=== PATIENT | female | born 1965 | race Caucasian/White ===

== ENCOUNTER 2017-08-06 15:22 | Emergency (ER) | payer MEDICARE, MEDICAID ==
[~2017-08-06] VITALS: Ht 160 cm; Wt 59.0 kg
[~2017-08-06 15:22] MED LIST: ASPI-892 PO; Aspirin PO; CLPD75T PO; CYCL5TAB PO; FEXO-14 PO; HYDR-2890 PO; HYDR-3062 PO; HYDR1TAB PO; IBP800T PO; INSASP10V SQ; INSU100I5 SQ; LEVE1U SQ; LEVO125T6 PO; LEVO88TA26 PO; LEVOTHYROXINE; Levothyroxine Sodium PO; MELO-195 PO; MELO-198 PO; METO25TA2 PO; SIMV10TA3 PO; Simvastatin PO; TRM50T PO; alavert
[2017-08-06] MEDS ORDERED: CHARCOAL/AQUEOUS 50 GM/240 ML BTL PO ONE (15:30)
--- NOTE | 2017-08-06 15:39 | ED Psychosocial ---
General Stated Complaint: SUICIDAL ACTIONS, TOOK A LOT OF TYLENOL PM Source: patient Exam Limitations: no limitations History of Present Illness Date Seen by Provider: Aug 06, 2017 Time Seen by Provider: 15:35 Initial Comments to ER with reports of being suicidal. She sent her daughter a text message at 2: 55 PM stating that she was "done" and wished her daughter goodbye. She stated that she was tired of dealing with inability to pay bills and finances and tired of "the struggle". She took one single Percocet and a handful of Tylenol p.m. Medication ingestion was withinthe past hour. She is open to receiving help. She does have a history of depression. Denies any alcohol use. She is a type I diabetic but has not been taking her insulin or checking her blood sugars. She denies taking any excessive insulin Timing/Duration: just prior to arrival Severity: moderate Allergies and Home Medications Allergies Coded Allergies: codeine (Unverified Allergy, Mild, PT TAKES TRAMADOL AT HOME, 01/18/14) sulfamethoxazole (Unverified Allergy, Unknown, 01/17/14) trimethoprim (Unverified Allergy, Unknown, 01/17/14) Home Medications Aspirin 81 Mg Tabec, 81 MG PO DAILY, (Reported) Clopidogrel Bisulfate 75 Mg Tab, 75 MG PO DAILY, (Reported) Cyclobenzaprine Hcl 5 Mg Tablet, 5 MG PO TID PRN for MUSCLE SPASMS, (Reported) Fexofenadine Hcl 60 Mg Tablet, 60 MG PO DAILY PRN for ALLERGIES, (Reported) Hydrocodone Bit/Acetaminophen 1 Each Tablet, 1 TAB PO Q8H PRN for PAIN, ( Reported) Insulin Aspart 10 Unit/0.1 Ml Vial, 5-15 UNITS SQ AC, (Reported) PATIENT ADJUSTEDS DOSAGE WITH BLOOD SUGAR AND CARB INTAKE IF BLOOD SUGAR < 150 - 5 UNITS 150-199 - 7 UNITS 200-225 - 10 UNITS 226-249 - 12 UNITS > 250 - 15 UNITS Insulin Determir 100 Unit/1 Ml Insuln.pen, 30 UNIT SQ DAILY, (Reported) Insulin Determir 100 U/Ml Insuln.pen, 15 UNITS SQ HS, (Reported) Levothyroxine Sodium 88 Mcg Tablet, 88 MCG PO DAILY, (Reported) Metoprolol Tartrate 25 Mg Tablet, 12.5 MG PO BID, (Reported) TAKES 1/2 (25MG) TABLET TWICE DAILY Simvastatin 10 Mg Tablet, 10 MG PO HS, (Reported) Patient Home Medication List Home Medication List Reviewed: Yes Constitutional: see HPI EENTM: see HPI Respiratory: no symptoms reported Cardiovascular: no symptoms reported Genitourinary: no symptoms reported Musculoskeletal: see HPI Skin: no symptoms reported Psychiatric/Neurological: No Symptoms Reported Past Bqlbnsz-Bzndjn-Umxnnd Hx Patient Social History Recent Foreign Travel: No Contact w/Someone Who Travel: No Immunizations Up To Date Tetanus Booster (TDap): Unknown PED Vaccines UTD: Yes Date of Pneumonia Vaccine: Jan 21, 2011 Date of Influenza Vaccine: Nov 18, 2012 Past Medical History Section, Lumpectomy, Tubal Ligation Reproductive Disorders: 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 Sexually Transmitted Disease: No HIV/AIDS: No Rheumatoid Arthritis Diabetes, Insulin dep Adverse Reaction/Blood Tranf: No Family Medical History Arthritis 19 FATHER G8 SISTER Cardiovascular disease 19 FATHER 19 MOTHER Deafness or hearing loss 19 FATHER Diabetes mellitus G8 BROTHER Fibrocystic disease of breast G8 SISTER Infertility G8 SISTER Kidney disease 19 FATHER Myocardial infarction 19 FATHER 19 MOTHER Thyroid disease G8 SISTER Visual disorder 19 FATHER G8 BROTHER No Family History of: AIDS Abdominal aortic aneurysm [place]'s disease Alcoholism Alzheimer's disease Aphasia Asthma Cancer of mouth Cataracts Colon cancer Completed stroke Congenital disease Congenital heart disease Coronary thrombosis Cystic fibrosis Dementia Drug abuse Dysphasia Gastroenteritis Glaucoma Headache disorder Hypercholesterolemia Hypertension Neoplasm Not obtainable due to adoption Osteoporosis Parkinson's disease Prostate cancer Psychosocial problem Respiratory disorder Seizure disorder Severe allergy Tuberculosis Physical Exam Vital Signs Vital Signs - First Documented 08/06/17 08/06/17 15:25 20:41 Temp 97.1 Pulse 79 Resp 18 B/P (MAP) 162/96 (118) Pulse Ox 98 O2 Delivery Room Air Capillary Refill : General Appearance: WD/WN, no apparent distress, other (tearful cooperative) HEENT: PERRL/EOMI, normal ENT inspection Neck: non-tender, full range of motion Respiratory: no respiratory distress, no accessory muscle use Gastrointestinal: normal bowel sounds, non tender, soft Neurologic/Psychiatric: alert, normal mood/affect, oriented x 3 Appearance/Memory: appropriate insight, disheveled Behavior/Eye Contact: cooperative, good eye contact Thoughts/Hallucinations: normal thought pattern, no apparent hallucination Skin: normal color, warm/dry Comments heart rate is 80, blood pressure 150/100. I discussed with poison control at 1533. They state that the Benadryl component of this can cause tachycardia, agitation, hypertension and possibly QRS widening. QRSduration exceeds 100 ms give 2 A of bicarbonate and repeat EKG. They would recommend EKG every 2 hours 3. IV fluids and benzodiazepines are the mainstay of treatment. Progress/Results/Core Measures Results/Orders Lab Results Laboratory Tests Test 08/06/17 15:29 08/06/17 16:42 08/06/17 17:15 08/06/17 18:00 Range/Units White Blood Count 7.8 4.3-11.0 10^3/uL Red Blood Count 4.41 4.35-5.85 10^6/uL Hemoglobin 14.0 11.5-16.0 G/DL Hematocrit 41 35-52 % Mean Corpuscular Volume 92 80-99 FL Mean Corpuscular Hemoglobin 32 25-34 PG Mean Corpuscular Hemoglobin Concent 34 32-36 G/DL Red Cell Distribution Width 13.6 10.0-14.5 % Platelet Count 294 130-400 10^3/uL Mean Platelet Volume 9.4 7.4-10.4 FL Neutrophils (%) (Auto) 61 42-75 % Lymphocytes (%) (Auto) 30 12-44 % Monocytes (%) (Auto) 5 0-12 % Eosinophils (%) (Auto) 4 0-10 % Basophils (%) (Auto) 1 0-10 % Neutrophils # (Auto) 4.8 1.8-7.8 X 10^3 Lymphocytes # (Auto) 2.3 1.0-4.0 X 10^3 Monocytes # (Auto) 0.4 0.0-1.0 X 10^3 Eosinophils # (Auto) 0.3 0.0-0.3 10^3/uL Basophils # (Auto) 0.0 0.0-0.1 10^3/uL Prothrombin Time 12.2 12.2-14.7 SEC INR Comment 0.9 0.8-1.4 Activated Partial Thromboplast Time 27 24-35 SEC Sodium Level 138 137 135-145 MMOL/L Potassium Level 4.9 4.0 3.6-5.0 MMOL/L Chloride Level 107 108 H 98-107 MMOL/L Carbon Dioxide Level 24 18 L 21-32 MMOL/L Anion Gap 7 11 5-14 MMOL/L Blood Urea Nitrogen 20 H 18 7-18 MG/DL Creatinine 0.81 0.91 0.60-1.30 MG/DL Estimat Glomerular Filtration Rate > 60 > 60 BUN/Creatinine Ratio 25 20 Glucose Level 286 H 371 H 70-105 MG/DL Calcium Level 9.5 8.2 L 8.5-10.1 MG/DL Total Bilirubin 0.4 0.2 0.1-1.0 MG/DL Aspartate Amino Transf (AST/SGOT) 66 H 50 H 5-34 U/L Alanine Aminotransferase (ALT/SGPT) 94 H 78 H 0-55 U/L Alkaline Phosphatase 89 75 40-136 U/L Total Protein 7.3 5.9 L 6.4-8.2 GM/DL Albumin 4.2 3.5 3.2-4.5 GM/DL Salicylates Level < 5.0 L 5.0-20.0 MG/DL Acetaminophen Level 96 *H 34 H 10-30 UG/ML Serum Alcohol < 10 <10 MG/DL Glucometer 341 H 70-110 MG/DL Urine Color YELLOW Urine Clarity CLEAR Urine pH 5 5-9 Urine Specific [place] 1.025 H 1.016-1.022 Urine Protein 1+ H NEGATIVE Urine Glucose (UA) 4+ H NEGATIVE Urine Ketones NEGATIVE NEGATIVE Urine Nitrite NEGATIVE NEGATIVE Urine Bilirubin NEGATIVE NEGATIVE Urine Urobilinogen NORMAL NORMAL MG/DL Urine Leukocyte Esterase NEGATIVE NEGATIVE Urine RBC (Auto) NEGATIVE NEGATIVE Urine RBC NONE /HPF Urine WBC RARE /HPF Urine Squamous Epithelial Cells 2-5 /HPF Urine Crystals NONE /LPF Urine Bacteria NEGATIVE /HPF Urine Casts NONE /LPF Urine Mucus NEGATIVE /LPF Urine Culture Indicated NO Urine Opiates Screen NEGATIVE NEGATIVE Urine Oxycodone Screen POSITIVE H NEGATIVE Urine Methadone Screen NEGATIVE NEGATIVE Urine Propoxyphene Screen NEGATIVE NEGATIVE Urine Barbiturates Screen NEGATIVE NEGATIVE Ur Tricyclic Antidepressants Screen NEGATIVE NEGATIVE Urine Phencyclidine Screen NEGATIVE NEGATIVE Urine Amphetamines Screen NEGATIVE NEGATIVE Urine Methamphetamines Screen NEGATIVE NEGATIVE Urine Benzodiazepines Screen NEGATIVE NEGATIVE Urine Cocaine Screen NEGATIVE NEGATIVE Urine Cannabinoids Screen NEGATIVE NEGATIVE Test 08/06/17 18:03 08/06/17 19:50 08/06/17 20:01 Range/Units Glucometer 365 H 111 H 90 70-110 MG/DL My Orders Orders - SAVAGE GERARDO TILE LAYER SUPERVISOR Cbc With Automated Diff (08/06/17 15:30) Comprehensive Metabolic Panel (08/06/17 15:30) Protime With Inr (08/06/17 15:30) Partial Thromboplastin Time (08/06/17 15:30) Ua Culture If Indicated (08/06/17 15:30) Drug Screen Stat (Urine) (08/06/17 15:30) Iv Heplock-Insert (Order) (08/06/17 15:30) Salicylate (08/06/17 15:30) Acetaminophen (08/06/17 15:30) Charcoal Activated Aqueous (Actidose Aqu (08/06/17 15:30) Alcohol (08/06/17 16:06) Insulin (Regular) Human (Humulin R (Per (08/06/17 16:45) Acetaminophen (08/06/17 17:54) Ekg Tracing (08/06/17 18:01) Comprehensive Metabolic Panel (08/06/17 18:01) Insulin (Regular) Human (Humulin R (Per (08/06/17 19:00) Ondansetron Injection (Zofran Injectio (08/06/17 20:00) Ns Iv 1000 Ml (Sodium Chloride 0.9%) (08/06/17 20:00) D50w (Emergency) Syringe (Dextrose 50% 5 (08/06/17 20:00) Medications Given in ED Current Medications Medications Dose Ordered Sig/Iris Route Start Time Stop Time Status Last Admin Dose Admin Charcoal 50 gm ONCE ONCE PO 08/06/17 15:30 08/06/17 15:34 DC 08/06/17 15:51 50 GM Dextrose 25 ml ONCE ONCE IV 08/06/17 20:00 08/06/17 20:01 DC 08/06/17 20:01 25 ML Insulin Human Regular 5 unit ONCE ONCE IV 08/06/17 16:45 08/06/17 16:46 DC 08/06/17 17:26 5 UNIT Insulin Human Regular 6 unit ONCE ONCE IV 08/06/17 19:00 08/06/17 19:01 DC 08/06/17 19:04 6 UNIT Ondansetron HCl 4 mg ONCE ONCE IVP 08/06/17 20:00 08/06/17 20:01 DC 08/06/17 20:01 4 MG Vital Signs/I&O 08/06/17 08/06/17 15:25 20:41 Temp 97.1 97.2 Pulse 79 66 Resp 18 14 B/P (MAP) 162/96 (118) 116/89 Pulse Ox 98 97 O2 Delivery Room Air Departure Communication (Admissions) I discussed with poison control.the QT C is 465 ms, QRS is 92 ms. She is normal sinus rhythm without ectopy. Blood pressure is 140/90, heart rate 73. On the repeat chemistry and acetaminophen level, both the AST ALT and acetaminophen level have dropped. She is cleared to be admitted to psychiatric facility by poison control center. they discussed with the mail manager who advises no additional labs are needed at this point, she can be transferred to psych facility.she has remained cooperative pleasant and agreeable to receiving help. 1908- I spoke with [facility] in [facility] who does have an inpatient female psychiatric bed. They agreed to accept the patient. I spoke with Dr. Prince who agrees. The psychiatric unit will call back with a bed number. We'll transport via EMS or secure psychiatric transport. I have written an affidavit that there is no one here to notarize this at this time of day. 2044- we have contacted Galina Abarca who does securepsych transport. 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 She briefly became lightheaded weak and nauseous about an hour ago with a blood pressure of 80 systolic. Her blood sugar was dropping rapidly down to 111. She was given fluids and Zofran and after about 10-15 minutes began feeling much better. Her blood sugar was then checked and was at 90s and she was given 25 mL of 50% dextrose. At this time, she is feeling back to normal, alert and ambulatory. Nausea is gone. No lightheadedness diaphoresis or weakness. Her blood sugar at this time is 68. However, she just finished eating a turkey and cheese sandwich, grapes peanut butter and crackers. She will be discharged with psych transport with some additional peanut butter and crackers. Impression Primary Impression: Suicide attempt Additional Impression: nontoxic acetaminophen overdose Disposition: 65 XFER TO PSYCH HOSP/UNIT Condition: Stable Departure-Patient Inst. Referrals: [facility] (PCP) Primary Care Physician RICKY MENA APRN (Family) Primary Care Physician SAVAGE GERARDO APRN Aug 06, 2017 15:39
[2017-08-06 15:42] LABS: BASOPHILS % (AUTO) 1 % (0-10); EOSINOPHILS # (AUTO) 0.3 10^3/uL (0.0-0.3); EOSINOPHILS % (AUTO) 4 % (0-10); HEMATOCRIT 41 % (35-52); LYMPHOCYTES # (AUTO) 2.3 X 10^3 (1.0-4.0); LYMPHOCYTES % (AUTO) 30 % (12-44); MEAN CORPUSCULAR HEMOGLOBIN 32 PG (25-34); MEAN CORPUSCULAR HGB CONC 34 G/DL (32-36); MEAN CORPUSCULAR VOLUME 92 FL (80-99); MEAN PLATELET VOLUME 9.4 FL (7.4-10.4); MONOCYTES # (AUTO) 0.4 X 10^3 (0.0-1.0); MONOCYTES % (AUTO) 5 % (0-12); NEUTROPHILS # (AUTO) 4.8 X 10^3 (1.8-7.8); NEUTROPHILS % (AUTO) 61 % (42-75); PLATELET COUNT 294 10^3/uL (130-400); RED BLOOD COUNT 4.41 10^6/uL (4.35-5.85); RED CELL DISTRIBUTION WIDTH 13.6 % (10.0-14.5); WHITE BLOOD COUNT 7.8 10^3/uL (4.3-11.0)
[2017-08-06 15:48] LABS: INR 0.9 (0.8-1.4); PROTHROMBIN TIME PATIENT 12.2 SEC (12.2-14.7)
[2017-08-06 15:58] LABS: ALANINE AMINOTRANSFERASE 94 U/L (0-55); ALBUMIN 4.2 GM/DL (3.2-4.5); ALKALINE PHOSPHATASE 89 U/L (40-136); BILIRUBIN,TOTAL 0.4 MG/DL (0.1-1.0); BUN/CREATININE RATIO 25; CALCIUM 9.5 MG/DL (8.5-10.1); CARBON DIOXIDE 24 MMOL/L (21-32); CHLORIDE 107 MMOL/L (98-107); CREATININE SERUM 0.81 MG/DL (0.60-1.30); GFR ESTIMATED > 60; GLUCOSE 286 MG/DL (70-105); POTASSIUM 4.9 MMOL/L (3.6-5.0); SALICYLATE < 5.0 MG/DL (5.0-20.0); SODIUM 138 MMOL/L (135-145); TOTAL PROTEIN 7.3 GM/DL (6.4-8.2)
[2017-08-06 16:01] LABS: ACETAMINOPHEN 96 UG/ML (10-30)
[2017-08-06] MEDS ORDERED: inSUlin (REGULAR) HUMAN 1 UNIT/0.01 ML (CHARGE PER UNIT) IV ONE ×2 (16:45→19:00)
[2017-08-06 17:22] LABS: BILIRUBIN,URINE NEGATIVE (NEGATIVE); CLARITY,URINE CLEAR; COLOR,URINE YELLOW; GLUCOSE, URINE (UA) 4+ (NEGATIVE); KETONES,URINE NEGATIVE (NEGATIVE); LEUKOCYTE ESTERASE ,URINE NEGATIVE (NEGATIVE); NITRITE,URINE NEGATIVE (NEGATIVE); PH,URINE 5 (5-9); PROTEIN,URINE 1+ (NEGATIVE); UROBILINOGEN,URINE NORMAL (NORMAL)
[2017-08-06 17:35] LABS: BACTERIA,URINE NEGATIVE /HPF; WBC,URINE RARE /HPF
[2017-08-06 17:41] LABS: AMPHETAMINE SCREEN, URINE NEGATIVE (NEGATIVE); BARBITURATE SCREEN URINE NEGATIVE (NEGATIVE); BENZODIAZEPINES SCREEN URINE NEGATIVE (NEGATIVE); CANNABINOID SCREEN, URINE NEGATIVE (NEGATIVE); COCAINE SCREEN URINE NEGATIVE (NEGATIVE); METHADONE STAT NEGATIVE (NEGATIVE); METHAMPHETAMINE SCREEN URINE S NEGATIVE (NEGATIVE); OPIATE SCREEN URINE NEGATIVE (NEGATIVE); OXYCODONE STAT POSITIVE (NEGATIVE); PROPOXYPHENE STAT NEGATIVE (NEGATIVE); TRICYCLIC ANTIDEPRESSANTS SCRE NEGATIVE (NEGATIVE)
[2017-08-06 18:31] LABS: ACETAMINOPHEN 34 UG/ML (10-30); ALANINE AMINOTRANSFERASE 78 U/L (0-55); ALBUMIN 3.5 GM/DL (3.2-4.5); ALKALINE PHOSPHATASE 75 U/L (40-136); BILIRUBIN,TOTAL 0.2 MG/DL (0.1-1.0); BUN/CREATININE RATIO 20; CALCIUM 8.2 MG/DL (8.5-10.1); CARBON DIOXIDE 18 MMOL/L (21-32); CHLORIDE 108 MMOL/L (98-107); CREATININE SERUM 0.91 MG/DL (0.60-1.30); GFR ESTIMATED > 60; GLUCOSE 371 MG/DL (70-105); SODIUM 137 MMOL/L (135-145); TOTAL PROTEIN 5.9 GM/DL (6.4-8.2)
[2017-08-06] MEDS ORDERED: NS IV 1000 ML 1,000 ML IV SCH (20:00)
[2017-08-06] MEDS ORDERED: DEXTROSE 50% 50 ML (IMS) SYR IV ONE (20:00)
[2017-08-06] MEDS ORDERED: ONDANSETRON 4 MG/2 ML (SDV) Z0FRAN IVP ONE (20:00)
[2017-08-06 20:41] VITALS: BP 116/89
== END 2017-08-06 20:41 ==
LOC: EDUNIT# 15:22 → ER 15:24
DX: T39.1X2A Poisoning by 4-Aminophenol derivatives, intentional self-harm, initial encounter (principal); M10.9 Gout, unspecified; E10.9 Type 1 diabetes mellitus without complications; Z98.51 Tubal ligation status; Z87.59 Personal history of other complications of pregnancy, childbirth and the puerperium; Z79.4 Long term (current) use of insulin; Z88.2 Allergy status to sulfonamides; Z88.1 Allergy status to other antibiotic agents; Z88.5 Allergy status to narcotic agent
CPT/HCPCS: 36415; 80053; 80306; 80320; 80329; 81000; 82962; 85025; 85610; 85730; 93005; 96361; 96374; 96375; 96376

== ENCOUNTER 2017-08-29 14:40 | Observation (INO) | payer MEDICARE, MEDICAID ==
[~2017-08-29] VITALS: Ht 160 cm; Wt 59.0 kg
[2017-08-29] VITALS (8 sets, daily range): BP systolic 117–152; BP diastolic 72–83
--- OUTSIDE RECORDS SUMMARY | 2017-08-29 14:45 | XMS REPORT ---
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 Active Problem Depression, prolonged F32.9 Active Problem 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 Assessment Hypothyroid E03.9 Active Assessment Hyperlipemia E78.5 Active Problem DM (diabetes mellitus) type I uncontrolled with eye manifestation E10.39 Active Problem Insomnia G47.00 Active Problem CAD (coronary artery disease) I25.10 Active Problem Hyperlipidemia, acquired E78.5 Active Problem Hypothyroidism in adult E03.9 Active Problem Insulin long-term use Z79.4 Active Problem Rheumatoid arthritis involving both feet M06.071 Active Medications Medication Code System Code Instructions Start Date End Date Status Dosage Levothyroxine Sodium [facility] [address]-01 125 MCG Orally Once a day Dec 01, 2014 1 tablet Simvastatin FOR[facility] NAMED [facility] [address]-45 20 MG Orally Once a day Dec 01, 2014 1 tablet in the evening Results No Known Results Summary Purpose eClinicalWorks Submission
--- OUTSIDE RECORDS SUMMARY | 2017-08-29 14:46 | XMS REPORT ---
Author Author CHRISTINA PENNY Organization [facility] Address [address] [place] [address] Care Team Providers Care Manager Personal Name Role Phone PENNY, CHRISTINA Unavailable PROBLEMS Type Condition ICD9-CM Code [id number] Code Onset Dates Condition Status SNOMED Code Problem CAD (coronary artery disease) I25.10 Active 43261558 Problem Hypothyroidism in adult E03.9 Active 97695403 Problem Depression, prolonged F32.9 Active 24140469 Problem Type 1 diabetes mellitus with other circulatory complication E10.59 Active 02453610 Problem Pure hypercholesterolemia E78.00 Active 504357201 Problem Insomnia G47.00 Active 162659531 Problem 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 Active 698190440 Problem Rheumatoid arthritis involving multiple sites with positive rheumatoid factor M05.79 Active 45267454 Problem 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 Z79.4 Active 036759744 Problem Rheumatoid arthritis involving both feet M06.071 Active 832539343 Problem Hyperlipidemia, acquired E78.5 Active 7192640 Problem Environmental allergies Z91.09 Active 147591333 Problem 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 197326549 ALLERGIES No Information SOCIAL HISTORY Never Assessed PLAN OF CARE VITAL SIGNS MEDICATIONS Medication Instructions Dosage Frequency Start Date End Date Duration Status Percocet 7.5-325 MG Orally every 6 hrs 1 tablet as needed 6h June, Active RESULTS No Results PROCEDURES No Known procedures IMMUNIZATIONS No Known Immunizations MEDICAL (GENERAL) HISTORY Type Description Date Medical History hyperlipidemia Medical History thyroid disorder Medical History diabetes mellitus type 1 dx 1986 Medical History rheumatologic disorder arthritis Medical History RA factor 247, CCp 85.3 Medical History arthropathy artrhitis reumatoid Medical History orthopeadic disorder carpal tunnel -left wrist Medical History neurologic disorder diabetec neuropathy Medical History myocardial infarction-- stents placed x2-- Dr Dawson (Dec 2013 ) Surgical History breast lumpectomy was performed 1999, 2006 dr. House Surgical History tubal ligation 2000 ([facility]) Surgical History section 11/08/1995 Surgical History neuroplasty with transposition of median nerve at carpal tunnel 1997 - right , 2000- left Surgical History Stents placed x2-- Dr Dawson Hospitalization History heart attack 01/17/2014 Hospitalization History hypoglycemia 02/2015 Hospitalization History dehydration 08/2016
--- OUTSIDE RECORDS SUMMARY | 2017-08-29 14:46 | XMS REPORT ---
Author Author CHRISTINA PENNY Organization [facility] Address [address] [place] [address] Care Team Providers Care Life Care Planner Name Role Phone PENNYASHOKCHRISTINA Unavailable PROBLEMS Type Condition ICD9-CM Code [id number] Code Onset Dates Condition Status SNOMED Code Problem CAD (coronary artery disease) I25.10 Active 00283251 Problem Hypothyroidism in adult E03.9 Active 87000965 Problem Depression, prolonged F32.9 Active 06173995 Problem Type 1 diabetes mellitus with other circulatory complication E10.59 Active 69103350 Problem Pure hypercholesterolemia E78.00 Active 447703643 Problem Insomnia G47.00 Active 789250436 Problem 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 Active 927552675 Problem Rheumatoid arthritis involving multiple sites with positive rheumatoid factor M05.79 Active 39413850 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
--- OUTSIDE RECORDS SUMMARY | 2017-08-29 14:46 | XMS REPORT ---
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 Active Problem Hypercholesterolemia E78.0 Active Problem Type 2 diabetes mellitus with hypoglycemia without coma E11.649 Active Problem CAD (coronary artery disease) I25.10 Active Problem DM (diabetes mellitus) type I uncontrolled with eye manifestation E10.39 Active Problem Environmental allergies Z91.09 Active Problem Rib pain R07.81 Active Problem 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 Active Problem 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 Problem Depression, prolonged F32.9 Active Problem Hypothyroidism in adult E03.9 Active Medications Medication Code System Code Instructions Start Date End Date Status Dosage Oxycodone-Acetaminophen [facility] [address]-05 7.5-325 MG Orally 3 times a day PRN Apr 14, 2015 1 tablet as needed Results No Known Results Summary Purpose eClinicalWorks Submission
--- OUTSIDE RECORDS SUMMARY | 2017-08-29 14:46 | XMS REPORT ---
Author Author CHRISTINA Mcqueen Organization [facility] Address [address] [place] [address] Care Team Providers Care Seniour Insight Manager Name Role Phone CHRISTINA Mcqueen Unavailable PROBLEMS Type Condition ICD9-CM Code KSH75-LV Code Onset Dates Condition Status SNOMED Code Problem 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 Active 213162964 Problem Hypothyroidism in adult E03.9 Active 87563276 Problem CAD (coronary artery disease) I25.10 Active 54795685 Problem Type 1 diabetes mellitus with other circulatory complication E10.59 Active 14727633 Problem Insomnia G47.00 Active 952445665 Problem Recurrent major depressive disorder, in full remission F33.42 Active 078679241 Problem Rheumatoid arthritis involving multiple sites with positive rheumatoid factor M05.79 Active 21894830 Problem 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 525899035 Problem Hyperlipidemia, acquired E78.5 Active 7590932 Problem 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 306661756 Problem Environmental allergies Z91.09 Active 578705899 ALLERGIES Substance Reaction Event Type Date Status Codeine Phosphate itching Drug Allergy Aug, Active Bactrim Unknown Drug Allergy Aug, Active ENCOUNTERS Encounter Location Date Diagnosis [facility] [id number], [place] [address] Apr, Hypothyroidism in adult E03.9 [facility] [address] [facility] [id number] [address] Apr, Type 1 diabetes mellitus with other circulatory complication E10.59 ; 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 ; Rheumatoid arthritis involving multiple sites with positive rheumatoid factor M05.79 ; Hypothyroidism in adult E03.9 ; Hyperlipidemia, acquired E78.5 ; Recurrent major depressive disorder, in full remission F33.42 ; senior care current use of insulin Z79.4 ; Environmental allergies Z91.09 and CAD (coronary artery disease ) I25.10 [facility] [address], [place] [address] Apr, Rheumatoid arthritis involving multiple sites with positive rheumatoid factor M05.79 [facility] [address], [place] [address] Mar, Rheumatoid arthritis involving multiple sites with positive rheumatoid factor M05.79 [facility] [id number] [place] [address] 41668- 6570 Feb, [facility] [id number] [place] [address] 34418- 8344 Feb, CAD (coronary artery disease) I25.10 ; 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 and Hypothyroidism in adult E03.9 [facility] [id number] [place] [address] 44382- 9596 Feb, Rheumatoid arthritis involving multiple sites with positive rheumatoid factor M05.79 [facility] [id number] [place] [address] 35267- 1178 Jan, Hypothyroidism in adult E03.9 [facility] [id number] [place] [address] 46087- 4073 Jan, Rheumatoid arthritis involving multiple sites with positive rheumatoid factor M05.79 and CAD (coronary artery disease) I25.10 [facility] [id number] [place] [address] 27913- 8169 Jan, 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 ; 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 ; Hyperlipidemia, acquired E78.5 ; Hypothyroidism in adult E03.9 and Fever blister B00.1 [facility] [id number] [place] [address] 32303- 4651 Dec, Rheumatoid arthritis involving multiple sites with positive rheumatoid factor M05.79 [facility] [address] [place] [address] 29925- 9544 Nov, Rheumatoid arthritis involving multiple sites with positive rheumatoid factor M05.79 [facility] [id number], [place] [address] 3162 14 Oct, 2016 Rheumatoid arthritis involving multiple sites with positive rheumatoid factor M05.79 [facility] [address] [address] 06 Oct, 2016 Rheumatoid arthritis involving multiple sites with positive rheumatoid factor M05.79 [facility] [address] [address] 1445 Sep, Rheumatoid arthritis involving multiple sites with positive rheumatoid factor M05.79 [facility] [address] [address] Aug, [facility] [address] [place] [address] 11133- 0756 Aug, 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 ; 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 ; CAD (coronary artery disease) I25.10 ; Rheumatoid arthritis involving both feet M06.071 ; Insomnia G47.00 ; Hypothyroidism in adult E03.9 ; Hypercholesterolemia E78.0 and Rheumatoid arthritis involving multiple sites with positive rheumatoid factor M05.79 [facility] [address], [place] [address] 1741 Jul, [facility] [address], [place] [address] 8[address] June, [facility] [address], [place] [address] 5831 June, Depression, prolonged F32.9 [facility] [id number], [place] [address] 0[address] June, [facility] [address], [place] [address] 9518 June, [facility] [address] [address] [address] June, Hypothyroidism in adult E03.9 [facility] [address] [address] June, Rheumatoid arthritis involving both feet M06.071 [facility] [id number] [place] [address] 22752- 1027 May, CAD (coronary artery disease) I25.10 ; Rheumatoid arthritis involving both feet M06.071 ; Hyperlipidemia, acquired E78.5 ; Hypothyroidism in adult E03.9 ; Depression, prolonged F32.9 ; 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 ; Type 2 diabetes mellitus with hypoglycemia without coma E11.649 ; Vision abnormalities H53.9 and Vision changes H53.9 [facility] [id number] [place] [address] 76935- 3873 Apr, [address] [address]- 7627 Apr, DM (diabetes mellitus) type I uncontrolled with eye manifestation E10.39 [id number] [place] [address] 66331- 0337 Apr, Rheumatoid arthritis involving both feet M06.071 [facility] [id number] [place] [address] 57577- 7284 Mar, Rheumatoid arthritis involving both feet M06.071 [facility] [address] 22819- 5769 Mar, [facility] [id number] [place] [address] 68998- 1858 Feb, Rheumatoid arthritis involving both feet M06.071 [facility] [id number] [place] [address] 22073- 5960 Feb, DM (diabetes mellitus) type I uncontrolled with eye manifestation E10.39 ; Rheumatoid arthritis involving both feet M06.071 ; CAD ( coronary artery disease) I25.10 ; Depression, prolonged F32.9 ; Hyperlipidemia, acquired E78.5 ; Hypothyroidism in adult E03.9 and Environmental allergies Z91.09 [facility] [id number] [place] [address] 53913- 3279 Jan, [id number] [place] [address] 25502- 1347 Jan, Hyperlipemia E78.5 ; DM (diabetes mellitus) type I uncontrolled with eye manifestation E10.39 ; CAD (coronary artery disease) I25.10 ; Hyperlipidemia, acquired E78.5 ; Depression, prolonged F32.9 ; 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 ; Hypercholesterolemia E78.0 ; RA (refractory anemia) D46.4 and Rheumatoid arthritis involving multiple sites with positive rheumatoid factor M05.79 [facility] [address] [address]- 9256 Jan, [facility] [address] 36[address]- 7475 Jan, [facility] [address] 99904- 9533 Sep, [facility] [address] 28410- 8670 Sep, [facility] [id number] [place] [address] 37315- 8267 Aug, [facility] [address] [address]- 1961 Aug, [facility] [id number] [place] [address] 41876- 5170 Jul, Type 2 diabetes mellitus with hypoglycemia without coma E11.649 and 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 [facility] [id number] [place] [address] 97497- 4955 June, CAD (coronary artery disease) I25.10 ; Insomnia G47.00 ; Rheumatoid arthritis involving both feet M06.071 ; Hypothyroidism in adult E03.9 ; 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 ; Type 2 diabetes mellitus with hypoglycemia without coma E11.649 ; senior care current use of insulin Z79.4 ; Hypercholesterolemia E78.0 ; Environmental allergies Z91.09 and Rib pain R07.81 [id number] [place] [address] 67773- 3244 June, [facility] [address], [place] [address] 9388 June, 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 [facility] [address], [place] [address]- 6778 May, Rheumatoid arthritis involving both feet M06.071 [facility] [address], [place] [address]- 3127 May, CAD (coronary artery disease) I25.10 ; DM (diabetes mellitus ) type I uncontrolled with eye manifestation E10.39 ; Insomnia G47.00 ; Rheumatoid arthritis involving both feet M06.071 ; Hyperlipidemia, acquired E78.5 ; Depression, prolonged F32.9 ; 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 and Hypothyroid E03.[address], [place] [address]- 9390 Apr, [facility] [address], [place] [address]- 3766 Mar, DM (diabetes mellitus) type I uncontrolled with eye manifestation E10.39 ; Insomnia G47.00 ; Insulin long-term use Z79.4 ; Rheumatoid arthritis involving both feet M06.071 ; Hyperlipidemia, acquired E78.5 ; Hypothyroidism in adult E03.9 ; Depression, prolonged F32.9 ; CAD ( coronary artery disease) I25.10 and 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 [facility] [address], [place] [address]- 4594 Mar, [facility] [address], [place] [address]- 2107 Feb, [facility] [address], [place] [address]- 4497 Jan, [facility] [address], [place] [address]- 4083 Dec, [facility] [id number], [place] [address]- 6703 Nov, [facility] [id number] [place] [address] 34721- 0068 14 Nov, 2014 Hyperlipemia E78.5 and Hypothyroid E03.9 [facility] [id number] [place] [address] 91332- 0381 13 Nov, 2014 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 ; DM (diabetes mellitus) type I uncontrolled with eye manifestation E10.39 ; Hypothyroidism in adult E03.9 and Hyperlipidemia, acquired E78.5 [facility] [id number] [place] [address] 09750- 9105 07 Nov, 2014 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 ; CAD (coronary artery disease) I25.10 ; DM (diabetes mellitus) type I uncontrolled with eye manifestation E10.39 ; Insomnia G47.00 ; Rheumatoid arthritis involving both feet M06.071 ; Insulin long-term use Z79.4 ; Hyperlipidemia, acquired E78.5 ; Hypothyroidism in adult E03.9 ; Depression, prolonged F32.9 and 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 [facility] [id number] [place] [address] 50719- 0752 Oct, [facility] [id number] [place] [address] 03449- 5423 Oct, [facility] [id number] [place] [address] 72205- 7353 Oct, [facility] [id number] [place] [address] 39727- 0530 Sep, [facility] [id number] [place] [address] 22817- 4230 Aug, [facility] [address] 73145059- 7978 Aug, Coronary atherosclerosis of unspecified type of vessel, mentasta or graft 414.00 ; Rheumatoid arthritis 714.0 ; Insulin dependent diabetes mellitus 250.00 ; Hyperlipidemia 272.4 ; Hypothyroidism 244.9 ; Depression 311 and Insomnia 780.52 [facility] [address], [place] [address]- 3601 Aug, [facility] [id number] [place] [address] 36222- 4119 Jul, [facility] [address], [place] [address]- 4383 Jul, [facility] [id number] [place] [address] 75022- 4199 Jul, Breast cancer screening V76.10 [facility] [id number] [place] [address] 824524- 1931 Jul, ASCUS with positive high risk HPV 796.9 [facility] [id number] [place] [address] 72036- 9686 June, [facility] [id number] [place] [address] 64925- 0287 June, Routine gynecological examination V72.31 ; Pap test, as part of routine gynecological examination V76.2 ; Breast cancer screening V76.10 ; Perimenopausal 627.2 and Tobacco abuse 305.1 [facility] [address] [place] [address] 68830- 6250 June, Rheumatoid arthritis 714.0 ; Insulin dependent diabetes mellitus 250.00 and Depression 311 [facility] [address], [place] [address]- 0217 June, [facility] [address], [place] [address]- 9208 June, [facility] [address], [place] [address]- 2861 May, [facility] [id number], [place] [address]- 0490 May, [facility] [address], [place] [address]- 9684 Apr, [facility] [place] [facility] [address] [id number] [place] [address]- 1895 Apr, [facility] [place] [facility] [address] [id number] [place] [address]- 6480 Apr, [facility] [place] [facility] [address] [id number] [place] [address]- 0046 Apr, [facility] [place] [facility] [address] [id number] [place] [address]- 2236 Apr, [facility] [place] [facility] [address] [id number] [place] [address]- 0187 Apr, [facility] [place] [facility] [address] [id number] [place] [address]- 2562 Apr, [facility] [place] [facility] [address] [id number] [place] [address]- 1925 Apr, [facility] [place] [facility] [address] [id number] [place] [address]- 5777 Apr, [facility] [place] [facility] [address] [id number] [place] [address]- 5012 Apr, [facility] [place] [facility] [address] [id number] [place] [address]- 7346 Apr, [facility] [place] [facility] [address] [id number] [place] [address]- 0178 Apr, [facility] [place] [facility] [address] [id number] [place] [address]- 9995 Feb, [facility] [place] [facility] [address] [id number] [place] [address]- 2139 Feb, [facility] [place] [facility] [address] [id number] [place] [address]- 4325 Feb, [facility] [place] [facility] [address] [id number] [place] [address]- 6295 Feb, [facility] [place] [facility] [address] [id number] [place] [address]- 3034 Feb, [facility] [place] [facility] [address] [id number] [place] [address]- 2369 Feb, [facility] [place] [facility] [address] [id number] [place] [address]- 7318 Jan, [facility] [place] [facility] [address] [id number] [place] [address]- 7003 Jan, [facility] [place] [facility] [address] [id number] [place] [address]- 8531 Jan, [facility] [place] [facility] [address] [id number] [place] [address]- 5983 Jan, [facility] [place] [facility] [address] [id number] [place] [address]- 9509 Jan, [facility] [place] [facility] [address] [id number] [place] [address]- 2023 Jan, [facility] [place] [facility] [address] [id number] [place] [address]- 1337 Jan, [facility] [place] [facility] [address] [id number] [place] [address]- 7752 Jan, [facility] [place] [facility] [address] [id number] [place] [address]- 5368 Jan, [facility] [place] [facility] [address] [id number], [place] [address]- 0806 Jan, [facility] [place] [facility] [address] [id number], [place] [address]- 3344 Dec, [facility] [place] [facility] [address] [id number] [place] [address]- 2314 Dec, [facility] [place] [facility] [address] [id number], [place] [address]- 3556 Nov, [facility] [place] [facility] [address] [id number] [place] [address]- 2294 Nov, [facility] [place] [facility] [address] [id number] [place] [address]- 7843 28 Nov, 2013 [facility] [place] [facility] [address] [id number] [place] [address]- 4836 Nov, [facility] [place] [facility] [address] [id number] [place] [address]- 2776 Nov, [facility] [place] [facility] [address] [id number] [place] [address]- 6737 27 Oct, 2013 [facility] [place] [facility] [address] [id number] [place] [address] 2547 27 Oct, 2013 [facility] [place] [facility] [address] [id number] [place] [address]- 0824 23 Oct, 2013 [facility] [place] [facility] [address] [id number] [place] [address]- 6571 23 Oct, 2013 [facility] [place] [facility] [address] [id number] [place] [address]- 0699 22 Oct, 2013 [facility] [place] [facility] [address] [id number] [place] [address]- 2542 22 Oct, 2013 [facility] [place] [facility] [address] [id number] [place] [address] 2544 18 Oct, 2013 [facility] [place] [facility] [address] [id number] [place] [address]- 2544 18 Oct, 2013 [facility] [place] [facility] [address] [id number] [place] [address] 2546 12 Oct, 2013 [facility] [place] [facility] [address] [id number] [place] [address]- 2549 12 Oct, 2013 [facility] [place] [facility] [address] [id number] [place] [address] 2542 11 Oct, 2013 [facility] [place] [facility] [address] [id number] [place] [address]- 2541 11 Oct, 2013 [facility] [place] [facility] [address] [id number] [place] [address] 2549 Oct, [facility] [place] [facility] [address] [id number] [place] [address]- 8493 Oct, [facility] [place] [facility] [address] [id number] [place] [address]- 4740 Oct, [facility] [place] [facility] [address] [id number] [place] [address]- 8194 Oct, [facility] [place] [facility] [address] [id number] [place] [address]- 7645 June, [facility] [place] [facility] [address] [id number] [place] [address]- 6215 June, [facility] [place] [facility] [address] [id number] [place] [address]- 1889 June, [facility] [place] [facility] [address] [id number] [place] [address]- 7548 June, [facility] [place] [facility] [address] [id number] [place] [address]- 8113 May, [facility] [place] [facility] [address] [id number] [place] [address]- 5824 May, [facility] [place] [facility] [address] [id number] [place] [address]- 9836 Apr, [facility] [place] [facility] [address] [id number] [place] [address]- 7264 Apr, [facility] [place] [facility] [address] [id number] [place] [address]- 8266 Mar, [facility] [place] [facility] [address] [id number] [place] [address]- 9841 Mar, [facility] [place] [facility] [address] [id number] [place] [address]- 0755 Mar, [facility] [place] [facility] [address] [id number] [place] [address]- 8425 Mar, [facility] [place] [facility] [address] [id number] [place] [address]- 0400 Mar, [facility] [address] [id number] [place] [address]- 0255 Mar, [facility] [place] [facility] [address] [id number] [place] [address]- 4524 Jan, [facility] [place] [facility] [address] [id number] [place] [address]- 8743 Jan, [facility] [place] [facility] [address] [id number] [place] [address]- 0419 Dec, [facility] [place] [facility] [address] [id number] [place] [address]- 6045 Dec, [facility] [place] [facility] [address] [id number] [place] [address]- 2897 Dec, [facility] [place] [facility] [address] [id number] [place] [address]- 7772 Dec, [facility] [place] [facility] [address] [id number] [place] [address]- 4013 Dec, [facility] [place] [facility] [address] [id number] [place] [address]- 4800 Dec, [facility] [place] [facility] [address] [id number] [place] [address]- 9624 Nov, [facility] [place] [facility] [address] [id number] [place] [address]- 3000 30 Nov, 2012 [facility] [place] [facility] [address] [id number], [place] [address]- 1821 Nov, [facility] [place] [facility] [address] [id number] [place] [address]- 9917 17 Nov, 2012 [facility] [place] [facility] [address] [id number], [place] [address]- 2723 15 Nov, 2012 [facility] [place] [facility] [address] [id number], [place] [address]- 6139 15 Nov, 2012 [facility] [place] [facility] [address] [id number] [place] [address]- 8560 10 Nov, 2012 [facility] [place] [facility] [address] [id number] [place] [address]- 6089 10 Nov, 2012 [facility] [place] [facility] [address] [id number] [place] [address]- 5109 26 Oct, 2012 [facility] [place] [facility] [address] [id number] [place] [address]- 9254 18 Oct, 2012 [facility] [place] [facility] [address] [id number] [place] [address]- 5041 17 Oct, 2012 [facility] [place] [facility] [address] [id number] [place] [address]- 4578 12 Oct, 2012 [facility] [place] [facility] [address] [id number] [place] [address]- 4311 11 Oct, 2012 [facility] [place] [facility] [address] [id number] [place] [address]- 1278 07 Oct, 2012 [facility] [place] [facility] [address] [id number] [place] [address]- 9536 06 Oct, 2012 [facility] [place] [facility] [address] [id number] [place] [address]- 6186 Sep, [facility] [place] [facility] [address] [id number] [place] [address]- 8533 Sep, [facility] [place] [facility] [address] [id number] [place] [address]- 6278 Sep, [facility] [place] [facility] [address] [id number] [place] [address]- 5667 Sep, [facility] [place] [facility] [address] [id number] [place] [address]- 0228 Sep, [facility] [place] [facility] [address] [id number] [place] [address] 16 Sep, 2012 [facility] [place] [facility] [address] [id number] [place] [address] Sep, [facility] [address] [id number] [place] [address] Sep, [facility] [place] [facility] [address] [id number] [place] [address] Aug, [facility] [place] [facility] [address] [id number] [place] [address] Aug, [facility] [place] [facility] [address] [id number] [place] [address] Jul, [facility] [place] [facility] [address] [id number] [place] [address] Jul, [facility] [place] [facility] [address] [id number] [place] [address] Jul, [facility] [place] [facility] [address] [id number] [place] [address] Jul, [facility] [place] [facility] [address] [id number] [place] [address] June, [facility] [place] [facility] [address] [id number] [place] [address] June, [facility] [place] [facility] [address] [id number] [place] [address] May, [facility] [place] [facility] [address] [id number] [place] [address] Apr, [facility] [place] [facility] [address] [id number] [place] [address] Mar, [facility] [place] [facility] [address] [id number] [place] [address] Mar, [facility] [place] [facility] [address] [id number] [place] [address] Feb, [facility] [place] [facility] [address] [id number] [place] [address] Oct, [facility] [place] [facility] [address] [id number] [place] [address] 16 Sep, 2011 [facility] [address] [id number] [place] [address] Jul, [facility] [place] [facility] [address] [id number] [place] [address] 24 May, 2011 [facility] [address] [id number] [place] [address] May, [facility] [place] [facility] [address] [id number] [place] [address] 16 Mar, 2011 [facility] [address] [id number] [place] [address] 15 Mar, 2011 [facility] [address] [id number] [place] [address] 14 Mar, 2011 [facility] [address] [id number] [place] [address] Feb, [facility] [address] [id number] [place] [address] Feb, [facility] [address] [id number] [place] [address] Feb, [facility] [address] [id number] [place] [address] Feb, [facility] [place] [place] [facility] [address] [id number] [place] [address] Feb, [facility] [place] [facility] [address] [id number] [place] [address] Feb, [facility] [place] [facility] [address] [id number] [place] [address] Feb, [facility] [place] [facility] [address] [id number] [place] [address] Feb, [facility] [place] [facility] [address] [id number] [place] [address] Jan, [facility] [place] [facility] [address] [id number] [place] [address] Jan, [facility] [place] [facility] [address] [id number] [place] [address] Dec, [facility] [place] [facility] [address] [id number] [place] [address] Dec, [facility] [place] [facility] [address] [id number] [place] [address] Dec, [facility] [place] [facility] [address] [id number] [place] [address] Dec, [facility] [place] [facility] [address] [id number] [place] [address] Nov, [facility] [place] [facility] [address] [id number] [place] [address] Jan, [facility] [place] [facility] [address] [id number] [place] [address] Jan, [facility] [place] [facility] [address] [id number] [place] [address] Jan, [facility] [place] [facility] [address] [id number] [place] [address] Jan, [facility] [place] [facility] [address] [id number] [place] [address] Jan, [facility] [place] [facility] [address] [id number], [place] [address] Jan, [facility] [place] [facility] [address] [id number] [place] [address] Jan, [facility] [place] [facility] [address] [id number] [place] [address] Jan, [facility] [place] [facility] [address] [id number] [place] [address] Dec, [facility] [place] [facility] [address] [place] [address] Nov, [facility] [address] [place] [address] Jul, [facility] [address], [place] [address] June, [facility] [address] [place] [address] June, [facility] [address] [place] [address] May, [facility] [id number] [place] [address] Jan, [facility] [address], [place] [address] Dec, [facility] [address], [place] [address] Dec, [facility] [address], [place] [address] Dec, [facility] [address], [place] [address] Nov, [facility] [address], [place] [address] Nov, [facility] [address], [place] [address] Oct, IMMUNIZATIONS No Known Immunizations SOCIAL HISTORY Never Assessed REASON FOR VISIT 3 month Follow up. Pt was in the ER in [place] last week for borderline ketoacidosis and dehydration. ER doctor switched her insulin to sliding scale. (August 24). Pt states that because of her recent stay for observation in hospital that her blood sugars went high. MARIJA You PLAN OF CARE Activity Details Follow Up 3 Months Reason:dm VITAL SIGNS Height 64 in 2016-09-04 Weight 116.5 lbs 2016-09-04 Temperature 98.6 degrees Fahrenheit 2016-09-04 Heart Rate 80 bpm 2016-09-04 Respiratory Rate 16 2016-09-04 BMI 19.99 kg/m2 2016-09-04 Blood pressure systolic 120 mmHg 2016-09-04 Blood pressure diastolic 70 mmHg 2016-09-04 MEDICATIONS Medication Instructions Dosage Frequency Start Date End Date Duration Status Celebrex 200 mg Orally Once a day PLEASE VOUCHER 1 capsule Active Percocet 7.5-325 MG Orally every 6 hrs 1 tablet as needed 6h Aug, 28 days Active NovoLog 100 UNIT/ML ICD10 E10.39 3 times a day INJECT 15 UNITS SUBCUTANEOUSLY IN THE MORNING, 10 UNITS AT LUNCH, AND 10 UNITS IN THE EVENING 8h Active Glucocard Expression Test - subcutaneously 2 times a day as directed 12h 19 Jan, 2016 Active Aspirin 81 MG Orally Once a day 1 tablet 24h Active Xeljanz XR 11 MG Orally Once a day 1 tablet 24h Active Plavix 75 MG Orally Once a day Please Voucher 1 tablet by Oral route 1 time per day 30 Active Melatonin 5 MG Orally Once a day 1 tablet at bedtime as needed with food 24h Active Simvastatin 40 MG Orally Once a day 1 tablet in the evening 24h 30 Active Levothyroxine Sodium 200 MCG Orally Once a day 1 tablet 24h 30 days Active Fluoxetine HCl 40 mg Orally Once a day 1 capsule 24h June, 30 day(s) Active Levemir 100 UNIT/ML Subcutaneous- ICD10 E10.39 in am 35 units Apr, Active Folic Acid 1 MG take 1 tablet by Oral route 1 time per day do not take on days you take methotrexate Feb, Nov, 30 days Active Methotrexate 2.5 MG Orally once per week 4 tablets Active Metoprolol Tartrate 25 MG Orally 2 times a day 0.5 Tablet by Oral route 2 daily 12h 30 Active PredniSONE 10 mg Orally Once a day 1 tablet 24h Active RESULTS Name Result Date Reference Range C-PEPTIDE, SERUM 2016-09-04 C-Peptide, Serum <0.1 1.1-4.4 TSH W/ FREE T4 2016-09-04 TSH 0.013 0.450-4.500 T4,Free(Direct) 2.67 0.82-1.77 CBC 2016-09-04 WBC 12.2 3.4-10.8 RBC 4.68 3.77-5.28 Hemoglobin 14.5 11.1-15.9 Hematocrit 44.7 34.0-46.6 MCV 96 79-97 MCH 31.0 26.6-33.0 MCHC 32.4 31.5-35.7 RDW 14.0 12.3-15.4 Platelets 294 150-379 Neutrophils 74 Lymphs 19 Monocytes 5 Eos 2 Basos 0 Neutrophils (Absolute) 8.9 1.4-7.0 Lymphs (Absolute) 2.3 0.7-3.1 Monocytes(Absolute) 0.6 0.1-0.9 Eos (Absolute) 0.2 0.0-0.4 Baso (Absolute) 0.0 0.0-0.2 Immature Granulocytes 0 Immature Grans (Abs) 0.0 0.0-0.1 LIPID PANEL 2016-09-04 Cholesterol, Total 179 100-199 Triglycerides 160 0-149 HDL Cholesterol 65 >39 VLDL Cholesterol Keegan 32 5-40 LDL Cholesterol Calc 82 0-99 CMP 2016-09-04 Glucose, Serum 247 65-99 BUN 17 6-24 Creatinine, Serum 0.71 0.57-1.00 eGFR If NonAfricn Am 99 >59 eGFR If Africn Am 114 >59 BUN/Creatinine Ratio 24 9-23 Sodium, Serum 139 134-144 Potassium, Serum 4.1 3.5-5.2 Chloride, Serum 97 96-106 Carbon Dioxide, Total 20 18-29 Calcium, Serum 9.8 8.7-10.2 Protein, Total, Serum 7.1 6.0-8.5 Albumin, Serum 4.6 3.5-5.5 Globulin, Total 2.5 1.5-4.5 A/G Ratio 1.8 1.2-2.2 Bilirubin, Total 0.3 0.0-1.2 Alkaline Phosphatase, S 77 39-117 AST (SGOT) 14 0-40 ALT (SGPT) 17 0-32 PROCEDURES Procedure Date Ordered Result Body Site [facility] VISIT ESTABLISHED PATIENT September 04, 2016 VENIPUNCT, ROUTINE* September 04, 2016 [facility] September 04, 2016 INSTRUCTIONS MEDICATIONS ADMINISTERED No Known Medications MEDICAL (GENERAL) HISTORY Type Description Date Medical History hyperlipidemia Medical History thyroid disorder Medical History diabetes mellitus type 1 dx 1986 Medical History rheumatologic disorder arthritis Medical History RA factor 247, CCp 85.3 Medical History arthropathy artrhitis reumatoid Medical History orthopeadic disorder carpal tunnel -left wrist Medical History neurologic disorder diabetec neuropathy Medical History myocardial infarction-- stents placed x2--(mid and prox RCA) promus premier 3.0 x 32 [address] 3[address] Dawson (Dec 2013) Surgical History breast lumpectomy was performed 1999, [...]
--- OUTSIDE RECORDS SUMMARY | 2017-08-29 14:47 | XMS REPORT ---
Author Author CHRISTINA PENNY Organization [facility] Address [address] [place] [address] Care Team Providers Care Associate Merchandiser Name Role Phone PENNY CHRISTINA Unavailable PROBLEMS Type Condition ICD9-CM Code [id number] Code Onset Dates Condition Status SNOMED Code Problem CAD (coronary artery disease) I25.10 Active 85964475 Problem Hypothyroidism in adult E03.9 Active 40097585 Problem Depression, prolonged F32.9 Active 99254182 Problem Type 1 diabetes mellitus with other circulatory complication E10.59 Active 33211414 Problem Pure hypercholesterolemia E78.00 Active 152361680 Problem Insomnia G47.00 Active 306850966 Problem 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 Active 204814191 Problem Rheumatoid arthritis involving multiple sites with positive rheumatoid factor M05.79 Active 51078514 Problem 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
--- OUTSIDE RECORDS SUMMARY | 2017-08-29 14:47 | XMS REPORT ---
Author Author CHRISTINA PENNY Organization [facility] Address [address] [place] [address] Care Team Providers Care Liquid Chlorine Operator Name Role Phone ASHOK PENNYNETTE Unavailable PROBLEMS Type Condition ICD9-CM Code COR71-PQ Code Onset Dates Condition Status SNOMED Code Problem CAD (coronary artery disease) I25.10 Active 64952704 Problem Hypothyroidism in adult E03.9 Active 75475896 Problem Depression, prolonged F32.9 Active 61389771 Problem Type 1 diabetes mellitus with other circulatory complication E10.59 Active 68999635 Problem Pure hypercholesterolemia E78.00 Active 283223604 Problem Insomnia G47.00 Active 966450600 Problem 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 Active 158245499 Problem Rheumatoid arthritis involving multiple sites with positive rheumatoid factor M05.79 Active 29874385 Problem emt intermediate current use of insulin Z79.4 Active 112942092 Problem Rheumatoid arthritis involving both feet M06.071 Active 821136374 Problem Hyperlipidemia, acquired E78.5 Active 7508187 Problem Environmental allergies Z91.09 Active 783712510 Problem 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 427943425 ALLERGIES No Information SOCIAL HISTORY Never Assessed PLAN OF CARE VITAL SIGNS MEDICATIONS Medication Instructions Dosage Frequency Start Date End Date Duration Status Percocet 7.5-325 MG Orally every 6 hrs 1 tablet as needed 6h Mar, 28 days Active RESULTS No Results PROCEDURES [...]
--- OUTSIDE RECORDS SUMMARY | 2017-08-29 14:47 | XMS REPORT ---
Author Author MENA RICKY [facility] Address [address] [place] [address] Care Team Providers Care Practice Performance Manager Name Role Phone RICKY MENA Unavailable PROBLEMS Type Condition ICD9-CM Code HDO19-GV Code Onset Dates Condition Status SNOMED Code Problem 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 Active 551668762 Problem Hypothyroidism in adult E03.9 Active 13564240 Problem CAD (coronary artery disease) I25.10 Active 96439474 Problem Type 1 diabetes mellitus with other circulatory complication E10.59 Active 84083111 Problem Insomnia G47.00 Active 404715834 Problem Recurrent major depressive disorder, in full remission F33.42 Active 742304987 Problem Rheumatoid arthritis involving multiple sites with positive rheumatoid factor M05.79 Active 41137532 Problem 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 746432702 Problem Hyperlipidemia, acquired E78.5 Active 6238632 Problem 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 Active 429622162 Problem Environmental allergies Z91.09 Active 921702285 ALLERGIES No Information ENCOUNTERS Encounter Location Date Diagnosis [place] [id number] [place] [address] 08625- 9526 Aug, [facility] [address], [place] [address] 7[address] June, Rheumatoid arthritis involving multiple sites with positive rheumatoid factor M05.79 [facility] [address], [place] [address] 10[address] June, [facility] [id number] [place] [address] 85800- 9406 May, Type 1 diabetes mellitus with other circulatory complication E10.59 ; Recurrent major depressive disorder, in full remission F33.42 and Hyperlipidemia, acquired E78.5 [facility] [id number] [place] [address] 79096- 6860 May, Hypothyroidism, unspecified E03.9 and Hypothyroidism in adult E03.9 [facility] [id number] [place] [address] 55684- 3678 Apr, Hypothyroidism in adult E03.9 [facility] [id number] [place] [address] 36758- 5673 Apr, Type 1 diabetes mellitus with other circulatory complication E10.59 ; 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 ; Rheumatoid arthritis involving multiple sites with positive rheumatoid factor M05.79 ; Hypothyroidism in adult E03.9 ; Hyperlipidemia, acquired E78.5 ; Recurrent major depressive disorder, in full remission F33.42 ; correction current use of insulin Z79.4 ; Environmental allergies Z91.09 and CAD (coronary artery disease ) I25.10 [place] [address] [address] [id number] [place] [address] 85001- 6343 Apr, Rheumatoid arthritis involving multiple sites with positive rheumatoid factor M05.79 [place] [address] [place] [id number] [place] [address] 12153- 5840 Mar, Rheumatoid arthritis involving multiple sites with positive rheumatoid factor M05.79 [place] [address] [place] [id number] [place] [address] 49729- 3871 Feb, [place] [address] [place] [id number] [place] [address] 66644- 5633 Feb, CAD (coronary artery disease) I25.10 ; 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 and Hypothyroidism in adult E03.9 [place] [id number] [place] [address] 91031- 5821 Feb, Rheumatoid arthritis involving multiple sites with positive rheumatoid factor M05.79 [place] [address] [place] [id number] [place] [address] 93137- 0289 Jan, Hypothyroidism in adult E03.9 [place] [address] [place] [id number] [place] [address] 85357- 9209 Jan, Rheumatoid arthritis involving multiple sites with positive rheumatoid factor M05.79 and CAD (coronary artery disease) I25.10 [place] [address] [place] [id number] [place] [address] 27963- 3886 Jan, 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 ; 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 ; Hyperlipidemia, acquired E78.5 ; Hypothyroidism in adult E03.9 and Fever blister B00.1 [place] [address] [place] [id number] [place] [address] 74534- 9227 Dec, Rheumatoid arthritis involving multiple sites with positive rheumatoid factor M05.79 [place] [address] [place] [id number] [place] [address] 84580- 8024 Nov, Rheumatoid arthritis involving multiple sites with positive rheumatoid factor M05.79 [place] [address] [id number] [place] [address] 82118- 7179 Oct, Rheumatoid arthritis involving multiple sites with positive rheumatoid factor M05.79 [place] [address] 75536- 1730 Oct, Rheumatoid arthritis involving multiple sites with positive rheumatoid factor M05.79 [place] [address] [place] [id number] [place] [address] 84693- 0570 Sep, Rheumatoid arthritis involving multiple sites with positive rheumatoid factor M05.79 [place] [address] [place] [id number] [place] [address] 08047- 3340 Aug, [place] [address] [place] [id number] [place] [address] 00075- 1007 Aug, 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 ; 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 ; CAD (coronary artery disease) I25.10 ; Rheumatoid arthritis involving both feet M06.071 ; Insomnia G47.00 ; Hypothyroidism in adult E03.9 ; Hypercholesterolemia E78.0 and Rheumatoid arthritis involving multiple sites with positive rheumatoid factor M05.79 [place] [address] [place] [id number] [place] [address] 72732- 3203 Jul, [place] [address] [place] [id number] [place] [address] 25201- 5376 June, [facility] [address], [place] [address]- 5255 June, Depression, prolonged F32.9 [facility] [id number] [place] [address] 19162- 9498 June, [place] [id number] [place] [address] 04264- 1704 June, [place] [address] [place] [id number] [place] [address] 57065- 6624 June, Hypothyroidism in adult E03.9 [place] [id number] [place] [address] 26786- 7760 June, Rheumatoid arthritis involving both feet M06.071 [place] [address] [place] [address] 82671- 9476 May, CAD (coronary artery disease) I25.10 ; Rheumatoid arthritis involving both feet M06.071 ; Hyperlipidemia, acquired E78.5 ; Hypothyroidism in adult E03.9 ; Depression, prolonged F32.9 ; 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 ; Type 2 diabetes mellitus with hypoglycemia without coma E11.649 ; Vision abnormalities H53.9 and Vision changes H53.9 [place] [address] [place] [address] 09754- 0623 Apr, [place] [address] [place] [address] 75795- 3622 Apr, DM (diabetes mellitus) type I uncontrolled with eye manifestation E10.39 [place] [address] [place] [address] 49714- 2359 Apr, Rheumatoid arthritis involving both feet M06.071 [place] [address] [place] [address] 25228- 5138 Mar, Rheumatoid arthritis involving both feet M06.071 [place] [address] [place] [id number] [place] [address] 99767- 6710 Mar, [facility] [address], [place] [address]- 2868 Feb, Rheumatoid arthritis involving both feet M06.071 [facility] [address] [place] [address] 53824- 4829 Feb, DM (diabetes mellitus) type I uncontrolled with eye manifestation E10.39 ; Rheumatoid arthritis involving both feet M06.071 ; CAD ( coronary artery disease) I25.10 ; Depression, prolonged F32.9 ; Hyperlipidemia, acquired E78.5 ; Hypothyroidism in adult E03.9 and Environmental allergies Z91.09 [place] [address] [place] [id number] [place] [address] 65315- 1000 Jan, [place] [address] [place] [id number] [place] [address] 67221- 1193 Jan, Hyperlipemia E78.5 ; DM (diabetes mellitus) type I uncontrolled with eye manifestation E10.39 ; CAD (coronary artery disease) I25.10 ; Hyperlipidemia, acquired E78.5 ; Depression, prolonged F32.9 ; 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 ; Hypercholesterolemia E78.0 ; RA (refractory anemia) D46.4 and Rheumatoid arthritis involving multiple sites with positive rheumatoid factor M05.79 [place] [address], [place] [address]- 4249 Jan, [place] [address], [place] [address]- 8759 Jan, [facility] [address] [place] [address] 92475- 6458 Sep, [facility] [address], [place] [address]- 0132 Sep, [facility] [address] [place] [id number] [place] [address] 76809- 7847 Aug, [facility] [address], [place] [address]- 8788 Aug, 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 ; Hypercholesterolemia E78.0 ; Environmental allergies Z91.09 and Rib pain R07.81 [place] [id number] [place] [address] 53320- 5921 June, [address] 33638- 3756 June, 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 [place] [address] [place] [id number] [place] [address] 64233- 8051 May, Rheumatoid arthritis involving both feet M06.071 [place] [id number] [place] [address] 52727- 4228 May, CAD (coronary artery disease) I25.10 ; DM (diabetes mellitus ) type I uncontrolled with eye manifestation E10.39 ; Insomnia G47.00 ; Rheumatoid arthritis involving both feet M06.071 ; Hyperlipidemia, acquired E78.5 ; Depression, prolonged F32.9 ; 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 and Hypothyroid E03.[address] [place] [address] 20558- 5569 Apr, [place] [id number] [place] [address] 32486- 0349 Mar, DM (diabetes mellitus) type I uncontrolled with eye manifestation E10.39 ; Insomnia G47.00 ; Insulin long-term use Z79.4 ; Rheumatoid arthritis involving both feet M06.071 ; Hyperlipidemia, acquired E78.5 ; Hypothyroidism in adult E03.9 ; Depression, prolonged F32.9 ; CAD ( coronary artery disease) I25.10 and 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 [facility] [address], [place] [address]- 3578 10 Mar, 2015 [facility] [address] [address] [address]- 0896 14 Feb, 2015 [facility] [address] [place] [id number] [place] [address] 45761- 2958 Jan, [place] [address] [place] [id number] [place] [address] 86618- 1859 Dec, [place] [address] [place] [id number] [place] [address] 55987- 0619 19 Nov, 2014 [place] [address] [place] [id number] [place] [address] 48722- 0059 14 Nov, 2014 Hyperlipemia E78.5 and Hypothyroid E03.9 [place] [address] [place] [id number] [place] [address] 95769- 4440 13 Nov, 2014 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 ; DM (diabetes mellitus) type I uncontrolled with eye manifestation E10.39 ; Hypothyroidism in adult E03.9 and Hyperlipidemia, acquired E78.5 [place] [address], [place] [address]- 5583 07 Nov, 2014 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 ; CAD (coronary artery disease) I25.10 ; DM (diabetes mellitus) type I uncontrolled with eye manifestation E10.39 ; Insomnia G47.00 ; Rheumatoid arthritis involving both feet M06.071 ; Insulin long-term use Z79.4 ; Hyperlipidemia, acquired E78.5 ; Hypothyroidism in adult E03.9 ; Depression, prolonged F32.9 and 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 [facility] [address], [place] [address]- 7590 17 Oct, 2014 [facility] [address] [place] [id number] [place] [address] 22401- 2546 Oct, [facility] [address], [place] [address]- 5687 Oct, [facility] [address] [place] [address] 60846- 5696 Sep, [facility] [address] [place] [address] 10763- 3297 Aug, [facility] [address] [place] [id number] [place] [address] 89338- 3411 Aug, Coronary atherosclerosis of unspecified type of vessel, [place] or graft 414.00 ; Rheumatoid arthritis 714.0 ; Insulin dependent diabetes mellitus 250.00 ; Hyperlipidemia 272.4 ; Hypothyroidism 244.9 ; Depression 311 and Insomnia 780.52 [place] [address] [place] [id number] [place] [address] 83654- 5352 Aug, [facility] [address] [place] [id number] [place] [address] 63180- 9209 Jul, [facility] [address] [place] [address] 23076- 6146 Jul, [facility] [address] [place] [id number] [place] [address] 80362- 6494 Jul, Breast cancer screening V76.10 [place] [address] [place] [address] 591759- 8715 Jul, ASCUS with positive high risk HPV 796.9 [facility] [address] [place] [id number] [place] [address] 01713640- 9319 June, [facility] [address] [place] [id number] [place] [address] 511051- 2892 June, Routine gynecological examination V72.31 ; Pap test, as part of routine gynecological examination V76.2 ; Breast cancer screening V76.10 ; Perimenopausal 627.2 and Tobacco abuse 305.1 [facility] [address] [place] [id number] [place] [address] 291034- 5579 June, Rheumatoid arthritis 714.0 ; Insulin dependent diabetes mellitus 250.00 and Depression 311 [facility] [address] [id number] [place] [address]- 4306 June, [facility] [address] [facility] [id number] [place] [address]- 2806 June, [facility] [address] [facility] [id number] [place] [address]- 7126 May, [facility] [address] [facility] [id number] [place] [address]- 3636 May, [facility] [address] [facility] [id number] [place] [address]- 0896 Apr, [facility] [address] [facility] [id number] [place] [address]- 2486 Apr, [facility] [address] [place] [address]- 0111 Apr, [facility] [address] [facility] [id number] [place] [address]- 0788 Apr, [facility] [address] [place] [id number] [place] [address]- 7977 Apr, [facility] [address] [facility] [id number], [place] [address]- 2439 Apr, [facility] [address] [facility] [id number] [place] [address]- 6516 Apr, [facility] [address] [facility] [id number], [place] [address]- 1326 Apr, [facility] [address] [facility] [id number] [place] [address]- 4366 Apr, [facility] [address] [facility] [id number] [place] [address]- 2546 Apr, [facility] [address] [facility] [id number], [place] [address]- 9036 Apr, [facility] [address] [id number] [place] [address]- 8130 Apr, [facility] [place] [facility] [address] [id number] [place] [address]- 9820 Feb, [facility] [place] [facility] [address] [id number] [place] [address]- 4847 Feb, [facility] [place] [facility] [address] [id number] [place] [address]- 8221 Feb, [facility] [place] [facility] [address] [id number] [place] [address]- 0226 Feb, [facility] [place] [facility] [address] [id number] [place] [address]- 6019 Feb, [facility] [place] [facility] [address] [id number] [place] [address]- 9373 Feb, [facility] [place] [facility] [address] [id number] [place] [address]- 3215 Jan, [facility] [place] [facility] [address] [id number] [place] [address]- 6679 Jan, [facility] [place] [facility] [address] [id number] [place] [address]- 2748 Jan, [facility] [place] [facility] [address] [id number] [place] [address]- 0874 Jan, [facility] [place] [facility] [address] [id number] [place] [address]- 0250 Jan, [facility] [place] [facility] [address] [id number] [place] [address]- 7730 Jan, [facility] [place] [facility] [address] [id number] [place] [address]- 0993 Jan, [facility] [place] [facility] [address] [id number] [place] [address]- 0685 Jan, [facility] [place] [facility] [address] [id number], [place] [address]- 8337 Jan, [facility] [place] [facility] [address] [id number] [place] [address]- 0413 Jan, [facility] [place] [facility] [address] [id number] [place] 5009 Dec, [facility] [place] [facility] [address] [id number] [place] [address]- 3671 Dec, [facility] [place] [facility] [address] [id number] [place] [address]- 4330 Nov, [facility] [place] [facility] [address] [id number] [place] [address]- 4042 Nov, [facility] [place] [facility] [address] [id number] [place] [address]- 1196 Nov, [facility] [place] [facility] [address] [id number] [place] [address]- 6044 Nov, [facility] [place] [facility] [address] [id number] [place] [address]- 6523 Nov, [facility] [place] [facility] [address] [id number] [place] [address]- 3589 27 Oct, 2013 [facility] [place] [facility] [address] [id number] [place] [address]- 0723 27 Oct, 2013 [facility] [place] [facility] [address] [id number] [place] [address]- 1870 23 Oct, 2013 [facility] [place] [facility] [address] [id number] [place] [address]- 3531 23 Oct, 2013 [facility] [place] [facility] [address] [id number] [place] [address]- 9034 22 Oct, 2013 [facility] [place] [facility] [address] [id number] [place] [address]- 3128 22 Oct, 2013 [facility] [place] [facility] [address] [id number] [place] [address]- 5963 18 Oct, 2013 [facility] [place] [facility] [address] [id number] [place] [address]- 2129 18 Oct, 2013 [facility] [place] [facility] [address] [id number] [place] [address]- 5213 12 Oct, 2013 [facility] [place] [facility] [address] [id number] [place] [address]- 9886 Oct, [facility] [place] [facility] [address] [id number] [place] [address]- 4224 Oct, [facility] [place] [facility] [address] [id number] [place] [address]- 6287 Oct, [facility] [place] [facility] [address] [id number] [place] [address]- 9235 Oct, [facility] [place] [facility] [address] [id number] [place] [address]- 1924 Oct, [facility] [place] [facility] [address] [id number] [place] [address]- 4505 Oct, [facility] [place] [facility] [address] [id number] [place] [address]- 4923 Oct, [facility] [place] [facility] [address] [id number] [place] [address]- 3813 June, [facility] [place] [facility] [address] [id number] [place] [address]- 3210 June, [facility] [place] [facility] [address] [id number] [place] [address]- 7468 June, [facility] [place] [facility] [address] [id number] [place] [address]- 3260 June, [facility] [place] [facility] [address] [id number] [place] [address]- 8375 May, [facility] [place] [facility] [address] [id number] [place] [address]- 2825 May, [facility] [place] [facility] [address] [id number] [place] [address]- 7057 Apr, [facility] [place] [facility] [address] [id number] [place] [address]- 2255 Apr, [facility] [place] [facility] [address] [id number] [place] [address]- 4030 Mar, [facility] [place] [facility] [address] [id number] [place] [address]- 0496 Mar, [facility] [place] [facility] [address] [id number] [place] [address]- 1606 Mar, [facility] [place] [facility] [address] [id number] [place] [address]- 3507 Mar, [facility] [place] [facility] [address] [id number] [place] [address]- 2590 Mar, [facility] [place] [facility] [address] [id number] [place] [address]- 7275 Mar, [facility] [place] [facility] [address] [id number] [place] [address]- 5317 Jan, [facility] [place] [facility] [address] [id number] [place] [address]- 2492 Jan, [facility] [place] [facility] [address] [id number] [place] [address]- 5191 Dec, [facility] [place] [facility] [address] [id number] [place] [address]- 3477 15 Dec, 2012 [facility] [place] [facility] [address] [id number] [place] [address]- 8084 Dec, [facility] [place] [facility] [address] [id number] [place] [address]- 1825 Dec, [facility] [place] [facility] [address] [id number] [place] [address] Dec, [facility] [place] [facility] [address] [id number] [place] [address] Dec, [facility] [place] [facility] [address] [id number] [place] [address] 30 Nov, 2012 [facility] [address] [id number] [place] [address] 30 Nov, 2012 [facility] [place] [facility] [address] [id number] [place] [address] 17 Nov, 2012 [facility] [address] [id number] [place] [address] 17 Nov, 2012 [facility] [place] [facility] [address] [id number] [place] [address] 15 Nov, 2012 [facility] [address] [id number] [place] [address] 15 Nov, 2012 [facility] [place] [facility] [address] [id number] [place] [address] 10 Nov, 2012 [facility] [place] [facility] [address] [id number] [place] [address] 10 Nov, 2012 [facility] [address] [id number] [place] [address] 26 Oct, 2012 [facility] [place] [facility] [address] [id number] [place] [address] 18 Sep, 2012 [facility] [address] [id number] [place] [address] 17 Sep, 2012 [facility] [place] [facility] [address] [id number] [place] [address] 12 Sep, 2012 [facility] [place] [facility] [address] [id number] [place] [address] 11 Oct, 2012 [facility] [place] [facility] [address] [id number] [place] [address] 07 Sep, 2012 [facility] [place] [facility] [address] [id number] [place] [address] 06 Oct, 2012 [facility] [place] [facility] [address] [id number] [place] [address] Sep, [facility] [place] [facility] [address] [id number] [place] [address] Sep, [facility] [place] [facility] [address] [id number] [place] [address] Sep, [facility] [place] [facility] [address] [id number] [place] [address] Sep, [facility] [place] [facility] [address] [id number] [place] [address] Sep, [facility] [place] [facility] [address] [address] [id number] [place] [address] Sep, [facility] [place] [facility] [address] [id number] [place] [address] Sep, [facility] [place] [facility] [address] [id number] [place] [address] Sep, [facility] [place] [facility] [address] [id number] [place] [address] Aug, [facility] [place] [facility] [address] [id number] [place] [address] Aug, [facility] [place] [facility] [address] [id number] [place] [address] Jul, [facility] [place] [facility] [address] [id number] [place] [address] Jul, [facility] [place] [facility] [address] [id number] [place] [address] Jul, [facility] [place] [facility] [address] [id number] [place] [address] Jul, [facility] [place] [facility] [address] [id number] [place] [address] June, [facility] [place] [facility] [address] [id number] [place] [address] June, [facility] [place] [facility] [address] [id number], [place] [address] 05 May, 2012 [facility] [address] [id number] [place] [address] 04 Apr, 2012 [facility] [address] [id number] [place] [address] 11 Mar, 2012 [facility] [address] [id number] [place] [address] 04 Mar, 2012 [facility] [address] [id number] [place] [address] 14 Feb, 2012 [facility] [address] [id number] [place] [address] 27 Oct, 2011 [facility] [address] [id number] [place] [address] 16 Sep, 2011 [facility] [address] [id number] [place] [address] 05 Jul, 2011 [facility] [address] [id number] [place] [address] 24 May, 2011 [facility] [address] [id number] [place] [address] 23 May, 2011 [facility] [address] [id number] [place] [address] 16 Mar, 2011 [facility] [address] [id number] [place] [address] 15 Mar, 2011 [facility] [address] [id number] [place] [address] 3667 14 Mar, 2011 [facility] [place] [facility] [address] [id number] [place] [address] 18 Feb, 2011 [facility] [place] [facility] [address] [id number] [place] [address] 13 Feb, 2011 [facility] [address] [id number], [place] [address] Feb, [facility] [place] [facility] [address] [id number] [place] [address]365 Feb, [facility] [address] [id number] [place] [address] Feb, [facility] [address] [id number] [place] [address] Feb, [facility] [address] [id number] [place] [address] Feb, [facility] [address] [id number] [place] [address] Feb, [facility] [address] [id number] [place] [address] Jan, [facility] [address] [id number] [place] [address] Jan, [facility] [address] [id number] [place] [address] Dec, [facility] [address] [id number] [place] [address] Dec, [facility] [address] [id number] [place] [address] Dec, [facility] [address] [id number] [place] [address] Dec, [facility] [address] [id number] [place] [address] Nov, [facility] [address] [id number] [place] [address] Jan, [facility] [place] [facility] [address] [id number] [place] [address] Jan, [facility] [place] [facility] [address] [id number] [place] [address] Jan, [facility] [address] [id number], [place] [address] Jan, [facility] [address] [id number] [place] [address] Jan, [facility] [place] [facility] [address] [id number] [place] [address] Jan, [facility] [place] [facility] [address] [id number] [place] [address]- [address] Jan, [facility] [place] [facility] [address] [id number] [place] [address]- 4293 Jan, [facility] [place] [facility] [address] [id number] [place] [address] Dec, [facility] [place] [facility] [address] [id number] [place] [address] 8490 Nov, [facility] [address] [id number], [place] [address] Jul, [facility] [place] [facility] [address] [id number] [place] [address] 89[address] June, [facility] [address] [id number], [place] [address] June, [facility] [place] [facility] [address] [id number] [place] [address]120 May, [facility] [place] [facility] [address] [id number], [place] [address] Jan, [facility] [place] [facility] [address] [id number], [place] [address] Dec, [facility] [place] [facility] [address] [id number], [place] [address] Dec, [facility] [place] [facility] [address] [id number], [place] [address] Dec, [facility] [place] [facility] [address] [id number], [place] [address] Nov, [facility] [place] [facility] [address] [facility] [id number] [place] [address] 12 Nov, 2008 [facility] [address] [facility] [id number] [place] [address] 14 Oct, 2008 IMMUNIZATIONS No Known Immunizations SOCIAL HISTORY Never Assessed REASON FOR VISIT Controlled Med Refill PLAN OF CARE VITAL SIGNS MEDICATIONS Medication Instructions Dosage Frequency Start Date End Date Duration Status Percocet 7.5-325 MG Orally every 6 hrs 1 tablet as needed 6h Feb, 28 days Active RESULTS No Results PROCEDURES No Known procedures INSTRUCTIONS MEDICATIONS ADMINISTERED No Known Medications MEDICAL [...]
--- OUTSIDE RECORDS SUMMARY | 2017-08-29 14:48 | XMS REPORT ---
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.59 Active 66925807 Problem Pure hypercholesterolemia E78.00 Active 223098015 Problem Insomnia G47.00 Active 802530139 Problem 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 Active 296431423 Problem Rheumatoid arthritis involving multiple sites with positive rheumatoid factor M05.79 Active 62837699 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 940281143 Problem Rheumatoid arthritis involving both feet M06.071 Active 436322774 Problem Hyperlipidemia, acquired E78.5 Active 0750492 Problem Environmental allergies Z91.09 Active 359879630 Problem 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
--- OUTSIDE RECORDS SUMMARY | 2017-08-29 14:48 | XMS REPORT ---
Author Author CHRISTINA PENNY Organization [facility] Address [address] [place] [address] Care Team Providers Care Specialty Department Supervisor Name Role Phone ASHOK PENNYNETTE Unavailable PROBLEMS Type Condition ICD9-CM Code ZUL81-LJ Code Onset Dates Condition Status SNOMED Code Problem CAD (coronary artery disease) I25.10 Active 05938321 Problem Hypothyroidism in adult E03.9 Active 45453498 Problem Depression, prolonged F32.9 Active 75484777 Problem Type 1 diabetes mellitus with other circulatory complication E10.59 Active 95178706 Problem Pure hypercholesterolemia E78.00 Active 083505667 Problem Insomnia G47.00 Active 413897945 Problem 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 Active 429350177 Problem Rheumatoid arthritis involving multiple sites with positive rheumatoid factor M05.79 Active 67726204 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 609651182 Problem Rheumatoid arthritis involving both feet M06.071 Active 078345948 Problem Hyperlipidemia, acquired E78.5 Active 4741095 Problem Environmental allergies Z91.09 Active 040570488 Problem 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
--- OUTSIDE RECORDS SUMMARY | 2017-08-29 14:48 | XMS REPORT ---
Author Author CHRISTINA Mcqueen [facility] Address [address] [place] [address] Care Team Providers Care Sustainable Agriculture Specialist Name Role Phone CHRISTINA Mcqueen Unavailable PROBLEMS Type Condition ICD9-CM Code BNI72-VX Code Onset Dates Condition Status SNOMED Code Problem CAD (coronary artery disease) I25.10 Active 13765061 Problem Hypothyroidism in adult E03.9 Active 17595902 Problem Depression, prolonged F32.9 Active 84898101 Problem Type 1 diabetes mellitus with other circulatory complication E10.59 Active 25705333 Problem Pure hypercholesterolemia E78.00 Active 078720649 Problem Insomnia G47.00 Active 417202514 Problem 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 Active 697938589 Problem Rheumatoid arthritis involving multiple sites with positive rheumatoid factor M05.79 Active 84769431 Problem jail current use of insulin Z79.4 Active 938478148 Problem Rheumatoid arthritis involving both feet M06.071 Active 553006224 Problem Hyperlipidemia, acquired E78.5 Active 6509253 Problem Environmental allergies Z91.09 Active 365696770 Problem 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 [id number] ALLERGIES No Information ENCOUNTERS Encounter Location Date Diagnosis [place] [id number] [place] [address] 34583- 9944 Apr, [facility] [id number] [place] [address] 39900- 0447 Apr, Rheumatoid arthritis involving multiple sites with positive rheumatoid factor M05.79 [facility] [id number] [place] [address] 42489- 8291 Mar, Rheumatoid arthritis involving multiple sites with positive rheumatoid factor M05.79 [facility] [id number] [place] [address] 04001- 4962 Feb, [facility] [address] [address] 9908 Feb, CAD (coronary artery disease) I25.10 ; 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 and Hypothyroidism in adult E03.9 [facility] [address] [address] 9338 Feb, Rheumatoid arthritis involving multiple sites with positive rheumatoid factor M05.79 [facility] [id number] [place] [address] 59789- 7640 Jan, Hypothyroidism in adult E03.9 [place] [id number] [place] [address] 66996- 9033 Jan, Rheumatoid arthritis involving multiple sites with positive rheumatoid factor M05.79 and CAD (coronary artery disease) I25.10 [place] [address] [id number] [place] [address] 58953- 4952 Jan, 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 ; 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 ; Hyperlipidemia, acquired E78.5 ; Hypothyroidism in adult E03.9 and Fever blister B00.1 [place] [id number] [place] [address] 02413- 8690 Dec, Rheumatoid arthritis involving multiple sites with positive rheumatoid factor M05.79 [place] [id number] [place] [address] 35952- 4222 Nov, Rheumatoid arthritis involving multiple sites with positive rheumatoid factor M05.79 [place] [address] [id number] [place] [address] 30521- 0989 Oct, Rheumatoid arthritis involving multiple sites with positive rheumatoid factor M05.79 [place] [id number] [place] [address] 65761- 0374 Oct, Rheumatoid arthritis involving multiple sites with positive rheumatoid factor M05.79 [place] [id number] [place] [address] 36677- 3154 Sep, Rheumatoid arthritis involving multiple sites with positive rheumatoid factor M05.79 [place] [address] [place] [id number] [address] 3645 Aug, [facility] [id number] [place] [address] 45274- 9539 Aug, 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 ; 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 ; CAD (coronary artery disease) I25.10 ; Rheumatoid arthritis involving both feet M06.071 ; Insomnia G47.00 ; Hypothyroidism in adult E03.9 ; Hypercholesterolemia E78.0 and Rheumatoid arthritis involving multiple sites with positive rheumatoid factor M05.79 [facility] [address] [address]- 0146 Jul, [place] [address] [id number] [place] [address] 10175- 7034 June, [place] [address] [address] [id number] [place] [address] 19882- 7582 June, Depression, prolonged F32.9 [facility] [id number] [place] [address] 33801- 4194 June, [facility] [id number] [place] [address] 51112- 3979 June, [place] [address] [id number] [place] [address] 00995- 0780 June, Hypothyroidism in adult E03.9 [facility] [address] [address]- 1550 June, Rheumatoid arthritis involving both feet M06.071 [facility] [address] [address]- 0472 May, CAD (coronary artery disease) I25.10 ; Rheumatoid arthritis involving both feet M06.071 ; Hyperlipidemia, acquired E78.5 ; Hypothyroidism in adult E03.9 ; Depression, prolonged F32.9 ; 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 ; Type 2 diabetes mellitus with hypoglycemia without coma E11.649 ; Vision abnormalities H53.9 and Vision changes H53.9 [facility] [id number] [address]- 9121 Apr, [place] [id number] [place] [address] 50254- 5202 Apr, DM (diabetes mellitus) type I uncontrolled with eye manifestation E10.39 [place] [address] [place] [address] 24923- 0691 Apr, Rheumatoid arthritis involving both feet M06.071 [place] [address] [address] [id number] [place] [address] 21351- 9302 Mar, Rheumatoid arthritis involving both feet M06.071 [place] [address] [address] [id number] [place] [address] 90915- 1001 Mar, [place] [id number] [place] [address] 31311- 9834 Feb, Rheumatoid arthritis involving both feet M06.071 [place] [address] [place] [address] 71639- 5459 Feb, DM (diabetes mellitus) type I uncontrolled with eye manifestation E10.39 ; Rheumatoid arthritis involving both feet M06.071 ; CAD ( coronary artery disease) I25.10 ; Depression, prolonged F32.9 ; Hyperlipidemia, acquired E78.5 ; Hypothyroidism in adult E03.9 and Environmental allergies Z91.09 [place] [address] [address]- 5040 Jan, [place] [id number] [place] [address] 45709- 3101 Jan, Hyperlipemia E78.5 ; DM (diabetes mellitus) type I uncontrolled with eye manifestation E10.39 ; CAD (coronary artery disease) I25.10 ; Hyperlipidemia, acquired E78.5 ; Depression, prolonged F32.9 ; 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 ; Hypercholesterolemia E78.0 ; RA (refractory anemia) D46.4 and Rheumatoid arthritis involving multiple sites with positive rheumatoid factor M05.79 [place] [id number] [place] [address] 61123- 3705 Jan, [facility] [id number] [address]- 2759 Jan, [facility] [address] [address]- 7416 Sep, [facility] [id number] [address]- 7820 Sep, [facility] [address] [address]- 7988 Aug, [facility] [id number] [address]- 1387 Aug, [facility] [address] [address]- 0301 Jul, Type 2 diabetes mellitus with hypoglycemia without coma E11.649 and 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 [facility] [address] [address]- 3818 June, CAD (coronary artery disease) I25.10 ; Insomnia G47.00 ; Rheumatoid arthritis involving both feet M06.071 ; Hypothyroidism in adult E03.9 ; 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 ; Type 2 diabetes mellitus with hypoglycemia without coma E11.649 ; long term care phlebotomist current use of insulin Z79.4 ; Hypercholesterolemia E78.0 ; Environmental allergies Z91.09 and Rib pain R07.81 [facility] [address] [address]- 8996 June, [facility] [address] [id number] [address]- 7577 June, 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 [facility] [address] [id number] [address]- 5433 May, Rheumatoid arthritis involving both feet M06.071 [facility] [id number] [address]- 0964 May, CAD (coronary artery disease) I25.10 ; DM (diabetes mellitus ) type I uncontrolled with eye manifestation E10.39 ; Insomnia G47.00 ; Rheumatoid arthritis involving both feet M06.071 ; Hyperlipidemia, acquired E78.5 ; Depression, prolonged F32.9 ; 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 and Hypothyroid E03.9 [place] [address] [address]- 3650 Apr, [place] [address] [id number] [place] [address] 64154- 8121 Mar, DM (diabetes mellitus) type I uncontrolled with eye manifestation E10.39 ; Insomnia G47.00 ; Insulin long-term use Z79.4 ; Rheumatoid arthritis involving both feet M06.071 ; Hyperlipidemia, acquired E78.5 ; Hypothyroidism in adult E03.9 ; Depression, prolonged F32.9 ; CAD ( coronary artery disease) I25.10 and 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 [place] [id number] [place] [address] 04139- 4262 Mar, [place] [address] [id number] [place] [address] 77155- 6379 Feb, [place] [address] [address] [id number] [place] [address] 16157- 0516 Jan, [place] [address] [id number] [address]- 3376 Dec, [place] [address] [address] [id number] [place] [address] 01270- 8530 19 Nov, 2014 [place] [address] [address] [id number] [place] [address] 64901- 9018 14 Nov, 2014 Hyperlipemia E78.5 and Hypothyroid E03.9 [place] [address] [id number] [place] [address] 19741- 1469 13 Nov, 2014 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 ; DM (diabetes mellitus) type I uncontrolled with eye manifestation E10.39 ; Hypothyroidism in adult E03.9 and Hyperlipidemia, acquired E78.5 [place] [id number] [place] [address] 88795- 1049 Nov, 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 ; CAD (coronary artery disease) I25.10 ; DM (diabetes mellitus) type I uncontrolled with eye manifestation E10.39 ; Insomnia G47.00 ; Rheumatoid arthritis involving both feet M06.071 ; Insulin long-term use Z79.4 ; Hyperlipidemia, acquired E78.5 ; Hypothyroidism in adult E03.9 ; Depression, prolonged F32.9 and 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 [place] [id number] [place] [address] 08907- 4951 Oct, [address] 24381- 2099 Oct, [place] [id number] [place] [address] 23280- 3700 Oct, [place] [id number] [place] [address] 26873- 5609 Sep, [place] [id number] [place] [address] 45331- 1353 Aug, [place] [id number] [place] [address] 60116- 5263 Aug, Coronary atherosclerosis of unspecified type of vessel, eyak or graft 414.00 ; Rheumatoid arthritis 714.0 ; Insulin dependent diabetes mellitus 250.00 ; Hyperlipidemia 272.4 ; Hypothyroidism 244.9 ; Depression 311 and Insomnia 780.52 [place] [id number] [place] [address] 02002- 3421 Aug, [place] [id number] [place] [address] 27106- 9691 Jul, [place] [id number] [place] [address] 94469392- 8691 Jul, [place] [id number] [place] [address] 73704- 8634 Jul, Breast cancer screening V76.10 [facility] [address] [address]- 8379 Jul, ASCUS with positive high risk HPV 796.9 [facility] [address] [address]- 1127 June, [facility] [address] [address]- 8407 June, Routine gynecological examination V72.31 ; Pap test, as part of routine gynecological examination V76.2 ; Breast cancer screening V76.10 ; Perimenopausal 627.2 and Tobacco abuse 305.1 [facility] [id number] [place] [address] 445348- 9274 June, Rheumatoid arthritis 714.0 ; Insulin dependent diabetes mellitus 250.00 and Depression 311 [facility] [address] [address]- 6777 June, [facility] [address] [address]- 7339 June, [facility] [address] [address]- 0618 May, [facility] [address] [address]- 8831 May, [facility] [address] [address]- 5296 Apr, [facility] [address] [address]- 3644 Apr, [facility] [address], [place] [address]- 8032 Apr, [facility] [address] 8722 Apr, [facility] [address] 6733 Apr, [facility] [id number] [address]- 0553 Apr, [facility] [address] [id number] [place] [address]- 4389 Apr, [facility] [place] [facility] [address] [id number] [place] [address]- 8982 Apr, 2014 [facility] [place] [facility] [address] [id number] [place] [address]- 1075 Apr, [facility] [place] [facility] [address] [id number] [place] [address]- 5459 Apr, [facility] [place] [facility] [address] [id number] [place] [address]- 4461 Apr, [facility] [place] [facility] [address] [id number] [place] [address]- 2537 Apr, [facility] [address] [id number] [place] [address]- 3748 Feb, [facility] [address] [id number] [place] [address]- 6174 Feb, [facility] [place] [facility] [address] [id number] [place] [address]- 6221 Feb, [facility] [address] [id number] [place] [address]- 6735 Feb, [facility] [place] [facility] [address] [id number] [place] [address]- 9605 Feb, [facility] [place] [facility] [address] [id number] [place] [address]- 0372 Feb, [facility] [place] [facility] [address] [id number] [place] [address]- 4965 Jan, [facility] [place] [facility] [address] [id number] [place] [address]- 8151 Jan, [facility] [place] [facility] [address] [id number] [place] [address]- 6712 Jan, [facility] [place] [facility] [address] [id number] [place] [address]- 5859 Jan, [facility] [place] [facility] [address] [id number] [place] [address]- 6514 Jan, [facility] [place] [facility] [address] [id number] [place] 6067 Jan, [facility] [place] [facility] [address] [id number] [place] [address]- 4196 Jan, [facility] [place] [facility] [address] [id number] [place] 4798 Jan, [facility] [place] [facility] [address] [id number] [place] [address]- 0594 Jan, [facility] [place] [facility] [address] [id number] [place] [address]- 6868 Jan, [facility] [place] [facility] [address] [id number] [place] [address]- 7990 Dec, [facility] [place] [facility] [address] [id number] [place] [address]- 4599 Dec, [facility] [place] [facility] [address] [id number] [place] [address]- 0205 Nov, [facility] [place] [facility] [address] [id number] [place] [address]- 7164 Nov, [facility] [place] [facility] [address] [id number] [address]- 5221 Nov, [facility] [place] [facility] [address] [id number] [place] [address]- 9842 Nov, [facility] [place] [facility] [address] [id number] [place] [address]- 8581 Nov, [facility] [place] [facility] [address] [id number] 9510 Oct, [facility] [place] [facility] [address] [id number] [address]- 5791 27 Oct, 2013 [facility] [place] [facility] [address] [id number] [place] [address] 2546 23 Oct, 2013 [facility] [place] [facility] [address] [id number] [place] [address] 2546 23 Oct, 2013 [facility] [place] [facility] [address] [id number] [place] [address] 2546 22 Oct, 2013 [facility] [place] [facility] [address] [id number] [place] [address] 2543 22 Oct, 2013 [facility] [place] [facility] [address] [id number] [place] [address]- 3338 18 Oct, 2013 [facility] [place] [facility] [address] [id number] [place] [address]- 5930 18 Oct, 2013 [facility] [place] [facility] [address] [id number] [place] [address]- 5445 12 Oct, 2013 [facility] [place] [facility] [address] [id number] [place] [address]- 0949 12 Oct, 2013 [facility] [place] [facility] [address] [id number] [place] [address]- 4662 11 Oct, 2013 [facility] [place] [facility] [address] [id number] [place] [address]- 2548 11 Oct, 2013 [facility] [place] [facility] [address] [id number] [place] [address] 2547 11 Oct, 2013 [facility] [place] [facility] [address] [id number] [place] [address]- 2541 11 Oct, 2013 [facility] [place] [facility] [address] [id number] [place] [address] 2541 Oct, 2013 [facility] [place] [facility] [address] [id number] [place] [address]- 2547 Oct, 2013 [facility] [place] [facility] [address] [id number] [place] [address]- 8222 June, [facility] [place] [facility] [address] [id number] [place] [address]- 1302 June, [facility] [place] [facility] [address] [id number] [place] 4142 June, [facility] [place] [facility] [address] [id number] [place] 0800 June, [facility] [place] [facility] [address] [id number] [place] [address]- 6614 May, [facility] [place] [facility] [address] [id number] [place] [address]- 7853 May, [facility] [place] [facility] [address] [id number] [place] 3168 Apr, [facility] [place] [facility] [address] [facility] [id number] [place] [address]- 1650 Apr, [facility] [place] [facility] [address] [id number] [place] [address]- 2226 Mar, [facility] [place] [facility] [address] [id number] [place] [address]- 9825 Mar, [facility] [place] [facility] [address] [id number] [place] [address]- 6928 Mar, [facility] [place] [facility] [address] [facility] [id number] [place] [address]- 9020 Mar, [facility] [place] [facility] [address] [id number] [place] [address]- 4071 Mar, [facility] [place] [facility] [address] [id number] [place] [address]- 9479 Mar, [facility] [place] [facility] [address] [id number] [place] 3714 Jan, [facility] [place] [facility] [address] [id number] [place] 2182 Jan, [facility] [place] [facility] [address] [id number] [place] [address]- 8499 15 Dec, 2012 [facility] [place] [facility] [address] [id number] [place] [address]- 3285 15 Dec, 2012 [facility] [place] [facility] [address] [id number] [place] [address]- 0422 Dec, [facility] [place] [facility] [address] [id number] [place] [address]- 5838 Dec, [facility] [place] [facility] [address] [id number] [place] [address]- 1765 Dec, [facility] [place] [facility] [address] [id number] [place] [address] Dec, [facility] [place] [facility] [address] [id number] [place] [address] 30 Nov, 2012 [facility] [place] [facility] [address] [id number] [place] [address] 30 Nov, 2012 [facility] [place] [facility] [address] [id number] [place] [address] 17 Nov, 2012 [facility] [place] [facility] [address] [id number] [place] [address] 17 Nov, 2012 [facility] [place] [facility] [address] [id number] [place] [address] 15 Nov, 2012 [facility] [place] [facility] [address] [id number] [address] 15 Nov, 2012 [facility] [place] [facility] [address] [id number], [place] [address] 10 Nov, 2012 [facility] [place] [facility] [address] [id number] [place] [address] 10 Nov, 2012 [facility] [place] [facility] [address] [id number] [address] 26 Oct, 2012 [facility] [place] [facility] [address] [id number] [place] [address] 18 Sep2012 [facility] [place] [facility] [address] [id number] [place] [address] 17 Oct, 2012 [facility] [address] [id number] [place] [address] 12 Oct, 2012 [facility] [place] [facility] [address] [id number] [place] [address] 11 Oct, 2012 [facility] [address] [id number] [place] [address] 07 Oct, 2012 [facility] [address] [id number] [place] [address] 06 Oct, 2012 [facility] [address] [id number] [place] [address] Sep, [facility] [address] [id number] [place] [address] Sep, [facility] [address] [id number] [place] [address] Sep, [facility] [address] [id number] [place] [address] 18 Sep, 2012 [facility] [address] [id number] [place] [address] Sep, [facility] [address] [id number] [place] [address] 16 Sep, 2012 [facility] [place] [facility] [address] [id number] [place] [address] 15 Sep, 2012 [facility] [address] [id number] [place] [address] Sep, [facility] [place] [facility] [address] [id number] [place] [address] Aug, [facility] [place] [facility] [address] [id number] [place] [address] Aug, [facility] [place] [facility] [address] [id number] [place] [address] Jul, [facility] [address] [id number] [place] [address] Jul, [facility] [place] [facility] [address] [id number] [place] [address] Jul, [facility] [address] [id number] [place] [address] Jul, [facility] [place] [facility] [address] [id number] [place] [address] June, [facility] [address] [id number] [place] [address] June, [facility] [address] [id number] [place] [address] May, [facility] [address] [id number] [place] [address] Apr, [facility] [address] [id number] [place] [address] Mar, [facility] [address] [id number] [place] [address] Mar, [facility] [address] [id number] [place] [address] Feb, [facility] [address] [id number] [place] [address] Oct, [facility] [place] [facility] [address] [id number] [address] Sep, [facility] [place] [facility] [address] [id number] [place] [address] Jul, [facility] [place] [facility] [address] [id number] [place] [address] May, [facility] [place] [facility] [address] [id number] [place] [address] May, [facility] [place] [facility] [address] [id number] [place] [address] 16 Mar, 2011 [facility] [address] [id number] [place] [address] 15 Mar, 2011 [facility] [place] [facility] [address] [id number] [place] [address] 14 Mar, 2011 [facility] [place] [facility] [address] [id number] [place] [address] 18 Feb, 2011 [facility] [place] [facility] [address] [id number] [place] [address] 13 Feb, 2011 [facility] [place] [facility] [address] [id number] [place] [address] Feb, [facility] [place] [facility] [address] [id number] [place] [address] Feb, [facility] [address] [id number] [place] [address] Feb, [facility] [address] [id number] [place] [address] Feb, [facility] [place] [facility] [address] [id number] [place] [address] Feb, [facility] [place] [facility] [address] [id number] [place] [address] Feb, [facility] [address] [id number] [place] [address] Jan, [facility] [place] [facility] [address] [id number] [place] [address] Jan, [facility] [place] [facility] [address] [id number] [place] [address] Dec, [facility] [place] [facility] [address] [id number] [place] [address] Dec, [facility] [place] [facility] [address] [id number] [place] [address] 17 Dec, 2010 [facility] [place] [facility] [address] [id number] [place] [address] 17 Dec, 2010 [facility] [address] [id number] [place] [address] Nov, [facility] [address] [id number] [place] [address] Jan, [facility] [address] [id number] [place] [address] Jan, [facility] [address] [id number] [place] [address] Jan, [facility] [address] [id number] [place] [address] Jan, [facility] [address] [id number] [place] [address] Jan, [facility] [address] [id number] [place] [address] Jan, [facility] [address] [id number] [place] [address] Jan, [facility] [facility] [address] [id number] [place] [address] Jan, [facility] [address] [id number] [place] [address] Dec, [facility] [address] [id number] [place] [address] Nov, [facility] [address] [id number] [place] [address] Jul, [facility] [place] [facility] [address] [id number] [place] [address] June, [facility] [address] [id number] [place] [address] June, [facility] [address] [id number] [place] [address] May, [facility] [address] [id number] [address] [address] Jan, [facility] [address] [id number] [address] Dec, [facility] [address] [id number] [address] Dec, [facility] [address] [id number] [address] Dec, [facility] [place] [address] [id number] [address] Nov, [facility] [place] [address] [id number] [address] Nov, [facility] [place] [address] [id number] [address] [address] Oct, IMMUNIZATIONS No Known Immunizations SOCIAL HISTORY Never Assessed REASON FOR VISIT Eye Exam PLAN OF CARE VITAL SIGNS MEDICATIONS Unknown Medications RESULTS No Results PROCEDURES No Known procedures [...]
--- OUTSIDE RECORDS SUMMARY | 2017-08-29 14:48 | XMS REPORT ---
Author CHRISTINA Stokes Organization [employer] Address Unknown Phone Unavailable Care Team Providers Care Institutional Nutrition Consultant Name Role Phone CHRISTINA PENNY CP Unavailable Allergies No Known Allergies Problems Problem Type Condition Code Onset Dates Condition Status Problem Hyperlipidemia, acquired E78.5 Active Problem Insomnia G47.00 Active Problem Rheumatoid arthritis involving both feet M06.071 Active Problem [employer] current use of insulin Z79.4 Active Problem [...] Problem Hypothyroidism in adult E03.9 Active Medications No Known Medications Results No Known Results Summary Purpose [employer] Submission
--- OUTSIDE RECORDS SUMMARY | 2017-08-29 14:48 | XMS REPORT ---
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 Role Phone CHRISTINA Mcqueen Unavailable PROBLEMS Type Condition ICD9-CM Code ZYV13-GP Code Onset Dates Condition Status SNOMED Code Problem 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 Active 306331427 Problem Hypothyroidism in adult E03.9 Active 84558836 Problem CAD (coronary artery disease) I25.10 Active 50657790 Problem Type 1 diabetes mellitus with other circulatory complication E10.59 Active 93312293 Problem Insomnia G47.00 Active 814272180 Problem Recurrent major depressive disorder, in full remission F33.42 Active 339554685 Problem Rheumatoid arthritis involving multiple sites with positive rheumatoid factor M05.79 Active 59587562 Problem 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 932816738 Problem Hyperlipidemia, acquired E78.5 Active 1385956 Problem 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 Active 516867473 Problem Environmental allergies Z91.09 Active 408146184 ALLERGIES No Information ENCOUNTERS Encounter Location Date Diagnosis [facility] [id number] [place] [address] 67379- 7907 Apr, Hypothyroidism in adult E03.9 [facility] [id number] [place] [address] 51780- 8047 Apr, Type 1 diabetes mellitus with other circulatory complication E10.59 ; 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 ; Rheumatoid arthritis involving multiple sites with positive rheumatoid factor M05.79 ; Hypothyroidism in adult E03.9 ; Hyperlipidemia, acquired E78.5 ; Recurrent major depressive disorder, in full remission F33.42 ; 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 ; Environmental allergies Z91.09 and CAD (coronary artery disease ) I25.10 [facility] [id number] [place] [address] 19500- 6249 Apr, Rheumatoid arthritis involving multiple sites with positive rheumatoid factor M05.79 [facility] [id number] [place] [address] 72477- 8531 Mar, Rheumatoid arthritis involving multiple sites with positive rheumatoid factor M05.79 [facility] [id number] [place] [address] 86437- 0558 Feb, [facility] [address] 10208- 7758 Feb, CAD (coronary artery disease) I25.10 ; 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 and Hypothyroidism in adult E03.9 [facility] [id number] [place] [address] 59602- 9007 Feb, Rheumatoid arthritis involving multiple sites with positive rheumatoid factor M05.79 [facility] [id number] [place] [address] 48766- 6121 Jan, Hypothyroidism in adult E03.9 [facility] [id number] [place] [address] 74881- 2706 Jan, Rheumatoid arthritis involving multiple sites with positive rheumatoid factor M05.79 and CAD (coronary artery disease) I25.10 [facility] [id number] [place] [address] 56695- 6826 Jan, 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 ; 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 ; Hyperlipidemia, acquired E78.5 ; Hypothyroidism in adult E03.9 and Fever blister B00.1 [facility] [id number] [place] [address] 88373- 2942 Dec, Rheumatoid arthritis involving multiple sites with positive rheumatoid factor M05.79 [facility] [id number] [place] [address] 39928- 5830 Nov, Rheumatoid arthritis involving multiple sites with positive rheumatoid factor M05.79 [facility] [id number] [place] [address] 82645- 6417 Oct, Rheumatoid arthritis involving multiple sites with positive rheumatoid factor M05.79 [facility] [address] [address] 2104 Oct, Rheumatoid arthritis involving multiple sites with positive rheumatoid factor M05.79 [facility] [address] [place] [address] 2546 Sep, Rheumatoid arthritis involving multiple sites with positive rheumatoid factor M05.79 [facility] [id number] [address]- 0949 Aug, [facility] [address] [place] [address]- 5019 Aug, 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 ; 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 ; CAD (coronary artery disease) I25.10 ; Rheumatoid arthritis involving both feet M06.071 ; Insomnia G47.00 ; Hypothyroidism in adult E03.9 ; Hypercholesterolemia E78.0 and Rheumatoid arthritis involving multiple sites with positive rheumatoid factor M05.79 [facility] [address] [place] [address] 2022 Jul, [facility] [id number] [place] [address] 11868- 9738 June, [facility] [address] [place] [address]- 3445 June, Depression, prolonged F32.9 [facility] [address] [address]- 5645 June, [facility] [address] [place] [address]- 2548 June, [facility] [address] [place] [address]- 0065 June, Hypothyroidism in adult E03.9 [facility] [address], [place] [address]- 4737 June, Rheumatoid arthritis involving both feet M06.071 [facility] [id number] [place] [address] 50017- 3356 May, CAD (coronary artery disease) I25.10 ; Rheumatoid arthritis involving both feet M06.071 ; Hyperlipidemia, acquired E78.5 ; Hypothyroidism in adult E03.9 ; Depression, prolonged F32.9 ; 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 ; Type 2 diabetes mellitus with hypoglycemia without coma E11.649 ; Vision abnormalities H53.9 and Vision changes H53.[address] 29641- 0825 Apr, [address] 19693- 1580 Apr, DM (diabetes mellitus) type I uncontrolled with eye manifestation E10.39 [id number] [place] [address] 25542- 0593 Apr, Rheumatoid arthritis involving both feet M06.071 [id number] [place] [address] 27065- 9398 Mar, Rheumatoid arthritis involving both feet M06.071 [facility] [id number] [place] [address] 33124- 6321 Mar, [id number] [place] [address] 86803- 7718 Feb, Rheumatoid arthritis involving both feet M06.071 [facility] [id number] [place] [address] 14842- 2225 Feb, DM (diabetes mellitus) type I uncontrolled with eye manifestation E10.39 ; Rheumatoid arthritis involving both feet M06.071 ; CAD ( coronary artery disease) I25.10 ; Depression, prolonged F32.9 ; Hyperlipidemia, acquired E78.5 ; Hypothyroidism in adult E03.9 and Environmental allergies Z91.09 [facility] [address] [place] [address] 21684- 8429 Jan, [id number] [place] [address] 93495- 3357 19 Dec, 2016 Hyperlipemia E78.5 ; DM (diabetes mellitus) type I uncontrolled with eye manifestation E10.39 ; CAD (coronary artery disease) I25.10 ; Hyperlipidemia, acquired E78.5 ; Depression, prolonged F32.9 ; 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 ; Hypercholesterolemia E78.0 ; RA (refractory anemia) D46.4 and Rheumatoid arthritis involving multiple sites with positive rheumatoid factor M05.79 [facility] [id number] [place] [address] 60318- 0141 Jan, [facility] [id number] [place] [address] 36427- 1030 Jan, [facility] [address] 95145- 9783 Sep, [facility] [address] 04974- 1046 Sep, [facility] [id number] [place] [address] 14479- 9441 Aug, [facility] [id number] [place] [address] 76990- 9728 Aug, [facility] [id number] [place] [address] 51818- 5491 Jul, Type 2 diabetes mellitus with hypoglycemia without coma E11.649 and 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 [facility] [id number] [place] [address] 51061- 1565 June, CAD (coronary artery disease) I25.10 ; Insomnia G47.00 ; Rheumatoid arthritis involving both feet M06.071 ; Hypothyroidism in adult E03.9 ; 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 ; Type 2 diabetes mellitus with hypoglycemia without coma E11.649 ; 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 ; Hypercholesterolemia E78.0 ; Environmental allergies Z91.09 and Rib pain R07.81 [facility] [id number] [place] [address] 27268- 6870 June, [facility] [address] [place] [address]- 4025 June, 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 [facility] [id number] [place] [address] 15385- 0205 May, Rheumatoid arthritis involving both feet M06.071 [facility] [address], [place] [address]- 4972 May, CAD (coronary artery disease) I25.10 ; DM (diabetes mellitus ) type I uncontrolled with eye manifestation E10.39 ; Insomnia G47.00 ; Rheumatoid arthritis involving both feet M06.071 ; Hyperlipidemia, acquired E78.5 ; Depression, prolonged F32.9 ; 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 and Hypothyroid E03.9 [facility] [address] [place] [address] 46203- 1503 Apr, [facility] [id number] [place] [address] 13865- 1744 Mar, DM (diabetes mellitus) type I uncontrolled with eye manifestation E10.39 ; Insomnia G47.00 ; Insulin long-term use Z79.4 ; Rheumatoid arthritis involving both feet M06.071 ; Hyperlipidemia, acquired E78.5 ; Hypothyroidism in adult E03.9 ; Depression, prolonged F32.9 ; CAD ( coronary artery disease) I25.10 and 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 [facility] [address] [address]- 7343 Mar, [facility] [address], [place] [address]- 0593 Feb, [facility] [id number] [place] [address] 18983- 3500 Jan, [facility] [id number] [place] [address] 21559- 0816 Dec, [facility] [address], [place] [address]- 4559 Nov, [facility] [id number] [place] [address] 66496- 6862 14 Nov, 2014 Hyperlipemia E78.5 and Hypothyroid E03.[address] 62188- 3421 13 Nov, 2014 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 ; DM (diabetes mellitus) type I uncontrolled with eye manifestation E10.39 ; Hypothyroidism in adult E03.9 and Hyperlipidemia, acquired E78.[address] 98284- 7977 07 Nov, 2014 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 ; CAD (coronary artery disease) I25.10 ; DM (diabetes mellitus) type I uncontrolled with eye manifestation E10.39 ; Insomnia G47.00 ; Rheumatoid arthritis involving both feet M06.071 ; Insulin long-term use Z79.4 ; Hyperlipidemia, acquired E78.5 ; Hypothyroidism in adult E03.9 ; Depression, prolonged F32.9 and 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 [facility] [id number] [place] [address] 87398- 3884 17 Oct, [address] 24277- 4040 Oct, [id number] [place] [address] 70628- 1524 Oct, [id number] [place] [address] 08774- 2525 Sep, [facility] [id number] [place] [address] 64014- 5420 Aug, [id number] [place] [address] 36701- 8729 Aug, Coronary atherosclerosis of unspecified type of vessel, [place] or graft 414.00 ; Rheumatoid arthritis 714.0 ; Insulin dependent diabetes mellitus 250.00 ; Hyperlipidemia 272.4 ; Hypothyroidism 244.9 ; Depression 311 and Insomnia 780.[address] 47225- 0389 Aug, [facility] [address], [place] [address]- 3386 Jul, [facility] [address], [place] [address]- 7663 Jul, [facility] [address], [place] [address]- 5372 Jul, Breast cancer screening V76.10 [facility] [id number] [place] [address] 35139- 9378 Jul, ASCUS with positive high risk HPV 796.9 [facility] [id number] [place] [address] 120469- 0071 June, [facility] [id number] [place] [address] 10559- 5361 June, Routine gynecological examination V72.31 ; Pap test, as part of routine gynecological examination V76.2 ; Breast cancer screening V76.10 ; Perimenopausal 627.2 and Tobacco abuse 305.1 [facility] [address], [place] [address]- 4986 June, Rheumatoid arthritis 714.0 ; Insulin dependent diabetes mellitus 250.00 and Depression 311 [facility] [address], [place] [address]- 3115 June, [facility] [address], [place] [address]- 0185 June, [facility] [address], [place] [address]- 0088 May, [facility] [address], [place] [address]- 8344 May, [facility] [address] [address] 2929 Apr, [facility] [address], [place] [address]- 9907 Apr, [facility] [place] [facility] [address] [id number] [place] [address]- 3213 Apr, [facility] [place] [facility] [address] [id number] [place] [address]- 7457 Apr, [facility] [place] [facility] [address] [id number] [place] [address]- 9976 Apr, [facility] [place] [facility] [address] [id number] [place] [address]- 0237 Apr, [facility] [place] [facility] [address] [id number] [place] [address]- 8741 Apr, [facility] [place] [facility] [address] [id number] [place] [address]- 1656 Apr, [facility] [place] [facility] [address] [id number] [place] [address]- 4988 Apr, [facility] [place] [facility] [address] [id number] [place] [address]- 8765 Apr, [facility] [place] [facility] [address] [id number] [place] [address]- 9398 Apr, [facility] [place] [facility] [address] [id number] [place] [address]- 8949 Apr, [facility] [place] [facility] [address] [id number] [place] [address]- 0336 Feb, [facility] [place] [facility] [address] [id number] [place] [address]- 8238 Feb, [facility] [place] [facility] [address] [id number] [place] [address]- 1173 Feb, [facility] [place] [facility] [address] [id number] [place] [address]- 0789 Feb, [facility] [place] [facility] [address] [id number] [place] [address]- 4740 Feb, [facility] [place] [facility] [address] [id number] [address]- 5791 Feb, [facility] [place] [facility] [address] [id number] [place] [address]- 5972 Jan, [facility] [place] [facility] [address] [id number] [place] 5786 Jan, [facility] [place] [facility] [address] [id number] [place] [address]- 1337 Jan, [facility] [place] [facility] [address] [id number] [place] [address]- 5771 Jan, [facility] [place] [facility] [address] [id number] [place] [address]- 3378 Jan, [facility] [place] [facility] [address] [id number] [place] [address]- 4249 Jan, [facility] [place] [facility] [address] [id number] [place] [address]- 6495 Jan, [facility] [place] [facility] [address] [id number] [place] [address]- 3154 Jan, [facility] [place] [facility] [address] [id number] [place] [address]- 1272 Jan, [facility] [place] [facility] [address] [id number] [place] [address]- 0254 Jan, [facility] [place] [facility] [address] [id number], [place] [address]- 4366 Dec, [facility] [place] [facility] [address] [id number], [place] [address]- 6923 Dec, [facility] [place] [facility] [address] [id number] [place] [address]- 3129 Nov, [facility] [place] [facility] [address] [id number] [place] [address]- 7364 Nov, [facility] [place] [facility] [address] [id number] [place] [address]- 7438 Nov, [facility] [place] [facility] [address] [id number] [place] [address]- 4251 Nov, [facility] [place] [facility] [address] [id number] [place] [address]- 2493 Nov, [facility] [place] [facility] [address] [id number] [place] [address]- 6776 27 Oct, 2013 [facility] [place] [facility] [address] [id number] [place] [address]- 3584 27 Oct, 2013 [facility] [place] [facility] [address] [id number] [place] [address]- 6913 23 Oct, 2013 [facility] [place] [facility] [address] [id number] [place] [address]- 6159 23 Oct, 2013 [facility] [place] [facility] [address] [id number] [place] [address]- 9685 22 Oct, 2013 [facility] [place] [facility] [address] [id number] [place] [address]- 9257 22 Oct, 2013 [facility] [place] [facility] [address] [id number] [place] [address]- 3649 18 Oct, 2013 [facility] [place] [facility] [address] [id number] [place] [address]- 3495 18 Oct, 2013 [facility] [place] [facility] [address] [id number] [place] [address]- 3508 12 Oct, 2013 [facility] [place] [facility] [address] [id number] [place] [address]- 2545 12 Oct, 2013 [facility] [place] [facility] [address] [id number] [place] [address]- 2547 11 Oct, 2013 [facility] [place] [facility] [address] [id number] [place] [address] 2546 11 Oct, 2013 [facility] [place] [facility] [address] [id number] [place] [address]- 2541 11 Oct, 2013 [facility] [place] [facility] [address] [id number] [place] [address]- 7506 Oct, [facility] [place] [facility] [address] [id number] [place] [address]- 9024 Oct, [facility] [place] [facility] [address] [id number] [place] [address]- 1245 Oct, [facility] [place] [facility] [address] [id number] [place] [address]- 7259 June, [facility] [place] [facility] [address] [id number] [place] [address]- 5666 June, [facility] [place] [facility] [address] [id number] [place] [address]- 5854 June, [facility] [place] [facility] [address] [id number] [place] [address]- 5658 June, [facility] [place] [facility] [address] [id number] [place] [address]- 6505 May, [facility] [place] [facility] [address] [id number] [place] [address]- 0469 May, [facility] [place] [facility] [address] [id number] [place] [address]- 5398 Apr, [facility] [place] [facility] [address] [id number] [place] [address]- 5272 Apr, [facility] [place] [facility] [address] [id number] [place] [address]- 4463 Mar, [facility] [place] [facility] [address] [id number] [place] [address]- 2420 Mar, [facility] [place] [facility] [address] [id number] [place] [address]- 1328 Mar, [facility] [place] [facility] [address] [id number] [place] [address]- 3027 Mar, [facility] [place] [facility] [address] [id number] [place] [address]- 6087 Mar, [facility] [place] [facility] [address] [id number] [place] [address]- 0174 Mar, [facility] [address] [id number] [place] [address]- 5576 Jan, [facility] [place] [facility] [address] [id number] [place] 7446 16 Jan, 2013 [facility] [address] [id number] [place] [address]- 1942 Dec, [facility] [place] [facility] [address] [id number] [place] [address]- 3730 Dec, [facility] [address] [id number] [place] [address]- 7710 Dec, [facility] [place] [facility] [address] [id number] [place] [address]- 5852 Dec, [facility] [place] [facility] [address] [id number] [place] [address]- 3364 Dec, [facility] [address] [id number] [place] [address]- 9718 Dec, [facility] [place] [facility] [address] [facility] [id number] [place] [address]- 0264 30 Nov, 2012 [facility] [address] [id number] [place] [address]- 0444 30 Nov, 2012 [facility] [place] [facility] [address] [id number] [place] [address]- 8496 17 Nov, 2012 [facility] [place] [facility] [address] [id number], [place] [address]- 8259 17 Nov, 2012 [facility] [place] [facility] [address] [id number] [place] 3576 15 Nov, 2012 [facility] [place] [facility] [address] [id number] [place] [address]- 2713 15 Nov, 2012 [facility] [place] [facility] [address] [id number] [place] 3028 10 Nov, 2012 [facility] [place] [facility] [address] [id number] [place] [address]- 3836 10 Nov, 2012 [facility] [place] [facility] [address] [id number] [place] [address]- 6103 26 Oct, 2012 [facility] [place] [facility] [address] [id number] [place] [address]- 5133 18 Oct, 2012 [facility] [place] [facility] [address] [id number] [place] [address]- 1941 17 Oct, 2012 [facility] [place] [facility] [address] [id number] [place] [address]- 2486 12 Oct, 2012 [facility] [place] [facility] [address] [id number] [place] [address]- 7200 11 Oct, 2012 [facility] [place] [facility] [address] [id number] [place] [address]- 3803 07 Oct, 2012 [facility] [place] [facility] [address] [id number] [place] [address]- 1169 06 Oct, 2012 [facility] [place] [facility] [address] [id number] [place] [address]- 2377 Sep, [facility] [place] [facility] [address] [id number] [place] [address]- 6747 Sep, [facility] [place] [facility] [address] [id number] [place] [address]- 2117 Sep, [facility] [place] [facility] [address] [id number], [place] [address]- 4093 Sep, [facility] [place] [facility] [address] [id number] [place] [address]- 8609 Sep, [facility] [place] [facility] [address] [id number] [place] [address]- 8718 16 Sep, 2012 [facility] [place] [facility] [address] [id number] [place] [address] 15 Sep, 2012 [facility] [place] [facility] [address] [id number], [place] [address] Sep, [facility] [address] [id number] [place] [address] Aug, [facility] [place] [facility] [address] [id number] [place] [address] Aug, [facility] [address] [id number] [place] [address] Jul, [facility] [place] [facility] [address] [id number] [place] [address] Jul, [facility] [address] [id number] [place] [address] Jul, [facility] [address] [id number] [place] [address] Jul, [facility] [address] [id number] [place] [address] June, [facility] [address] [id number] [place] [address] June, [facility] [address] [id number] [place] [address] May, [facility] [address] [id number] [place] [address] Apr, [facility] [address] [id number] [place] [address] Mar, [facility] [place] [facility] [address] [id number] [place] [address] Mar, [facility] [place] [facility] [address] [id number] [place] [address] Feb, [facility] [place] [facility] [address] [id number] [place] [address]- [address] Oct, [facility] [place] [facility] [address] [id number], [place] [address] Sep, [facility] [place] [facility] [address] [id number] [place] [address]- [address] Jul, [facility] [place] [facility] [address] [id number] [place] [address]- [address] May, [facility] [place] [facility] [address] [id number] [place] [address] May, [facility] [place] [facility] [address] [id number] [place] [address] 16 Mar, 2011 [facility] [place] [facility] [address] [id number] [place] [address] 15 Mar, 2011 [facility] [place] [facility] [address] [id number] [place] [address]- [address] 14 Mar, 2011 [facility] [address] [id number] [place] [address] Feb, [facility] [address] [id number] [place] [address] Feb, [facility] [place] [facility] [address] [id number] [place] [address] Feb, [facility] [place] [facility] [address] [id number] [place] [address] Feb, [facility] [facility] [address] [id number] [place] [address] Feb, [facility] [address] [id number] [place] [address] Feb, [facility] [place] [facility] [address] [id number] [place] [address] Feb, [facility] [place] [facility] [address] [id number] [place] [address] Feb, [facility] [address] [id number] [place] [address] Jan, [facility] [place] [facility] [address] [id number] [place] [address] Jan, [facility] [place] [facility] [address] [id number] [place] [address] Dec, [facility] [place] [facility] [address] [id number] [place] [address] Dec, [facility] [address] [id number] [place] [address] Dec, [facility] [place] [facility] [address] [id number] [place] [address] Dec, [facility] [facility] [address] [id number] [place] [address] Nov, [facility] [place] [facility] [address] [id number] [place] [address] Jan, [facility] [place] [facility] [address] [id number] [place] [address] Jan, [facility] [place] [facility] [address] [id number] [place] [address] Jan, [facility] [place] [facility] [address] [id number] [place] [address] Jan, [facility] [place] [facility] [address] [id number] [place] [address] 254 Jan, [facility] [place] [facility] [address] [id number] [place] [address] Jan, [facility] [place] [facility] [address] [id number] [place] [address] Jan, [facility] [place] [facility] [address] [id number] [place] [address] Jan, [facility] [place] [facility] [address] [id number] [place] [address] Dec, [facility] [place] [facility] [address] [id number] [place] [address] Nov, [facility] [id number], [place] [address] 14 Jul, 2009 [facility] [id number] [place] [address] 17 Jun, 2009 [facility] [id number], [place] [address] 10 Jun, 2009 [facility] [id number], [place] [address] May, [facility] [id number], [place] [address] Jan, [facility] [id number] [place] [address] Dec, [facility] [id number], [place] [address] Dec, [facility] [id number] [place] [address] Dec, [facility] [id number], [place] [address] Nov, [facility] [id number] [address] Nov, [facility] [id number], [place] [address] 14 Oct, 2008 IMMUNIZATIONS No Known Immunizations SOCIAL HISTORY Never Assessed REASON FOR VISIT letter to pt PLAN OF CARE VITAL SIGNS MEDICATIONS Unknown [...]
--- OUTSIDE RECORDS SUMMARY | 2017-08-29 14:49 | XMS REPORT ---
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 Name Role Phone CATA MELENDEZ Unavailable PROBLEMS Type Condition ICD9-CM Code ZTJ93-CL Code Onset Dates Condition Status SNOMED Code Problem 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 Active 915858877 Problem Hypothyroidism in adult E03.9 Active 77239794 Problem CAD (coronary artery disease) I25.10 Active 00409884 Problem Type 1 diabetes mellitus with other circulatory complication E10.59 Active 45932491 Problem Insomnia G47.00 Active 120489795 Problem Recurrent major depressive disorder, in full remission F33.42 Active 289074992 Problem Rheumatoid arthritis involving multiple sites with positive rheumatoid factor M05.79 Active 99193508 Problem 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 431766144 Problem Hyperlipidemia, acquired E78.5 Active 0090316 Problem retirement current use of insulin Z79.4 Active 921468660 Problem Environmental allergies Z91.09 Active [id number] ALLERGIES No Information ENCOUNTERS Encounter Location Date Diagnosis [facility] [id number] [place] [address] 64484- 9781 May, Type 1 diabetes mellitus with other circulatory complication E10.59 ; Recurrent major depressive disorder, in full remission F33.42 and Hyperlipidemia, acquired E78.5 [facility] [id number] [place] [address] 89286- 8152 May, Hypothyroidism, unspecified E03.9 and Hypothyroidism in adult E03.9 [facility] [id number] [place] [address] 14790- 3194 Apr, Hypothyroidism in adult E03.9 [facility] [address] [address] 00[address] Apr, Type 1 diabetes mellitus with other circulatory complication E10.59 ; 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 ; Rheumatoid arthritis involving multiple sites with positive rheumatoid factor M05.79 ; Hypothyroidism in adult E03.9 ; Hyperlipidemia, acquired E78.5 ; Recurrent major depressive disorder, in full remission F33.42 ; 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 ; Environmental allergies Z91.09 and CAD (coronary artery disease ) I25.10 [facility] [id number] [place] [address] 42163- 9629 Apr, Rheumatoid arthritis involving multiple sites with positive rheumatoid factor M05.79 [place] [address] 66179- 6417 Mar, Rheumatoid arthritis involving multiple sites with positive rheumatoid factor M05.79 [facility] [id number] [place] [address] 18664- 1534 Feb, [place] [address] 86821- 9743 Feb, CAD (coronary artery disease) I25.10 ; 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 and Hypothyroidism in adult E03.9 [facility] [id number] [place] [address] 95912- 5343 Feb, Rheumatoid arthritis involving multiple sites with positive rheumatoid factor M05.79 [facility] [id number] [place] [address] 67101- 7389 Jan, Hypothyroidism in adult E03.9 [facility] [id number] [place] [address] 94995- 1037 Jan, Rheumatoid arthritis involving multiple sites with positive rheumatoid factor M05.79 and CAD (coronary artery disease) I25.10 [facility] [id number] [place] [address] 13544- 3906 Jan, 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 ; 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 ; Hyperlipidemia, acquired E78.5 ; Hypothyroidism in adult E03.9 and Fever blister B00.1 [facility] [id number] [place] [address] 45056- 4785 Dec, Rheumatoid arthritis involving multiple sites with positive rheumatoid factor M05.79 [facility] [address] [address] 3886 Nov, Rheumatoid arthritis involving multiple sites with positive rheumatoid factor M05.79 [place] [address] [address] 5796 Oct, Rheumatoid arthritis involving multiple sites with positive rheumatoid factor M05.79 [facility] [id number] [place] [address] 29156- 7636 Oct, Rheumatoid arthritis involving multiple sites with positive rheumatoid factor M05.79 [place] [id number] [place] [address] 10239- 9891 Sep, Rheumatoid arthritis involving multiple sites with positive rheumatoid factor M05.79 [place] [address] [address]- 0684 Aug, [place] [id number] [place] [address] 56535- 2311 Aug, 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 ; 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 ; CAD (coronary artery disease) I25.10 ; Rheumatoid arthritis involving both feet M06.071 ; Insomnia G47.00 ; Hypothyroidism in adult E03.9 ; Hypercholesterolemia E78.0 and Rheumatoid arthritis involving multiple sites with positive rheumatoid factor M05.79 [place] [address] [address] Jul, [place] [address] [address]- 8756 June, [address] [place] [address] 121600- 9598 June, Depression, prolonged F32.9 [facility] [address] [address]66 June, [place] [id number] [address] [address] June, [place] [address] [address]- 0453 June, Hypothyroidism in adult E03.9 [place] [address] [place] [address] 87021- 8158 June, Rheumatoid arthritis involving both feet M06.071 [place] [id number] [place] [address] 93272- 7471 May, CAD (coronary artery disease) I25.10 ; Rheumatoid arthritis involving both feet M06.071 ; Hyperlipidemia, acquired E78.5 ; Hypothyroidism in adult E03.9 ; Depression, prolonged F32.9 ; 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 ; Type 2 diabetes mellitus with hypoglycemia without coma E11.649 ; Vision abnormalities H53.9 and Vision changes H53.9 [place] [id number] [place] [address] 75864- 1146 Apr, [place] [id number] [place] [address] 16229- 0221 Apr, DM (diabetes mellitus) type I uncontrolled with eye manifestation E10.39 [place] [id number] [place] [address] 97849- 7147 Apr, Rheumatoid arthritis involving both feet M06.071 [place] [address] [place] [address] 48521- 9996 Mar, Rheumatoid arthritis involving both feet M06.071 [place] [address] [place] [address] 43930- 8643 Mar, [place] [id number] [place] [address] 57224- 9538 Feb, Rheumatoid arthritis involving both feet M06.071 [place] [address] [place] [address] 15534- 2095 Feb, DM (diabetes mellitus) type I uncontrolled with eye manifestation E10.39 ; Rheumatoid arthritis involving both feet M06.071 ; CAD ( coronary artery disease) I25.10 ; Depression, prolonged F32.9 ; Hyperlipidemia, acquired E78.5 ; Hypothyroidism in adult E03.9 and Environmental allergies Z91.09 [facility] [id number] [place] [address] 87559- 3170 Jan, [place] [id number] [place] [address] 12951- 2231 Jan, Hyperlipemia E78.5 ; DM (diabetes mellitus) type I uncontrolled with eye manifestation E10.39 ; CAD (coronary artery disease) I25.10 ; Hyperlipidemia, acquired E78.5 ; Depression, prolonged F32.9 ; 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 ; Hypercholesterolemia E78.0 ; RA (refractory anemia) D46.4 and Rheumatoid arthritis involving multiple sites with positive rheumatoid factor M05.79 [place] [id number] [place] [address] 72617- 9822 Jan, [place] [id number] [place] [address] 02107- 5262 Jan, [place] [id number] [place] [address] 18441- 4667 Sep, [place] [id number] [place] [address] 81759- 9473 Sep, [place] [id number] [place] [address] 75832- 7230 Aug, [place] [id number] [place] [address] 67371- 3346 Aug, [place] [id number] [place] [address] 71620- 5946 Jul, Type 2 diabetes mellitus with hypoglycemia without coma E11.649 and 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 [facility] [id number] [place] [address] 94859- 5947 June, CAD (coronary artery disease) I25.10 ; Insomnia G47.00 ; Rheumatoid arthritis involving both feet M06.071 ; Hypothyroidism in adult E03.9 ; 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 ; Type 2 diabetes mellitus with hypoglycemia without coma E11.649 ; 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 ; Hypercholesterolemia E78.0 ; Environmental allergies Z91.09 and Rib pain R07.81 [place] [address] [address]- 4209 June, [place] [id number] [place] [address] 53328- 7400 June, 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 [place] [id number] [place] [address] 67617- 7935 May, Rheumatoid arthritis involving both feet M06.071 [place] [id number] [place] [address] 94327- 0092 May, CAD (coronary artery disease) I25.10 ; DM (diabetes mellitus ) type I uncontrolled with eye manifestation E10.39 ; Insomnia G47.00 ; Rheumatoid arthritis involving both feet M06.071 ; Hyperlipidemia, acquired E78.5 ; Depression, prolonged F32.9 ; 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 and Hypothyroid E03.[address] [place] [address] 93369- 9276 Apr, [address] [place] [address] 94125- 8276 Mar, DM (diabetes mellitus) type I uncontrolled with eye manifestation E10.39 ; Insomnia G47.00 ; Insulin long-term use Z79.4 ; Rheumatoid arthritis involving both feet M06.071 ; Hyperlipidemia, acquired E78.5 ; Hypothyroidism in adult E03.9 ; Depression, prolonged F32.9 ; CAD ( coronary artery disease) I25.10 and 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 [place] [address] [address]- 1687 Mar, [place] [id number] [place] [address] 94859- 1435 Feb, [facility] [address], [place] [address]- 1822 Jan, [facility] [id number] [place] [address] 09818- 0412 Dec, [facility] [address] [address]- 1120 Nov, [facility] [id number] [place] [address] 65129- 5151 Nov, Hyperlipemia E78.5 and Hypothyroid E03.9 [facility] [id number] [place] [address] 21622- 4626 13 Nov, 2014 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 ; DM (diabetes mellitus) type I uncontrolled with eye manifestation E10.39 ; Hypothyroidism in adult E03.9 and Hyperlipidemia, acquired E78.5 [facility] [id number] [place] [address] 39180- 2125 Nov, 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 ; CAD (coronary artery disease) I25.10 ; DM (diabetes mellitus) type I uncontrolled with eye manifestation E10.39 ; Insomnia G47.00 ; Rheumatoid arthritis involving both feet M06.071 ; Insulin long-term use Z79.4 ; Hyperlipidemia, acquired E78.5 ; Hypothyroidism in adult E03.9 ; Depression, prolonged F32.9 and 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 [facility] [address] [address]- 2652 Oct, [facility] [address] [address]- 5498 Oct, [facility] [address], [place] [address]- 5149 Oct, [facility] [address] [address] 8881 Sep, [facility] [address], [place] [address]- 6497 Aug, [place] [address] [place] [address] 82704- 6871 Aug, Coronary atherosclerosis of unspecified type of vessel, [place] or graft 414.00 ; Rheumatoid arthritis 714.0 ; Insulin dependent diabetes mellitus 250.00 ; Hyperlipidemia 272.4 ; Hypothyroidism 244.9 ; Depression 311 and Insomnia 780.52 [facility] [id number] [place] [address] 58581- 8580 Aug, [place] [id number] [place] [address] 46452- 1891 Jul, [place] [id number] [place] [address] 35810- 3549 Jul, [place] [id number] [place] [address] 42919- 2550 Jul, Breast cancer screening V76.[address] 09621- 4117 Jul, ASCUS with positive high risk HPV 796.9 [place] [id number] [place] [address] 42428- 0755 June, [place] [id number] [place] [address] 12134- 7858 June, Routine gynecological examination V72.31 ; Pap test, as part of routine gynecological examination V76.2 ; Breast cancer screening V76.10 ; Perimenopausal 627.2 and Tobacco abuse 305.1 [place] [id number] [place] [address] 87575- 1202 June, Rheumatoid arthritis 714.0 ; Insulin dependent diabetes mellitus 250.00 and Depression [id number] [place] [address] 38885- 0108 June, [place] [id number] [place] [address] 11073- 4960 June, [place] [id number] [place] [address] 91861- 1311 14 May, 2014 [facility] [place] [facility] [address] [id number] [place] [address]- 9804 13 May, 2014 [facility] [place] [facility] [address] [id number] [place] [address]- 2236 Apr, [facility] [place] [facility] [address] [id number] [place] [address]- 8563 Apr, [facility] [place] [facility] [address] [id number] [place] [address]- 1370 Apr, [facility] [place] [facility] [address] [id number] [place] [address]- 9490 Apr, [facility] [place] [facility] [address] [id number] [place] [address]- 6298 Apr, [facility] [place] [facility] [address] [id number] [place] [address]- 7697 Apr, [facility] [place] [facility] [address] [id number] [place] [address]- 2066 Apr, [facility] [place] [facility] [address] [id number] [place] [address]- 5353 Apr, [facility] [place] [facility] [address] [id number] [place] [address]- 4226 Apr, [facility] [place] [facility] [address] [id number] [address]- 6286 Apr, [facility] [place] [facility] [address] [id number] [address]- 0706 Apr, [facility] [place] [facility] [address] [id number] [place] [address]- 9141 Apr, [facility] [place] [facility] [address] [id number] [place] [address]- 6185 Feb, [facility] [place] [facility] [address] [id number] [place] [address]- 3240 Feb, [facility] [place] [facility] [address] [id number] [place] [address]- 4640 Feb, [facility] [address] [id number] [place] [address]- 9413 Feb, [facility] [place] [facility] [address] [id number] [place] [address]- 4224 Feb, [facility] [place] [facility] [address] [id number] [place] [address]- 0930 Feb, [facility] [place] [facility] [address] [id number] [place] [address]- 0298 Jan, [facility] [place] [facility] [address] [id number] [place] [address]- 1748 Jan, [facility] [place] [facility] [address] [id number] [place] [address]- 5555 Jan, [facility] [place] [facility] [address] [id number] [place] [address]- 9290 Jan, [facility] [place] [facility] [address] [id number] [place] [address]- 5065 Jan, [facility] [place] [facility] [address] [id number] [place] [address]- 8643 Jan, [facility] [place] [facility] [address] [id number] [place] [address]- 4348 Jan, [facility] [place] [facility] [address] [id number] [place] [address]- 0266 Jan, [facility] [place] [facility] [address] [id number] [place] [address]- 5962 Jan, [facility] [place] [facility] [address] [id number] [place] [address]- 8167 Jan, [facility] [place] [facility] [address] [id number] [place] [address]- 3829 Dec, [facility] [place] [facility] [address] [id number] [place] [address]- 5085 Dec, [facility] [place] [facility] [address] [id number] [place] [address]- 0633 Nov, [facility] [place] [facility] [address] [id number] [place] [address]- 8003 Nov, [facility] [place] [facility] [address] [id number] [place] [address]- 7247 Nov, [facility] [place] [facility] [address] [id number] [place] [address]- 5397 Nov, [facility] [place] [facility] [address] [id number] [place] [address]- 3888 Nov, [facility] [place] [facility] [address] [id number] [place] [address]- 7555 27 Oct, 2013 [facility] [place] [facility] [address] [id number] [place] [address]- 2943 27 Oct, 2013 [facility] [place] [facility] [address] [id number] [place] [address]- 3035 23 Oct, 2013 [facility] [place] [facility] [address] [id number] [place] [address]- 7282 23 Oct, 2013 [facility] [place] [facility] [address] [id number] [place] [address]- 4299 22 Oct, 2013 [facility] [place] [facility] [address] [id number] [place] [address]- 9210 22 Oct, 2013 [facility] [place] [facility] [address] [id number] [place] [address]- 4857 18 Oct, 2013 [facility] [place] [facility] [address] [id number] [place] [address]- 2547 18 Oct, 2013 [facility] [place] [facility] [address] [id number] [place] [address]- 1207 12 Oct, 2013 [facility] [place] [facility] [address] [id number] [place] [address]- 2216 12 Oct, 2013 [facility] [place] [facility] [address] [id number] [place] [address]- 9139 Oct, [facility] [place] [facility] [address] [id number] [place] [address]- 0691 Oct, [facility] [place] [facility] [address] [id number] [place] [address]- 9336 Oct, [facility] [place] [facility] [address] [id number] [place] [address]- 9793 Oct, [facility] [place] [facility] [address] [id number] [place] [address]- 6314 Oct, [facility] [place] [facility] [address] [id number] [place] [address]- 8983 Oct, [facility] [place] [facility] [address] [id number] [place] [address]- 9713 June, [facility] [place] [facility] [address] [id number] [place] [address]- 1091 June, [facility] [place] [facility] [address] [id number] [place] [address]- 7952 June, [facility] [place] [facility] [address] [id number] [place] [address]- 0617 June, [facility] [place] [facility] [address] [id number] [place] [address]- 2147 May, [facility] [place] [facility] [address] [id number] [place] [address]- 9590 May, [facility] [place] [facility] [address] [id number] [place] [address]- 2824 Apr, [facility] [place] [facility] [address] [id number] [place] [address]- 4253 Apr, [facility] [place] [facility] [address] [id number] [place] [address]- 3329 Mar, [facility] [place] [facility] [address] [id number] [place] [address]- 9052 Mar, [facility] [place] [facility] [address] [id number] [place] [address]- 3719 Mar, [facility] [place] [facility] [address] [id number] [place] [address]- 3346 Mar, [facility] [place] [facility] [address] [id number] [place] [address]- 1747 Mar, [facility] [place] [facility] [address] [id number] [place] [address]- 4250 Mar, [facility] [place] [facility] [address] [id number] [place] [address]- 2508 Jan, [facility] [place] [facility] [address] [id number] [place] [address]- 7551 Jan, [facility] [place] [facility] [address] [id number] [place] [address]- 6494 Dec, [facility] [place] [facility] [address] [id number] [place] [address]- 5332 Dec, [facility] [place] [facility] [address] [id number] [place] [address]- 6195 Dec, [facility] [place] [facility] [address] [id number] [place] [address]- 9315 Dec, [facility] [place] [facility] [address] [id number] [place] [address]- 2110 Dec, [facility] [place] [facility] [address] [id number] [place] [address]- 1262 Dec, [facility] [place] [facility] [address] [id number] [place] [address]- 2058 Nov, [facility] [place] [facility] [address] [id number] [place] [address]- 0187 30 Nov, 2012 [facility] [place] [facility] [address] [id number] [place] [address]- 6581 17 Nov, 2012 [facility] [place] [facility] [address] [id number] [address]- 2295 17 Nov, 2012 [facility] [place] [facility] [address] [id number] [place] [address] 15 Nov, 2012 [facility] [place] [facility] [address] [id number] [place] [address] 15 Nov, 2012 [facility] [place] [facility] [address] [id number] [place] [address] 10 Nov, 2012 [facility] [place] [facility] [address] [id number] [place] [address] 10 Nov, 2012 [facility] [place] [facility] [address] [id number] [place] [address] 26 Oct, 2012 [facility] [place] [facility] [address] [id number] [place] [address] 18 Oct, 2012 [facility] [place] [facility] [address] [id number] [place] [address] 17 Oct, 2012 [facility] [place] [facility] [address] [id number] [place] [address] 12 Oct, 2012 [facility] [place] [facility] [address] [id number] [place] [address] 11 Oct, 2012 [facility] [place] [facility] [address] [id number] [place] [address] 07 Oct, 2012 [facility] [place] [facility] [address] [id number], [place] [address] 06 Oct, 2012 [facility] [place] [facility] [address] [id number], [place] [address] Sep, [facility] [place] [facility] [address] [id number] [place] [address] Sep, [facility] [place] [facility] [address] [id number] [place] [address] Sep, [facility] [place] [facility] [address] [id number] [place] [address] Sep, [facility] [place] [facility] [address] [id number] [place] [address] 17 Sep, 2012 [facility] [address] [id number] [place] [address] Sep[facility] [address] [id number] [place] [address] Sep, [facility] [address] [id number] [place] [address] Sep, [facility] [address] [id number] [place] [address] Aug, [facility] [address] [id number] [place] [address] Aug, [facility] [address] [id number] [place] [address] Jul, [facility] [address] [id number] [place] [address] Jul, [facility] [address] [id number] [place] [address] Jul, [facility] [address] [id number] [place] [address] Jul, [facility] [address] [id number] [place] [address] June, [facility] [address] [id number] [place] [address] June, [facility] [address] [id number] [place] [address] May, [facility] [place] [facility] [address] [id number] [place] [address] Apr, [facility] [address] [id number] [place] [address] Mar, [facility] [address] [id number] [place] [address] Mar, [facility] [address] [id number] [place] [address] 14 Feb, 2012 [facility] [place] [facility] [address] [id number] [place] [address] 27 Oct, 2011 [facility] [address] [id number] [place] [address] 16 Sep, 2011 [facility] [place] [facility] [address] [id number] [place] [address] Jul, [facility] [address] [id number] [place] [address] 24 May, 2011 [facility] [place] [facility] [address] [id number] [place] [address] 23 May, 2011 [facility] [address] [id number] [place] [address] 16 Mar, 2011 [facility] [place] [facility] [address] [id number] [place] [address] 15 Mar, 2011 [facility] [address] [id number] [place] [address] 14 Mar, 2011 [facility] [address] [id number] [place] [address] 18 Feb, 2011 [facility] [place] [facility] [address] [id number], [place] [address] Feb, [facility] [place] [facility] [address] [id number], [place] [address] Feb, [facility] [place] [facility] [address] [id number] [place] [address] Feb, [facility] [place] [facility] [address] [id number] [place] [address] Feb, [facility] [place] [facility] [address] [id number] [place] [address] 05 Feb, 2011 [facility] [place] [facility] [address] [id number] [place] [address] Feb, [facility] [address] [id number] [place] [address] Feb, [facility] [place] [facility] [address] [id number] [place] [address] Jan, [facility] [address] [id number] [place] [address] Jan, [facility] [place] [facility] [address] [id number] [place] [address] Dec, [facility] [address] [id number] [place] [address] Dec, [facility] [place] [facility] [address] [id number] [place] [address] Dec, [facility] [address] [id number] [place] [address] Dec, [facility] [place] [facility] [address] [id number] [place] [address] Nov, [facility] [place] [facility] [address] [id number] [place] [address] Jan, [facility] [address] [id number] [place] [address] Jan, [facility] [place] [facility] [address] [id number] [place] [address] Jan, [facility] [place] [facility] [address] [id number] [place] [address] Jan, [facility] [place] [facility] [address] [id number] [place] [address] 25[address] Jan, [facility] [place] [facility] [address] [id number] [place] [address] Jan, [facility] [place] [facility] [address] [id number] [place] [address] Jan, [facility] [address] [facility] [id number], [place] [address] Jan, [facility] [address] [facility] [id number], [place] [address] Dec, [facility] [address] [facility] [id number], [place] [address] Nov, [facility] [address] [facility] [id number], [place] [address] Jul, [facility] [address] [facility] [id number], [place] [address] June, [facility] [address] [facility] [id number], [place] [address] June, [facility] [address] [id number], [place] [address] May, [facility] [id number], [place] [address] Jan, [facility] [id number] [address] Dec, [facility] [id number] [address] Dec, [facility] [id number], [place] [address] Dec, [facility] [address] [id number], [place] [address] Nov, [facility] [address] [id number], [place] [address] Nov, [facility] [id number], [place] [address] 14 Oct, 2008 IMMUNIZATIONS No Known Immunizations SOCIAL HISTORY Never Assessed REASON FOR VISIT Oxycodone 11/29 PLAN OF CARE VITAL SIGNS MEDICATIONS Medication Instructions Dosage Frequency Start Date End Date Duration Status Percocet 7.5-325 MG Orally every 6 hrs 1 tablet as needed 6h 12 Nov, 2016 28 days Active RESULTS No Results PROCEDURES [...] infarction-- stents placed x2--(mid and prox RCA) Sharypicus [employer] 3.0 x 32 and 3.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
--- OUTSIDE RECORDS SUMMARY | 2017-08-29 14:50 | XMS REPORT ---
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 Name Role Phone RICKY MENA Unavailable PROBLEMS Type Condition ICD9-CM Code TSU15-DN Code Onset Dates Condition Status SNOMED Code Problem 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 Active 377949475 Problem Hypothyroidism in adult E03.9 Active 80132072 Problem CAD (coronary artery disease) I25.10 Active 54492082 Problem Type 1 diabetes mellitus with other circulatory complication E10.59 Active 22699743 Problem Insomnia G47.00 Active 091759617 Problem Recurrent major depressive disorder, in full remission F33.42 Active 742674178 Problem Rheumatoid arthritis involving multiple sites with positive rheumatoid factor M05.79 Active 15296994 Problem 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 966365750 Problem Hyperlipidemia, acquired E78.5 Active 2680281 Problem 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 Active 346801010 Problem Environmental allergies Z91.09 Active 162182649 ALLERGIES Substance Reaction Event Type Date Status Codeine Phosphate itching Drug Allergy Jan, Active Bactrim Unknown Drug Allergy Jan, Active ENCOUNTERS Encounter Location Date Diagnosis [facility] [id number] [address] Aug, [facility] [id number], [place] [address] June, Rheumatoid arthritis involving multiple sites with positive rheumatoid factor M05.79 [facility] [id number] [place] [address] 54422- 7747 June, [facility] [id number] [address] May, Type 1 diabetes mellitus with other circulatory complication E10.59 ; Recurrent major depressive disorder, in full remission F33.42 and Hyperlipidemia, acquired E78.5 [place] [id number] [place] [address]- 1981 May, Hypothyroidism, unspecified E03.9 and Hypothyroidism in adult E03.9 [place] [id number] [place] [address] 22591- 4317 Apr, Hypothyroidism in adult E03.9 [place] [id number] [place] [address] 82806- 0554 Apr, Type 1 diabetes mellitus with other circulatory complication E10.59 ; 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 ; Rheumatoid arthritis involving multiple sites with positive rheumatoid factor M05.79 ; Hypothyroidism in adult E03.9 ; Hyperlipidemia, acquired E78.5 ; Recurrent major depressive disorder, in full remission F33.42 ; 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 ; Environmental allergies Z91.09 and CAD (coronary artery disease ) I25.10 [place] [id number] [place] [address] 95704- 8235 Apr, Rheumatoid arthritis involving multiple sites with positive rheumatoid factor M05.79 [place] [id number] [place] [address] 15561- 3728 Mar, Rheumatoid arthritis involving multiple sites with positive rheumatoid factor M05.79 [place] [id number] [place] [address] 02350- 9794 Feb, [place] [id number] [place] [address] 85354- 8898 Feb, CAD (coronary artery disease) I25.10 ; 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 and Hypothyroidism in adult E03.9 [place] [id number] [place] [address] 01754- 8960 Feb, Rheumatoid arthritis involving multiple sites with positive rheumatoid factor M05.79 [place] [id number] [place] [address] 61693- 8534 Jan, Hypothyroidism in adult E03.9 [place] [id number] [place] [address] 15962- 3244 Jan, Rheumatoid arthritis involving multiple sites with positive rheumatoid factor M05.79 and CAD (coronary artery disease) I25.10 [place] [address] [place] [address] 16968- 4947 Jan, 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 ; 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 ; Hyperlipidemia, acquired E78.5 ; Hypothyroidism in adult E03.9 and Fever blister B00.1 [place] [id number] [place] [address] 88745- 1355 Dec, Rheumatoid arthritis involving multiple sites with positive rheumatoid factor M05.79 [place] [id number] [place] [address] 63699- 4248 Nov, Rheumatoid arthritis involving multiple sites with positive rheumatoid factor M05.79 [place] [address], [place] [address] 8523 Oct, Rheumatoid arthritis involving multiple sites with positive rheumatoid factor M05.79 [place] [id number] [place] [address] 14730- 2135 Oct, Rheumatoid arthritis involving multiple sites with positive rheumatoid factor M05.79 [place] [address] [place] [address] 43628- 2295 Sep, Rheumatoid arthritis involving multiple sites with positive rheumatoid factor M05.79 [place] [address], [place] [address] 2209 Aug, [place] [address], [place] [address] 0158 Aug, 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 ; 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 ; CAD (coronary artery disease) I25.10 ; Rheumatoid arthritis involving both feet M06.071 ; Insomnia G47.00 ; Hypothyroidism in adult E03.9 ; Hypercholesterolemia E78.0 and Rheumatoid arthritis involving multiple sites with positive rheumatoid factor M05.79 [place] [address] [place] [address] 62879- 5857 Jul, [facility] [address], [place] [address]- 6034 June, [facility] [address], [place] [address]- 8903 June, Depression, prolonged F32.9 [facility] [address], [place] [address]- 9447 June, [place] [id number] [place] [address] 50051- 6095 June, [place] [id number] [place] [address] 94152- 9905 June, Hypothyroidism in adult E03.9 [place] [address] [place] [address] 47101- 4645 June, Rheumatoid arthritis involving both feet M06.071 [place] [address] [place] [address] 12937- 4321 May, CAD (coronary artery disease) I25.10 ; Rheumatoid arthritis involving both feet M06.071 ; Hyperlipidemia, acquired E78.5 ; Hypothyroidism in adult E03.9 ; Depression, prolonged F32.9 ; 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 ; Type 2 diabetes mellitus with hypoglycemia without coma E11.649 ; Vision abnormalities H53.9 and Vision changes H53.9 [place] [id number], [place] [address] 1800 Apr, [facility] [id number], [place] [address]- 3077 Apr, DM (diabetes mellitus) type I uncontrolled with eye manifestation E10.39 [address] [place] [address] 09277- 1201 Apr, Rheumatoid arthritis involving both feet M06.071 [place] [id number], [place] [address]- 2342 Mar, Rheumatoid arthritis involving both feet M06.071 [place] [address] [place] [address] 52861- 0474 08 Mar, 2016 [place] [id number] [place] [address] 21297- 8158 Feb, Rheumatoid arthritis involving both feet M06.071 [place] [id number] [place] [address] 44610- 1282 Feb, DM (diabetes mellitus) type I uncontrolled with eye manifestation E10.39 ; Rheumatoid arthritis involving both feet M06.071 ; CAD ( coronary artery disease) I25.10 ; Depression, prolonged F32.9 ; Hyperlipidemia, acquired E78.5 ; Hypothyroidism in adult E03.9 and Environmental allergies Z91.09 [place] [id number] [place] [address] 45222- 2937 Jan, [place] [id number] [place] [address] 30023- 3655 Jan, Hyperlipemia E78.5 ; DM (diabetes mellitus) type I uncontrolled with eye manifestation E10.39 ; CAD (coronary artery disease) I25.10 ; Hyperlipidemia, acquired E78.5 ; Depression, prolonged F32.9 ; 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 ; Hypercholesterolemia E78.0 ; RA (refractory anemia) D46.4 and Rheumatoid arthritis involving multiple sites with positive rheumatoid factor M05.79 [place] [address], [place] [address]- 5502 Jan, [place] [id number] [place] [address] 59816- 0416 Jan, [place] [address] [place] [address] 30520- 3064 Sep, [place] [id number] [place] [address] 52169- 3642 Sep, [place] [address] [place] [address] 44145- 4133 Aug, [place] [id number] [place] [address] 30070- 0297 Aug, [place] [address] [place] [address] 68459- 3518 Jul, Type 2 diabetes mellitus with hypoglycemia without coma E11.649 and 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 [place] [address] [place] [address] 67723- 2757 June, CAD (coronary artery disease) I25.10 ; Insomnia G47.00 ; Rheumatoid arthritis involving both feet M06.071 ; Hypothyroidism in adult E03.9 ; 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 ; Type 2 diabetes mellitus with hypoglycemia without coma E11.649 ; 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 ; Hypercholesterolemia E78.0 ; Environmental allergies Z91.09 and Rib pain R07.81 [address] [id number] [place] [address] 95176- 1579 June, [place] [id number] [place] [address] 40909- 8532 June, 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 [address] [id number] [place] [address] 16424- 7160 May, Rheumatoid arthritis involving both feet M06.071 [place] [address], [place] [address]- 0883 May, CAD (coronary artery disease) I25.10 ; DM (diabetes mellitus ) type I uncontrolled with eye manifestation E10.39 ; Insomnia G47.00 ; Rheumatoid arthritis involving both feet M06.071 ; Hyperlipidemia, acquired E78.5 ; Depression, prolonged F32.9 ; 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 and Hypothyroid E03.[address] [place] [address] 95165- 4770 Apr, [address] [place] [address] 10594- 7479 Mar, DM (diabetes mellitus) type I uncontrolled with eye manifestation E10.39 ; Insomnia G47.00 ; Insulin long-term use Z79.4 ; Rheumatoid arthritis involving both feet M06.071 ; Hyperlipidemia, acquired E78.5 ; Hypothyroidism in adult E03.9 ; Depression, prolonged F32.9 ; CAD ( coronary artery disease) I25.10 and 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 [place] [address], [place] [address]- 1560 10 Mar, 2015 [place] [id number] [place] [address] 76741- 5322 14 Feb, 2015 [place] [id number] [place] [address] 43770- 2984 Jan, [place] [id number] [place] [address] 07126- 0611 Dec, [place] [id number] [place] [address] 38385- 4784 Nov, [place] [id number] [place] [address] 43386- 3700 Nov, Hyperlipemia E78.5 and Hypothyroid E03.9 [place] [id number] [place] [address] 05928- 9193 13 Nov, 2014 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 ; DM (diabetes mellitus) type I uncontrolled with eye manifestation E10.39 ; Hypothyroidism in adult E03.9 and Hyperlipidemia, acquired E78.5 [place] [address] [place] [address] 60293- 5066 07 Nov, 2014 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 ; CAD (coronary artery disease) I25.10 ; DM (diabetes mellitus) type I uncontrolled with eye manifestation E10.39 ; Insomnia G47.00 ; Rheumatoid arthritis involving both feet M06.071 ; Insulin long-term use Z79.4 ; Hyperlipidemia, acquired E78.5 ; Hypothyroidism in adult E03.9 ; Depression, prolonged F32.9 and 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 [place] [address] [place] [address] 80495- 3978 Oct, [facility] [id number], [place] [address]- 4645 Oct, [facility] [address], [place] [address]- 2346 Oct, [facility] [address], [place] [address]- 5141 Sep, [facility] [id number] [place] [address] 12885- 9463 Aug, [facility] [address] [place] [address] 17435- 8799 Aug, Coronary atherosclerosis of unspecified type of vessel, [employer] or graft 414.00 ; Rheumatoid arthritis 714.0 ; Insulin dependent diabetes mellitus 250.00 ; Hyperlipidemia 272.4 ; Hypothyroidism 244.9 ; Depression 311 and Insomnia 780.52 [facility] [id number] [place] [address] 92701- 7949 Aug, [facility] [address], [place] [address]- 0307 Jul, [facility] [id number] [place] [address] 157453- 5631 Jul, [facility] [address] [address] 0634 Jul, Breast cancer screening V76.10 [facility] [address] 1504 Jul, ASCUS with positive high risk HPV 796.9 [facility] [address], [place] [address]- 0678 June, [facility] [id number] [place] [address] 20275- 9262 June, Routine gynecological examination V72.31 ; Pap test, as part of routine gynecological examination V76.2 ; Breast cancer screening V76.10 ; Perimenopausal 627.2 and Tobacco abuse 305.1 [facility] [address] [facility] [id number] [address]- 8674 June, Rheumatoid arthritis 714.0 ; Insulin dependent diabetes mellitus 250.00 and Depression 311 [facility] [address] [facility] [id number] 2874 June, [facility] [address] 0233 June, [facility] [address] [facility] [id number] [place] [address]- 8549 May, [facility] [id number] [address]- 5784 May, [facility] [address] [facility] [id number] [place] [address]- 2753 Apr, [facility] [address], [place] [address]- 9174 Apr, [facility] [address], [place] [address]- 1765 Apr, [facility] [address], [place] [address]- 3859 Apr, [facility] [id number], [place] [address]- 9514 Apr, [facility] [id number], [place] [address]- 7550 Apr, [facility] [address] [facility] [id number], [place] [address]- 2374 Apr, [facility] [id number], [place] [address]- 9924 Apr, [facility] [address] [facility] [id number], [place] [address]- 4862 Apr, [facility] [id number], [place] [address]- 7711 Apr, [facility] [place] [facility] [address] [id number] [place] [address]- 6911 Apr, [facility] [place] [facility] [address] [id number] [place] [address]- 2622 Apr, [facility] [place] [facility] [address] [id number] [place] [address]- 4056 Feb, [facility] [place] [facility] [address] [id number] [place] [address]- 3812 Feb, [facility] [place] [facility] [address] [id number] [place] [address]- 7244 Feb, [facility] [place] [facility] [address] [id number] [place] [address]- 7157 Feb, [facility] [place] [facility] [address] [id number] [place] [address]- 0290 Feb, [facility] [place] [facility] [address] [id number] [place] [address]- 6238 Feb, [facility] [place] [facility] [address] [id number] [place] [address]- 4193 Jan, [facility] [place] [facility] [address] [id number] [place] [address]- 1587 Jan, [facility] [place] [facility] [address] [id number] [place] [address]- 0092 Jan, [facility] [place] [facility] [address] [id number] [place] [address]- 9221 Jan, [facility] [place] [facility] [address] [id number] [place] 2403 Jan, [facility] [place] [facility] [address] [id number] [place] 2566 Jan, [facility] [place] [facility] [address] [id number] [place] [address]- 7735 Jan, [facility] [place] [facility] [address] [id number] [place] [address]- 3459 Jan, [facility] [place] [facility] [address] [id number] [place] 6133 Jan, [facility] [place] [facility] [address] [id number] [place] 7036 Jan, [facility] [place] [facility] [address] [facility] [id number] [place] [address]- 9504 Dec, [facility] [place] [facility] [address] [id number] [place]- 5174 Dec, [facility] [place] [facility] [address] [id number] [place] [address]- 5995 Nov, [facility] [place] [facility] [address] [id number] [place] [address]- 5680 Nov, [facility] [place] [facility] [address] [id number] [place] [address]- 5822 Nov, [facility] [place] [facility] [address] [id number], [place] [address]- 4312 Nov, [facility] [place] [facility] [address] [id number] [place] [address]- 0823 Nov, [facility] [place] [facility] [address] [id number], [place] [address]- 6984 27 Oct, 2013 [facility] [place] [facility] [address] [id number], [place] [address]- 6331 27 Oct, 2013 [facility] [place] [facility] [address] [id number], [place] [address]- 7945 23 Oct, 2013 [facility] [place] [facility] [address] [id number] [place] [address]- 254 23 Oct, 2013 [facility] [place] [facility] [address] [id number], [place] [address]- 4627 22 Oct, 2013 [facility] [place] [facility] [address] [id number] [place] [address]- 2655 22 Oct, 2013 [facility] [place] [facility] [address] [id number] [place] [address]- 1246 18 Oct, 2013 [facility] [place] [facility] [address] [id number] [place] [address]- 2846 18 Oct, 2013 [facility] [place] [facility] [address] [id number] [place] [address] 2546 12 Oct, 2013 [facility] [place] [facility] [address] [id number] [place] [address]- 2688 12 Oct, 2013 [facility] [place] [facility] [address] [id number] [place] [address] 2547 11 Oct, 2013 [facility] [place] [facility] [address] [id number] [place] [address]- 3899 Oct, [facility] [place] [facility] [address] [id number] [place] [address]- 3572 Oct, [facility] [place] [facility] [address] [id number] [place] [address]- 4814 Oct, [facility] [place] [facility] [address] [id number] [place] [address]- 1538 Oct, [facility] [place] [facility] [address] [id number] [place] [address]- 5351 Oct, [facility] [place] [facility] [address] [id number] [place] [address]- 1635 June, [facility] [place] [facility] [address] [id number] [place] [address]- 9225 June, [facility] [place] [facility] [address] [id number] [place] [address]- 6877 June, [facility] [place] [facility] [address] [id number] [place] [address]- 1857 June, [facility] [place] [facility] [address] [id number] [place] [address]- 0728 May, [facility] [place] [facility] [address] [id number] [place] [address]- 1859 May, [facility] [place] [facility] [address] [id number] [place] [address]- 2826 Apr, [facility] [place] [facility] [address] [id number] [place] [address]- 4518 Apr, [facility] [place] [facility] [address] [id number] [place] [address]- 9875 Mar, [facility] [place] [facility] [address] [id number] [place] [address]- 5842 Mar, [facility] [place] [facility] [address] [id number] [place] [address]- 7591 Mar, [facility] [place] [facility] [address] [id number] [place] [address]- 8816 Mar, [facility] [place] [facility] [address] [id number] [place] [address]- 1205 Mar, [facility] [place] [facility] [address] [id number] [place] [address]- 4709 Mar, [facility] [place] [facility] [address] [id number] [place] [address]- 5396 Jan, [facility] [place] [facility] [address] [id number] [place] [address]- 6691 Jan, [facility] [place] [facility] [address] [id number] [place] [address]- 8406 Dec, [facility] [place] [facility] [address] [id number], [place] [address]- 9474 15 Dec, 2012 [facility] [place] [facility] [address] [id number] [place] [address]- 9184 Dec, [facility] [place] [facility] [address] [id number] [place] [address]- 4897 Dec, [facility] [place] [facility] [address] [id number] [place] [address]- 9314 Dec, [facility] [place] [facility] [address] [id number] [place] [address]- 9946 12 Dec, 2012 [facility] [place] [facility] [address] [id number] [place] [address]- 8635 30 Nov, 2012 [facility] [place] [facility] [address] [id number] [place] [address]- 2889 30 Nov, 2012 [facility] [place] [facility] [address] [id number] [place] [address] 17 Nov, 2012 [facility] [place] [facility] [address] [id number] [place] [address] 17 Nov, 2012 [facility] [place] [facility] [address] [id number] [place] [address] 15 Nov, 2012 [facility] [place] [facility] [address] [id number] [place] [address] 15 Nov, 2012 [facility] [place] [facility] [address] [id number] [place] [address] 10 Nov, 2012 [facility] [place] [facility] [address] [id number] [place] [address] 10 Nov, 2012 [facility] [place] [facility] [address] [id number] [place] [address] 26 Sep, 2012 [facility] [place] [facility] [address] [id number] [place] [address] 18 Sep, 2012 [facility] [place] [facility] [address] [id number] [place] [address] 17 Sep, 2012 [facility] [place] [facility] [address] [id number] [place] [address] 12 Sep, 2012 [facility] [place] [facility] [address] [id number] [place] [address] 11 Sep, 2012 [facility] [place] [facility] [address] [id number] [place] [address] 07 Sep, 2012 [facility] [place] [facility] [address] [id number] [place] [address] 06 Oct, 2012 [facility] [place] [facility] [address] [id number] [place] [address] Sep, [facility] [place] [facility] [address] [id number] [place] [address] Sep, [facility] [place] [facility] [address] [id number] [place] [address] Sep, [facility] [place] [facility] [address] [id number] [place] [address] Sep, [facility] [place] [facility] [address] [id number] [place] [address] Sep, [facility] [place] [facility] [address] [id number] [place] [address] Sep, [facility] [place] [facility] [address] [id number] [place] [address] Sep, [facility] [place] [facility] [address] [id number] [place] [address] Sep, [facility] [place] [facility] [address] [id number] [place] [address] Aug, [facility] [place] [facility] [address] [id number] [place] [address] Aug, [facility] [place] [facility] [address] [id number] [place] [address] Jul, [facility] [place] [facility] [address] [id number] [place] [address] Jul, [facility] [place] [facility] [address] [id number] [place] [address] Jul, [facility] [place] [facility] [address] [id number] [place] [address] Jul, [facility] [place] [facility] [address] [id number] [place] [address] June, [facility] [place] [facility] [address] [id number], [place] [address] June, [facility] [address] [id number] [place] [address] May, [facility] [address] [id number] [place] [address] Apr, [facility] [address] [facility] [id number] [place] [address] Mar, [facility] [address] [id number] [place] [address] Mar, [facility] [address] [id number] [place] [address] Feb, [facility] [address] [id number] [place] [address] Oct, [facility] [address] [facility] [id number] [place] [address] Sep, [facility] [address] [id number] [place] [address] Jul, [facility] [address] [id number] [place] [address] 24 May, 2011 [facility] [address] [id number] [place] [address] May, [facility] [address] [id number], [place] [address] 16 Mar, 2011 [facility] [address] [id number], [place] [address] 15 Mar, 2011 [facility] [address] [id number] [place] [address] 14 Mar, 2011 [facility] [place] [facility] [address] [id number][place] [address] 18 Feb, 2011 [facility] [place] [facility] [address] [facility] [id number] [place] [address] 13 Feb, 2011 [facility] [place] [facility] [address] [id number] [place] [address] Feb, [facility] [place] [facility] [address] [id number] [place] [address] Feb, [facility] [place] [facility] [address] [id number] [place] [address] Feb, [facility] [place] [facility] [address] [id number] [place] [address] Feb, [facility] [place] [facility] [address] [id number] [place] [address] Feb, [facility] [place] [facility] [address] [id number] [place] [address] Feb, [facility] [place] [facility] [address] [id number] [place] [address] Jan, [facility] [place] [facility] [address] [id number] [place] [address] Jan, [facility] [place] [facility] [address] [id number] [place] [address] Dec, [facility] [place] [facility] [address] [id number] [place] [address] Dec, [facility] [place] [facility] [address] [id number] [place] [address] Dec, [facility] [place] [facility] [address] [id number] [place] [address] Dec, [facility] [place] [facility] [address] [id number] [place] [address] Nov, [facility] [place] [facility] [address] [id number] [place] [address] Jan, [facility] [place] [facility] [address] [id number] [place] [address] Jan, [facility] [place] [facility] [address] [id number] [place] [address] Jan, [facility] [address] [id number] [place] [address] Jan, [facility] [place] [facility] [address] [id number] [place] [address] Jan, [facility] [address] [id number] [place] [address] Jan, [facility] [place] [facility] [address] [id number] [place] [address] Jan, [facility] [address] [id number] [place] [address] Jan, [facility] [address] [id number] [place] [address] Dec, [facility] [address] [id number] [place] [address] Nov, [facility] [place] [facility] [address] [id number], [place] [address] Jul, [facility] [address] [id number] [place] [address] June, [facility] [address] [id number], [place] [address] June, [facility] [address] [id number], [place] [address] May, [facility] [place] [facility] [address] [id number], [place] [address] Jan, [facility] [place] [facility] [address] [id number], [place] [address] Dec, [facility] [place] [facility] [address] [id number], [place] [address] Dec, [facility] [place] [facility] [address] [facility] [id number], [place] [address] Dec, [facility] [place] [facility] [address] [facility] [id number] [place] [address] Nov, [facility] [address] [facility] [id number], [place] [address] Nov, [facility] [address] [facility] [id number] [place] [address] Oct, IMMUNIZATIONS No Known Immunizations SOCIAL HISTORY Never Assessed REASON FOR VISIT Transition of Care--[place], diabetic checkup, --congestion x 3 weeks PLAN OF CARE Activity Details Follow Up 3 Months Reason:CHM/DM VITAL SIGNS Height 64 in 2017-01-18 Weight 125.8 lbs 2017-01-18 Temperature 98.2 degrees Fahrenheit 2017-01-18 Heart Rate 76 bpm 2017-01-18 Respiratory Rate 20 2017-01-18 BMI 21.59 kg/m2 2017-01-18 Blood pressure systolic 122 mmHg 2017-01-18 Blood pressure diastolic 80 mmHg 2017-01-18 MEDICATIONS Medication Instructions Dosage Frequency Start Date End Date Duration Status Celebrex 200 mg Orally Once a day PLEASE VOUCHER 1 capsule Active Glucocard Expression Test - subcutaneously 2 times a day as directed 12h Jan, Active Celecoxib 200 MG TAKE ONE CAPSULE BY MOUTH ONCE DAILY 30 Not- Taking Fluoxetine HCl 40 MG TAKE ONE CAPSULE BY MOUTH ONCE DAILY 30 Active Folic Acid 1 MG Orally Once a day . Do not take on days that take Methotrexate 1 tablet Active Plavix 75 MG Orally Once a day Please Voucher 1 tablet by Oral route 1 time per day 30 Active Levothyroxine Sodium 200 MCG TAKE ONE TABLET BY MOUTH ONCE DAILY 30 Active NovoLog 100 UNIT/ML Subcutaneous 3 times a day sliding scale 8h Active Methotrexate 2.5 MG Orally once a week 7 tablets Active Black Cohosh 40 mg Orally Twice a day 1 tablet 12h Active Kevzara 200 MG/1.14ML Subcutaneous 2 times monthly 1.14 ml Active Xeljanz XR 11 MG TAKE ONE TABLET BY MOUTH ONCE DAILY 30 Not- Taking Clopidogrel Bisulfate 75 MG TAKE ONE TABLET BY MOUTH ONCE DAILY 30 Not-Taking Metoprolol Tartrate 25 MG TAKE ONE-HALF TABLET BY MOUTH TWICE DAILY 30 Active Levemir 100 UNIT/ML Subcutaneous- ICD10 E10.39 in am 35 units Apr, Active Percocet 7.5-325 MG Orally every 6 hrs 1 tablet as needed 6h Dec, 28 days Active Melatonin 5 MG Orally Once a day 1 tablet at bedtime as needed with food 24h Active Aspirin 81 MG Orally Once a day 1 tablet 24h Active PredniSONE 10 MG TAKE ONE TABLET BY MOUTH ONCE DAILY 30 Active GlucaGen HypoKit 1 mg 1 time per day PRN use as directed for hypoglycemia Oct, Not-Taking Mupirocin 2 % Externally Three times a day apply thin layer to left nare 8h Jan, Jan, 10 days Active Orencia 250 MG Not-Taking Simvastatin 40 MG TAKE ONE TABLET BY MOUTH ONCE DAILY IN THE EVENING 30 Active RESULTS No Results PROCEDURES Procedure Date Ordered Result Body Site GLYCATED HEMOGLOBIN TEST Jan 18, 2017 LAB NOT BILLED BY [facility] Jan 18, 2017 FQ VISIT ESTABLISHED PATIENT Jan 18, 2017 VENELLIOTTUNCT, ROUTINE* Jan 18, 2017 INSTRUCTIONS MEDICATIONS ADMINISTERED No Known Medications MEDICAL [...] infarction-- stents placed x2--(mid and prox RCA) BDAus premier 3.0 x 32 and 3.0 x [...]
--- OUTSIDE RECORDS SUMMARY | 2017-08-29 14:50 | XMS REPORT ---
Author Author MENA RICKY [facility] Address [address] [place] [address] Care Team Providers Care Estate Planning Director Name Role Phone RICKY MENA Unavailable PROBLEMS Type Condition ICD9-CM Code VID96-HX Code Onset Dates Condition Status SNOMED Code Problem 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 Active 213661594 Problem Hypothyroidism in adult E03.9 Active 72288172 Problem CAD (coronary artery disease) I25.10 Active 22126211 Problem Type 1 diabetes mellitus with other circulatory complication E10.59 Active 12606389 Problem Insomnia G47.00 Active 100955918 Problem Recurrent major depressive disorder, in full remission F33.42 Active 808614230 Problem Rheumatoid arthritis involving multiple sites with positive rheumatoid factor M05.79 Active 96879134 Problem 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 068737968 Problem Hyperlipidemia, acquired E78.5 Active 5909960 Problem 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 782391524 Problem Environmental allergies Z91.09 Active 634688766 ALLERGIES No Information ENCOUNTERS Encounter Location Date Diagnosis [place] [id number] [place] [id number] [place] [address] 49757- 6405 Aug, [facility] [address], [place] [address] 1103 June, Rheumatoid arthritis involving multiple sites with positive rheumatoid factor M05.79 [facility] [address] [address] 2634 June, [facility] [id number] [place] [address] 45679- 8209 May, Type 1 diabetes mellitus with other circulatory complication E10.59 ; Recurrent major depressive disorder, in full remission F33.42 and Hyperlipidemia, acquired E78.5 [facility] [id number] [place] [address] 34023- 2155 May, Hypothyroidism, unspecified E03.9 and Hypothyroidism in adult E03.9 [facility] [address] [place] [address] 03016- 4502 Apr, Hypothyroidism in adult E03.9 [facility] [id number] [place] [address] 79483- 8664 Apr, Type 1 diabetes mellitus with other circulatory complication E10.59 ; 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 ; Rheumatoid arthritis involving multiple sites with positive rheumatoid factor M05.79 ; Hypothyroidism in adult E03.9 ; Hyperlipidemia, acquired E78.5 ; Recurrent major depressive disorder, in full remission F33.42 ; intermediate current use of insulin Z79.4 ; Environmental allergies Z91.09 and CAD (coronary artery disease ) I25.10 [place] [id number] [place] [address] 04694- 6062 Apr, Rheumatoid arthritis involving multiple sites with positive rheumatoid factor M05.79 [place] [id number] [place] [address] 19453- 9319 Mar, Rheumatoid arthritis involving multiple sites with positive rheumatoid factor M05.79 [place] [address] [id number] [place] [address] 15716- 8710 Feb, [place] [id number] [place] [address] 22126- 9415 Feb, CAD (coronary artery disease) I25.10 ; 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 and Hypothyroidism in adult E03.9 [place] [address] [place] [address] 83087- 6572 Feb, Rheumatoid arthritis involving multiple sites with positive rheumatoid factor M05.79 [place] [id number] [place] [address] 23264- 9531 Jan, Hypothyroidism in adult E03.9 [place] [id number] [place] [address] 25553- 2539 Jan, Rheumatoid arthritis involving multiple sites with positive rheumatoid factor M05.79 and CAD (coronary artery disease) I25.10 [place] [address] [id number] [place] [address] 79235- 1071 Jan, 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 ; 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 ; Hyperlipidemia, acquired E78.5 ; Hypothyroidism in adult E03.9 and Fever blister B00.1 [place] [id number] [place] [address] 09256- 2593 Dec, Rheumatoid arthritis involving multiple sites with positive rheumatoid factor M05.79 [place] [id number] [place] [address] 36470- 9446 Nov, Rheumatoid arthritis involving multiple sites with positive rheumatoid factor M05.79 [place] [id number] [place] [address] 88619- 1212 Oct, Rheumatoid arthritis involving multiple sites with positive rheumatoid factor M05.79 [place] [address] 19710- 0286 Oct, Rheumatoid arthritis involving multiple sites with positive rheumatoid factor M05.79 [place] [id number] [place] [address] 08929- 0679 Sep, Rheumatoid arthritis involving multiple sites with positive rheumatoid factor M05.79 [place] [id number] [place] [address] 09132- 8800 Aug, [place] [id number] [place] [address] 42542- 5146 Aug, 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 ; 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 ; CAD (coronary artery disease) I25.10 ; Rheumatoid arthritis involving both feet M06.071 ; Insomnia G47.00 ; Hypothyroidism in adult E03.9 ; Hypercholesterolemia E78.0 and Rheumatoid arthritis involving multiple sites with positive rheumatoid factor M05.79 [place] [id number] [place] [address] 37768- 9253 Jul, [place] [id number] [place] [address] 32853- 6841 June, [facility] [address], [place] [address]- 2495 June, Depression, prolonged F32.9 [facility] [address] [place] [address] 57800- 8836 June, [place] [address] [place] [place] [address] 11813- 3049 June, [place] [address] [id number] [place] [address] 63293- 9457 June, Hypothyroidism in adult E03.9 [place] [id number] [place] [address] 22184- 9281 June, Rheumatoid arthritis involving both feet M06.071 [place] [address] [place] [place] [address] 14947- 2196 May, CAD (coronary artery disease) I25.10 ; Rheumatoid arthritis involving both feet M06.071 ; Hyperlipidemia, acquired E78.5 ; Hypothyroidism in adult E03.9 ; Depression, prolonged F32.9 ; 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 ; Type 2 diabetes mellitus with hypoglycemia without coma E11.649 ; Vision abnormalities H53.9 and Vision changes H53.9 [place] [address] [place] [address] 49354- 4326 Apr, [place] [address] [place] [address] 76799- 9974 Apr, DM (diabetes mellitus) type I uncontrolled with eye manifestation E10.39 [place] [address] [place] [address] 34905- 6357 Apr, Rheumatoid arthritis involving both feet M06.071 [place] [address] [place] [address] 98944- 6227 Mar, Rheumatoid arthritis involving both feet M06.071 [place] [address] [id number] [place] [address] 20766- 7334 Mar, [facility] [address], [place] [address]- 2808 Feb, Rheumatoid arthritis involving both feet M06.071 [facility] [address] [place] [address] 95644- 2104 Feb, DM (diabetes mellitus) type I uncontrolled with eye manifestation E10.39 ; Rheumatoid arthritis involving both feet M06.071 ; CAD ( coronary artery disease) I25.10 ; Depression, prolonged F32.9 ; Hyperlipidemia, acquired E78.5 ; Hypothyroidism in adult E03.9 and Environmental allergies Z91.09 [place] [id number] [place] [address] 39312- 0471 Jan, [place] [id number] [place] [address] 46491- 3623 Jan, Hyperlipemia E78.5 ; DM (diabetes mellitus) type I uncontrolled with eye manifestation E10.39 ; CAD (coronary artery disease) I25.10 ; Hyperlipidemia, acquired E78.5 ; Depression, prolonged F32.9 ; 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 ; Hypercholesterolemia E78.0 ; RA (refractory anemia) D46.4 and Rheumatoid arthritis involving multiple sites with positive rheumatoid factor M05.79 [place] [address], [place] [address]- 1756 Jan, [place] [address] [place] [address]- 2216 Jan, [facility] [address] [place] [address] 49174- 6139 Sep, [facility] [address], [place] [address]- 6474 Sep, [facility] [id number] [place] [address] 30839- 2293 Aug, [facility] [address], [place] [address]- 3636 Aug, [facility] [address] [id number] [place] [address]- 2138 Jul, Type 2 diabetes mellitus with hypoglycemia without coma E11.649 and 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 [place] [id number] [place] [address] 51730- 3638 June, CAD (coronary artery disease) I25.10 ; Insomnia G47.00 ; Rheumatoid arthritis involving both feet M06.071 ; Hypothyroidism in adult E03.9 ; 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 ; Type 2 diabetes mellitus with hypoglycemia without coma E11.649 ; 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 ; Hypercholesterolemia E78.0 ; Environmental allergies Z91.09 and Rib pain R07.81 [place] [id number] [place] [address] 39526- 6698 June, [address] 29977- 7285 June, 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 [place] [id number] [place] [address] 11452- 9576 May, Rheumatoid arthritis involving both feet M06.071 [place] [id number] [place] [address] 87993- 0203 May, CAD (coronary artery disease) I25.10 ; DM (diabetes mellitus ) type I uncontrolled with eye manifestation E10.39 ; Insomnia G47.00 ; Rheumatoid arthritis involving both feet M06.071 ; Hyperlipidemia, acquired E78.5 ; Depression, prolonged F32.9 ; 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 and Hypothyroid E03.[address] [place] [address] 64849- 2032 Apr, [place] [id number] [place] [address] 43150- 6676 Mar, DM (diabetes mellitus) type I uncontrolled with eye manifestation E10.39 ; Insomnia G47.00 ; Insulin long-term use Z79.4 ; Rheumatoid arthritis involving both feet M06.071 ; Hyperlipidemia, acquired E78.5 ; Hypothyroidism in adult E03.9 ; Depression, prolonged F32.9 ; CAD ( coronary artery disease) I25.10 and 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 [facility] [address], [place] [address]- 9898 10 Mar, 2015 [facility] [id number] [address]- 7686 14 Feb, 2015 [facility] [id number] [place] [address] 26987- 9758 Jan, [place] [address] [id number] [place] [address] 13808- 3287 Dec, [place] [address] [id number] [place] [address] 01956- 7479 19 Nov, 2014 [place] [address] [id number] [place] [address] 06977- 6929 14 Nov, 2014 Hyperlipemia E78.5 and Hypothyroid E03.9 [place] [address] [id number] [place] [address] 78247- 6232 13 Nov, 2014 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 ; DM (diabetes mellitus) type I uncontrolled with eye manifestation E10.39 ; Hypothyroidism in adult E03.9 and Hyperlipidemia, acquired E78.5 [place] [address] [address]- 0037 07 Nov, 2014 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 ; CAD (coronary artery disease) I25.10 ; DM (diabetes mellitus) type I uncontrolled with eye manifestation E10.39 ; Insomnia G47.00 ; Rheumatoid arthritis involving both feet M06.071 ; Insulin long-term use Z79.4 ; Hyperlipidemia, acquired E78.5 ; Hypothyroidism in adult E03.9 ; Depression, prolonged F32.9 and 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 [facility] [address], [place] [address]- 5997 17 Oct, 2014 [facility] [id number] [place] [address] 28667- 2546 Oct, [facility] [address], [place] [address]- 3735 Oct, [facility] [address] [place] [address] 88756- 1476 Sep, [facility] [address] [place] [address] 98683- 2038 Aug, [facility] [id number] [place] [address] 02312- 7784 Aug, Coronary atherosclerosis of unspecified type of vessel, chitimacha or graft 414.00 ; Rheumatoid arthritis 714.0 ; Insulin dependent diabetes mellitus 250.00 ; Hyperlipidemia 272.4 ; Hypothyroidism 244.9 ; Depression 311 and Insomnia 780.52 [place] [address] [place] [id number] [place] [address] 70493- 6918 Aug, [facility] [id number] [place] [address] 62890- 6152 Jul, [facility] [address] [place] [address] 37849- 8917 Jul, [facility] [address] [id number] [place] [address] 60316- 8796 Jul, Breast cancer screening V76.10 [place] [address] [place] [address] 298986- 9281 Jul, ASCUS with positive high risk HPV 796.9 [facility] [id number] [place] [address] 69441900- 1308 June, [facility] [id number] [place] [address] 535786- 4048 June, Routine gynecological examination V72.31 ; Pap test, as part of routine gynecological examination V76.2 ; Breast cancer screening V76.10 ; Perimenopausal 627.2 and Tobacco abuse 305.1 [facility] [id number] [place] [address] 727080- 2353 June, Rheumatoid arthritis 714.0 ; Insulin dependent diabetes mellitus 250.00 and Depression 311 [facility] [address] [id number] [place] [address]- 5306 June, [facility] [address] [facility] [id number] [place] [address]- 7096 June, [facility] [address] [facility] [id number] [place] [address]- 0596 May, [facility] [address] [facility] [id number] [place] [address]- 9856 May, [facility] [address] [facility] [id number] [place] [address]- 8171 Apr, [facility] [address] [facility] [id number] [place] [address]- 9576 Apr, [facility] [address] [place] [address]- 3629 Apr, [facility] [address] [facility] [id number] [place] [address]- 9156 Apr, [facility] [address] [id number] [place] [address]- 2102 Apr, [facility] [address] [facility] [id number], [place] [address]- 0245 Apr, [facility] [address] [facility] [id number] [place] [address]- 1526 Apr, [facility] [address] [facility] [id number], [place] [address]- 4726 Apr, [facility] [address] [facility] [id number] [place] [address]- 6646 Apr, [facility] [address] [facility] [id number] [place] [address]- 2546 Apr, [facility] [address] [facility] [id number], [place] [address]- 9236 Apr, [facility] [address] [id number] [place] [address]- 8904 Apr, [facility] [place] [facility] [address] [id number] [place] [address]- 0472 Feb, [facility] [place] [facility] [address] [id number] [place] [address]- 1759 Feb, [facility] [place] [facility] [address] [id number] [place] [address]- 5685 Feb, [facility] [place] [facility] [address] [id number] [place] [address]- 8286 Feb, [facility] [place] [facility] [address] [id number] [place] [address]- 4616 Feb, [facility] [place] [facility] [address] [id number] [place] [address]- 2903 Feb, [facility] [place] [facility] [address] [id number] [place] [address]- 1048 Jan, [facility] [place] [facility] [address] [id number] [place] [address]- 6694 Jan, [facility] [place] [facility] [address] [id number] [place] [address]- 2633 Jan, [facility] [place] [facility] [address] [id number] [place] [address]- 8720 Jan, [facility] [place] [facility] [address] [id number] [place] [address]- 6970 Jan, [facility] [place] [facility] [address] [id number] [place] [address]- 5843 Jan, [facility] [place] [facility] [address] [id number] [place] [address]- 1382 Jan, [facility] [place] [facility] [address] [id number] [place] [address]- 2174 Jan, [facility] [place] [facility] [address] [id number], [place] [address]- 5545 Jan, [facility] [place] [facility] [address] [id number] [place] [address]- 0563 Jan, [facility] [place] [facility] [address] [id number] [place] 5184 Dec, [facility] [place] [facility] [address] [id number] [place] [address]- 4762 Dec, [facility] [place] [facility] [address] [id number] [place] [address]- 9078 Nov, [facility] [place] [facility] [address] [id number] [place] [address]- 0762 Nov, [facility] [place] [facility] [address] [id number] [place] [address]- 1031 Nov, [facility] [place] [facility] [address] [id number] [place] [address]- 5611 Nov, [facility] [place] [facility] [address] [id number] [place] [address]- 5890 Nov, [facility] [place] [facility] [address] [id number] [place] [address]- 8070 27 Oct, 2013 [facility] [place] [facility] [address] [id number] [place] [address]- 7696 27 Oct, 2013 [facility] [place] [facility] [address] [id number] [place] [address]- 3747 23 Oct, 2013 [facility] [place] [facility] [address] [id number] [place] [address]- 5689 23 Oct, 2013 [facility] [place] [facility] [address] [id number] [place] [address]- 3121 22 Oct, 2013 [facility] [place] [facility] [address] [id number] [place] [address]- 0384 22 Oct, 2013 [facility] [place] [facility] [address] [id number] [place] [address]- 8811 18 Oct, 2013 [facility] [place] [facility] [address] [id number] [place] [address]- 6664 18 Oct, 2013 [facility] [place] [facility] [address] [id number] [place] [address]- 4051 12 Oct, 2013 [facility] [place] [facility] [address] [id number] [place] [address]- 7766 Oct, [facility] [place] [facility] [address] [id number] [place] [address]- 1240 Oct, [facility] [place] [facility] [address] [id number] [place] [address]- 5282 Oct, [facility] [place] [facility] [address] [id number] [place] [address]- 4505 Oct, [facility] [place] [facility] [address] [id number] [place] [address]- 0286 Oct, [facility] [place] [facility] [address] [id number] [place] [address]- 7336 Oct, [facility] [place] [facility] [address] [id number] [place] [address]- 7935 Oct, [facility] [place] [facility] [address] [id number] [place] [address]- 2345 June, [facility] [place] [facility] [address] [id number] [place] [address]- 0208 June, [facility] [place] [facility] [address] [id number] [place] [address]- 3582 June, [facility] [place] [facility] [address] [id number] [place] [address]- 1110 June, [facility] [place] [facility] [address] [id number] [place] [address]- 9170 May, [facility] [place] [facility] [address] [id number] [place] [address]- 9316 May, [facility] [place] [facility] [address] [id number] [place] [address]- 2524 Apr, [facility] [place] [facility] [address] [id number] [place] [address]- 7541 Apr, [facility] [place] [facility] [address] [id number] [place] [address]- 8956 Mar, [facility] [place] [facility] [address] [id number] [place] [address]- 5370 Mar, [facility] [place] [facility] [address] [id number] [place] [address]- 7004 Mar, [facility] [place] [facility] [address] [id number] [place] [address]- 7247 Mar, [facility] [place] [facility] [address] [id number] [place] [address]- 9660 Mar, [facility] [place] [facility] [address] [id number] [place] [address]- 7062 Mar, [facility] [place] [facility] [address] [id number] [place] [address]- 1984 Jan, [facility] [place] [facility] [address] [id number] [place] [address]- 0956 Jan, [facility] [place] [facility] [address] [id number] [place] [address]- 3255 Dec, [facility] [place] [facility] [address] [id number] [place] [address]- 9035 15 Dec, 2012 [facility] [place] [facility] [address] [id number] [place] [address]- 7754 Dec, [facility] [place] [facility] [address] [id number] [place] [address]- 1568 Dec, [facility] [place] [facility] [address] [id number] [place] [address]- 2262 Dec, [facility] [place] [facility] [address] [id number] [place] [address]- 5781 Dec, [facility] [place] [facility] [address] [id number] [place] [address]- 2896 30 Nov, 2012 [facility] [address] [id number] [place] [address]- 3597 30 Nov, 2012 [facility] [place] [facility] [address] [id number] [place] [address]- 3291 17 Nov, 2012 [facility] [address] [id number] [place] [address] 17 Nov, 2012 [facility] [place] [facility] [address] [id number] [place] [address] 15 Nov, 2012 [facility] [address] [id number] [place] [address] 15 Nov, 2012 [facility] [place] [facility] [address] [id number] [place] [address] 10 Nov, 2012 [facility] [place] [facility] [address] [id number] [place] [address] 10 Nov, 2012 [facility] [address] [id number] [place] [address] 26 Oct, 2012 [facility] [place] [facility] [address] [id number] [place] [address] 18 Sep, 2012 [facility] [address] [id number] [place] [address] 17 Sep, 2012 [facility] [place] [facility] [address] [id number] [place] [address] 12 Sep, 2012 [facility] [place] [facility] [address] [id number] [place] [address] 11 Oct, 2012 [facility] [place] [facility] [address] [id number] [place] [address] 07 Sep, 2012 [facility] [place] [facility] [address] [id number] [place] [address] 06 Oct, 2012 [facility] [place] [facility] [address] [id number] [place] [address] Sep, [facility] [place] [facility] [address] [id number] [place] [address] Sep, [facility] [place] [facility] [address] [id number] [place] [address] Sep, [facility] [place] [facility] [address] [id number] [place] [address] Sep, [facility] [place] [facility] [address] [id number] [place] [address] Sep, [facility] [place] [facility] [address] [id number] [place] [address] Sep, [facility] [place] [facility] [address] [id number] [place] [address] Sep, [facility] [place] [facility] [address] [id number] [place] [address] Sep, [facility] [place] [facility] [address] [id number] [place] [address] Aug, [facility] [place] [facility] [address] [id number] [place] [address] Aug, [facility] [place] [facility] [address] [id number] [place] [address] Jul, [facility] [place] [facility] [address] [id number] [place] [address] Jul, [facility] [place] [facility] [address] [id number] [place] [address] Jul, [facility] [place] [facility] [address] [id number] [place] [address] Jul, [facility] [place] [facility] [address] [id number] [place] [address] June, [facility] [place] [facility] [address] [id number] [place] [address] June, [facility] [place] [facility] [address] [id number], [place] [address] 05 May, 2012 [facility] [address] [id number] [place] [address] 04 Apr, 2012 [facility] [address] [id number] [place] [address] 11 Mar, 2012 [facility] [address] [id number] [place] [address] 04 Mar, 2012 [facility] [address] [id number] [place] [address] 14 Feb, 2012 [facility] [address] [id number] [place] [address] 27 Oct, 2011 [facility] [address] [id number] [place] [address] 16 Sep, 2011 [facility] [address] [id number] [place] [address] 05 Jul, 2011 [facility] [address] [id number] [place] [address] 24 May, 2011 [facility] [address] [id number] [place] [address] 23 May, 2011 [facility] [address] [id number] [place] [address] 16 Mar, 2011 [facility] [address] [id number] [place] [address] 15 Mar, 2011 [facility] [address] [id number] [place] [address] 14 Mar, 2011 [facility] [place] [facility] [address] [id number] [place] [address] 18 Feb, 2011 [facility] [place] [facility] [address] [id number] [place] [address] 13 Feb, 2011 [facility] [address] [id number], [place] [address] Feb, [facility] [place] [facility] [address] [id number] [place] [address] Feb, [facility] [address] [id number] [place] [address] Feb, [facility] [address] [id number] [place] [address] Feb, [facility] [address] [id number] [place] [address] Feb, [facility] [address] [id number] [place] [address] Feb, [facility] [address] [id number] [place] [address] Jan, [facility] [address] [id number] [place] [address] Jan, [facility] [address] [id number] [place] [address] Dec, [facility] [address] [id number] [place] [address] Dec, [facility] [address] [id number] [place] [address] Dec, [facility] [address] [id number] [place] [address] Dec, [facility] [address] [id number] [place] [address] Nov, [facility] [address] [id number] [place] [address] Jan, [facility] [place] [facility] [address] [id number] [place] [address] Jan, [facility] [place] [facility] [address] [id number] [place] [address] Jan, [facility] [address] [id number], [place] [address] Jan, [facility] [address] [id number] [place] [address] Jan, [facility] [place] [facility] [address] [id number] [place] [address] Jan, [facility] [place] [facility] [address] [id number] [place] [address] Jan, [facility] [place] [facility] [address] [id number] [place] [address] Jan, [facility] [place] [facility] [address] [id number] [place] [address] Dec, [facility] [place] [facility] [address] [id number] [place] [address] Nov, [facility] [address] [id number], [place] [address] Jul, [facility] [place] [facility] [address] [id number] [place] [address] June, [facility] [address] [id number], [place] [address] June, [facility] [place] [facility] [address] [id number] [place] [address] May, [facility] [place] [facility] [address] [id number], [place] [address] Jan, [facility] [place] [facility] [address] [id number], [place] [address] Dec, [facility] [place] [facility] [address] [id number], [place] [address] Dec, [facility] [place] [facility] [address] [id number], [place] [address] Dec, [facility] [place] [facility] [address] [id number], [place] [address] Nov, [facility] [place] [facility] [address] [facility] [id number] [place] [address] 12 Nov, 2008 [facility] [address] [facility] [id number] [place] [address] 14 Oct, 2008 IMMUNIZATIONS No Known Immunizations [...]
--- OUTSIDE RECORDS SUMMARY | 2017-08-29 14:50 | XMS REPORT ---
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
--- OUTSIDE RECORDS SUMMARY | 2017-08-29 14:50 | XMS REPORT ---
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 Problem DM (diabetes mellitus) type I uncontrolled with eye manifestation E10.39 Active Problem Insomnia G47.00 Active Problem CAD (coronary artery disease) I25.10 Active Problem Hyperlipidemia, acquired E78.5 Active Problem Hypothyroidism in adult E03.9 Active Problem Insulin long-term use Z79.4 Active Problem Rheumatoid arthritis involving both feet M06.071 Active Assessment Hypothyroidism in adult E03.9 Active Assessment Hyperlipidemia, acquired E78.5 Active Assessment 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 Active Assessment Depression, prolonged F32.9 Active Assessment Insomnia G47.00 Active Assessment DM (diabetes mellitus) type I uncontrolled with eye manifestation E10.39 Active Assessment Insulin long-term use Z79.4 Active Assessment CAD (coronary artery disease) I25.10 Active Assessment Rheumatoid arthritis involving both feet M06.071 Active Assessment 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 Medications Medication Code System Code Instructions Start Date End Date Status Dosage Celebrex [facility] [address]-18 200 MG Orally Once a day Feb 22, 2015 1 capsule Hydrocodone-Acetaminophen [facility] [address]-98 10-325 MG Orally tid prn must last atleast 30 days April 20, 2014 one Methotrexate Sodium [facility] 0 2.5 mg Mar 19, 2014 6 Tablet 1 time per week Levemir [facility] [address]-57 100 UNIT/ML Subcutaneous 2 times a day April 23, 2014 inject 30 Units 1 time per day in AM, 15 units at HS; 45 units total daily Plavix [facility] [address]-54 75 MG Orally Once a day Jan 21, 2014 1 tablet by Oral route 1 time per day Fluoxetine HCl [facility] 19170410862 20 MG Orally Once a day 1 capsule in the morning Simvastatin [facility] [address]-41 10 MG Orally Once a day Jan 21, 2014 1 tablet by Oral route 1 time per day at bedtime Levothyroxine Sodium [facility] [address]-62 88 MCG Once a day TAKE ONE TABLET BY MOUTH DAILY AT 6:30AM Folic Acid [facility] [address]-44 1 mg Mar 19, 2014 take 1 tablet by Oral route 1 time per day do not take on days you take methotrexate Aspirin [facility] [address]-15 81 MG Orally Once a day Jan 21, 2014 Feb 22, 2015 1 tablet by Oral route 1 time per day NovoLog [facility] [address]-27 100 UNIT/ML Subcutaneous 3 times a day 17 units in am,10at luch and 10 in pm Metoprolol Tartrate [facility] [address]-56 25 mg Jan 21, 2014 0.5 Tablet by Oral route 2 daily Procedures Procedure Coding System Code Date [facility] VISIT ESTABLISHED PATIENT CPT-4 G0467 Nov 24, 2014 Office Visit, Est Pt., Level 4 CPT-4 40013 Nov 24, 2014 GLYCATED HEMOGLOBIN TEST CPT-4 94856 Nov 24, 2014 Vital Signs Date/Time: Nov 24, 2014 Temperature 97.4 F Weight 114.6 lbs Height 64 in BMI 19.67 Index Blood Pressure Diastolic 60 mmHg Blood Pressure Systolic 112 mmHg Cardiac Monitoring Heart Rate 82 bpm Results Name Result Date Reference Range Unit Abnormality Flag A1C (IN HOUSE) Summary Purpose eClinicalWorks Submission
--- OUTSIDE RECORDS SUMMARY | 2017-08-29 14:51 | XMS REPORT ---
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 Name Role Phone RICKY MENA Unavailable PROBLEMS Type Condition ICD9-CM Code ZWS21-FC Code Onset Dates Condition Status SNOMED Code Problem 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 Active 816581751 Problem Hypothyroidism in adult E03.9 Active 43999803 Problem CAD (coronary artery disease) I25.10 Active 12387909 Problem Type 1 diabetes mellitus with other circulatory complication E10.59 Active 51587456 Problem Insomnia G47.00 Active 571817160 Problem Recurrent major depressive disorder, in full remission F33.42 Active 000440849 Problem Rheumatoid arthritis involving multiple sites with positive rheumatoid factor M05.79 Active 83990809 Problem 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 712338260 Problem Hyperlipidemia, acquired E78.5 Active 1970155 Problem 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 510459616 Problem Environmental allergies Z91.09 Active 089742891 ALLERGIES No Information ENCOUNTERS Encounter Location Date Diagnosis [place] [id number] [place] [address] 07638- 2326 Aug, [facility] [place] [facility] [address] [address] 7[address] June, Rheumatoid arthritis involving multiple sites with positive rheumatoid factor M05.79 [facility] [place] [facility] [address] [address] 3558 June, [facility] [place] [facility] [address] [place] [id number] [place] [address] 36068- 6322 May, Type 1 diabetes mellitus with other circulatory complication E10.59 ; Recurrent major depressive disorder, in full remission F33.42 and Hyperlipidemia, acquired E78.5 [facility] [place] [facility] [address] [id number] [place] [address] 28815- 6771 May, Hypothyroidism, unspecified E03.9 and Hypothyroidism in adult E03.9 [facility] [place] [facility] [id number] [place] [address] 02243- 5601 Apr, Hypothyroidism in adult E03.9 [facility] [place] [facility] [id number] [place] [address] 36161- 0592 Apr, Type 1 diabetes mellitus with other circulatory complication E10.59 ; 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 ; Rheumatoid arthritis involving multiple sites with positive rheumatoid factor M05.79 ; Hypothyroidism in adult E03.9 ; Hyperlipidemia, acquired E78.5 ; Recurrent major depressive disorder, in full remission F33.42 ; prison current use of insulin Z79.4 ; Environmental allergies Z91.09 and CAD (coronary artery disease ) I25.10 [place] [address] [place] [id number] [place] [address] 59159- 6945 Apr, Rheumatoid arthritis involving multiple sites with positive rheumatoid factor M05.79 [place] [address] [place] [id number] [place] [address] 26307- 5323 Mar, Rheumatoid arthritis involving multiple sites with positive rheumatoid factor M05.79 [place] [address] [place] [id number] [place] [address] 39905- 6772 Feb, [place] [address] [place] [id number] [place] [address] 08978- 7002 Feb, CAD (coronary artery disease) I25.10 ; 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 and Hypothyroidism in adult E03.9 [place] [address] [place] [address] 66530- 3909 Feb, Rheumatoid arthritis involving multiple sites with positive rheumatoid factor M05.79 [place] [address] [place] [id number] [place] [address] 48939- 0460 Jan, Hypothyroidism in adult E03.9 [place] [address] [place] [id number] [place] [address] 45274- 9654 Jan, Rheumatoid arthritis involving multiple sites with positive rheumatoid factor M05.79 and CAD (coronary artery disease) I25.10 [place] [address] [place] [id number] [place] [address] 07034- 9709 Jan, 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 ; 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 ; Hyperlipidemia, acquired E78.5 ; Hypothyroidism in adult E03.9 and Fever blister B00.1 [place] [address] [address] [id number] [place] [address] 58401- 9910 Dec, Rheumatoid arthritis involving multiple sites with positive rheumatoid factor M05.79 [place] [address] [address] [id number] [place] [address] 77522- 7337 Nov, Rheumatoid arthritis involving multiple sites with positive rheumatoid factor M05.79 [place] [address] [place] [id number] [place] [address] 57535- 9058 Oct, Rheumatoid arthritis involving multiple sites with positive rheumatoid factor M05.79 [place] [address] 87694- 0976 Oct, Rheumatoid arthritis involving multiple sites with positive rheumatoid factor M05.79 [place] [address] [place] [id number] [place] [address] 87182- 9605 Sep, Rheumatoid arthritis involving multiple sites with positive rheumatoid factor M05.79 [place] [address] [id number] [place] [address] 42120- 7736 Aug, [place] [address] [place] [id number] [place] [address] 94389- 6646 Aug, 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 ; 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 ; CAD (coronary artery disease) I25.10 ; Rheumatoid arthritis involving both feet M06.071 ; Insomnia G47.00 ; Hypothyroidism in adult E03.9 ; Hypercholesterolemia E78.0 and Rheumatoid arthritis involving multiple sites with positive rheumatoid factor M05.79 [place] [address] [address] [id number] [place] [address] 81296- 4990 Jul, [place] [address] [place] [id number] [place] [address] 13439- 5805 June, [facility] [place] [facility] [address], [place] [address] 7144 June, Depression, prolonged F32.9 [facility] [place] [facility] [address] [place] [address] 20379- 7190 June, [place] [address] [place] [address] 91720- 1299 June, [place] [address] [place] [id number] [place] [address] 96208- 4171 June, Hypothyroidism in adult E03.9 [place] [id number] [place] [address] 62014- 0336 June, Rheumatoid arthritis involving both feet M06.071 [place] [address] [place] [address] 90768- 0490 May, CAD (coronary artery disease) I25.10 ; Rheumatoid arthritis involving both feet M06.071 ; Hyperlipidemia, acquired E78.5 ; Hypothyroidism in adult E03.9 ; Depression, prolonged F32.9 ; 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 ; Type 2 diabetes mellitus with hypoglycemia without coma E11.649 ; Vision abnormalities H53.9 and Vision changes H53.9 [place] [address] [place] [address] 69970- 1487 Apr, [place] [address] [place] [address] 65376- 2196 Apr, DM (diabetes mellitus) type I uncontrolled with eye manifestation E10.39 [place] [address] [place] [address] 65642- 3769 Apr, Rheumatoid arthritis involving both feet M06.071 [place] [address] [place] [address] 67506- 7975 Mar, Rheumatoid arthritis involving both feet M06.071 [place] [address] [place] [id number] [place] [address] 79428- 6774 Mar, [facility] [place] [facility] [address], [place] [address]- 1206 Feb, Rheumatoid arthritis involving both feet M06.071 [facility] [place] [facility] [address] [place] [address] 94288- 9658 Feb, DM (diabetes mellitus) type I uncontrolled with eye manifestation E10.39 ; Rheumatoid arthritis involving both feet M06.071 ; CAD ( coronary artery disease) I25.10 ; Depression, prolonged F32.9 ; Hyperlipidemia, acquired E78.5 ; Hypothyroidism in adult E03.9 and Environmental allergies Z91.09 [place] [address] [place] [id number] [place] [address] 28454- 2462 Jan, [place] [address] [place] [id number] [place] [address] 32653- 5913 Jan, Hyperlipemia E78.5 ; DM (diabetes mellitus) type I uncontrolled with eye manifestation E10.39 ; CAD (coronary artery disease) I25.10 ; Hyperlipidemia, acquired E78.5 ; Depression, prolonged F32.9 ; 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 ; Hypercholesterolemia E78.0 ; RA (refractory anemia) D46.4 and Rheumatoid arthritis involving multiple sites with positive rheumatoid factor M05.79 [place] [address], [place] [address]- 9131 Jan, [place] [address], [place] [address]- 6703 Jan, [facility] [place] [facility] [address] [place] [address] 72292- 0753 Sep, [facility] [place] [facility] [address], [place] [address]- 2231 Sep, [facility] [place] [facility] [address] [place] [id number] [place] [address] 37740- 1859 Aug, [facility] [place] [facility] [address], [place] [address]- 1407 Aug, [facility] [place] [facility] [address] [place] [id number] [place] [address]- 1659 Jul, Type 2 diabetes mellitus with hypoglycemia without coma E11.649 and 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 [place] [address] [place] [id number] [place] [address] 66310- 5006 June, CAD (coronary artery disease) I25.10 ; Insomnia G47.00 ; Rheumatoid arthritis involving both feet M06.071 ; Hypothyroidism in adult E03.9 ; 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 ; Type 2 diabetes mellitus with hypoglycemia without coma E11.649 ; 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 ; Hypercholesterolemia E78.0 ; Environmental allergies Z91.09 and Rib pain R07.81 [place] [id number] [place] [address] 59713- 5133 June, [address] 38460- 4452 June, 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 [place] [address] [place] [id number] [place] [address] 59358- 8798 May, Rheumatoid arthritis involving both feet M06.071 [place] [id number] [place] [address] 14537- 8626 May, CAD (coronary artery disease) I25.10 ; DM (diabetes mellitus ) type I uncontrolled with eye manifestation E10.39 ; Insomnia G47.00 ; Rheumatoid arthritis involving both feet M06.071 ; Hyperlipidemia, acquired E78.5 ; Depression, prolonged F32.9 ; 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 and Hypothyroid E03.[address] [place] [address] 37014- 6416 Apr, [place] [id number] [place] [address] 57013- 8260 Mar, DM (diabetes mellitus) type I uncontrolled with eye manifestation E10.39 ; Insomnia G47.00 ; Insulin long-term use Z79.4 ; Rheumatoid arthritis involving both feet M06.071 ; Hyperlipidemia, acquired E78.5 ; Hypothyroidism in adult E03.9 ; Depression, prolonged F32.9 ; CAD ( coronary artery disease) I25.10 and 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 [facility] [place] [facility] [address] [address]- 9002 10 Mar, 2015 [facility] [place] [facility] [address] [address]- 7849 14 Feb, 2015 [facility] [place] [facility] [address] [place] [id number] [place] [address] 73319- 6419 Jan, [place] [address] [place] [id number] [place] [address] 66085- 8790 Dec, [place] [address] [place] [id number] [place] [address] 39776- 5847 19 Nov, 2014 [place] [address] [place] [id number] [place] [address] 66104- 9524 14 Nov, 2014 Hyperlipemia E78.5 and Hypothyroid E03.9 [place] [address] [place] [id number] [place] [address] 11336- 4413 13 Nov, 2014 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 ; DM (diabetes mellitus) type I uncontrolled with eye manifestation E10.39 ; Hypothyroidism in adult E03.9 and Hyperlipidemia, acquired E78.5 [place] [address] [address]- 1525 07 Nov, 2014 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 ; CAD (coronary artery disease) I25.10 ; DM (diabetes mellitus) type I uncontrolled with eye manifestation E10.39 ; Insomnia G47.00 ; Rheumatoid arthritis involving both feet M06.071 ; Insulin long-term use Z79.4 ; Hyperlipidemia, acquired E78.5 ; Hypothyroidism in adult E03.9 ; Depression, prolonged F32.9 and 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 [facility] [place] [facility] [address], [place] [address]- 3629 17 Oct, 2014 [facility] [place] [facility] [address] [place] [id number] [place] [address] 37890- 2546 Oct, [facility] [place] [facility] [address], [place] [address]- 3020 Oct, [facility] [place] [facility] [address] [place] [address] 69802- 1706 Sep, [facility] [place] [facility] [address] [place] [address] 39442- 7999 Aug, [facility] [place] [facility] [address] [place] [id number] [place] [address] 10206- 5222 Aug, Coronary atherosclerosis of unspecified type of vessel, sauk-suiattle or graft 414.00 ; Rheumatoid arthritis 714.0 ; Insulin dependent diabetes mellitus 250.00 ; Hyperlipidemia 272.4 ; Hypothyroidism 244.9 ; Depression 311 and Insomnia 780.52 [place] [address] [place] [id number] [place] [address] 48084- 7067 Aug, [facility] [place] [facility] [address] [place] [id number] [place] [address] 31558- 8273 Jul, [facility] [place] [facility] [address] [place] [address] 42290- 8846 Jul, [facility] [place] [facility] [address] [place] [id number] [place] [address] 41832- 4908 Jul, Breast cancer screening V76.10 [place] [address] [place] [address] 233320- 3908 Jul, ASCUS with positive high risk HPV 796.9 [facility] [place] [facility] [address] [place] [id number] [place] [address] 47590788- 7700 June, [facility] [place] [facility] [address] [place] [id number] [place] [address] 015609- 9738 June, Routine gynecological examination V72.31 ; Pap test, as part of routine gynecological examination V76.2 ; Breast cancer screening V76.10 ; Perimenopausal 627.2 and Tobacco abuse 305.1 [facility] [place] [facility] [address] [place] [id number] [place] [address] 049633- 6498 June, Rheumatoid arthritis 714.0 ; Insulin dependent diabetes mellitus 250.00 and Depression 311 [facility] [place] [facility] [address] [id number] [place] [address]- 3056 June, [facility] [place] [facility] [address] [facility] [id number] [place] [address]- 0806 June, [facility] [place] [facility] [address] [facility] [id number] [place] [address]- 3806 May, [facility] [place] [facility] [address] [facility] [id number] [place] [address]- 7326 May, [facility] [place] [facility] [address] [facility] [id number] [place] [address]- 8577 Apr, [facility] [place] [facility] [address] [facility] [id number] [place] [address]- 2406 Apr, [facility] [place] [facility] [address] [place] [address]- 8573 Apr, [facility] [place] [facility] [address] [facility] [id number] [place] [address]- 3095 Apr, [facility] [place] [facility] [address] [place] [address] [id number] [place] [address]- 8131 Apr, [facility] [place] [facility] [address] [facility] [id number] [address]- 1150 Apr, [facility] [place] [facility] [address] [facility] [id number] [place] [address]- 5836 Apr, [facility] [place] [facility] [address] [facility] [id number], [place] [address]- 5486 Apr, [facility] [place] [facility] [address] [facility] [id number] [place] [address]- 2396 Apr, [facility] [place] [facility] [address] [facility] [id number] [place] [address]- 2546 Apr, [facility] [place] [facility] [address] [facility] [id number], [place] [address]- 2146 Apr, [facility] [address] [id number] [place] [address]- 9139 Apr, [facility] [place] [facility] [address] [id number] [place] [address]- 4864 Feb, [facility] [place] [facility] [address] [id number] [place] [address]- 6868 Feb, [facility] [place] [facility] [address] [id number] [place] [address]- 1429 Feb, [facility] [place] [facility] [address] [id number] [place] [address]- 8611 Feb, [facility] [place] [facility] [address] [id number] [place] [address]- 2056 Feb, [facility] [place] [facility] [address] [id number] [place] [address]- 0447 Feb, [facility] [place] [facility] [address] [id number] [place] [address]- 6949 Jan, [facility] [place] [facility] [address] [id number] [place] [address]- 4506 Jan, [facility] [place] [facility] [address] [id number] [place] [address]- 3962 Jan, [facility] [place] [facility] [address] [id number] [place] [address]- 2295 Jan, [facility] [place] [facility] [address] [id number] [place] [address]- 4985 Jan, [facility] [place] [facility] [address] [id number] [place] [address]- 9513 Jan, [facility] [place] [facility] [address] [id number] [place] [address]- 3998 Jan, [facility] [place] [facility] [address] [id number] [place] [address]- 2162 Jan, [facility] [place] [facility] [address] [id number], [place] [address]- 2227 Jan, [facility] [place] [facility] [address] [id number] [place] [address]- 5818 Jan, [facility] [place] [facility] [address] [id number] [place] 4416 Dec, [facility] [place] [facility] [address] [id number] [place] [address]- 9579 Dec, [facility] [place] [facility] [address] [id number] [place] [address]- 5807 Nov, [facility] [place] [facility] [address] [id number] [place] [address]- 2886 Nov, [facility] [place] [facility] [address] [id number] [place] [address]- 9884 Nov, [facility] [place] [facility] [address] [id number] [place] [address]- 1334 Nov, [facility] [place] [facility] [address] [id number] [place] [address]- 2437 Nov, [facility] [place] [facility] [address] [id number] [place] [address]- 4940 27 Oct, 2013 [facility] [place] [facility] [address] [id number] [place] [address]- 9312 27 Oct, 2013 [facility] [place] [facility] [address] [id number] [place] [address]- 0252 23 Oct, 2013 [facility] [place] [facility] [address] [id number] [place] [address]- 7394 23 Oct, 2013 [facility] [place] [facility] [address] [id number] [place] [address]- 9621 22 Oct, 2013 [facility] [place] [facility] [address] [id number] [place] [address]- 5260 22 Oct, 2013 [facility] [place] [facility] [address] [id number] [place] [address]- 8210 18 Oct, 2013 [facility] [place] [facility] [address] [id number] [place] [address]- 7703 18 Oct, 2013 [facility] [place] [facility] [address] [id number] [place] [address]- 6094 12 Oct, 2013 [facility] [place] [facility] [address] [id number] [place] [address]- 3186 Oct, [facility] [place] [facility] [address] [id number] [place] [address]- 7073 Oct, [facility] [place] [facility] [address] [id number] [place] [address]- 0920 Oct, [facility] [place] [facility] [address] [id number] [place] [address]- 6243 Oct, [facility] [place] [facility] [address] [id number] [place] [address]- 6758 Oct, [facility] [place] [facility] [address] [id number] [place] [address]- 8024 Oct, [facility] [place] [facility] [address] [id number] [place] [address]- 3002 Oct, [facility] [place] [facility] [address] [id number] [place] [address]- 3340 June, [facility] [place] [facility] [address] [id number] [place] [address]- 2469 June, [facility] [place] [facility] [address] [id number] [place] [address]- 5037 June, [facility] [place] [facility] [address] [id number] [place] [address]- 4296 June, [facility] [place] [facility] [address] [id number] [place] [address]- 2806 May, [facility] [place] [facility] [address] [id number] [place] [address]- 6454 May, [facility] [place] [facility] [address] [id number] [place] [address]- 5584 Apr, [facility] [place] [facility] [address] [id number] [place] [address]- 6770 Apr, [facility] [place] [facility] [address] [id number] [place] [address]- 7336 Mar, [facility] [place] [facility] [address] [id number] [place] [address]- 5886 Mar, [facility] [place] [facility] [address] [id number] [place] [address]- 8795 Mar, [facility] [place] [facility] [address] [id number] [place] [address]- 1084 Mar, [facility] [place] [facility] [address] [id number] [place] [address]- 8577 Mar, [facility] [place] [facility] [address] [id number] [place] [address]- 1420 Mar, [facility] [place] [facility] [address] [id number] [place] [address]- 3283 Jan, [facility] [place] [facility] [address] [id number] [place] [address]- 3339 Jan, [facility] [place] [facility] [address] [id number] [place] [address]- 8937 Dec, [facility] [place] [facility] [address] [id number] [place] [address]- 5086 15 Dec, 2012 [facility] [place] [facility] [address] [id number] [place] [address]- 0407 Dec, [facility] [place] [facility] [address] [id number] [place] [address]- 3422 Dec, [facility] [place] [facility] [address] [id number] [place] [address]- 5218 Dec, [facility] [place] [facility] [address] [id number] [place] [address]- 1046 Dec, [facility] [place] [facility] [address] [id number] [place] [address]- 3866 30 Nov, 2012 [facility] [address] [id number] [place] [address]- 2694 30 Nov, 2012 [facility] [place] [facility] [address] [id number] [place] [address]- 8717 17 Nov, 2012 [facility] [address] [id number] [place] [address] 17 Nov, 2012 [facility] [place] [facility] [address] [id number] [place] [address] 15 Nov, 2012 [facility] [address] [id number] [place] [address] 15 Nov, 2012 [facility] [place] [facility] [address] [id number] [place] [address] 10 Nov, 2012 [facility] [place] [facility] [address] [id number] [place] [address] 10 Nov, 2012 [facility] [address] [id number] [place] [address] 26 Oct, 2012 [facility] [place] [facility] [address] [id number] [place] [address] 18 Sep, 2012 [facility] [address] [id number] [place] [address] 17 Sep, 2012 [facility] [place] [facility] [address] [id number] [place] [address] 12 Sep, 2012 [facility] [place] [facility] [address] [id number] [place] [address] 11 Oct, 2012 [facility] [place] [facility] [address] [id number] [place] [address] 07 Sep, 2012 [facility] [place] [facility] [address] [id number] [place] [address] 06 Oct, 2012 [facility] [place] [facility] [address] [id number] [place] [address] Sep, [facility] [place] [facility] [address] [id number] [place] [address] Sep, [facility] [place] [facility] [address] [id number] [place] [address] Sep, [facility] [place] [facility] [address] [id number] [place] [address] Sep, [facility] [place] [facility] [address] [id number] [place] [address] Sep, [facility] [place] [facility] [address] [id number] [place] [address] Sep, [facility] [place] [facility] [address] [id number] [place] [address] Sep, [facility] [place] [facility] [address] [id number] [place] [address] Sep, [facility] [place] [facility] [address] [id number] [place] [address] Aug, [facility] [place] [facility] [address] [id number] [place] [address] Aug, [facility] [place] [facility] [address] [id number] [place] [address] Jul, [facility] [place] [facility] [address] [id number] [place] [address] Jul, [facility] [place] [facility] [address] [id number] [place] [address] Jul, [facility] [place] [facility] [address] [id number] [place] [address] Jul, [facility] [place] [facility] [address] [id number] [place] [address] June, [facility] [place] [facility] [address] [id number] [place] [address] June, [facility] [place] [facility] [address] [id number] [id number] 05 May, 2012 [facility] [address] [id number] [place] [address] 04 Apr, 2012 [facility] [address] [id number] [place] [address] 11 Mar, 2012 [facility] [address] [id number] [place] [address] 04 Mar, 2012 [facility] [address] [id number] [place] [address] 14 Feb, 2012 [facility] [address] [id number] [place] [address] 27 Oct, 2011 [facility] [address] [id number] [place] [address] 16 Sep, 2011 [facility] [address] [id number] [place] [address] 05 Jul, 2011 [facility] [address] [id number] [place] [address] 24 May, 2011 [facility] [address] [id number] [place] [address] 23 May, 2011 [facility] [address] [id number] [place] [address] 16 Mar, 2011 [facility] [address] [id number] [place] [address] 7162 15 Mar, 2011 [facility] [address] [id number] [place] [address] 113[address] 14 Mar, 2011 [facility] [place] [facility] [address] [id number] [place] [address]279 18 Feb, 2011 [facility] [place] [facility] [address] [id number] [place] [address] 13 Feb, 2011 [facility] [address] [id number], [place] [address] Feb, [facility] [place] [facility] [address] [id number] [place] [address] Feb, [facility] [address] [id number] [place] [address] 130[address] Feb, [facility] [address] [id number] [place] [address] 140[address] Feb, [facility] [address] [id number] [place] [address] Feb, [facility] [address] [id number] [place] [address] 6465 Feb, [facility] [address] [id number] [place] [address] Jan, [facility] [address] [id number] [place] [address] 38[address] Jan, [facility] [address] [id number] [place] [address] 79[address] Dec, [facility] [address] [id number] [place] [address] Dec, [facility] [address] [id number] [place] [address] 7910 Dec, [facility] [address] [id number] [place] [address] 49[address] Dec, [facility] [address] [id number] [place] [address] 7[address] Nov, [facility] [address] [id number] [place] [address] 1780 Jan, [facility] [place] [facility] [address] [id number] [place] [address] 1316 Jan, [facility] [place] [facility] [address] [id number] [place] [address] 49[address] Jan, [facility] [address] [id number], [place] [address] Jan, [facility] [address] [id number] [place] [address] Jan, [facility] [place] [facility] [address] [id number] [place] [address] Jan, [facility] [place] [facility] [address] [id number] [place] [address] Jan, [facility] [place] [facility] [address] [id number] [place] [address] 1668 Jan, [facility] [place] [facility] [address] [id number] [place] [address] 7314 Dec, [facility] [place] [facility] [address] [id number] [place] [address] Nov, [facility] [address] [id number], [place] [address] Jul, [facility] [place] [facility] [address] [id number] [place] [address] 130[address] June, [facility] [address] [id number], [place] [address] June, [facility] [place] [facility] [address] [id number] [place] [address] 3085 May, [facility] [place] [facility] [address] [id number], [place] [address] Jan, [facility] [place] [facility] [address] [id number], [place] [address] Dec, [facility] [place] [facility] [address] [id number], [place] [address] Dec, [facility] [place] [facility] [address] [id number], [place] [address] Dec, [facility] [place] [facility] [address] [id number], [place] [address] Nov, [facility] [place] [facility] [address] [facility] [id number] [place] [id number] 12 Nov[facility] 2008 [facility] [address] [facility] [id number][place] [id number] 14 Oct, 2008 IMMUNIZATIONS No Known Immunizations SOCIAL HISTORY Never Assessed REASON FOR VISIT Requests return call-Controlled/Refill Requests PLAN OF CARE VITAL SIGNS MEDICATIONS Medication Instructions Dosage Frequency Start Date End Date Duration Status Fluoxetine HCl 40 mg Orally Once a day TAKE ONE CAPSULE BY MOUTH ONCE DAILY 24h 30 Active Plavix 75 MG Orally Once a day Please Voucher 1 tablet by Oral route 1 time per day 30 Active Percocet 7.5-325 MG Orally every 6 hrs 1 tablet as needed 6h Jan, 28 days Active Metoprolol Tartrate 25 MG Orally Twice a day TAKE ONE-HALF TABLET BY MOUTH TWICE DAILY 12h 30 Active RESULTS No Results PROCEDURES No Known [...]
--- OUTSIDE RECORDS SUMMARY | 2017-08-29 14:51 | XMS REPORT ---
Author Author CHRISTINA Mcqueen [facility] Address [address] [place] [address] Care Team Providers Care Hearse Driver Name Role Phone CHRSITINA Mcqueen Unavailable PROBLEMS Type Condition ICD9-CM Code YIU31-UW Code Onset Dates Condition Status SNOMED Code Problem CAD (coronary artery disease) I25.10 Active 47097847 Problem Hypothyroidism in adult E03.9 Active 48074402 Problem Depression, prolonged F32.9 Active 73961499 Problem Type 1 diabetes mellitus with other circulatory complication E10.59 Active 39893930 Problem Pure hypercholesterolemia E78.00 Active 347128252 Problem Insomnia G47.00 Active 917809546 Problem 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 Active 110164499 Problem Rheumatoid arthritis involving multiple sites with positive rheumatoid factor M05.79 Active 19189261 Problem half-way current use of insulin Z79.4 Active 629904010 Problem Rheumatoid arthritis involving both feet M06.071 Active 894403683 Problem Hyperlipidemia, acquired E78.5 Active 7157841 Problem Environmental allergies Z91.09 Active 278602484 Problem 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 571343318 ALLERGIES No Information ENCOUNTERS Encounter Location Date Diagnosis [place] [id number] [place] [address] 40607- 0509 Apr, [facility] [id number] [place] [address] 54537- 9078 Apr, Rheumatoid arthritis involving multiple sites with positive rheumatoid factor M05.79 [facility] [id number] [place] [address] 12762- 0158 Mar, Rheumatoid arthritis involving multiple sites with positive rheumatoid factor M05.79 [facility] [id number] [place] [address] 10112- 4276 Feb, [facility] [address] [address] 7846 Feb, CAD (coronary artery disease) I25.10 ; 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 and Hypothyroidism in adult E03.9 [facility] [address] [address] 8934 Feb, Rheumatoid arthritis involving multiple sites with positive rheumatoid factor M05.79 [facility] [id number] [place] [address] 87157- 5786 Jan, Hypothyroidism in adult E03.9 [place] [id number] [place] [address] 57020- 5068 Jan, Rheumatoid arthritis involving multiple sites with positive rheumatoid factor M05.79 and CAD (coronary artery disease) I25.10 [place] [id number] [place] [address] 15358- 6224 Jan, 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 ; 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 ; Hyperlipidemia, acquired E78.5 ; Hypothyroidism in adult E03.9 and Fever blister B00.1 [place] [id number] [place] [address] 39858- 2654 Dec, Rheumatoid arthritis involving multiple sites with positive rheumatoid factor M05.79 [place] [id number] [place] [address] 04079- 8644 Nov, Rheumatoid arthritis involving multiple sites with positive rheumatoid factor M05.79 [place] [id number] [place] [address] 77611- 8162 Oct, Rheumatoid arthritis involving multiple sites with positive rheumatoid factor M05.79 [place] [id number] [place] [address] 70942- 1470 Oct, Rheumatoid arthritis involving multiple sites with positive rheumatoid factor M05.79 [place] [id number] [place] [address] 79049- 8656 Sep, Rheumatoid arthritis involving multiple sites with positive rheumatoid factor M05.79 [place] [id number] [address]- 6036 Aug, [facility] [id number] [place] [address] 16716- 6998 Aug, 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 ; 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 ; CAD (coronary artery disease) I25.10 ; Rheumatoid arthritis involving both feet M06.071 ; Insomnia G47.00 ; Hypothyroidism in adult E03.9 ; Hypercholesterolemia E78.0 and Rheumatoid arthritis involving multiple sites with positive rheumatoid factor M05.79 [facility] [address] [address]- 7303 Jul, [place] [id number] [place] [address] 86827- 6375 June, [place] [id number] [place] [address] 64361- 5087 June, Depression, prolonged F32.9 [facility] [id number] [place] [address] 86107- 0729 June, [facility] [id number] [place] [address] 86884- 8324 June, [place] [id number] [place] [address] 22225- 9252 June, Hypothyroidism in adult E03.9 [facility] [address] [address]- 5469 June, Rheumatoid arthritis involving both feet M06.071 [facility] [address] [address]- 9032 May, CAD (coronary artery disease) I25.10 ; Rheumatoid arthritis involving both feet M06.071 ; Hyperlipidemia, acquired E78.5 ; Hypothyroidism in adult E03.9 ; Depression, prolonged F32.9 ; 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 ; Type 2 diabetes mellitus with hypoglycemia without coma E11.649 ; Vision abnormalities H53.9 and Vision changes H53.9 [facility] [id number] [address]- 9041 Apr, [place] [id number] [place] [address] 25039- 2651 Apr, DM (diabetes mellitus) type I uncontrolled with eye manifestation E10.39 [place] [address] [place] [address] 08801- 8452 Apr, Rheumatoid arthritis involving both feet M06.071 [place] [id number] [place] [address] 06306- 5696 Mar, Rheumatoid arthritis involving both feet M06.071 [place] [id number] [place] [address] 17481- 9735 Mar, [place] [id number] [place] [address] 95693- 2750 Feb, Rheumatoid arthritis involving both feet M06.071 [place] [address] [place] [address] 28471- 4791 Feb, DM (diabetes mellitus) type I uncontrolled with eye manifestation E10.39 ; Rheumatoid arthritis involving both feet M06.071 ; CAD ( coronary artery disease) I25.10 ; Depression, prolonged F32.9 ; Hyperlipidemia, acquired E78.5 ; Hypothyroidism in adult E03.9 and Environmental allergies Z91.09 [place] [address] [address]- 4641 Jan, [place] [address] [place] [address] 31766- 0333 Jan, Hyperlipemia E78.5 ; DM (diabetes mellitus) type I uncontrolled with eye manifestation E10.39 ; CAD (coronary artery disease) I25.10 ; Hyperlipidemia, acquired E78.5 ; Depression, prolonged F32.9 ; 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 ; Hypercholesterolemia E78.0 ; RA (refractory anemia) D46.4 and Rheumatoid arthritis involving multiple sites with positive rheumatoid factor M05.79 [place] [address] [place] [address] 68112- 6652 Jan, [facility] [id number] [address]- 0040 Jan, [facility] [address] [address]- 6466 Sep, [facility] [id number] [address]- 0535 Sep, [facility] [address] [address]- 2996 Aug, [facility] [id number] [address]- 5463 Aug, [facility] [address] [address]- 6229 Jul, Type 2 diabetes mellitus with hypoglycemia without coma E11.649 and 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 [facility] [address] [address]- 9758 June, CAD (coronary artery disease) I25.10 ; Insomnia G47.00 ; Rheumatoid arthritis involving both feet M06.071 ; Hypothyroidism in adult E03.9 ; 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 ; Type 2 diabetes mellitus with hypoglycemia without coma E11.649 ; 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 ; Hypercholesterolemia E78.0 ; Environmental allergies Z91.09 and Rib pain R07.81 [facility] [address] [address]- 7896 June, [facility] [id number] [address]- 5743 June, 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 [facility] [id number] [address]- 7058 May, Rheumatoid arthritis involving both feet M06.071 [facility] [id number] [address]- 1629 May, CAD (coronary artery disease) I25.10 ; DM (diabetes mellitus ) type I uncontrolled with eye manifestation E10.39 ; Insomnia G47.00 ; Rheumatoid arthritis involving both feet M06.071 ; Hyperlipidemia, acquired E78.5 ; Depression, prolonged F32.9 ; 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 and Hypothyroid E03.9 [place] [address] [address]- 8468 Apr, [place] [id number] [place] [address] 82442- 4526 Mar, DM (diabetes mellitus) type I uncontrolled with eye manifestation E10.39 ; Insomnia G47.00 ; Insulin long-term use Z79.4 ; Rheumatoid arthritis involving both feet M06.071 ; Hyperlipidemia, acquired E78.5 ; Hypothyroidism in adult E03.9 ; Depression, prolonged F32.9 ; CAD ( coronary artery disease) I25.10 and 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 [place] [id number] [place] [address] 22294- 7347 Mar, [place] [id number] [place] [address] 70995- 5208 Feb, [place] [id number] [place] [address] 55721- 3800 Jan, [place] [address] [address]- 9269 Dec, [place] [id number] [place] [address] 56105- 0689 19 Nov, 2014 [place] [id number] [place] [address] 03103- 7865 14 Nov, 2014 Hyperlipemia E78.5 and Hypothyroid E03.9 [place] [id number] [place] [address] 12549- 2027 13 Nov, 2014 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 ; DM (diabetes mellitus) type I uncontrolled with eye manifestation E10.39 ; Hypothyroidism in adult E03.9 and Hyperlipidemia, acquired E78.5 [place] [id number] [place] [address] 73807- 6855 Nov, 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 ; CAD (coronary artery disease) I25.10 ; DM (diabetes mellitus) type I uncontrolled with eye manifestation E10.39 ; Insomnia G47.00 ; Rheumatoid arthritis involving both feet M06.071 ; Insulin long-term use Z79.4 ; Hyperlipidemia, acquired E78.5 ; Hypothyroidism in adult E03.9 ; Depression, prolonged F32.9 and 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 [place] [id number] [place] [address] 73802- 6016 Oct, [address] 55297- 7146 Oct, [place] [id number] [place] [address] 53593- 6545 Oct, [place] [id number] [place] [address] 50819- 7686 Sep, [place] [id number] [place] [address] 03793- 1888 Aug, [place] [id number] [place] [address] 53326- 7487 Aug, Coronary atherosclerosis of unspecified type of vessel, inupiat or graft 414.00 ; Rheumatoid arthritis 714.0 ; Insulin dependent diabetes mellitus 250.00 ; Hyperlipidemia 272.4 ; Hypothyroidism 244.9 ; Depression 311 and Insomnia 780.52 [place] [id number] [place] [address] 37024- 5953 Aug, [place] [id number] [place] [address] 08532- 7597 Jul, [place] [id number] [place] [address] [id number]- 3058 Jul, [place] [id number] [place] [address] 14699- 9948 Jul, Breast cancer screening V76.10 [facility] [address] [address]- 4637 Jul, ASCUS with positive high risk HPV 796.9 [facility] [address] [address]- 2635 June, [facility] [address] [address]- 1257 June, Routine gynecological examination V72.31 ; Pap test, as part of routine gynecological examination V76.2 ; Breast cancer screening V76.10 ; Perimenopausal 627.2 and Tobacco abuse 305.1 [facility] [id number] [place] [address] 773110- 6656 June, Rheumatoid arthritis 714.0 ; Insulin dependent diabetes mellitus 250.00 and Depression 311 [facility] [address] [address]- 4330 June, [facility] [address] [address]- 8033 June, [facility] [address] [address]- 4246 May, [facility] [address] [address]- 4901 May, [facility] [address] [address]- 9270 Apr, [facility] [address] [address]- 3510 Apr, [facility] [address] [address]- 0193 Apr, [facility] [address] 6139 Apr, [facility] [address] 2239 Apr, [facility] [id number] [place] [address]- 1799 Apr, [facility] [address] [id number] [place] [address]- 3437 Apr, [facility] [place] [facility] [address] [id number] [place] [address]- 3842 Apr, 2014 [facility] [place] [facility] [address] [id number] [place] [address]- 8979 Apr, [facility] [place] [facility] [address] [id number] [place] [address]- 3982 Apr, [facility] [place] [facility] [address] [id number] [place] [address]- 9607 Apr, [facility] [place] [facility] [address] [id number] [place] [address]- 7834 Apr, [facility] [address] [id number] [place] [address]- 1508 Feb, [facility] [address] [id number] [place] [address]- 8389 Feb, [facility] [place] [facility] [address] [id number] [place] [address]- 5602 Feb, [facility] [address] [id number] [place] [address]- 0401 Feb, [facility] [place] [facility] [address] [id number] [place] [address]- 2605 Feb, [facility] [place] [facility] [address] [id number] [place] [address]- 6325 Feb, [facility] [place] [facility] [address] [id number] [place] [address]- 5225 Jan, [facility] [place] [facility] [address] [id number] [place] [address]- 2242 Jan, [facility] [place] [facility] [address] [id number] [place] [address]- 5120 Jan, [facility] [place] [facility] [address] [id number] [place] [address]- 4327 Jan, [facility] [place] [facility] [address] [id number] [place] [address]- 5951 Jan, [facility] [place] [facility] [address] [id number] [place] 4298 Jan, [facility] [place] [facility] [address] [id number] [place] [address]- 0857 Jan, [facility] [place] [facility] [address] [id number] [place] 5017 Jan, [facility] [place] [facility] [address] [id number] [place] [address]- 2233 Jan, [facility] [place] [facility] [address] [id number] [place] [address]- 3161 Jan, [facility] [place] [facility] [address] [id number] [place] [address]- 8072 Dec, [facility] [place] [facility] [address] [id number] [place] [address]- 1315 Dec, [facility] [place] [facility] [address] [id number] [place] [address]- 0471 Nov, [facility] [place] [facility] [address] [id number] [place] [address]- 0410 Nov, [facility] [place] [facility] [address] [id number] [address]- 5705 Nov, [facility] [place] [facility] [address] [id number] [place] [address]- 3531 Nov, [facility] [place] [facility] [address] [id number] [place] [address]- 9749 Nov, [facility] [place] [facility] [address] [id number] 2099 Oct, [facility] [place] [facility] [address] [id number] [address]- 5678 27 Oct, 2013 [facility] [place] [facility] [address] [id number] [place] [address] 2546 23 Oct, 2013 [facility] [place] [facility] [address] [id number] [place] [address] 2546 23 Oct, 2013 [facility] [place] [facility] [address] [id number] [place] [address] 2546 22 Oct, 2013 [facility] [place] [facility] [address] [id number] [place] [address] 2542 22 Oct, 2013 [facility] [place] [facility] [address] [id number] [place] [address]- 2085 18 Oct, 2013 [facility] [place] [facility] [address] [id number] [place] [address]- 8805 18 Oct, 2013 [facility] [place] [facility] [address] [id number] [place] [address]- 1066 12 Oct, 2013 [facility] [place] [facility] [address] [id number] [place] [address]- 1192 12 Oct, 2013 [facility] [place] [facility] [address] [id number] [place] [address]- 4603 11 Oct, 2013 [facility] [place] [facility] [address] [id number] [place] [address]- 254 11 Oct, 2013 [facility] [place] [facility] [address] [id number] [place] [address] 2543 11 Oct, 2013 [facility] [place] [facility] [address] [id number] [place] [address]- 254 11 Oct, 2013 [facility] [place] [facility] [address] [id number] [place] [address] 2547 Oct, 2013 [facility] [place] [facility] [address] [id number] [place] [address]- 2545 Oct, 2013 [facility] [place] [facility] [address] [id number] [place] [address]- 5002 June, [facility] [place] [facility] [address] [id number] [place] [address]- 4702 June, [facility] [place] [facility] [address] [id number] [place] 8679 June, [facility] [place] [facility] [address] [id number] [place] 0539 June, [facility] [place] [facility] [address] [id number] [place] [address]- 7061 May, [facility] [place] [facility] [address] [id number] [place] [address]- 2012 May, [facility] [place] [facility] [address] [id number] [place] 7792 Apr, [facility] [place] [facility] [address] [facility] [id number] [place] [address]- 6615 Apr, [facility] [place] [facility] [address] [id number] [place] [address]- 4238 Mar, [facility] [place] [facility] [address] [id number] [place] [address]- 2343 Mar, [facility] [place] [facility] [address] [id number] [place] [address]- 3065 Mar, [facility] [place] [facility] [address] [facility] [id number] [place] [address]- 3371 Mar, [facility] [place] [facility] [address] [id number] [place] [address]- 8256 Mar, [facility] [place] [facility] [address] [id number] [place] [address]- 0171 Mar, [facility] [place] [facility] [address] [id number] [place] 0943 Jan, [facility] [place] [facility] [address] [id number] [place] 5324 Jan, [facility] [place] [facility] [address] [id number] [place] [address]- 6069 15 Dec, 2012 [facility] [place] [facility] [address] [id number] [place] [address]- 9989 15 Dec, 2012 [facility] [place] [facility] [address] [id number] [place] [address]- 2452 Dec, [facility] [place] [facility] [address] [id number] [place] [address]- 0377 Dec, [facility] [place] [facility] [address] [id number] [place] [address]- 4968 Dec, [facility] [place] [facility] [address] [id number] [place] [address]- 2527 Dec, [facility] [place] [facility] [address] [id number] [place] [address]- 8173 30 Nov, 2012 [facility] [place] [facility] [address] [id number] [place] [address]- 2122 30 Nov, 2012 [facility] [place] [facility] [address] [id number] [place] [address]- 6998 17 Nov, 2012 [facility] [place] [facility] [address] [id number] [place] [address]- 3961 17 Nov, 2012 [facility] [place] [facility] [address] [id number] [place] [address]- 4887 15 Nov, 2012 [facility] [place] [facility] [address] [id number] [address]- 8243 15 Nov, 2012 [facility] [place] [facility] [address] [id number] [place] [address]- 8789 10 Nov, 2012 [facility] [place] [facility] [address] [id number] [place] [address]- 6357 10 Nov, 2012 [facility] [place] [facility] [address] [id number] [place] [address]- 3132 26 Oct, 2012 [facility] [place] [facility] [address] [id number] [place] [address]- 0996 18 Sep2012 [facility] [place] [facility] [address] [id number] [place] [address] 17 Oct, 2012 [facility] [address] [id number] [place] [address] 12 Oct, 2012 [facility] [place] [facility] [address] [id number] [place] [address] 11 Oct, 2012 [facility] [address] [id number] [place] [address] 07 Oct, 2012 [facility] [address] [id number] [place] [address] 06 Oct, 2012 [facility] [address] [id number] [place] [address] Sep, [facility] [address] [id number] [place] [address] Sep, [facility] [address] [id number] [place] [address] Sep, [facility] [address] [id number] [place] [address] 18 Sep, 2012 [facility] [address] [id number] [place] [address] Sep, [facility] [address] [id number] [place] [address] 16 Sep, 2012 [facility] [place] [facility] [address] [id number] [place] [address] 15 Sep, 2012 [facility] [address] [id number] [place] [address] Sep, [facility] [place] [facility] [address] [id number] [place] [address] Aug, [facility] [place] [facility] [address] [id number] [place] [address] Aug, [facility] [place] [facility] [address] [id number] [place] [address] Jul, [facility] [address] [id number] [place] [address] Jul, [facility] [place] [facility] [address] [id number] [place] [address] Jul, [facility] [address] [id number] [place] [address] Jul, [facility] [place] [facility] [address] [id number] [place] [address] June, [facility] [address] [id number] [place] [address] June, [facility] [address] [id number] [place] [address] May, [facility] [address] [id number] [place] [address] Apr, [facility] [address] [id number] [place] [address] Mar, [facility] [address] [id number] [place] [address] Mar, [facility] [address] [id number] [place] [address] Feb, [facility] [address] [id number] [place] [address] Oct, [facility] [place] [facility] [address] [id number] [address] Sep, [facility] [place] [facility] [address] [id number] [place] [address] Jul, [facility] [place] [facility] [address] [id number] [place] [address] May, [facility] [place] [facility] [address] [id number] [place] [address] May, [facility] [place] [facility] [address] [id number] [place] [address] 16 Mar, 2011 [facility] [address] [id number] [place] [address] 15 Mar, 2011 [facility] [place] [facility] [address] [id number] [place] [address] 14 Mar, 2011 [facility] [place] [facility] [address] [id number] [place] [address] 18 Feb, 2011 [facility] [place] [facility] [address] [id number] [place] [address] 13 Feb, 2011 [facility] [place] [facility] [address] [id number] [place] [address] Feb, [facility] [place] [facility] [address] [id number] [place] [address] Feb, [facility] [address] [id number] [place] [address] Feb, [facility] [address] [id number] [place] [address] Feb, [facility] [place] [facility] [address] [id number] [place] [address] Feb, [facility] [address] [id number] [place] [address] Feb, [facility] [address] [id number] [place] [address] Jan, [facility] [place] [facility] [address] [id number] [place] [address] Jan, [facility] [place] [facility] [address] [id number] [place] [address] Dec, [facility] [place] [facility] [address] [id number] [place] [address] Dec, [facility] [place] [facility] [address] [id number] [place] [address] 17 Dec, 2010 [facility] [place] [facility] [address] [id number] [place] [address] 17 Dec, 2010 [facility] [address] [id number] [place] [address] Nov, [facility] [address] [id number] [place] [address] Jan, [facility] [address] [id number] [place] [address] Jan, [facility] [address] [id number] [place] [address] Jan, [facility] [address] [id number] [place] [address] Jan, [facility] [address] [id number] [place] [address] Jan, [facility] [address] [id number] [place] [address] Jan, [facility] [address] [id number] [place] [address] Jan, [facility] [address] [id number] [place] [address] Jan, [facility] [address] [id number] [place] [address] Dec, [facility] [address] [id number] [place] [address] Nov, [facility] [address] [id number] [place] [address] Jul, [facility] [place] [facility] [address] [id number] [place] [address] June, [facility] [address] [id number] [place] [address] June, [facility] [address] [id number] [address] May, [facility] [address] [id number] [address] Jan, [facility] [id number] [address] Dec, [facility] [id number] [address] Dec, [facility] [id number] [address] Dec, [facility] [id number] [address] Nov, [facility] [id number] [address] Nov, [facility] [id number] [address] Oct, IMMUNIZATIONS No Known Immunizations SOCIAL HISTORY Never Assessed REASON FOR VISIT Controlled Refill Request PLAN OF CARE VITAL SIGNS MEDICATIONS Medication Instructions Dosage Frequency Start Date End Date Duration Status Percocet 7.5-325 MG Orally every 6 hrs 1 tablet as needed 6h Jul, 28 days Active RESULTS No Results PROCEDURES [...]
--- OUTSIDE RECORDS SUMMARY | 2017-08-29 14:52 | XMS REPORT ---
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.59 Active 64812651 Problem 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 Active 186666280 Problem 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 844407105 Problem Rheumatoid arthritis involving multiple sites with positive rheumatoid factor M05.79 Active 85132461 Problem half-way current use of insulin Z79.4 Active 073805095 Problem Insomnia G47.00 Active 641749366 Problem Rheumatoid arthritis involving both feet M06.071 Active 884132081 Problem Environmental allergies Z91.09 Active 230203220 Problem CAD (coronary artery disease) I25.10 Active 84296077 ALLERGIES Substance Reaction Event Type Date Status Codeine Phosphate itching Drug Allergy Jan, Active Bactrim Unknown Drug Allergy Jan, Active SOCIAL HISTORY No smoking Hx information available PLAN OF CARE Activity Details Follow Up 4 Weeks Reason:ra, diabetes VITAL SIGNS Height 64 in 2016-02-06 Weight 122.4 lbs 2016-02-06 Temperature 98.4 degrees Fahrenheit 2016-02-06 Heart Rate 76 bpm 2016-02-06 Respiratory Rate 16 2016-02-06 BMI 21.01 kg/m2 2016-02-06 Blood pressure systolic 130 mmHg 2016-02-06 Blood pressure diastolic 80 mmHg 2016-02-06 MEDICATIONS Medication Instructions Dosage Frequency Start Date End Date Duration Status Folic Acid 1 MG take 1 tablet by Oral route 1 time per day do not take on days you take methotrexate Feb, Active Metoprolol Tartrate 25 MG Orally 2 times a day 0.5 Tablet by Oral route 2 daily 12h Jan, Active Aspirin 81 MG Orally Once a day 1 tablet 24h Active Glucocard Expression Test 1 subcutaneously 2 times a day as directed Jan, Active Levemir FlexTouch 100 UNIT/ML as directed Aug, Active Levemir 100 UNIT/ML Subcutaneous 2 times a day 40 in am and 20 inpm 12h Apr, Active Oxycodone-Acetaminophen 7.5-325 MG Orally 3 times a day PRN 1 tablet as needed Jan, 28 day supply Active NovoLog 100 UNIT/ML INJECT 17 UNITS SUBCUTANEOUSLY IN THE MORNING, 10 UNITS AT LUNCH, AND 10 UNITS IN THE EVENING 27 Active Plavix 75 MG Orally Once a day Please Voucher 1 tablet by Oral route 1 time per day Jan, Active Levothyroxine Sodium 125 mcg Orally Once a day 1 tablet 24h Active Methotrexate 2.5 MG Orally Once a day 1 tablet 24h Active Xeljanz XR 11 MG Orally Once a day 1 tablet 24h Active Fluoxetine HCl 20 mg Orally Once a day 1 capsule in the morning 24h Active PredniSONE 10 mg Orally Once a day 1 tablet 24h Active Simvastatin 20 mg Orally Once a day 1 tablet in the evening 24h Active Celebrex 200 mg Orally Once a day PLEASE VOUCHER 1 capsule Active NovoLog Flexpen 100 UNIT/ML Subcutaneous 3 times a day 30 units 8h Aug, Active RESULTS Name Result Date Reference Range A1C (IN HOUSE) 2016-02-06 A1C IN HOUSE 8.4 4.3 - 5.6 % Previous A1c 7.9 Lot [id number] Exp date 10/2017 MICROALBUMIN, URINE (IN HOUSE) 2016-02-06 MICROALBUMIN Normal Lot # [id number] Exp date 12/2016 Clarity clear Color yellow ALB 30mg/L CRE 100MG/dl A:C (IN HOUSE) <30mg/g Control Control Lot # Exp date PROCEDURES Procedure Date Ordered Related Diagnosis Body Site LAB [facility] Feb 06, 2016 GLYCATED HEMOGLOBIN TEST Feb 06, 2016 [facility] VISIT ESTABLISHED PATIENT Feb 06, 2016 MICROALBUMIN, SEMIQUANT Feb 06, 2016 Office Visit, Est Pt., Level 4 Feb 06, 2016 IMMUNIZATIONS No Known Immunizations
--- OUTSIDE RECORDS SUMMARY | 2017-08-29 14:52 | XMS REPORT ---
Author CHRISTINA Stokes [facility] eClinicalWorks Address Unknown Phone Unavailable Care Team Providers Care Nursery Supervisor Name Role Phone CHRISTINA PENNY CP Unavailable [...] Instructions Start Date End Date Status Dosage Hydrocodone-Acetaminophen [facility] [address]-01 10-325 MG Orally tid prn must last atleast 30 days April 20, 2014 Feb 03, 2015 one Results No Known Results Summary Purpose eClinicalWorks Submission
--- OUTSIDE RECORDS SUMMARY | 2017-08-29 14:52 | XMS REPORT ---
Author Author MENA RICKY [facility] Address [address] [place] [address] Care Team Providers Care Metals Analyst Name Role Phone RICKY MENA Unavailable PROBLEMS Type Condition ICD9-CM Code BUD05-YI Code Onset Dates Condition Status SNOMED Code Problem 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 Active 450612400 Problem Hypothyroidism in adult E03.9 Active 17753124 Problem CAD (coronary artery disease) I25.10 Active 35832393 Problem Type 1 diabetes mellitus with other circulatory complication E10.59 Active 92451301 Problem Insomnia G47.00 Active 070885149 Problem Recurrent major depressive disorder, in full remission F33.42 Active 918818828 Problem Rheumatoid arthritis involving multiple sites with positive rheumatoid factor M05.79 Active 38381685 Problem 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 138879607 Problem Hyperlipidemia, acquired E78.5 Active 6052835 Problem 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 Active 215503239 Problem Environmental allergies Z91.09 Active 454390044 ALLERGIES No Information ENCOUNTERS Encounter Location Date Diagnosis [place] [id number] [place] [address] 09065- 2490 Aug, [facility] [address] [address] 79[address] June, Rheumatoid arthritis involving multiple sites with positive rheumatoid factor M05.79 [facility] [address] [address] June, [facility] [id number] [place] [address] 61641- 9306 May, Type 1 diabetes mellitus with other circulatory complication E10.59 ; Recurrent major depressive disorder, in full remission F33.42 and Hyperlipidemia, acquired E78.5 [facility] [id number] [place] [address] 21970- 2733 May, Hypothyroidism, unspecified E03.9 and Hypothyroidism in adult E03.9 [facility] [id number] [place] [address] 31741- 9650 Apr, Hypothyroidism in adult E03.9 [facility] [id number] [place] [address] 19361- 1190 Apr, Type 1 diabetes mellitus with other circulatory complication E10.59 ; 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 ; Rheumatoid arthritis involving multiple sites with positive rheumatoid factor M05.79 ; Hypothyroidism in adult E03.9 ; Hyperlipidemia, acquired E78.5 ; Recurrent major depressive disorder, in full remission F33.42 ; correction current use of insulin Z79.4 ; Environmental allergies Z91.09 and CAD (coronary artery disease ) I25.10 [place] [id number] [place] [address] 84385- 5704 Apr, Rheumatoid arthritis involving multiple sites with positive rheumatoid factor M05.79 [place] [id number] [place] [address] 79880- 0718 Mar, Rheumatoid arthritis involving multiple sites with positive rheumatoid factor M05.79 [place] [address] [id number] [place] [address] 03942- 1765 Feb, [place] [address] [id number] [place] [address] 95727- 2170 Feb, CAD (coronary artery disease) I25.10 ; 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 and Hypothyroidism in adult E03.9 [place] [id number] [place] [address] 22088- 4355 Feb, Rheumatoid arthritis involving multiple sites with positive rheumatoid factor M05.79 [facility] [address] [id number] [place] [address] 25655- 9308 Jan, Hypothyroidism in adult E03.9 [facility] [address] [id number] [place] [address] 48461- 4872 Jan, Rheumatoid arthritis involving multiple sites with positive rheumatoid factor M05.79 and CAD (coronary artery disease) I25.10 [place] [address] [place] [id number] [place] [address] 03467- 6197 Jan, 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 ; 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 ; Hyperlipidemia, acquired E78.5 ; Hypothyroidism in adult E03.9 and Fever blister B00.1 [place] [id number] [place] [address] 35088- 6325 Dec, Rheumatoid arthritis involving multiple sites with positive rheumatoid factor M05.79 [facility] [id number] [place] [address] 00747- 8220 Nov, Rheumatoid arthritis involving multiple sites with positive rheumatoid factor M05.79 [facility] [address] [id number] [place] [address] 61820- 3148 Oct, Rheumatoid arthritis involving multiple sites with positive rheumatoid factor M05.79 [place] [address] 34773- 6061 Oct, Rheumatoid arthritis involving multiple sites with positive rheumatoid factor M05.79 [facility] [address] [id number] [place] [address] 68068- 8435 Sep, Rheumatoid arthritis involving multiple sites with positive rheumatoid factor M05.79 [facility] [address] [id number] [place] [address] 99809- 4626 Aug, [facility] [address] [id number] [place] [address] 89431- 1127 Aug, 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 ; 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 ; CAD (coronary artery disease) I25.10 ; Rheumatoid arthritis involving both feet M06.071 ; Insomnia G47.00 ; Hypothyroidism in adult E03.9 ; Hypercholesterolemia E78.0 and Rheumatoid arthritis involving multiple sites with positive rheumatoid factor M05.79 [place] [address] [id number] [place] [address] 26170- 2636 Jul, [facility] [address] [address] [id number] [place] [address] 46086- 3972 June, [facility] [address] [address]- 9388 June, Depression, prolonged F32.9 [facility] [address] [place] [address] 91387- 3740 June, [place] [address] [place] [address] 01560- 1882 June, [place] [address] [id number] [place] [address] 74470- 7234 June, Hypothyroidism in adult E03.9 [place] [id number] [place] [address] 24633- 1355 June, Rheumatoid arthritis involving both feet M06.071 [place] [address] [place] [address] 47266- 0269 May, CAD (coronary artery disease) I25.10 ; Rheumatoid arthritis involving both feet M06.071 ; Hyperlipidemia, acquired E78.5 ; Hypothyroidism in adult E03.9 ; Depression, prolonged F32.9 ; 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 ; Type 2 diabetes mellitus with hypoglycemia without coma E11.649 ; Vision abnormalities H53.9 and Vision changes H53.9 [place] [address] [place] [address] 49945- 3331 Apr, [place] [address] [place] [address] 89671- 8332 Apr, DM (diabetes mellitus) type I uncontrolled with eye manifestation E10.39 [place] [address] [place] [address] 35738- 1772 Apr, Rheumatoid arthritis involving both feet M06.071 [place] [address] [place] [address] 68261- 6681 Mar, Rheumatoid arthritis involving both feet M06.071 [place] [address] [id number] [place] [address] 60894- 5021 Mar, [facility] [address] [address]- 0289 Feb, Rheumatoid arthritis involving both feet M06.071 [facility] [address] [place] [address] 63534- 9932 Feb, DM (diabetes mellitus) type I uncontrolled with eye manifestation E10.39 ; Rheumatoid arthritis involving both feet M06.071 ; CAD ( coronary artery disease) I25.10 ; Depression, prolonged F32.9 ; Hyperlipidemia, acquired E78.5 ; Hypothyroidism in adult E03.9 and Environmental allergies Z91.09 [place] [address] [id number] [place] [address] 55644- 3393 Jan, [place] [address] [place] [id number] [place] [address] 74107- 1367 Jan, Hyperlipemia E78.5 ; DM (diabetes mellitus) type I uncontrolled with eye manifestation E10.39 ; CAD (coronary artery disease) I25.10 ; Hyperlipidemia, acquired E78.5 ; Depression, prolonged F32.9 ; 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 ; Hypercholesterolemia E78.0 ; RA (refractory anemia) D46.4 and Rheumatoid arthritis involving multiple sites with positive rheumatoid factor M05.79 [place] [address] [address]- 5421 Jan, [place] [address] [address]- 9808 Jan, [facility] [address] [place] [address] 71030- 5192 Sep, [facility] [address] [address]- 4497 Sep, [facility] [address] [place] [id number] [place] [address] 95286- 8554 Aug, [facility] [address] [address]- 5186 Aug, [facility] [address] [place] [id number] [place] [address]- 1083 Jul, Type 2 diabetes mellitus with hypoglycemia without coma E11.649 and 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 [place] [address] [place] [id number] [place] [address] 11305- 4322 June, CAD (coronary artery disease) I25.10 ; Insomnia G47.00 ; Rheumatoid arthritis involving both feet M06.071 ; Hypothyroidism in adult E03.9 ; 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 ; Type 2 diabetes mellitus with hypoglycemia without coma E11.649 ; 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 ; Hypercholesterolemia E78.0 ; Environmental allergies Z91.09 and Rib pain R07.81 [place] [id number] [place] [address] 06253- 6518 June, [address] 08539- 1378 June, 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 [place] [address] [place] [id number] [place] [address] 25959- 7668 May, Rheumatoid arthritis involving both feet M06.071 [place] [id number] [place] [address] 19844- 8641 May, CAD (coronary artery disease) I25.10 ; DM (diabetes mellitus ) type I uncontrolled with eye manifestation E10.39 ; Insomnia G47.00 ; Rheumatoid arthritis involving both feet M06.071 ; Hyperlipidemia, acquired E78.5 ; Depression, prolonged F32.9 ; 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 and Hypothyroid E03.[address] [place] [address] 09585- 4240 Apr, [place] [id number] [place] [address] 31309- 1510 Mar, DM (diabetes mellitus) type I uncontrolled with eye manifestation E10.39 ; Insomnia G47.00 ; Insulin long-term use Z79.4 ; Rheumatoid arthritis involving both feet M06.071 ; Hyperlipidemia, acquired E78.5 ; Hypothyroidism in adult E03.9 ; Depression, prolonged F32.9 ; CAD ( coronary artery disease) I25.10 and 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 [facility] [address] [address]- 1791 10 Mar, 2015 [facility] [id number] [address]- 5360 14 Feb, 2015 [facility] [address] [id number] [place] [address] 44999- 8948 Jan, [place] [address] [place] [id number] [place] [address] 96207- 7536 Dec, [place] [address] [place] [id number] [place] [address] 55469- 6926 19 Nov, 2014 [place] [address] [place] [id number] [place] [address] 67253- 8006 14 Nov, 2014 Hyperlipemia E78.5 and Hypothyroid E03.9 [place] [address] [place] [id number] [place] [address] 39371- 9535 13 Nov, 2014 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 ; DM (diabetes mellitus) type I uncontrolled with eye manifestation E10.39 ; Hypothyroidism in adult E03.9 and Hyperlipidemia, acquired E78.5 [place] [address] [address]- 6298 07 Nov, 2014 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 ; CAD (coronary artery disease) I25.10 ; DM (diabetes mellitus) type I uncontrolled with eye manifestation E10.39 ; Insomnia G47.00 ; Rheumatoid arthritis involving both feet M06.071 ; Insulin long-term use Z79.4 ; Hyperlipidemia, acquired E78.5 ; Hypothyroidism in adult E03.9 ; Depression, prolonged F32.9 and 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 [facility] [address] [address]- 8218 17 Oct, 2014 [facility] [address] [place] [id number] [place] [address] 41332- 2546 Oct, [facility] [address] [address]- 7620 Oct, [facility] [address] [place] [address] 93024- 3666 Sep, [facility] [address] [place] [address] 73802- 1577 Aug, [facility] [address] [place] [id number] [place] [address] 68602- 4019 Aug, Coronary atherosclerosis of unspecified type of vessel, council or graft 414.00 ; Rheumatoid arthritis 714.0 ; Insulin dependent diabetes mellitus 250.00 ; Hyperlipidemia 272.4 ; Hypothyroidism 244.9 ; Depression 311 and Insomnia 780.52 [place] [address] [place] [id number] [place] [address] 47569- 6589 Aug, [facility] [address] [id number] [place] [address] 80834- 5047 Jul, [facility] [address] [place] [address] 91989- 9478 Jul, [facility] [address] [place] [id number] [place] [address] 75028- 2586 Jul, Breast cancer screening V76.10 [place] [address] [place] [address] 760286- 6699 Jul, ASCUS with positive high risk HPV 796.9 [facility] [address] [place] [id number] [place] [address] 07835463- 7380 June, [facility] [address] [id number] [place] [address] 426584- 1575 June, Routine gynecological examination V72.31 ; Pap test, as part of routine gynecological examination V76.2 ; Breast cancer screening V76.10 ; Perimenopausal 627.2 and Tobacco abuse 305.1 [facility] [address] [place] [id number] [place] [address] 673971- 5945 June, Rheumatoid arthritis 714.0 ; Insulin dependent diabetes mellitus 250.00 and Depression 311 [facility] [address] [id number] [place] [address]- 4366 June, [facility] [address] [facility] [id number] [place] [address]- 4986 June, [facility] [address] [facility] [id number] [place] [address]- 8566 May, [facility] [address] [facility] [id number] [place] [address]- 2346 May, [facility] [address] [facility] [id number] [place] [address]- 5047 Apr, [facility] [address] [facility] [id number] [place] [address]- 6136 Apr, [facility] [address] [place] [address]- 5302 Apr, [facility] [address] [facility] [id number] [place] [address]- 2583 Apr, [facility] [address] [place] [id number] [place] [address]- 8637 Apr, [facility] [address] [facility] [id number] [address]- 0580 Apr, [facility] [address] [facility] [id number] [place] [address]- 3826 Apr, [facility] [address] [facility] [id number] [address]- 0026 Apr, [facility] [address] [facility] [id number] [place] [address]- 7486 Apr, [facility] [address] [facility] [id number] [place] [address]- 2546 Apr, [facility] [address] [facility] [id number] [address]- 3666 Apr, [facility] [address] [id number] [place] [address]- 0808 Apr, [facility] [place] [facility] [address] [id number] [place] [address]- 9705 Feb, [facility] [place] [facility] [address] [id number] [place] [address]- 4327 Feb, [facility] [place] [facility] [address] [id number] [place] [address]- 8276 Feb, [facility] [place] [facility] [address] [id number] [place] [address]- 7599 Feb, [facility] [place] [facility] [address] [id number] [place] [address]- 9976 Feb, [facility] [place] [facility] [address] [id number] [place] [address]- 7183 Feb, [facility] [place] [facility] [address] [id number] [place] [address]- 0384 Jan, [facility] [place] [facility] [address] [id number] [place] [address]- 2925 Jan, [facility] [place] [facility] [address] [id number] [place] [address]- 6703 Jan, [facility] [place] [facility] [address] [id number] [place] [address]- 1875 Jan, [facility] [place] [facility] [address] [id number] [place] [address]- 8086 Jan, [facility] [place] [facility] [address] [id number] [place] [address]- 6687 Jan, [facility] [place] [facility] [address] [id number] [place] [address]- 5829 Jan, [facility] [place] [facility] [address] [id number] [place] [address]- 4160 Jan, [facility] [place] [facility] [address] [id number] [address]- 5804 Jan, [facility] [place] [facility] [address] [id number] [place] [address]- 8971 Jan, [facility] [place] [facility] [address] [id number] [place] 9692 Dec, [facility] [place] [facility] [address] [id number] [place] [address]- 2146 Dec, [facility] [place] [facility] [address] [id number] [place] [address]- 1977 Nov, [facility] [place] [facility] [address] [id number] [place] [address]- 2168 Nov, [facility] [place] [facility] [address] [id number] [place] [address]- 2632 Nov, [facility] [place] [facility] [address] [id number] [place] [address]- 1324 Nov, [facility] [place] [facility] [address] [id number] [place] [address]- 2411 Nov, [facility] [place] [facility] [address] [id number] [place] [address]- 0950 27 Oct, 2013 [facility] [place] [facility] [address] [id number] [place] [address]- 3019 27 Oct, 2013 [facility] [place] [facility] [address] [id number] [place] [address]- 4877 23 Oct, 2013 [facility] [place] [facility] [address] [id number] [place] [address]- 1430 23 Oct, 2013 [facility] [place] [facility] [address] [id number] [place] [address]- 4608 22 Oct, 2013 [facility] [place] [facility] [address] [id number] [place] [address]- 5118 22 Oct, 2013 [facility] [place] [facility] [address] [id number] [place] [address]- 8301 18 Oct, 2013 [facility] [place] [facility] [address] [id number] [place] [address]- 8208 18 Oct, 2013 [facility] [place] [facility] [address] [id number] [place] [address]- 9198 12 Oct, 2013 [facility] [place] [facility] [address] [id number] [place] [address]- 5246 Oct, [facility] [place] [facility] [address] [id number] [place] [address]- 8610 Oct, [facility] [place] [facility] [address] [id number] [place] [address]- 2188 Oct, [facility] [place] [facility] [address] [id number] [place] [address]- 7928 Oct, [facility] [place] [facility] [address] [id number] [place] [address]- 2634 Oct, [facility] [place] [facility] [address] [id number] [place] [address]- 1611 Oct, [facility] [place] [facility] [address] [id number] [place] [address]- 7030 Oct, [facility] [place] [facility] [address] [id number] [place] [address]- 6013 June, [facility] [place] [facility] [address] [id number] [place] [address]- 5961 June, [facility] [place] [facility] [address] [id number] [place] [address]- 5230 June, [facility] [place] [facility] [address] [id number] [place] [address]- 2600 June, [facility] [place] [facility] [address] [id number] [place] [address]- 3954 May, [facility] [place] [facility] [address] [id number] [place] [address]- 5212 May, [facility] [place] [facility] [address] [id number] [place] [address]- 5558 Apr, [facility] [place] [facility] [address] [id number] [place] [address]- 9204 Apr, [facility] [place] [facility] [address] [id number] [place] [address]- 3097 Mar, [facility] [place] [facility] [address] [id number] [place] [address]- 4484 Mar, [facility] [place] [facility] [address] [id number] [place] [address]- 7246 Mar, [facility] [place] [facility] [address] [id number] [place] [address]- 9360 Mar, [facility] [place] [facility] [address] [id number] [place] [address]- 6762 Mar, [facility] [place] [facility] [address] [id number] [place] [address]- 0225 Mar, [facility] [place] [facility] [address] [id number] [place] [address]- 8112 Jan, [facility] [place] [facility] [address] [id number] [place] [address]- 2453 Jan, [facility] [place] [facility] [address] [id number] [place] [address]- 5192 Dec, [facility] [place] [facility] [address] [id number] [place] [address]- 0877 15 Dec, 2012 [facility] [place] [facility] [address] [id number] [place] [address]- 9677 Dec, [facility] [place] [facility] [address] [id number] [place] [address]- 6659 Dec, [facility] [place] [facility] [address] [id number] [place] [address]- 3610 Dec, [facility] [place] [facility] [address] [id number] [place] [address]- 9014 Dec, [facility] [place] [facility] [address] [id number] [place] [address]- 0272 30 Nov, 2012 [facility] [address] [id number] [place] [address]- 8348 30 Nov, 2012 [facility] [place] [facility] [address] [id number] [place] [address]- 9980 17 Nov, 2012 [facility] [address] [id number] [place] [address] 17 Nov, 2012 [facility] [place] [facility] [address] [id number] [place] [address] 15 Nov, 2012 [facility] [address] [id number] [place] [address] 15 Nov, 2012 [facility] [place] [facility] [address] [id number] [place] [address] 10 Nov, 2012 [facility] [place] [facility] [address] [id number] [place] [address] 10 Nov, 2012 [facility] [address] [id number] [place] [address] 26 Oct, 2012 [facility] [place] [facility] [address] [id number] [place] [address] 18 Sep, 2012 [facility] [address] [id number] [place] [address] 17 Sep, 2012 [facility] [place] [facility] [address] [id number] [place] [address] 254 12 Sep, 2012 [facility] [place] [facility] [address] [id number] [place] [address] 2544 11 Oct, 2012 [facility] [place] [facility] [address] [id number] [place] [address] 07 Sep, 2012 [facility] [place] [facility] [address] [id number] [place] [address] 06 Oct, 2012 [facility] [place] [facility] [address] [id number] [place] [address] Sep, [facility] [place] [facility] [address] [id number] [place] [address] Sep, [facility] [place] [facility] [address] [id number] [place] [address] Sep, [facility] [place] [facility] [address] [id number] [place] [address] Sep, [facility] [place] [facility] [address] [id number] [place] [address] Sep, [facility] [place] [facility] [address] [id number] [place] [address] Sep, [facility] [place] [facility] [address] [id number] [place] [address] Sep, [facility] [place] [facility] [address] [id number] [place] [address]- 2008 Sep, [facility] [place] [facility] [address] [id number] [place] [address] Aug, [facility] [place] [facility] [address] [id number] [place] [address] Aug, [facility] [place] [facility] [address] [id number] [place] [address] Jul, [facility] [place] [facility] [address] [id number] [place] [address] Jul, [facility] [place] [facility] [address] [id number] [place] [address] Jul, [facility] [place] [facility] [address] [id number] [place] [address] Jul, [facility] [place] [facility] [address] [id number] [place] [address] June, [facility] [place] [facility] [address] [id number] [place] [address] June, [facility] [place] [facility] [address] [id number] [address] 05 May, 2012 [facility] [address] [id number] [place] [address] 04 Apr, 2012 [facility] [address] [id number] [place] [address] 11 Mar, 2012 [facility] [address] [id number] [place] [address] 04 Mar, 2012 [facility] [address] [id number] [place] [address] 14 Feb, 2012 [facility] [address] [id number] [place] [address] 27 Oct, 2011 [facility] [address] [id number] [place] [address] 16 Sep, 2011 [facility] [address] [id number] [place] [address] 05 Jul, 2011 [facility] [address] [id number] [place] [address] 24 May, 2011 [facility] [address] [id number] [place] [address] 23 May, 2011 [facility] [address] [id number] [address] 16 Mar, 2011 [facility] [address] [id number] [place] [address] 1764 15 Mar, 2011 [facility] [address] [id number] [place] [address] 14 Mar, 2011 [facility] [place] [facility] [address] [id number] [place] [address] 18 Feb, 2011 [facility] [place] [facility] [address] [id number] [place] [address] 13 Feb, 2011 [facility] [address] [id number] [address] Feb, [facility] [place] [facility] [address] [id number] [place] [address] Feb, [facility] [address] [id number] [place] [address] Feb, [facility] [address] [id number] [place] [address] Feb, [facility] [address] [id number] [place] [address] Feb, [facility] [address] [id number] [place] [address] Feb, [facility] [address] [id number] [place] [address] Jan, [facility] [address] [id number] [place] [address] Jan, [facility] [address] [id number] [place] [address] Dec, [facility] [address] [id number] [place] [address] 280[address] Dec, [facility] [address] [id number] [place] [address] Dec, [facility] [address] [id number] [place] [address] 47[address] Dec, [facility] [address] [id number] [place] [address] Nov, [facility] [address] [id number] [place] [address] Jan, [facility] [place] [facility] [address] [id number] [place] [address] Jan, [facility] [place] [facility] [address] [id number] [place] [address] Jan, [facility] [address] [id number] [address] Jan, [facility] [address] [id number] [place] [address] Jan, [facility] [place] [facility] [address] [id number] [place] [address] Jan, [facility] [place] [facility] [address] [id number] [place] [address] Jan, [facility] [place] [facility] [address] [id number] [place] [address] Jan, [facility] [place] [facility] [address] [id number] [place] [address] Dec, [facility] [place] [facility] [address] [id number] [place] [address] Nov, [facility] [address] [id number] [address] Jul, [facility] [place] [facility] [address] [id number] [place] [address] June, [facility] [address] [id number][place] [address] June, [facility] [place] [facility] [address] [id number] [place] [address] May, [facility] [place] [facility] [address] [id number], [place] [address] Jan, [facility] [place] [facility] [address] [id number][place] [address] Dec, [facility] [place] [facility] [address] [id number], [place] [address] Dec, [facility] [place] [facility] [address] [id number], [place] [address] Dec, [facility] [place] [facility] [address] [id number][place] [address] Nov, [facility] [place] [facility] [address] [facility] [id number] [place] [address] 12 Nov, 2008 [facility] [address] [facility] [id number] [place] [address] 14 Oct, 2008 IMMUNIZATIONS No Known Immunizations SOCIAL HISTORY Never Assessed REASON FOR VISIT Critical labs PLAN OF CARE VITAL SIGNS MEDICATIONS Unknown [...]
--- OUTSIDE RECORDS SUMMARY | 2017-08-29 14:52 | XMS REPORT ---
Author Author CHRISTINA PENNY Organization [facility] Address [address] [place] [address] Care Team Providers Care Infection Control Rn Name Role Phone PENNY CHRISTINA Unavailable PROBLEMS Type Condition ICD9-CM Code [id number] Code Onset Dates Condition Status SNOMED Code Problem CAD (coronary artery disease) I25.10 Active 98901921 Problem Hypothyroidism in adult E03.9 Active 80559329 Problem Depression, prolonged F32.9 Active 20268963 Problem Type 1 diabetes mellitus with other circulatory complication E10.59 Active 13420632 Problem Pure hypercholesterolemia E78.00 Active 568969768 Problem Insomnia G47.00 Active 290993410 Problem 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 Active 485575459 Problem Rheumatoid arthritis involving multiple sites with positive rheumatoid factor M05.79 Active 94619318 Problem 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 Active 018993183 Problem Rheumatoid arthritis involving both feet M06.071 Active 243006828 Problem Hyperlipidemia, acquired E78.5 Active 9625121 Problem Environmental allergies Z91.09 Active 768509197 Problem 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
--- OUTSIDE RECORDS SUMMARY | 2017-08-29 14:52 | XMS REPORT ---
Author Author CHRISTINA PENNY Organization [facility] Address [address] [place] [address] Care Team Providers Care Felt Coverer Name Role Phone CHRISTINA PENNY Unavailable PROBLEMS Type Condition ICD9-CM Code HUX51-SV Code Onset Dates Condition Status SNOMED Code Problem CAD (coronary artery disease) I25.10 Active 01300026 Problem Hypothyroidism in adult E03.9 Active 53599660 Problem Depression, prolonged F32.9 Active 26458384 Problem Type 1 diabetes mellitus with other circulatory complication E10.59 Active 12590558 Problem Pure hypercholesterolemia E78.00 Active 051935460 Problem Insomnia G47.00 Active 092393022 Problem 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 Active 106729252 Problem Rheumatoid arthritis involving multiple sites with positive rheumatoid factor M05.79 Active 67224850 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 Active 990110994 Problem Rheumatoid arthritis involving both feet M06.071 Active 145973326 Problem Hyperlipidemia, acquired E78.5 Active 1146748 Problem Environmental allergies Z91.09 Active 658191346 Problem 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 134825423 ALLERGIES Substance Reaction Event Type Date Status Codeine Phosphate itching Drug Allergy Feb, Active Bactrim Unknown Drug Allergy Feb, Active SOCIAL HISTORY No smoking Hx information available PLAN OF CARE Activity Details Follow Up 2 Months Reason:diabetes and ra VITAL SIGNS Height 64 in 2016-03-05 Weight 122.2 lbs 2016-03-05 Temperature 98.4 degrees Fahrenheit 2016-03-05 Heart Rate 78 bpm 2016-03-05 Respiratory Rate 18 2016-03-05 BMI 20.97 kg/m2 2016-03-05 Blood pressure systolic 132 mmHg 2016-03-05 Blood pressure diastolic 72 mmHg 2016-03-05 MEDICATIONS Medication Instructions Dosage Frequency Start Date End Date Duration Status Glucocard Expression Test 1 subcutaneously 2 times a day as directed 12h 19 Jan, 2016 Active Folic Acid 1 MG take 1 tablet by Oral route 1 time per day do not take on days you take methotrexate Feb, Active Celebrex 200 mg Orally Once a day PLEASE VOUCHER 1 capsule Active NovoLog 100 UNIT/ML INJECT 15 UNITS SUBCUTANEOUSLY IN THE MORNING, 10 UNITS AT LUNCH, AND 10 UNITS IN THE EVENING Active PredniSONE 10 mg Orally Once a day 1 tablet 24h Active Metoprolol Tartrate 25 MG Orally 2 times a day 0.5 Tablet by Oral route 2 daily 12h Jan, Active Simvastatin 20 mg Orally Once a day 1 tablet in the evening 24h Active Plavix 75 MG Orally Once a day Please Voucher 1 tablet by Oral route 1 time per day Jan, Active Aspirin 81 MG Orally Once a day 1 tablet 24h Active Methotrexate 2.5 MG Orally Once a day 1 tablet 24h Active NovoLog Flexpen 100 UNIT/ML Subcutaneous 3 times a day 15 in am and 10 and 10 8h Aug, Active Percocet 7.5-325 MG Orally every 6 hrs 1 tablet as needed 6h Jan, Active Levemir FlexTouch 100 UNIT/ML Subcutaneous once daily in the am 40 units Aug, Active Fluoxetine HCl 20 mg Orally Once a day 1 capsule in the morning 24h Active Levothyroxine Sodium 125 mcg Orally Once a day 1 tablet 24h Active RESULTS Name Result Date Reference Range A1C (IN HOUSE) 2016-03-05 A1C IN HOUSE 7.4 4.3 - 5.6 % Previous A1c 8.4 Lot [id number] Exp date 11/2017 TSH W/ FREE T4 2016-03-05 TSH 4.950 0.450-4.500 T4,Free(Direct) 1.42 0.82-1.77 CBC 2016-03-05 WBC 10.0 3.4-10.8 RBC 4.55 3.77-5.28 Hemoglobin 14.1 11.1-15.9 Hematocrit 44.5 34.0-46.6 MCV 98 79-97 MCH 31.0 26.6-33.0 MCHC 31.7 31.5-35.7 RDW 14.5 12.3-15.4 Platelets 291 150-379 Neutrophils 73 Lymphs 20 Monocytes 5 Eos 2 Basos 0 Neutrophils (Absolute) 7.3 1.4-7.0 Lymphs (Absolute) 2.0 0.7-3.1 Monocytes(Absolute) 0.5 0.1-0.9 Eos (Absolute) 0.2 0.0-0.4 Baso (Absolute) 0.0 0.0-0.2 Immature Granulocytes 0 Immature Grans (Abs) 0.0 0.0-0.1 AMERITOX 2016-03-05 LIPID PANEL 2016-03-05 Cholesterol, Total 192 100-199 Triglycerides 271 0-149 HDL Cholesterol 48 >39 VLDL Cholesterol Keegan 54 5-40 LDL Cholesterol Calc 90 0-99 CMP 2016-03-05 Glucose, Serum 340 65-99 BUN 16 6-24 Creatinine, Serum 0.63 0.57-1.00 eGFR If NonAfricn Am 104 >59 eGFR If Africn Am 120 >59 BUN/Creatinine Ratio 25 9-23 Sodium, Serum 136 134-144 Potassium, Serum 4.8 3.5-5.2 Chloride, Serum 97 96-106 Carbon Dioxide, Total 24 18-29 Calcium, Serum 9.0 8.7-10.2 Protein, Total, Serum 6.5 6.0-8.5 Albumin, Serum 4.2 3.5-5.5 Globulin, Total 2.3 1.5-4.5 A/G Ratio 1.8 1.1-2.5 Bilirubin, Total 0.4 0.0-1.2 Alkaline Phosphatase, S 73 39-117 AST (SGOT) 18 0-40 ALT (SGPT) 18 0-32 PROCEDURES Procedure Date Ordered Related Diagnosis Body Site GLYCATED HEMOGLOBIN TEST Mar 05, 2016 No Charge Mar 05, 2016 [facility]IT ESTABLISHED PATIENT Mar 05, 2016 [facility] Mar 05, 2016 VENIPUNCT, ROUTINE* Mar 05, 2016 Office Visit, Est Pt., Level 4 Mar 05, 2016 IMMUNIZATIONS No Known Immunizations
--- OUTSIDE RECORDS SUMMARY | 2017-08-29 14:53 | XMS REPORT ---
Author CHRISTINA Stokes Organization [employer] Address Unknown Phone Unavailable Care Team Providers Care Safety Teacher Name Role Phone CHRISTINA PENNY CP Unavailable [...] Instructions Start Date End Date Status Dosage Levemir [facility] [address]-66 100 UNIT/ML Subcutaneous 2 times a day April 23, 2014 inject 30 Units 1 time per day in AM, 15 units at HS; 45 units total daily Hydrocodone-Acetaminophen [facility] [address]-76 10-325 MG Orally tid prn must last atleast 30 days April 20, 2014 one NovoLog [facility] [address]-14 100 UNIT/ML Subcutaneous 3 times a day 17 units in am,10at luch and 10 in pm Results No Known Results Summary Purpose [employer] Submission
--- OUTSIDE RECORDS SUMMARY | 2017-08-29 14:53 | XMS REPORT ---
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 Name Role Phone RICKY MENA Unavailable PROBLEMS Type Condition ICD9-CM Code WIA17-CU Code Onset Dates Condition Status SNOMED Code Problem 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 Active 603982380 Problem Hypothyroidism in adult E03.9 Active 92927229 Problem CAD (coronary artery disease) I25.10 Active 30584845 Problem Type 1 diabetes mellitus with other circulatory complication E10.59 Active 33530531 Problem Insomnia G47.00 Active 713897125 Problem Recurrent major depressive disorder, in full remission F33.42 Active 526130989 Problem Rheumatoid arthritis involving multiple sites with positive rheumatoid factor M05.79 Active 95853997 Problem 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 778414483 Problem Hyperlipidemia, acquired E78.5 Active 3535023 Problem 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 Active 640417804 Problem Environmental allergies Z91.09 Active 718971459 ALLERGIES No Information ENCOUNTERS Encounter Location Date Diagnosis [place] [id number] [place] [address] 06505- 7697 Aug, [facility] [address] [address] 1658 June, Rheumatoid arthritis involving multiple sites with positive rheumatoid factor M05.79 [facility] [address] [address] 7168 June, [facility] [address] [id number] [place] [address] 03506- 5931 May, Type 1 diabetes mellitus with other circulatory complication E10.59 ; Recurrent major depressive disorder, in full remission F33.42 and Hyperlipidemia, acquired E78.5 [facility] [id number] [place] [address] 68732- 8788 May, Hypothyroidism, unspecified E03.9 and Hypothyroidism in adult E03.9 [facility] [id number] [place] [address] 27069- 4692 Apr, Hypothyroidism in adult E03.9 [facility] [id number] [place] [address] 35796- 0783 Apr, Type 1 diabetes mellitus with other circulatory complication E10.59 ; 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 ; Rheumatoid arthritis involving multiple sites with positive rheumatoid factor M05.79 ; Hypothyroidism in adult E03.9 ; Hyperlipidemia, acquired E78.5 ; Recurrent major depressive disorder, in full remission F33.42 ; snf current use of insulin Z79.4 ; Environmental allergies Z91.09 and CAD (coronary artery disease ) I25.10 [place] [id number] [place] [address] 25025- 8712 Apr, Rheumatoid arthritis involving multiple sites with positive rheumatoid factor M05.79 [place] [address] [address] [id number] [place] [address] 25670- 2121 Mar, Rheumatoid arthritis involving multiple sites with positive rheumatoid factor M05.79 [place] [address] [id number] [place] [address] 25629- 8333 Feb, [place] [address] [address] [id number] [place] [address] 06210- 9385 Feb, CAD (coronary artery disease) I25.10 ; 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 and Hypothyroidism in adult E03.9 [place] [id number] [place] [address] 84833- 8925 Feb, Rheumatoid arthritis involving multiple sites with positive rheumatoid factor M05.79 [place] [address] [place] [address] [id number] [place] [address] 69503- 1331 Jan, Hypothyroidism in adult E03.9 [place] [address] [address] [id number] [place] [address] 13305- 2205 Jan, Rheumatoid arthritis involving multiple sites with positive rheumatoid factor M05.79 and CAD (coronary artery disease) I25.10 [place] [address] [place] [id number] [place] [address] 48064- 5098 Jan, 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 ; 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 ; Hyperlipidemia, acquired E78.5 ; Hypothyroidism in adult E03.9 and Fever blister B00.1 [place] [address] [address] [id number] [place] [address] 02036- 3401 Dec, Rheumatoid arthritis involving multiple sites with positive rheumatoid factor M05.79 [place] [address] [address] [id number] [place] [address] 12839- 2775 Nov, Rheumatoid arthritis involving multiple sites with positive rheumatoid factor M05.79 [place] [address] [address] [id number] [place] [address] 19491- 5502 Oct, Rheumatoid arthritis involving multiple sites with positive rheumatoid factor M05.79 [place] [address] 90975- 7820 Oct, Rheumatoid arthritis involving multiple sites with positive rheumatoid factor M05.79 [place] [address] [address] [id number] [place] [address] 47993- 7113 Sep, Rheumatoid arthritis involving multiple sites with positive rheumatoid factor M05.79 [place] [address] [address] [id number] [place] [address] 89999- 5400 Aug, [place] [address] [id number] [place] [address] 90288- 9041 Aug, 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 ; 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 ; CAD (coronary artery disease) I25.10 ; Rheumatoid arthritis involving both feet M06.071 ; Insomnia G47.00 ; Hypothyroidism in adult E03.9 ; Hypercholesterolemia E78.0 and Rheumatoid arthritis involving multiple sites with positive rheumatoid factor M05.79 [place] [address] [address] [id number] [place] [address] 97302- 3172 Jul, [place] [address] [place] [id number] [place] [address] 23774- 1739 June, [facility] [address], [place] [address]- 9743 June, Depression, prolonged F32.9 [facility] [id number] [place] [address] 33521- 2155 June, [place] [id number] [place] [address] 74071- 9196 June, [place] [address] [place] [id number] [place] [address] 84720- 0521 June, Hypothyroidism in adult E03.9 [place] [id number] [place] [address] 73925- 5402 June, Rheumatoid arthritis involving both feet M06.071 [place] [address] [place] [address] 18160- 5367 May, CAD (coronary artery disease) I25.10 ; Rheumatoid arthritis involving both feet M06.071 ; Hyperlipidemia, acquired E78.5 ; Hypothyroidism in adult E03.9 ; Depression, prolonged F32.9 ; 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 ; Type 2 diabetes mellitus with hypoglycemia without coma E11.649 ; Vision abnormalities H53.9 and Vision changes H53.9 [place] [address] [place] [address] 67715- 8593 Apr, [place] [address] [place] [address] 54591- 3434 Apr, DM (diabetes mellitus) type I uncontrolled with eye manifestation E10.39 [place] [address] [place] [address] 17702- 0065 Apr, Rheumatoid arthritis involving both feet M06.071 [place] [address] [place] [address] 92584- 5523 Mar, Rheumatoid arthritis involving both feet M06.071 [place] [address] [place] [id number] [place] [address] 88418- 9871 Mar, [facility] [address] [address]- 0078 Feb, Rheumatoid arthritis involving both feet M06.071 [facility] [address] [place] [address] 13591- 1098 Feb, DM (diabetes mellitus) type I uncontrolled with eye manifestation E10.39 ; Rheumatoid arthritis involving both feet M06.071 ; CAD ( coronary artery disease) I25.10 ; Depression, prolonged F32.9 ; Hyperlipidemia, acquired E78.5 ; Hypothyroidism in adult E03.9 and Environmental allergies Z91.09 [place] [address] [place] [address] [id number] [place] [address] 80096- 3329 Jan, [place] [address] [place] [id number] [place] [address] 61785- 7045 Jan, Hyperlipemia E78.5 ; DM (diabetes mellitus) type I uncontrolled with eye manifestation E10.39 ; CAD (coronary artery disease) I25.10 ; Hyperlipidemia, acquired E78.5 ; Depression, prolonged F32.9 ; 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 ; Hypercholesterolemia E78.0 ; RA (refractory anemia) D46.4 and Rheumatoid arthritis involving multiple sites with positive rheumatoid factor M05.79 [place] [address], [place] [address]- 6876 Jan, [place] [address], [place] [address]- 3030 Jan, [facility] [address] [place] [address] 10208- 6745 Sep, [facility] [address] [address]- 4699 Sep, [facility] [address] [place] [id number] [place] [address] 02578- 7886 Aug, [facility] [address], [place] [address]- 0343 Aug, [facility] [address] [place] [address] [place] [address]- 5387 Jul, Type 2 diabetes mellitus with hypoglycemia without coma E11.649 and 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 [place] [address] [place] [id number] [place] [address] 00277- 4122 June, CAD (coronary artery disease) I25.10 ; Insomnia G47.00 ; Rheumatoid arthritis involving both feet M06.071 ; Hypothyroidism in adult E03.9 ; 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 ; Type 2 diabetes mellitus with hypoglycemia without coma E11.649 ; 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 ; Hypercholesterolemia E78.0 ; Environmental allergies Z91.09 and Rib pain R07.81 [place] [id number] [place] [address] 98391- 0306 June, [address] 32958- 3271 June, 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 [place] [address] [place] [id number] [place] [address] 17658- 8757 May, Rheumatoid arthritis involving both feet M06.071 [place] [id number] [place] [address] 87295- 1852 May, CAD (coronary artery disease) I25.10 ; DM (diabetes mellitus ) type I uncontrolled with eye manifestation E10.39 ; Insomnia G47.00 ; Rheumatoid arthritis involving both feet M06.071 ; Hyperlipidemia, acquired E78.5 ; Depression, prolonged F32.9 ; 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 and Hypothyroid E03.[address] [place] [address] 77879- 2501 Apr, [place] [id number] [place] [address] 94272- 6077 Mar, DM (diabetes mellitus) type I uncontrolled with eye manifestation E10.39 ; Insomnia G47.00 ; Insulin long-term use Z79.4 ; Rheumatoid arthritis involving both feet M06.071 ; Hyperlipidemia, acquired E78.5 ; Hypothyroidism in adult E03.9 ; Depression, prolonged F32.9 ; CAD ( coronary artery disease) I25.10 and 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 [facility] [address] [address]- 9851 10 Mar, 2015 [facility] [address] [id number] [address]- 4672 14 Feb, 2015 [facility] [address] [place] [id number] [place] [address] 57297- 6474 Jan, [place] [address] [place] [id number] [place] [address] 20648- 8371 Dec, [place] [address] [place] [id number] [place] [address] 57801- 3148 19 Nov, 2014 [place] [address] [place] [id number] [place] [address] 40496- 7183 14 Nov, 2014 Hyperlipemia E78.5 and Hypothyroid E03.9 [place] [address] [place] [id number] [place] [address] 76554- 3211 13 Nov, 2014 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 ; DM (diabetes mellitus) type I uncontrolled with eye manifestation E10.39 ; Hypothyroidism in adult E03.9 and Hyperlipidemia, acquired E78.5 [place] [address], [place] [address]- 2994 07 Nov, 2014 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 ; CAD (coronary artery disease) I25.10 ; DM (diabetes mellitus) type I uncontrolled with eye manifestation E10.39 ; Insomnia G47.00 ; Rheumatoid arthritis involving both feet M06.071 ; Insulin long-term use Z79.4 ; Hyperlipidemia, acquired E78.5 ; Hypothyroidism in adult E03.9 ; Depression, prolonged F32.9 and 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 [facility] [address], [place] [address]- 2519 17 Oct, 2014 [facility] [address] [place] [id number] [place] [address] 85313- 2546 Oct, [facility] [address], [place] [address]- 6825 Oct, [facility] [id number] [place] [address] 14229- 1366 Sep, [facility] [id number] [place] [address] 52672- 5816 Aug, [facility] [address] [place] [id number] [place] [address] 63895- 3360 Aug, Coronary atherosclerosis of unspecified type of vessel, [place] or graft 414.00 ; Rheumatoid arthritis 714.0 ; Insulin dependent diabetes mellitus 250.00 ; Hyperlipidemia 272.4 ; Hypothyroidism 244.9 ; Depression 311 and Insomnia 780.52 [place] [address] [place] [id number] [place] [address] 69290- 4708 Aug, [facility] [address] [place] [id number] [place] [address] 24388- 8082 Jul, [facility] [address] [place] [address] 94749- 2986 Jul, [facility] [address] [place] [id number] [place] [address] 13873- 4511 Jul, Breast cancer screening V76.10 [place] [address] [place] [address] 119204- 2973 Jul, ASCUS with positive high risk HPV 796.9 [facility] [address] [place] [id number] [place] [address] [id number]- 1948 June, [facility] [address] [place] [id number] [place] [address] 935447- 0999 June, Routine gynecological examination V72.31 ; Pap test, as part of routine gynecological examination V76.2 ; Breast cancer screening V76.10 ; Perimenopausal 627.2 and Tobacco abuse 305.1 [facility] [address] [place] [id number] [place] [address] 564150- 4481 June, Rheumatoid arthritis 714.0 ; Insulin dependent diabetes mellitus 250.00 and Depression 311 [facility] [address] [id number] [place] [address]- 4806 June, [facility] [address] [facility] [id number] [place] [address]- 0496 June, [facility] [address] [facility] [id number] [place] [address]- 5606 May, [facility] [address] [facility] [id number] [place] [address]- 7466 May, [facility] [address] [facility] [id number] [place] [address]- 6506 Apr, [facility] [address] [facility] [id number] [place] [address]- 8086 Apr, [facility] [id number] [place] [address]- 9611 Apr, [facility] [address] [facility] [id number] [place] [address]- 7397 Apr, [facility] [address] [place] [id number] [place] [address]- 8595 Apr, [facility] [address] [facility] [id number], [place] [address]- 3712 Apr, [facility] [address] [facility] [id number] [place] [address]- 3236 Apr, [facility] [address] [facility] [id number] [address]- 3416 Apr, [facility] [address] [facility] [id number] [place] [address]- 0036 Apr, [facility] [address] [facility] [id number] [place] [address]- 2546 Apr, [facility] [address] [facility] [id number], [place] [address]- 2006 Apr, [facility] [address] [id number] [place] [address]- 3882 Apr, [facility] [place] [facility] [address] [id number] [place] [address]- 7627 Feb, [facility] [place] [facility] [address] [id number] [place] [address]- 9145 Feb, [facility] [place] [facility] [address] [id number] [place] [address]- 4014 Feb, [facility] [place] [facility] [address] [id number] [place] [address]- 8852 Feb, [facility] [place] [facility] [address] [id number] [place] [address]- 2253 Feb, [facility] [place] [facility] [address] [id number] [place] [address]- 7700 Feb, [facility] [place] [facility] [address] [id number] [place] [address]- 4909 Jan, [facility] [place] [facility] [address] [id number] [place] [address]- 3359 Jan, [facility] [place] [facility] [address] [id number] [place] [address]- 8129 Jan, [facility] [place] [facility] [address] [id number] [place] [address]- 8320 Jan, [facility] [place] [facility] [address] [id number] [place] [address]- 8169 Jan, [facility] [place] [facility] [address] [id number] [place] [address]- 4406 Jan, [facility] [place] [facility] [address] [id number] [place] [address]- 5773 Jan, [facility] [place] [facility] [address] [id number] [place] [address]- 8840 Jan, [facility] [place] [facility] [address] [id number], [place] [address]- 3146 Jan, [facility] [place] [facility] [address] [id number] [place] [address]- 1029 Jan, [facility] [place] [facility] [address] [id number] [place] 0577 Dec, [facility] [place] [facility] [address] [id number] [place] [address]- 4353 Dec, [facility] [place] [facility] [address] [id number] [place] [address]- 0774 Nov, [facility] [place] [facility] [address] [id number] [place] [address]- 3353 Nov, [facility] [place] [facility] [address] [id number] [place] [address]- 4599 Nov, [facility] [place] [facility] [address] [id number] [place] [address]- 5477 Nov, [facility] [place] [facility] [address] [id number] [place] [address]- 2521 Nov, [facility] [place] [facility] [address] [id number] [place] [address]- 7023 27 Oct, 2013 [facility] [place] [facility] [address] [id number] [place] [address]- 9973 27 Oct, 2013 [facility] [place] [facility] [address] [id number] [place] [address]- 3066 23 Oct, 2013 [facility] [place] [facility] [address] [id number] [place] [address]- 3433 23 Oct, 2013 [facility] [place] [facility] [address] [id number] [place] [address]- 6594 22 Oct, 2013 [facility] [place] [facility] [address] [id number] [place] [address]- 4851 22 Oct, 2013 [facility] [place] [facility] [address] [id number] [place] [address]- 2296 18 Oct, 2013 [facility] [place] [facility] [address] [id number] [place] [address]- 2370 18 Oct, 2013 [facility] [place] [facility] [address] [id number] [place] [address]- 7860 12 Oct, 2013 [facility] [place] [facility] [address] [id number] [place] [address]- 3486 Oct, [facility] [place] [facility] [address] [id number] [place] [address]- 4153 Oct, [facility] [place] [facility] [address] [id number] [place] [address]- 5898 Oct, [facility] [place] [facility] [address] [id number] [place] [address]- 2455 Oct, [facility] [place] [facility] [address] [id number] [place] [address]- 0434 Oct, [facility] [place] [facility] [address] [id number] [place] [address]- 8208 Oct, [facility] [place] [facility] [address] [id number] [place] [address]- 6451 Oct, [facility] [place] [facility] [address] [id number] [place] [address]- 8076 June, [facility] [place] [facility] [address] [id number] [place] [address]- 3542 June, [facility] [place] [facility] [address] [id number] [place] [address]- 4878 June, [facility] [place] [facility] [address] [id number] [place] [address]- 6060 June, [facility] [place] [facility] [address] [id number] [place] [address]- 1667 May, [facility] [place] [facility] [address] [id number] [place] [address]- 1677 May, [facility] [place] [facility] [address] [id number] [place] [address]- 4264 Apr, [facility] [place] [facility] [address] [id number] [place] [address]- 9301 Apr, [facility] [place] [facility] [address] [id number] [place] [address]- 5413 Mar, [facility] [place] [facility] [address] [id number] [place] [address]- 1984 Mar, [facility] [place] [facility] [address] [id number] [place] [address]- 0258 Mar, [facility] [place] [facility] [address] [id number] [place] [address]- 1455 Mar, [facility] [place] [facility] [address] [id number] [place] [address]- 6237 Mar, [facility] [place] [facility] [address] [id number] [place] [address]- 4947 Mar, [facility] [place] [facility] [address] [id number] [place] [address]- 0580 Jan, [facility] [place] [facility] [address] [id number] [place] [address]- 3159 Jan, [facility] [place] [facility] [address] [id number] [place] [address]- 7871 Dec, [facility] [place] [facility] [address] [id number] [place] [address]- 7355 15 Dec, 2012 [facility] [place] [facility] [address] [id number] [place] [address]- 1043 Dec, [facility] [place] [facility] [address] [id number] [place] [address] Dec, [facility] [place] [facility] [address] [id number] [place] [address] Dec, [facility] [place] [facility] [address] [id number] [place] [address] Dec, [facility] [place] [facility] [address] [id number] [place] [address] 30 Nov, 2012 [facility] [address] [id number] [place] [address] 30 Nov, 2012 [facility] [place] [facility] [address] [id number] [place] [address] 17 Nov, 2012 [facility] [address] [id number] [place] [address] 17 Nov, 2012 [facility] [place] [facility] [address] [id number] [place] [address] 15 Nov, 2012 [facility] [address] [id number] [place] [address]266 15 Nov, 2012 [facility] [place] [facility] [address] [id number] [place] [address] 10 Nov, 2012 [facility] [place] [facility] [address] [id number] [place] [address] 10 Nov, 2012 [facility] [address] [id number] [place] [address] 26 Oct, 2012 [facility] [place] [facility] [address] [id number] [place] [address] 18 Sep, 2012 [facility] [address] [id number] [place] [address] 17 Sep, 2012 [facility] [place] [facility] [address] [id number] [place] [address]- [address] 12 Sep, 2012 [facility] [place] [facility] [address] [id number] [place] [address]- [address]41 11 Oct, 2012 [facility] [place] [facility] [address] [id number] [place] [address] 07 Sep, 2012 [facility] [place] [facility] [address] [id number] [place] [address]- [address] 06 Oct, 2012 [facility] [place] [facility] [address] [id number] [place] [address] Sep, [facility] [place] [facility] [address] [id number] [place] [address] Sep, [facility] [place] [facility] [address] [id number] [place] [address] Sep, [facility] [place] [facility] [address] [id number] [place] [address] Sep, [facility] [place] [facility] [address] [id number] [place] [address] Sep, [facility] [place] [facility] [address] [id number] [place] [address] Sep, [facility] [place] [facility] [address] [id number] [place] [address] Sep, [facility] [place] [facility] [address] [id number] [place] [address] Sep, [facility] [place] [facility] [address] [id number] [place] [address] Aug, [facility] [place] [facility] [address] [id number] [place] [address] Aug, [facility] [place] [facility] [address] [id number] [place] [address] Jul, [facility] [place] [facility] [address] [id number] [place] [address] Jul, [facility] [place] [facility] [address] [id number] [place] [address] Jul, [facility] [place] [facility] [address] [id number] [place] [address] Jul, [facility] [place] [facility] [address] [id number] [place] [address] June, [facility] [place] [facility] [address] [id number] [place] [address] June, [facility] [place] [facility] [address] [id number], [place] [address] 05 May, 2012 [facility] [address] [id number] [place] [address] 04 Apr, 2012 [facility] [address] [id number] [place] [address] 11 Mar, 2012 [facility] [address] [id number] [place] [address] 04 Mar, 2012 [facility] [address] [id number] [place] [address] 14 Feb, 2012 [facility] [address] [id number] [place] [address] 27 Oct, 2011 [facility] [address] [id number] [place] [address] 16 Sep, 2011 [facility] [address] [id number] [place] [address] 05 Jul, 2011 [facility] [address] [id number] [place] [address] 24 May, 2011 [facility] [address] [id number] [place] [address] 23 May, 2011 [facility] [address] [id number] [place] [address] 16 Mar, 2011 [facility] [address] [id number] [place] [address] 15 Mar, 2011 [facility] [address] [id number] [place] [address] 14 Mar, 2011 [facility] [place] [facility] [address] [id number] [place] [address] 18 Feb, 2011 [facility] [place] [facility] [address] [id number] [place] [address] 13 Feb, 2011 [facility] [address] [id number], [place] [address] Feb, [facility] [place] [facility] [address] [id number] [place] [address] Feb, [facility] [address] [id number] [place] [address] Feb, [facility] [address] [id number] [place] [address] Feb, [facility] [address] [id number] [place] [address] Feb, [facility] [address] [id number] [place] [address] Feb, [facility] [address] [id number] [place] [address] Jan, [facility] [address] [id number] [place] [address] Jan, [facility] [address] [id number] [place] [address] Dec, [facility] [address] [id number] [place] [address] Dec, [facility] [address] [id number] [place] [address] Dec, [facility] [address] [id number] [place] [address] Dec, [facility] [address] [id number] [place] [address] Nov, [facility] [address] [id number] [place] [address] Jan, [facility] [place] [facility] [address] [id number] [place] [address] Jan, [facility] [place] [facility] [address] [id number] [place] [address] Jan, [facility] [address] [id number], [place] [address] Jan, [facility] [address] [id number] [place] [address] Jan, [facility] [place] [facility] [address] [id number] [place] [address] Jan, [facility] [place] [facility] [address] [id number] [place] [address] Jan, [facility] [place] [facility] [address] [id number] [place] [address] Jan, [facility] [place] [facility] [address] [id number] [place] [address] Dec, [facility] [place] [facility] [address] [id number] [place] [address] Nov, [facility] [address] [id number], [place] [address] Jul, [facility] [place] [facility] [address] [id number] [place] [address] June, [facility] [address] [id number], [place] [address] June, [facility] [place] [facility] [address] [id number] [place] [address] May, [facility] [place] [facility] [address] [id number], [place] [address] Jan, [facility] [place] [facility] [address] [id number], [place] [address] Dec, [facility] [place] [facility] [address] [id number], [place] [address] Dec, [facility] [place] [facility] [address] [id number], [place] [address] Dec, [facility] [place] [facility] [address] [id number], [place] [address] Nov, [facility] [place] [facility] [address] [facility] [id number] [place] [address] 12 Nov, 2008 [facility] [address] [facility] [id number] [place] [address] 14 Oct, 2008 IMMUNIZATIONS No Known Immunizations SOCIAL HISTORY Never Assessed REASON FOR VISIT Med per Lab Result/Deferred Lab Order PLAN OF CARE VITAL SIGNS MEDICATIONS Medication Instructions Dosage Frequency Start Date End Date Duration Status Levothyroxine Sodium 150 MCG Orally Once a day 1 tablet on an empty stomach in the morning 24h Jan, Active RESULTS No Results PROCEDURES No Known [...] infarction-- stents placed x2--(mid and prox RCA) [employer] Se[employer] Receipts 3.0 x 32 and 3.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
--- OUTSIDE RECORDS SUMMARY | 2017-08-29 14:53 | XMS REPORT ---
Author Author JEANETTE WILKES 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.59 Active 41281553 Problem Pure hypercholesterolemia E78.00 Active 251146036 Problem Insomnia G47.00 Active 357236765 Problem 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 Active 619157492 Problem Rheumatoid arthritis involving multiple sites with positive rheumatoid factor M05.79 Active 15875947 Problem 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
--- OUTSIDE RECORDS SUMMARY | 2017-08-29 14:54 | XMS REPORT ---
Author Author MENA RICKY [facility] Address [address] [place] [address] Care Team Providers Care Barrel Assembly Inspector Name Role Phone RICKY MENA Unavailable PROBLEMS Type Condition ICD9-CM Code FSK52-CH Code Onset Dates Condition Status SNOMED Code Problem 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 Active 214107205 Problem Hypothyroidism in adult E03.9 Active 63295317 Problem CAD (coronary artery disease) I25.10 Active 15162902 Problem Type 1 diabetes mellitus with other circulatory complication E10.59 Active 46139647 Problem Insomnia G47.00 Active 578689909 Problem Recurrent major depressive disorder, in full remission F33.42 Active 990642912 Problem Rheumatoid arthritis involving multiple sites with positive rheumatoid factor M05.79 Active 78397040 Problem 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 006004924 Problem Hyperlipidemia, acquired E78.5 Active 0059527 Problem technician terminal and repeater current use of insulin Z79.4 Active 376434295 Problem Environmental allergies Z91.09 Active 538729280 ALLERGIES No Information ENCOUNTERS Encounter Location Date Diagnosis [place] [id number] [place] [address] 12470- 5426 Aug, [facility] [address] [address] 89[address] June, Rheumatoid arthritis involving multiple sites with positive rheumatoid factor M05.79 [facility] [address] [address] 8[address] June, [facility] [address] [id number] [place] [address] 22432- 3903 May, Type 1 diabetes mellitus with other circulatory complication E10.59 ; Recurrent major depressive disorder, in full remission F33.42 and Hyperlipidemia, acquired E78.5 [facility] [address] [id number] [place] [address] 45487- 6377 May, Hypothyroidism, unspecified E03.9 and Hypothyroidism in adult E03.9 [facility] [address] [place] [address] 39059- 1555 Apr, Hypothyroidism in adult E03.9 [facility] [id number] [place] [address] 62860- 0755 Apr, Type 1 diabetes mellitus with other circulatory complication E10.59 ; 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 ; Rheumatoid arthritis involving multiple sites with positive rheumatoid factor M05.79 ; Hypothyroidism in adult E03.9 ; Hyperlipidemia, acquired E78.5 ; Recurrent major depressive disorder, in full remission F33.42 ; skilled nursing current use of insulin Z79.4 ; Environmental allergies Z91.09 and CAD (coronary artery disease ) I25.10 [place] [address] [place] [id number] [place] [address] 02317- 7414 Apr, Rheumatoid arthritis involving multiple sites with positive rheumatoid factor M05.79 [place] [address] [place] [id number] [place] [address] 04633- 7461 Mar, Rheumatoid arthritis involving multiple sites with positive rheumatoid factor M05.79 [place] [address] [place] [id number] [place] [address] 26327- 9217 Feb, [place] [address] [place] [id number] [place] [address] 86009- 7932 Feb, CAD (coronary artery disease) I25.10 ; 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 and Hypothyroidism in adult E03.9 [place] [address] [place] [address] 01263- 3128 Feb, Rheumatoid arthritis involving multiple sites with positive rheumatoid factor M05.79 [place] [address] [place] [id number] [place] [address] 57274- 2322 Jan, Hypothyroidism in adult E03.9 [place] [address] [place] [id number] [place] [address] 06094- 0605 Jan, Rheumatoid arthritis involving multiple sites with positive rheumatoid factor M05.79 and CAD (coronary artery disease) I25.10 [place] [address] [place] [id number] [place] [address] 38553- 0027 Jan, 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 ; 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 ; Hyperlipidemia, acquired E78.5 ; Hypothyroidism in adult E03.9 and Fever blister B00.1 [place] [address] [place] [id number] [place] [address] 92146- 0651 Dec, Rheumatoid arthritis involving multiple sites with positive rheumatoid factor M05.79 [place] [address] [place] [id number] [place] [address] 58962- 4700 Nov, Rheumatoid arthritis involving multiple sites with positive rheumatoid factor M05.79 [place] [address] [place] [id number] [place] [address] 12387- 5319 Oct, Rheumatoid arthritis involving multiple sites with positive rheumatoid factor M05.79 [place] [address] 91209- 7649 Oct, Rheumatoid arthritis involving multiple sites with positive rheumatoid factor M05.79 [place] [address] [place] [id number] [place] [address] 34988- 9751 Sep, Rheumatoid arthritis involving multiple sites with positive rheumatoid factor M05.79 [place] [address] [place] [id number] [place] [address] 65625- 5574 Aug, [place] [address] [place] [id number] [place] [address] 85096- 2914 Aug, 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 ; 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 ; CAD (coronary artery disease) I25.10 ; Rheumatoid arthritis involving both feet M06.071 ; Insomnia G47.00 ; Hypothyroidism in adult E03.9 ; Hypercholesterolemia E78.0 and Rheumatoid arthritis involving multiple sites with positive rheumatoid factor M05.79 [place] [address] [place] [id number] [place] [address] 81529- 4766 Jul, [place] [address] [place] [id number] [place] [address] 59995- 0386 June, [facility] [address] [address] 2618 June, Depression, prolonged F32.9 [facility] [address] [place] [address] 52727- 1954 June, [place] [address] [place] [address] 40442- 6129 June, [place] [address] [place] [id number] [place] [address] 24235- 8694 June, Hypothyroidism in adult E03.9 [place] [id number] [place] [address] 29875- 8699 June, Rheumatoid arthritis involving both feet M06.071 [place] [address] [place] [address] 41052- 3478 May, CAD (coronary artery disease) I25.10 ; Rheumatoid arthritis involving both feet M06.071 ; Hyperlipidemia, acquired E78.5 ; Hypothyroidism in adult E03.9 ; Depression, prolonged F32.9 ; 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 ; Type 2 diabetes mellitus with hypoglycemia without coma E11.649 ; Vision abnormalities H53.9 and Vision changes H53.9 [place] [address] [place] [address] 06341- 3913 Apr, [place] [address] [place] [address] 23062- 4157 Apr, DM (diabetes mellitus) type I uncontrolled with eye manifestation E10.39 [place] [address] [place] [address] 92195- 0745 Apr, Rheumatoid arthritis involving both feet M06.071 [place] [address] [place] [address] 19688- 8163 Mar, Rheumatoid arthritis involving both feet M06.071 [place] [address] [place] [id number] [place] [address] 79129- 1043 Mar, [facility] [address] [address]- 6958 Feb, Rheumatoid arthritis involving both feet M06.071 [facility] [address] [place] [address] 13450- 9809 Feb, DM (diabetes mellitus) type I uncontrolled with eye manifestation E10.39 ; Rheumatoid arthritis involving both feet M06.071 ; CAD ( coronary artery disease) I25.10 ; Depression, prolonged F32.9 ; Hyperlipidemia, acquired E78.5 ; Hypothyroidism in adult E03.9 and Environmental allergies Z91.09 [place] [address] [place] [id number] [place] [address] 03569- 7403 Jan, [place] [address] [place] [id number] [place] [address] 39478- 0109 Jan, Hyperlipemia E78.5 ; DM (diabetes mellitus) type I uncontrolled with eye manifestation E10.39 ; CAD (coronary artery disease) I25.10 ; Hyperlipidemia, acquired E78.5 ; Depression, prolonged F32.9 ; 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 ; Hypercholesterolemia E78.0 ; RA (refractory anemia) D46.4 and Rheumatoid arthritis involving multiple sites with positive rheumatoid factor M05.79 [place] [address] [address]- 4100 Jan, [place] [address] [address]- 4835 Jan, [facility] [address] [place] [address] 05410- 1384 Sep, [facility] [address] [address]- 0141 Sep, [facility] [address] [place] [id number] [place] [address] 46074- 8537 Aug, [facility] [address] [address]- 6506 Aug, 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 [place] [address] [place] [id number] [place] [address] 18048- 3027 June, CAD (coronary artery disease) I25.10 ; Insomnia G47.00 ; Rheumatoid arthritis involving both feet M06.071 ; Hypothyroidism in adult E03.9 ; 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 ; Type 2 diabetes mellitus with hypoglycemia without coma E11.649 ; technician terminal and repeater current use of insulin Z79.4 ; Hypercholesterolemia E78.0 ; Environmental allergies Z91.09 and Rib pain R07.81 [place] [id number] [place] [address] 81552- 9965 June, [address] 29581- 5765 June, 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 [place] [address] [place] [id number] [place] [address] 76032- 5504 May, Rheumatoid arthritis involving both feet M06.071 [place] [id number] [place] [address] 73066- 6851 May, CAD (coronary artery disease) I25.10 ; DM (diabetes mellitus ) type I uncontrolled with eye manifestation E10.39 ; Insomnia G47.00 ; Rheumatoid arthritis involving both feet M06.071 ; Hyperlipidemia, acquired E78.5 ; Depression, prolonged F32.9 ; 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 and Hypothyroid E03.[address] [place] [address] 13638- 7068 Apr, [place] [id number] [place] [address] 55251- 4056 Mar, DM (diabetes mellitus) type I uncontrolled with eye manifestation E10.39 ; Insomnia G47.00 ; Insulin long-term use Z79.4 ; Rheumatoid arthritis involving both feet M06.071 ; Hyperlipidemia, acquired E78.5 ; Hypothyroidism in adult E03.9 ; Depression, prolonged F32.9 ; CAD ( coronary artery disease) I25.10 and 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 [facility] [address] [address]- 1031 10 Mar, 2015 [facility] [address] [place] [address] [address]- 3221 14 Feb, 2015 [facility] [address] [place] [id number] [place] [address] 52291- 5534 Jan, [place] [address] [place] [id number] [place] [address] 25685- 3779 Dec, [place] [address] [place] [id number] [place] [address] 31096- 2850 19 Nov, 2014 [place] [address] [place] [id number] [place] [address] 56140- 0670 14 Nov, 2014 Hyperlipemia E78.5 and Hypothyroid E03.9 [place] [address] [place] [id number] [place] [address] 98633- 5314 13 Nov, 2014 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 ; DM (diabetes mellitus) type I uncontrolled with eye manifestation E10.39 ; Hypothyroidism in adult E03.9 and Hyperlipidemia, acquired E78.5 [place] [address] [address]- 3386 07 Nov, 2014 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 ; CAD (coronary artery disease) I25.10 ; DM (diabetes mellitus) type I uncontrolled with eye manifestation E10.39 ; Insomnia G47.00 ; Rheumatoid arthritis involving both feet M06.071 ; Insulin long-term use Z79.4 ; Hyperlipidemia, acquired E78.5 ; Hypothyroidism in adult E03.9 ; Depression, prolonged F32.9 and 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 [facility] [address] [address]- 8617 17 Oct, 2014 [facility] [address] [place] [id number] [place] [address] 68713- 2546 Oct, [facility] [address] [address]- 9221 Oct, [facility] [address] [place] [address] 96040- 2936 Sep, [facility] [address] [place] [address] 98898- 4774 Aug, [facility] [address] [place] [id number] [place] [address] 61300- 8238 Aug, Coronary atherosclerosis of unspecified type of vessel, kletsel dehe wintun or graft 414.00 ; Rheumatoid arthritis 714.0 ; Insulin dependent diabetes mellitus 250.00 ; Hyperlipidemia 272.4 ; Hypothyroidism 244.9 ; Depression 311 and Insomnia 780.52 [place] [address] [place] [id number] [place] [address] 05710- 6869 Aug, [facility] [address] [place] [id number] [place] [address] 04621- 1969 Jul, [facility] [address] [place] [address] 93899- 4865 Jul, [facility] [address] [place] [id number] [place] [address] 28711- 2601 Jul, Breast cancer screening V76.10 [place] [address] [place] [address] 471845- 6768 Jul, ASCUS with positive high risk HPV 796.9 [facility] [address] [place] [id number] [place] [address] 01354251- 4031 June, [facility] [address] [place] [id number] [place] [address] 157942- 1203 June, Routine gynecological examination V72.31 ; Pap test, as part of routine gynecological examination V76.2 ; Breast cancer screening V76.10 ; Perimenopausal 627.2 and Tobacco abuse 305.1 [facility] [address] [place] [id number] [place] [address] 669915- 9041 June, Rheumatoid arthritis 714.0 ; Insulin dependent diabetes mellitus 250.00 and Depression 311 [facility] [address] [id number] [place] [address]- 8586 June, [facility] [address] [facility] [id number] [place] [address]- 0746 June, [facility] [address] [facility] [id number] [place] [address]- 5496 May, [facility] [address] [facility] [id number] [place] [address]- 9146 May, [facility] [address] [facility] [id number] [place] [address]- 9680 Apr, [facility] [address] [facility] [id number] [place] [address]- 1576 Apr, [facility] [address] [place] [address]- 3955 Apr, [facility] [address] [facility] [id number] [place] [address]- 1975 Apr, [facility] [address] [place] [id number] [place] [address]- 8125 Apr, [facility] [address] [facility] [id number] [address]- 8867 Apr, [facility] [address] [facility] [id number] [place] [address]- 0676 Apr, [facility] [address] [facility] [id number], [place] [address]- 6716 Apr, [facility] [address] [facility] [id number] [place] [address]- 0916 Apr, [facility] [address] [facility] [id number] [place] [address]- 2546 Apr, [facility] [address] [facility] [id number] [address]- 6606 Apr, [facility] [address] [id number] [place] [address]- 3944 Apr, [facility] [place] [facility] [address] [id number] [place] [address]- 9689 Feb, [facility] [place] [facility] [address] [id number] [place] [address]- 2880 Feb, [facility] [place] [facility] [address] [id number] [place] [address]- 6977 Feb, [facility] [place] [facility] [address] [id number] [place] [address]- 0318 Feb, [facility] [place] [facility] [address] [id number] [place] [address]- 8209 Feb, [facility] [place] [facility] [address] [id number] [place] [address]- 1180 Feb, [facility] [place] [facility] [address] [id number] [place] [address]- 2282 Jan, [facility] [place] [facility] [address] [id number] [place] [address]- 9758 Jan, [facility] [place] [facility] [address] [id number] [place] [address]- 8927 Jan, [facility] [place] [facility] [address] [id number] [place] [address]- 0312 Jan, [facility] [place] [facility] [address] [id number] [place] [address]- 7773 Jan, [facility] [place] [facility] [address] [id number] [place] [address]- 7199 Jan, [facility] [place] [facility] [address] [id number] [place] [address]- 8151 Jan, [facility] [place] [facility] [address] [id number] [place] [address]- 9963 Jan, [facility] [place] [facility] [address] [id number], [place] [address]- 3554 Jan, [facility] [place] [facility] [address] [id number] [place] [address]- 1219 Jan, [facility] [place] [facility] [address] [id number] [place] 0211 Dec, [facility] [place] [facility] [address] [id number] [place] [address]- 7823 Dec, [facility] [place] [facility] [address] [id number] [place] [address]- 4855 Nov, [facility] [place] [facility] [address] [id number] [place] [address]- 3071 Nov, [facility] [place] [facility] [address] [id number] [place] [address]- 0680 Nov, [facility] [place] [facility] [address] [id number] [place] [address]- 1461 Nov, [facility] [place] [facility] [address] [id number] [place] [address]- 1199 Nov, [facility] [place] [facility] [address] [id number] [place] [address]- 0295 27 Oct, 2013 [facility] [place] [facility] [address] [id number] [place] [address]- 7468 27 Oct, 2013 [facility] [place] [facility] [address] [id number] [place] [address]- 8505 23 Oct, 2013 [facility] [place] [facility] [address] [id number] [place] [address]- 9607 23 Oct, 2013 [facility] [place] [facility] [address] [id number] [place] [address]- 4155 22 Oct, 2013 [facility] [place] [facility] [address] [id number] [place] [address]- 6228 22 Oct, 2013 [facility] [place] [facility] [address] [id number] [place] [address]- 1484 18 Oct, 2013 [facility] [place] [facility] [address] [id number] [place] [address]- 9899 18 Oct, 2013 [facility] [place] [facility] [address] [id number] [place] [address]- 1682 12 Oct, 2013 [facility] [place] [facility] [address] [id number] [place] [address]- 6286 Oct, [facility] [place] [facility] [address] [id number] [place] [address]- 3079 Oct, [facility] [place] [facility] [address] [id number] [place] [address]- 4586 Oct, [facility] [place] [facility] [address] [id number] [place] [address]- 9898 Oct, [facility] [place] [facility] [address] [id number] [place] [address]- 0260 Oct, [facility] [place] [facility] [address] [id number] [place] [address]- 8710 Oct, [facility] [place] [facility] [address] [id number] [place] [address]- 7758 Oct, [facility] [place] [facility] [address] [id number] [place] [address]- 5367 June, [facility] [place] [facility] [address] [id number] [place] [address]- 5890 June, [facility] [place] [facility] [address] [id number] [place] [address]- 8827 June, [facility] [place] [facility] [address] [id number] [place] [address]- 9907 June, [facility] [place] [facility] [address] [id number] [place] [address]- 0736 May, [facility] [place] [facility] [address] [id number] [place] [address]- 3595 May, [facility] [place] [facility] [address] [id number] [place] [address]- 3725 Apr, [facility] [place] [facility] [address] [id number] [place] [address]- 7966 Apr, [facility] [place] [facility] [address] [id number] [place] [address]- 8866 Mar, [facility] [place] [facility] [address] [id number] [place] [address]- 7559 Mar, [facility] [place] [facility] [address] [id number] [place] [address]- 5649 Mar, [facility] [place] [facility] [address] [id number] [place] [address]- 7347 Mar, [facility] [place] [facility] [address] [id number] [place] [address]- 1090 Mar, [facility] [place] [facility] [address] [id number] [place] [address]- 1279 Mar, [facility] [place] [facility] [address] [id number] [place] [address]- 9130 Jan, [facility] [place] [facility] [address] [id number] [place] [address]- 2226 Jan, [facility] [place] [facility] [address] [id number] [place] [address]- 8469 Dec, [facility] [place] [facility] [address] [id number] [place] [address]- 1324 15 Dec, 2012 [facility] [place] [facility] [address] [id number] [place] [address]- 7859 Dec, [facility] [place] [facility] [address] [id number] [place] [address]- 2561 Dec, [facility] [place] [facility] [address] [id number] [place] [address] Dec, [facility] [place] [facility] [address] [id number] [place] [address] Dec, [facility] [place] [facility] [address] [id number] [place] [address] 30 Nov, 2012 [facility] [address] [id number] [place] [address] 30 Nov, 2012 [facility] [place] [facility] [address] [id number] [place] [address] 17 Nov, 2012 [facility] [address] [id number] [place] [address] 17 Nov, 2012 [facility] [place] [facility] [address] [id number] [place] [address] 15 Nov, 2012 [facility] [address] [id number] [place] [address] 15 Nov, 2012 [facility] [place] [facility] [address] [id number] [place] [address] 10 Nov, 2012 [facility] [place] [facility] [address] [id number] [place] [address] 10 Nov, 2012 [facility] [address] [id number] [place] [address] 26 Oct, 2012 [facility] [place] [facility] [address] [id number] [place] [address] 18 Sep, 2012 [facility] [address] [id number] [place] [address] 17 Sep, 2012 [facility] [place] [facility] [address] [id number] [place] [address] 12 Sep, 2012 [facility] [place] [facility] [address] [id number] [place] [address] 11 Oct, 2012 [facility] [place] [facility] [address] [id number] [place] [address] 07 Sep, 2012 [facility] [place] [facility] [address] [id number] [place] [address] 06 Oct, 2012 [facility] [place] [facility] [address] [id number] [place] [address] Sep, [facility] [place] [facility] [address] [id number] [place] [address] Sep, [facility] [place] [facility] [address] [id number] [place] [address] Sep, [facility] [place] [facility] [address] [id number] [place] [address] Sep, [facility] [place] [facility] [address] [id number] [place] [address] Sep, [facility] [place] [facility] [address] [id number] [place] [address] Sep, [facility] [place] [facility] [address] [id number] [place] [address] Sep, [facility] [place] [facility] [address] [id number] [place] [address] Sep, [facility] [place] [facility] [address] [address] [id number] [place] [address] Aug, [facility] [place] [facility] [address] [id number] [place] [address] Aug, [facility] [place] [facility] [address] [id number] [place] [address] Jul, [facility] [place] [facility] [address] [id number] [place] [address] Jul, [facility] [place] [facility] [address] [id number] [place] [address] Jul, [facility] [place] [facility] [address] [id number] [place] [address] Jul, [facility] [place] [facility] [address] [id number] [place] [address] June, [facility] [place] [facility] [address] [id number] [place] [address] June, [facility] [place] [facility] [address] [id number] [address] 05 May, 2012 [facility] [address] [id number] [place] [address] 04 Apr, 2012 [facility] [address] [id number] [place] [address] 11 Mar, 2012 [facility] [address] [id number] [place] [address] 04 Mar, 2012 [facility] [address] [id number] [place] [address] 14 Feb, 2012 [facility] [address] [id number] [place] [address] 27 Oct, 2011 [facility] [address] [id number] [place] [address] 16 Sep, 2011 [facility] [address] [id number] [place] [address] 05 Jul, 2011 [facility] [address] [id number] [place] [address] 24 May, 2011 [facility] [address] [id number] [place] [address] 23 May, 2011 [facility] [address] [id number] [place] [address] 16 Mar, 2011 [facility] [address] [id number] [place] [address] 15 Mar, 2011 [facility] [address] [id number] [place] [address] 14 Mar, 2011 [facility] [place] [facility] [address] [id number] [place] [address] 18 Feb, 2011 [facility] [place] [facility] [address] [id number] [place] [address]94 13 Feb, 2011 [facility] [address] [id number] [address] Feb, [facility] [place] [facility] [address] [id number] [place] [address] Feb, [facility] [address] [id number] [place] [address] Feb, [facility] [address] [id number] [place] [address] Feb, [facility] [address] [id number] [place] [address] Feb, [facility] [address] [id number] [place] [address] Feb, [facility] [address] [id number] [place] [address] Jan, [facility] [address] [id number] [place] [address] Jan, [facility] [address] [id number] [place] [address] Dec, [facility] [address] [id number] [place] [address] Dec, [facility] [address] [id number] [place] [address] Dec, [facility] [address] [id number] [place] [address] Dec, [facility] [address] [id number] [place] [address] Nov, [facility] [address] [id number] [place] [address] Jan, [facility] [place] [facility] [address] [id number] [place] [address] Jan, [facility] [place] [facility] [address] [id number] [place] [address] Jan, [facility] [address] [id number], [place] [address] Jan, [facility] [address] [id number] [place] [address] Jan, [facility] [place] [facility] [address] [id number] [place] [address] Jan, [facility] [place] [facility] [address] [id number] [place] [address] Jan, [facility] [place] [facility] [address] [id number] [place] [address] Jan, [facility] [place] [facility] [address] [id number] [place] [address] Dec, [facility] [place] [facility] [address] [id number] [place] [address] Nov, [facility] [address] [id number][place] [address] Jul, [facility] [place] [facility] [address] [id number] [place] [address]597 June, [facility] [address] [id number], [place] [address] June, [facility] [place] [facility] [address] [id number] [place] [address] 17[address] May, [facility] [place] [facility] [address] [id number], [place] [address] Jan, [facility] [place] [facility] [address] [id number], [place] [address] Dec, [facility] [place] [facility] [address] [id number], [place] [address] Dec, [facility] [place] [facility] [address] [id number], [place] [address] Dec, [facility] [place] [facility] [address] [id number], [place] [address] Nov, [facility] [place] [facility] [address] [facility] [id number] [place] [address] 12 Nov, 2008 [facility] [address] [facility] [id number] [place] [address] 14 Oct, 2008 IMMUNIZATIONS No Known Immunizations SOCIAL HISTORY Never Assessed REASON FOR VISIT Medication concerns PLAN OF CARE VITAL SIGNS MEDICATIONS Medication Instructions Dosage Frequency Start Date End Date Duration Status Methotrexate 2.5 MG Orally once a week 7 tablets 30 days Active PredniSONE 10 mg TAKE ONE TABLET BY MOUTH ONCE DAILY Nov, 90 days Active Levothyroxine Sodium 150 MCG Orally Once a day 1 tablet on an empty stomach in the morning 24h Jan, 90 days Active NovoLog 100 UNIT/ML Subcutaneous 3 times a day sliding scale 8h 90 days Active Plavix 75 MG Orally Once a day Please Voucher 1 tablet by Oral route 1 time per day 90 days Active RESULTS No Results PROCEDURES No [...]
--- OUTSIDE RECORDS SUMMARY | 2017-08-29 14:56 | XMS REPORT ---
Author CHRISTINA Stokes [facility] eClinicalWorks Address Unknown Phone Unavailable Care Team Providers Care Commercial Representative Name Role Phone CHRISTINA PENNY CP Unavailable [...] Start Date End Date Status Dosage Hydrocodone-Acetaminophen [facility] [id number] 10-325 MG Orally tid prn must last atleast 30 days April 20, 2014 Feb 03, 2015 one Results No Known Results Summary Purpose eClinicalWorks Submission
--- OUTSIDE RECORDS SUMMARY | 2017-08-29 14:56 | XMS REPORT ---
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
--- OUTSIDE RECORDS SUMMARY | 2017-08-29 14:56 | XMS REPORT ---
Author CHRISTINA Stokes [facility] eClinicalWorks Address Unknown Phone Unavailable Care Team Providers Care Carrot Buncher Name Role Phone CHRISTINA PENNY CP Unavailable [...] arthritis involving both feet M06.071 Active Medications No Known Medications Results No Known Results Summary Purpose eClinicalWorks Submission
--- OUTSIDE RECORDS SUMMARY | 2017-08-29 14:57 | XMS REPORT ---
Author Author CHRSITINA Mcqueen Organization [facility] Address [address] [place] [address] Care Team Providers Care Engineering Technology Instructor Name Role Phone CHRISTINA Mcqueen Unavailable PROBLEMS Type Condition ICD9-CM Code AAX76-VR Code Onset Dates Condition Status SNOMED Code Problem 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 Active 362671157 Problem Hypothyroidism in adult E03.9 Active 09868279 Problem CAD (coronary artery disease) I25.10 Active 18473209 Problem Type 1 diabetes mellitus with other circulatory complication E10.59 Active 44727632 Problem Insomnia G47.00 Active 659807388 Problem Recurrent major depressive disorder, in full remission F33.42 Active 740540841 Problem Rheumatoid arthritis involving multiple sites with positive rheumatoid factor M05.79 Active 53935256 Problem 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 194886911 Problem Hyperlipidemia, acquired E78.5 Active 2316197 Problem 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 Active 108839819 Problem Environmental allergies Z91.09 Active 014298539 ALLERGIES No Information ENCOUNTERS Encounter Location Date Diagnosis [facility] [id number] [place] [address] 31150- 3551 May, Type 1 diabetes mellitus with other circulatory complication E10.59 ; Recurrent major depressive disorder, in full remission F33.42 and Hyperlipidemia, acquired E78.5 [facility] [id number] [place] [address] 81359- 7474 May, Hypothyroidism, unspecified E03.9 and Hypothyroidism in adult E03.9 [facility] [id number] [place] [address] 25390- 0242 Apr, Hypothyroidism in adult E03.9 [facility] [id number] [place] [address] 82214- 0287 Apr, Type 1 diabetes mellitus with other circulatory complication E10.59 ; 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 ; Rheumatoid arthritis involving multiple sites with positive rheumatoid factor M05.79 ; Hypothyroidism in adult E03.9 ; Hyperlipidemia, acquired E78.5 ; Recurrent major depressive disorder, in full remission F33.42 ; halfway current use of insulin Z79.4 ; Environmental allergies Z91.09 and CAD (coronary artery disease ) I25.10 [facility] [id number] [place] [address] 56093- 5686 Apr, Rheumatoid arthritis involving multiple sites with positive rheumatoid factor M05.79 [facility] [address] 35910- 9881 Mar, Rheumatoid arthritis involving multiple sites with positive rheumatoid factor M05.79 [facility] [id number] [place] [address] 78942- 0233 Feb, [facility] [address] 41214- 3482 Feb, CAD (coronary artery disease) I25.10 ; 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 and Hypothyroidism in adult E03.9 [facility] [address] 04281- 8825 Feb, Rheumatoid arthritis involving multiple sites with positive rheumatoid factor M05.79 [facility] [id number] [place] [address] 27635- 7467 Jan, Hypothyroidism in adult E03.9 [facility] [id number] [place] [address] 93101- 3024 Jan, Rheumatoid arthritis involving multiple sites with positive rheumatoid factor M05.79 and CAD (coronary artery disease) I25.10 [facility] [id number] [place] [address] 04253- 1896 Jan, 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 ; 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 ; Hyperlipidemia, acquired E78.5 ; Hypothyroidism in adult E03.9 and Fever blister B00.1 [facility] [address] [place] [address] [address] Dec, Rheumatoid arthritis involving multiple sites with positive rheumatoid factor M05.79 [facility] [address] 6304 Nov, Rheumatoid arthritis involving multiple sites with positive rheumatoid factor M05.79 [facility] [address] [address] 4548 Oct, Rheumatoid arthritis involving multiple sites with positive rheumatoid factor M05.79 [facility] [id number] 1966 Oct, Rheumatoid arthritis involving multiple sites with positive rheumatoid factor M05.79 [facility] [id number] [place] [address] 640281- 1599 Sep, Rheumatoid arthritis involving multiple sites with positive rheumatoid factor M05.79 [facility] [id number] [place] [address] 20757- 6527 Aug, [facility] [address] [address]- 0949 Aug, 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 ; 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 ; CAD (coronary artery disease) I25.10 ; Rheumatoid arthritis involving both feet M06.071 ; Insomnia G47.00 ; Hypothyroidism in adult E03.9 ; Hypercholesterolemia E78.0 and Rheumatoid arthritis involving multiple sites with positive rheumatoid factor M05.79 [facility] [address] [address]- 0335 Jul, [facility] [address] 6030 June, [facility] [id number] [address]- 4433 June, Depression, prolonged F32.9 [facility] [address] [address]- 4402 June, [facility] [id number] [address]- 2539 June, [facility] [id number] [place] [address] 91862- 5658 June, Hypothyroidism in adult E03.9 [facility] [address] [place] [address] 80650- 8379 June, Rheumatoid arthritis involving both feet M06.071 [facility] [id number] [place] [address] 61984- 3895 May, CAD (coronary artery disease) I25.10 ; Rheumatoid arthritis involving both feet M06.071 ; Hyperlipidemia, acquired E78.5 ; Hypothyroidism in adult E03.9 ; Depression, prolonged F32.9 ; 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 ; Type 2 diabetes mellitus with hypoglycemia without coma E11.649 ; Vision abnormalities H53.9 and Vision changes H53.9 [facility] [address] [place] [address] 27980- 0980 Apr, [facility] [id number] [place] [address] 54708- 1270 Apr, DM (diabetes mellitus) type I uncontrolled with eye manifestation E10.39 [facility] [address] [place] [address] 69025- 2571 Apr, Rheumatoid arthritis involving both feet M06.071 [facility] [address] [place] [address] 77771- 4505 Mar, Rheumatoid arthritis involving both feet M06.071 [facility] [address] [place] [address] 92761- 1431 Mar, [facility] [id number] [place] [address] 67571- 4816 Feb, Rheumatoid arthritis involving both feet M06.071 [facility] [address] [place] [address] 60505- 8430 Feb, DM (diabetes mellitus) type I uncontrolled with eye manifestation E10.39 ; Rheumatoid arthritis involving both feet M06.071 ; CAD ( coronary artery disease) I25.10 ; Depression, prolonged F32.9 ; Hyperlipidemia, acquired E78.5 ; Hypothyroidism in adult E03.9 and Environmental allergies Z91.09 [facility] [id number] [place] [address] 02787- 0756 Jan, [facility] [id number] [place] [address] 96546- 6544 Jan, Hyperlipemia E78.5 ; DM (diabetes mellitus) type I uncontrolled with eye manifestation E10.39 ; CAD (coronary artery disease) I25.10 ; Hyperlipidemia, acquired E78.5 ; Depression, prolonged F32.9 ; 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 ; Hypercholesterolemia E78.0 ; RA (refractory anemia) D46.4 and Rheumatoid arthritis involving multiple sites with positive rheumatoid factor M05.79 [facility] [id number] [place] [address] 90748- 5057 Jan, [facility] [address] 26846- 2823 Jan, [facility] [id number] [place] [address] 43609- 5304 Sep, [facility] [id number] [place] [address] 48525- 7890 Sep, [facility] [id number] [place] [address] 37861- 6116 Aug, [facility] [id number] [place] [address] 86663- 9548 Aug, [facility] [id number] [place] [address] 99569- 3556 Jul, Type 2 diabetes mellitus with hypoglycemia without coma E11.649 and 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 [facility] [id number] [place] [address] 64893- 0766 June, CAD (coronary artery disease) I25.10 ; Insomnia G47.00 ; Rheumatoid arthritis involving both feet M06.071 ; Hypothyroidism in adult E03.9 ; 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 ; Type 2 diabetes mellitus with hypoglycemia without coma E11.649 ; 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 ; Hypercholesterolemia E78.0 ; Environmental allergies Z91.09 and Rib pain R07.81 [facility] [address] [place] [address] 98099- 2964 June, [facility] [id number] [place] [address] 39077- 5971 June, 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 [facility] [id number] [place] [address] 10457- 7018 May, Rheumatoid arthritis involving both feet M06.071 [facility] [id number] [place] [address] 49081- 2604 May, CAD (coronary artery disease) I25.10 ; DM (diabetes mellitus ) type I uncontrolled with eye manifestation E10.39 ; Insomnia G47.00 ; Rheumatoid arthritis involving both feet M06.071 ; Hyperlipidemia, acquired E78.5 ; Depression, prolonged F32.9 ; 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 and Hypothyroid E03.9 [facility] [address] [place] [address] 65359- 5828 Apr, [facility] [address] [place] [address] 40415- 1297 Mar, DM (diabetes mellitus) type I uncontrolled with eye manifestation E10.39 ; Insomnia G47.00 ; Insulin long-term use Z79.4 ; Rheumatoid arthritis involving both feet M06.071 ; Hyperlipidemia, acquired E78.5 ; Hypothyroidism in adult E03.9 ; Depression, prolonged F32.9 ; CAD ( coronary artery disease) I25.10 and 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 [facility] [id number] [place] [address] 85800- 1540 Mar, [facility] [id number] [place] [address] 96363- 1151 14 Feb, 2015 [facility] [address], [place] [address]- 5515 Jan, [facility] [id number] [place] [address] 300367- 2020 Dec, [facility] [address] [place] [address] 74739- 7453 Nov, [facility] [id number] [place] [address] 822393- 8391 Nov, Hyperlipemia E78.5 and Hypothyroid E03.9 [facility] [id number] [place] [address] 259071- 1647 13 Nov, 2014 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 ; DM (diabetes mellitus) type I uncontrolled with eye manifestation E10.39 ; Hypothyroidism in adult E03.9 and Hyperlipidemia, acquired E78.5 [facility] [id number] [place] [address] 66159- 6654 07 Nov, 2014 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 ; CAD (coronary artery disease) I25.10 ; DM (diabetes mellitus) type I uncontrolled with eye manifestation E10.39 ; Insomnia G47.00 ; Rheumatoid arthritis involving both feet M06.071 ; Insulin long-term use Z79.4 ; Hyperlipidemia, acquired E78.5 ; Hypothyroidism in adult E03.9 ; Depression, prolonged F32.9 and 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 [facility] [address] [address]- 2778 Oct, [facility] [address], [place] [address]- 7793 Oct, [facility] [id number] [place] [address] 51825- 7798 Oct, [facility] [address] [address]- 6227 Sep, [facility] [id number] [place] [address] 23657- 9412 Aug, [facility] [address] [place] [address] 13832- 9079 Aug, Coronary atherosclerosis of unspecified type of vessel, [place] or graft 414.00 ; Rheumatoid arthritis 714.0 ; Insulin dependent diabetes mellitus 250.00 ; Hyperlipidemia 272.4 ; Hypothyroidism 244.9 ; Depression 311 and Insomnia 780.52 [facility] [id number] [place] [address] 44040- 7711 Aug, [facility] [id number] [place] [address] 39460- 0014 Jul, [facility] [id number] [place] [address] 71908- 6612 Jul, [place] [id number] [place] [address] 05860- 0577 Jul, Breast cancer screening V76.10 [place] [id number] [place] [address] 82059- 0177 Jul, ASCUS with positive high risk HPV 796.9 [place] [id number] [place] [address] 84083- 1361 June, [facility] [id number] [place] [address] 44267- 0022 June, Routine gynecological examination V72.31 ; Pap test, as part of routine gynecological examination V76.2 ; Breast cancer screening V76.10 ; Perimenopausal 627.2 and Tobacco abuse 305.1 [facility] [id number] [place] [address] 34362- 4785 June, Rheumatoid arthritis 714.0 ; Insulin dependent diabetes mellitus 250.00 and Depression 311 [facility] [id number] [place] [address] 06277- 0617 June, [facility] [id number] [place] [address] 07728- 1752 June, [facility] [address] [place] [id number] [place] [address], [place] [address]- 6749 14 May, 2014 [facility] [place] [facility] [address] [id number] [place] [address]- 7876 13 May, 2014 [facility] [place] [facility] [address] [id number] [place] [address]- 6203 Apr, [facility] [place] [facility] [address] [id number] [place] [address]- 7487 Apr, [facility] [place] [facility] [address] [id number] [place] [address]- 6583 Apr, [facility] [place] [facility] [address] [id number] [place] [address]- 5836 Apr, [facility] [place] [facility] [address] [id number] [place] [address]- 8582 Apr, [facility] [place] [facility] [address] [id number] [place] [address]- 0280 Apr, [facility] [place] [facility] [address] [id number] [place] [address]- 9831 Apr, [facility] [place] [facility] [address] [id number] [place] [address]- 3929 Apr, [facility] [place] [facility] [address] [id number] [place] [address]- 9111 Apr, [facility] [place] [facility] [address] [id number] [place] [address]- 3824 Apr, [facility] [place] [facility] [address] [id number] [place] [address]- 1488 Apr, [facility] [place] [facility] [address] [id number] [place] [address]- 3612 Apr, [facility] [place] [facility] [address] [id number] [place] [address]- 8400 Feb, [facility] [place] [facility] [address] [id number] [place] [address]- 3436 Feb, [facility] [place] [facility] [address] [id number] [place] [address]- 0722 Feb, [facility] [place] [facility] [address] [id number] [place] [address]- 3525 Feb, [facility] [place] [facility] [address] [id number] [place] [address]- 1020 Feb, [facility] [place] [facility] [address] [id number] [place] [address]- 1347 Feb, [facility] [place] [facility] [address] [id number] [place] [address]- 7176 Jan, [facility] [place] [facility] [address] [id number] [place] [address]- 6661 Jan, [facility] [place] [facility] [address] [id number] [place] [address]- 3845 Jan, [facility] [place] [facility] [address] [id number] [place] [address]- 9197 Jan, [facility] [place] [facility] [address] [id number] [place] [address]- 4043 Jan, [facility] [place] [facility] [address] [id number] [place] [address]- 1707 Jan, [facility] [place] [facility] [address] [id number] [place] [address]- 8538 Jan, [facility] [place] [facility] [address] [id number] [place] [address]- 1276 Jan, [facility] [place] [facility] [address] [id number] [place] 8042 Jan, [facility] [place] [facility] [address] [id number] [place] [address]- 4364 Jan, [facility] [place] [facility] [address] [id number] [place] [address]- 8723 Dec, [facility] [place] [facility] [address] [id number] [place] [address]- 5750 Dec, [facility] [place] [facility] [address] [id number] [place] [address]- 5964 Nov, [facility] [place] [facility] [address] [id number] [place] [address]- 8947 Nov, [facility] [place] [facility] [address] [id number] [place] [address]- 2384 Nov, [facility] [place] [facility] [address] [id number] [place] [address]- 2153 Nov, [facility] [place] [facility] [address] [id number] [place] [address]- 9892 Nov, [facility] [place] [facility] [address] [id number] [place] [address]- 6975 27 Oct, 2013 [facility] [place] [facility] [address] [id number] [place] [address]- 5881 27 Oct, 2013 [facility] [place] [facility] [address] [id number] [place] [address]- 8589 23 Oct, 2013 [facility] [place] [facility] [address] [id number] [place] [address]- 1241 23 Oct, 2013 [facility] [place] [facility] [address] [id number] [place] [address]- 9606 22 Oct, 2013 [facility] [place] [facility] [address] [id number] [address]- 7641 22 Oct, 2013 [facility] [place] [facility] [address] [id number], [place] [address]- 7288 18 Oct, 2013 [facility] [place] [facility] [address] [id number] [place] [address] 254 18 Oct, 2013 [facility] [place] [facility] [address] [id number] [place] [address]- 6391 12 Oct, 2013 [facility] [place] [facility] [address] [id number] [place] [address]- 2546 12 Oct, 2013 [facility] [place] [facility] [address] [id number] [place] [address]- 1850 Oct, [facility] [address] [id number] [place] [address]- 5426 Oct, [facility] [place] [facility] [address] [id number] [place] [address]- 2256 Oct, [facility] [place] [facility] [address] [id number] [place] [address]- 0078 Oct, [facility] [place] [facility] [address] [id number] [place] [address]- 7486 Oct, [facility] [place] [facility] [address] [id number] [place] [address]- 2893 Oct, [facility] [place] [facility] [address] [id number] [place] [address]- 3685 June, [facility] [place] [facility] [address] [id number] [place] [address]- 2087 June, [facility] [place] [facility] [address] [id number] [place] [address]- 1147 June, [facility] [place] [facility] [address] [id number] [place] [address]- 4747 June, [facility] [place] [facility] [address] [id number] [place] [address]- 6967 May, [facility] [place] [facility] [address] [id number] [place] [address]- 6783 May, [facility] [place] [facility] [address] [id number] [place] [address]- 7223 Apr, [facility] [place] [facility] [address] [id number] [place] [address]- 6215 Apr, [facility] [place] [facility] [address] [id number] [place] [address]- 1590 Mar, [facility] [place] [facility] [address] [id number] [place] [address]- 8802 Mar, [facility] [place] [facility] [address] [id number] [place] [address]- 2289 Mar, [facility] [place] [facility] [address] [id number] [place] [address]- 5342 Mar, [facility] [place] [facility] [address] [id number] [place] [address]- 1902 Mar, [facility] [place] [facility] [address] [id number] [place] [address]- 2844 Mar, [facility] [place] [facility] [address] [id number] [place] [address]- 4610 Jan, [facility] [place] [facility] [address] [id number] [place] [address]- 6601 Jan, [facility] [place] [facility] [address] [id number] [place] [address]- 5875 Dec, [facility] [place] [facility] [address] [id number], [place] [address]- 5644 15 Dec, 2012 [facility] [place] [facility] [address] [id number] [place] [address]- 7966 Dec, [facility] [place] [facility] [address] [id number] [place] [address]- 5828 Dec, [facility] [place] [facility] [address] [id number], [place] [address]- 9819 Dec, [facility] [place] [facility] [address] [id number], [place] [address]- 2338 Dec, [facility] [place] [facility] [address] [id number] [place] [address]- 9444 Nov, [facility] [place] [facility] [address] [id number], [place] [address]- 6988 30 Nov, 2012 [facility] [place] [facility] [address] [id number] [place] [address]- 8707 17 Nov, 2012 [facility] [place] [facility] [address] [id number] [place] [address]- 6908 17 Nov, 2012 [facility] [place] [facility] [address] [id number] [place] [address] 15 Nov, 2012 [facility] [place] [facility] [address] [id number] [place] [address] 15 Nov, 2012 [facility] [place] [facility] [address] [id number] [place] [address] 10 Nov, 2012 [facility] [place] [facility] [address] [id number] [place] [address] 10 Nov, 2012 [facility] [place] [facility] [address] [id number] [place] [address] 26 Oct, 2012 [facility] [place] [facility] [address] [id number] [place] [address] 18 Oct, 2012 [facility] [place] [facility] [address] [id number] [place] [address] 17 Oct, 2012 [facility] [place] [facility] [address] [id number] [place] [address] 12 Oct, 2012 [facility] [place] [facility] [address] [id number] [place] [address] 11 Oct, 2012 [facility] [place] [facility] [address] [id number] [place] [address] 07 Oct, 2012 [facility] [place] [facility] [address] [id number] [place] [address] 06 Oct, 2012 [facility] [place] [facility] [address] [id number] [place] [address] 2012 [facility] [place] [facility] [address] [id number] [place] [address] Sep, [facility] [place] [facility] [address] [id number] [place] [address] Sep, [facility] [place] [facility] [address] [id number] [place] [address] 18 Sep, 2012 [facility] [place] [facility] [address] [id number] [place] [address] Sep, [facility] [address] [id number] [place] [address] Sep, [facility] [address] [id number] [place] [address] Sep, [facility] [address] [id number] [place] [address] Sep, [facility] [address] [id number] [place] [address] Aug, [facility] [address] [id number] [place] [address] Aug[facility] [address] [id number] [place] [address] Jul, [facility] [address] [id number] [place] [address] Jul, [facility] [address] [id number] [place] [address] Jul, [facility] [address] [id number] [place] [address] Jul, [facility] [place] [facility] [address] [id number] [place] [address] June, [facility] [address] [id number] [place] [address] June, [facility] [place] [facility] [address] [id number] [place] [address] May, [facility] [place] [facility] [address] [id number] [place] [address] Apr, [facility] [place] [facility] [address] [id number] [place] [address] Mar, [facility] [place] [facility] [address] [id number], [place] [address] 04 Mar, 2012 [facility] [address] [id number] [place] [address] Feb, [facility] [address] [id number], [place] [address] 27 Oct, 2011 [facility] [address] [id number] [place] [address] 16 Sep, 2011 [facility] [address] [id number], [place] [address] Jul, [facility] [address] [id number] [place] [address] 24 May, 2011 [facility] [address] [id number] [place] [address] May, [facility] [id number] [place] [address] 16 Mar, 2011 [facility] [address] [id number] [place] [address] 15 Mar, 2011 [facility] [address] [facility] [id number] [place] [address] 14 Mar, 2011 [facility] [address] [facility] [id number] [place] [address] Feb, [facility] [address] [id number] [place] [address] Feb, [facility] [place] [facility] [address] [id number], [place] [address] Feb, [facility] [address] [id number], [place] [address] Feb, [facility] [address] [id number], [place] [address] Feb, [facility] [address] [facility] [id number][place] [address] Feb, [facility] [place] [facility] [address] [id number] [place] [address] Feb, [facility] [place] [facility] [address] [id number] [place] [address] Feb, [facility] [place] [facility] [address] [id number] [place] [address] Jan, [facility] [place] [facility] [address] [id number] [place] [address] 25[address] Jan, [facility] [place] [facility] [address] [id number] [place] [address] Dec, [facility] [place] [facility] [address] [id number] [place] [address] Dec, [facility] [place] [facility] [address] [id number] [place] [address] Dec, [facility] [place] [facility] [address] [id number] [place] [address] Dec, [facility] [place] [facility] [address] [id number] [place] [address] Nov, [facility] [place] [facility] [address] [id number] [place] [address] Jan, [facility] [place] [facility] [address] [id number] [place] [address] Jan, [facility] [place] [facility] [address] [id number] [place] [address] Jan, [facility] [place] [facility] [address] [id number] [place] [address] Jan, [facility] [place] [facility] [address] [id number] [place] [address] 25[address] Jan, [facility] [place] [facility] [address] [id number] [place] [address] 25[address] Jan, [facility] [place] [facility] [address] [id number] [place] [address] Jan, [facility] [address] [id number] [address] Jan, [facility] [address] [facility] [id number], [place] [address] Dec, [facility] [id number], [place] [address] Nov, [facility] [address] [facility] [id number], [place] [address] Jul, [facility] [address]65100[place], [place] [address] June, [facility] [address]65100[place] [address] June, [facility] [address]65100[place], [place] [address] May, [facility] [address]65100[place], [place] [address] Jan, [facility] [address]65100[place], [place] [address] Dec, [facility] [address]65100[place] [address] Dec, [facility] [address]65100[place], [place] [address] Dec, [facility] [address] [id number] [address] Nov, [facility] [address] [id number] [address] Nov, [facility] [address] [id number], [place] [address] 14 Oct, 2008 IMMUNIZATIONS No Known Immunizations SOCIAL HISTORY Never Assessed REASON FOR VISIT Kirby Mercado MA PLAN OF CARE VITAL SIGNS MEDICATIONS Unknown Medications RESULTS Name Result Date Reference Range MARIA E 2016-11-01 PROCEDURES Procedure Date Ordered Result Body Site No Charge Nov 01, 2016 INSTRUCTIONS MEDICATIONS ADMINISTERED No Known Medications [...] infarction-- stents placed x2--(mid and prox RCA) 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
--- OUTSIDE RECORDS SUMMARY | 2017-08-29 14:57 | XMS REPORT ---
Author JEANETTE Bermeo Organization [employer] Address Unknown Phone Unavailable Care Team Providers Care Public Relations Consultant Name Role Phone JEANETTE WILKES CP Unavailable Allergies No Known Allergies Problems Problem Type Condition ICD-9 Code Onset Dates Condition Status Problem Nondependent tobacco use disorder 305.1 Active Problem Anxiety state, unspecified 300.00 Active Problem Hypothyroidism 244.9 Active Problem Depression 311 Active Problem Hyperlipidemia 272.4 Active Problem Coronary atherosclerosis of unspecified type of vessel, [place] or graft 414.00 Active Problem Rheumatoid arthritis 714.0 Active Problem Insomnia 780.52 Active Problem 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
--- OUTSIDE RECORDS SUMMARY | 2017-08-29 14:57 | XMS REPORT ---
Author Author CHRISTINA PENNY Organization [employer] Address Unknown Phone Unavailable Care Team Providers Care Plumbing And Heating Mechanic Name Role Phone CHRISTINA PENNY CP Unavailable Allergies No Known Allergies Problems Problem Type Condition ICD-9 Code Onset Dates Condition Status Problem Nondependent tobacco use disorder 305.1 Active Problem Anxiety state, unspecified 300.00 Active Problem Hypothyroidism 244.9 Active Problem Depression 311 Active Problem Hyperlipidemia 272.4 Active Problem Coronary atherosclerosis of unspecified type of vessel, [place] or graft 414.00 Active Problem Rheumatoid arthritis 714.0 Active Problem Insomnia 780.52 Active Problem 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
--- OUTSIDE RECORDS SUMMARY | 2017-08-29 14:57 | XMS REPORT ---
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.59 Active 72024458 Problem 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 Active 402564904 Problem 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 370867157 Problem Rheumatoid arthritis involving multiple sites with positive rheumatoid factor M05.79 Active 97386428 Problem 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.4 Active 925529262 Problem Insomnia G47.00 Active 678602087 Problem Rheumatoid arthritis involving both feet M06.071 Active 458613111 Problem Environmental allergies Z91.09 Active 957542630 Problem CAD (coronary artery disease) I25.10 Active 29168647 ALLERGIES Unknown Allergies SOCIAL HISTORY No smoking Hx information available PLAN OF CARE VITAL SIGNS MEDICATIONS Medication Instructions Dosage Frequency Start Date End Date Duration Status Percocet 7.5-325 MG Orally every 6 hrs 1 tablet as needed 6h 30 Jan, 2016 Active RESULTS No Results PROCEDURES No Known procedures IMMUNIZATIONS No Known Immunizations
--- OUTSIDE RECORDS SUMMARY | 2017-08-29 14:58 | XMS REPORT ---
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.59 Active 33832771 Problem Pure hypercholesterolemia E78.00 Active 163313543 Problem Insomnia G47.00 Active 735036958 Problem 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 Active 407084883 Problem Rheumatoid arthritis involving multiple sites with positive rheumatoid factor M05.79 Active 08809547 Problem 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
--- OUTSIDE RECORDS SUMMARY | 2017-08-29 14:58 | XMS REPORT ---
Author CHRISTINA [facility] [employer] Address Unknown Phone Unavailable Care Team Providers Care Tuft Machine Operator Name Role Phone CHRISTINA PENNY CP [...] Start Date End Date Status Dosage Hydrocodone-Acetaminophen [facility] [address]-18 10-325 MG Orally tid prn April 20, 2014 Mar 31, 2015 one Results No Known Results Summary Purpose [employer] Submission
--- OUTSIDE RECORDS SUMMARY | 2017-08-29 14:58 | XMS REPORT ---
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 Active 30979892 Problem Pure hypercholesterolemia E78.00 Active 068754107 Problem Insomnia G47.00 Active 479841946 Problem 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 Active 056517915 Problem Rheumatoid arthritis involving multiple sites with positive rheumatoid factor M05.79 Active 66084749 Problem 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
--- OUTSIDE RECORDS SUMMARY | 2017-08-29 14:59 | XMS REPORT ---
Author Author CHRISTINA PENNY Organization [employer] Address Unknown Phone Unavailable Care Team Providers Care Oil Analyst Name Role Phone CHRISTINA PENNY CP Unavailable Allergies No Known Allergies Problems Problem Type Condition ICD-9 Code Onset Dates Condition Status Problem Nondependent tobacco use disorder 305.1 Active Problem Anxiety state, unspecified 300.00 Active Problem Hypothyroidism 244.9 Active Problem Depression 311 Active Problem Hyperlipidemia 272.4 Active Problem Coronary atherosclerosis of unspecified type of vessel, [place] or graft 414.00 Active Problem Rheumatoid arthritis 714.0 Active Problem Insomnia 780.52 Active Problem 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
--- OUTSIDE RECORDS SUMMARY | 2017-08-29 14:59 | XMS REPORT ---
Author Author SNEHA BURNETT [facility] Address [address] [place] [address] Care Team Providers Care Cupola Patcher Name Role Phone SNEHA BURNETT Unavailable PROBLEMS Type Condition ICD9-CM Code [id number] Code Onset Dates Condition Status SNOMED Code Problem 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 Active 400029971 Problem Hypothyroidism in adult E03.9 Active 10478174 Problem CAD (coronary artery disease) I25.10 Active 80339416 Problem Type 1 diabetes mellitus with other circulatory complication E10.59 Active 74906262 Problem Insomnia G47.00 Active 210259347 Problem Recurrent major depressive disorder, in full remission F33.42 Active 437266711 Problem Rheumatoid arthritis involving multiple sites with positive rheumatoid factor M05.79 Active 81729677 Problem 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 376387932 Problem Hyperlipidemia, acquired E78.5 Active 7144406 Problem 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 [id number] [place] [address] 34942- 2863 May, Type 1 diabetes mellitus with other circulatory complication E10.59 ; Recurrent major depressive disorder, in full remission F33.42 and Hyperlipidemia, acquired E78.5 [facility] [id number] [place] [address] 44854- 1343 May, Hypothyroidism, unspecified E03.9 and Hypothyroidism in adult E03.9 [facility] [id number] [place] [address] 39773- 1637 Apr, Hypothyroidism in adult E03.9 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.4 ; Environmental allergies Z91.09 and CAD (coronary artery disease ) I25.10 [place] [id number] [place] [address] 09955- 5226 Apr, Rheumatoid arthritis involving multiple sites with positive rheumatoid factor M05.79 [place] [address] 03299- 8175 Mar, Rheumatoid arthritis involving multiple sites with positive rheumatoid factor M05.79 [place] [id number] [place] [address] 36587- 7262 Feb, [place] [address] 30058- 1912 Feb, CAD (coronary artery disease) I25.10 ; 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 and Hypothyroidism in adult E03.9 [place] [id number] [place] [address] 77569- 0630 Feb, Rheumatoid arthritis involving multiple sites with positive rheumatoid factor M05.79 [place] [id number] [place] [address] 80478- 9784 Jan, Hypothyroidism in adult E03.9 [facility] [id number] [place] [address] 80872- 4593 Jan, Rheumatoid arthritis involving multiple sites with positive rheumatoid factor M05.79 and CAD (coronary artery disease) I25.10 [place] [address] 41761- 6834 Jan, 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 ; 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 ; Hyperlipidemia, acquired E78.5 ; Hypothyroidism in adult E03.9 and Fever blister B00.1 [place] [address] [id number]- 7082 Dec, Rheumatoid arthritis involving multiple sites with positive rheumatoid factor M05.79 [place] [address] [place] [address] 817453- 4336 Nov, Rheumatoid arthritis involving multiple sites with positive rheumatoid factor M05.79 [facility] [address] [address] [address] 14 Oct, 2016 Rheumatoid arthritis involving multiple sites with positive rheumatoid factor M05.79 [facility] [id number] [place] [address] 62957- 3786 Oct, Rheumatoid arthritis involving multiple sites with positive rheumatoid factor M05.79 [place] [id number] [place] [address] 046860- 0788 Sep, Rheumatoid arthritis involving multiple sites with positive rheumatoid factor M05.79 [place] [id number] [place] [address] 90896- 2718 Aug, [place] [id number] [place] [address] 22321- 7124 Aug, 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 ; 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 ; CAD (coronary artery disease) I25.10 ; Rheumatoid arthritis involving both feet M06.071 ; Insomnia G47.00 ; Hypothyroidism in adult E03.9 ; Hypercholesterolemia E78.0 and Rheumatoid arthritis involving multiple sites with positive rheumatoid factor M05.79 [place] [address] [address]- 1624 Jul, [place] [address] 3086 June, [place] [id number] [place] [address] [id number]- 5567 June, Depression, prolonged F32.9 [facility] [address] [address] 2342 June, [facility] [address] [place] [address] 81791- 1363 June, [place] [address] [address]- 5917 June, Hypothyroidism in adult E03.9 [place] [address] [place] [address] 69219- 4848 June, Rheumatoid arthritis involving both feet M06.071 [place] [id number] [place] [address] 20377- 5021 May, CAD (coronary artery disease) I25.10 ; Rheumatoid arthritis involving both feet M06.071 ; Hyperlipidemia, acquired E78.5 ; Hypothyroidism in adult E03.9 ; Depression, prolonged F32.9 ; 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 ; Type 2 diabetes mellitus with hypoglycemia without coma E11.649 ; Vision abnormalities H53.9 and Vision changes H53.9 [place] [id number] [place] [address] 26702- 5953 Apr, [place] [id number] [place] [address] 20946- 2784 Apr, DM (diabetes mellitus) type I uncontrolled with eye manifestation E10.39 [place] [id number] [place] [address] 61700- 6367 Apr, Rheumatoid arthritis involving both feet M06.071 [place] [address] [address]- 6993 Mar, Rheumatoid arthritis involving both feet M06.071 [place] [address] [address]- 4289 Mar, [place] [id number] [place] [address] 54847- 2027 Feb, Rheumatoid arthritis involving both feet M06.071 [place] [address] [address]- 6876 Feb, DM (diabetes mellitus) type I uncontrolled with eye manifestation E10.39 ; Rheumatoid arthritis involving both feet M06.071 ; CAD ( coronary artery disease) I25.10 ; Depression, prolonged F32.9 ; Hyperlipidemia, acquired E78.5 ; Hypothyroidism in adult E03.9 and Environmental allergies Z91.09 [facility] [id number] [place] [address] 89326- 7115 Jan, [place] [id number] [place] [address] 64260- 8885 Jan, Hyperlipemia E78.5 ; DM (diabetes mellitus) type I uncontrolled with eye manifestation E10.39 ; CAD (coronary artery disease) I25.10 ; Hyperlipidemia, acquired E78.5 ; Depression, prolonged F32.9 ; 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 ; Hypercholesterolemia E78.0 ; RA (refractory anemia) D46.4 and Rheumatoid arthritis involving multiple sites with positive rheumatoid factor M05.79 [place] [id number] [place] [address] 53229- 7212 Jan, [place] [id number] [place] [address] 65766- 4707 Jan, [place] [id number] [place] [address] 44003- 7678 Sep, [place] [id number] [place] [address] 97891- 5680 Sep, [facility] [id number] [place] [address] 08209- 0359 Aug, [place] [id number] [place] [address] 64518- 8338 Aug, 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 [id number] [place] [address] 79283- 3634 June, CAD (coronary artery disease) I25.10 ; Insomnia G47.00 ; Rheumatoid arthritis involving both feet M06.071 ; Hypothyroidism in adult E03.9 ; 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 ; Type 2 diabetes mellitus with hypoglycemia without coma E11.649 ; senior care current use of insulin Z79.4 ; Hypercholesterolemia E78.0 ; Environmental allergies Z91.09 and Rib pain R07.81 [address] [place] [address] 78847- 4807 June, [address] 46936- 3943 June, 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 [place] [id number] [place] [address] 76118- 8726 May, Rheumatoid arthritis involving both feet M06.071 [place] [address] [place] [address] 85898- 8212 May, CAD (coronary artery disease) I25.10 ; DM (diabetes mellitus ) type I uncontrolled with eye manifestation E10.39 ; Insomnia G47.00 ; Rheumatoid arthritis involving both feet M06.071 ; Hyperlipidemia, acquired E78.5 ; Depression, prolonged F32.9 ; 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 and Hypothyroid E03.[address] [place] [address] 05346- 8365 Apr, [place] [id number] [place] [address] 45658- 1625 Mar, DM (diabetes mellitus) type I uncontrolled with eye manifestation E10.39 ; Insomnia G47.00 ; Insulin long-term use Z79.4 ; Rheumatoid arthritis involving both feet M06.071 ; Hyperlipidemia, acquired E78.5 ; Hypothyroidism in adult E03.9 ; Depression, prolonged F32.9 ; CAD ( coronary artery disease) I25.10 and 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 [address] [address]- 8986 Mar, [place] [id number] [place] [address] 14918- 7272 Feb, [facility] [address] [address]- 4381 Jan, [facility] [id number] [place] [address] 48514- 3100 Dec, [facility] [address] [address]- 6486 Nov, [facility] [id number] [place] [address] 42789- 1416 14 Nov, 2014 Hyperlipemia E78.5 and Hypothyroid E03.9 [place] [id number] [place] [address] 539531- 5822 13 Nov, 2014 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 ; DM (diabetes mellitus) type I uncontrolled with eye manifestation E10.39 ; Hypothyroidism in adult E03.9 and Hyperlipidemia, acquired E78.5 [facility] [id number] [place] [address] 44422- 9482 07 Nov, 2014 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 ; CAD (coronary artery disease) I25.10 ; DM (diabetes mellitus) type I uncontrolled with eye manifestation E10.39 ; Insomnia G47.00 ; Rheumatoid arthritis involving both feet M06.071 ; Insulin long-term use Z79.4 ; Hyperlipidemia, acquired E78.5 ; Hypothyroidism in adult E03.9 ; Depression, prolonged F32.9 and 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 [facility] [address] [address]- 4785 Oct, [facility] [address] [address]- 9012 Oct, [facility] [id number] [place] [address] 08493- 0683 Oct, [facility] [address] [address]- 5884 Sep, [facility] [address] [place] [address] 73237- 8524 Aug, [facility] [address] [address]- 5201 Aug, Coronary atherosclerosis of unspecified type of vessel, [place] or graft 414.00 ; Rheumatoid arthritis 714.0 ; Insulin dependent diabetes mellitus 250.00 ; Hyperlipidemia 272.4 ; Hypothyroidism 244.9 ; Depression 311 and Insomnia 780.52 [facility] [id number] [place] [address] 26950- 8143 Aug, [facility] [id number] [place] [address] 66213- 7204 Jul, [place] [id number] [place] [address] 98107- 9822 Jul, [place] [id number] [place] [address] 36875- 6089 Jul, Breast cancer screening V76.10 [place] [id number] [place] [address] 96689- 8360 Jul, ASCUS with positive high risk HPV 796.9 [place] [id number] [place] [address] 11405- 4597 June, [place] [id number] [place] [address] 56850- 4453 June, Routine gynecological examination V72.31 ; Pap test, as part of routine gynecological examination V76.2 ; Breast cancer screening V76.10 ; Perimenopausal 627.2 and Tobacco abuse 305.1 [place] [address] [address]- 0828 June, Rheumatoid arthritis 714.0 ; Insulin dependent diabetes mellitus 250.00 and Depression 311 [place] [id number] [place] [address] 64189- 5774 June, [facility] [id number] [place] [address] 79247- 8155 June, [facility] [id number] [place] [address] 05811- 7969 14 May, 2014 [facility] [place] [facility] [address] [id number] [place] [address]- 7636 May, [facility] [place] [facility] [address] [id number] [place] [address]- 9759 Apr, [facility] [place] [facility] [address] [id number] [place] [address]- 4320 Apr, [facility] [place] [facility] [address] [id number] [place] [address]- 1746 Apr, [facility] [place] [facility] [address] [id number] [place] [address]- 7522 Apr, [facility] [place] [facility] [address] [id number] [place] [address]- 6696 Apr, [facility] [place] [facility] [address] [id number] [place] [address]- 7627 Apr, [facility] [place] [facility] [address] [id number] [place] [address]- 1374 Apr, [facility] [place] [facility] [address] [id number] [place] [address]- 9729 Apr, [facility] [place] [facility] [address] [id number] [place] [address]- 2029 Apr, [facility] [place] [facility] [address] [id number] [place] [address]- 7244 Apr, [facility] [place] [facility] [address] [id number] [place] [address]- 3671 Apr, [facility] [place] [facility] [address] [id number] [place] [address]- 1139 Apr, [facility] [place] [facility] [address] [id number] [place] [address]- 8952 Feb, [facility] [place] [facility] [address] [id number] [place] [address]- 9226 Feb, [facility] [place] [facility] [address] [id number] [place] [address]- 6791 Feb, [facility] [address] [id number] [place] [address]- 5407 Feb, [facility] [place] [facility] [address] [id number] [place] [address]- 8565 Feb, [facility] [address] [id number] [place] [address]- 9447 Feb, [facility] [address] [id number] [place] [address]- 9537 Jan, [facility] [address] [id number] [place] [address]- 5532 Jan, [facility] [address] [id number] [place] [address]- 0272 Jan, [facility] [address] [id number] [place] [address]- 3360 Jan, [facility] [address] [id number] [place] [address]- 4266 Jan, [facility] [address] [id number] [place] [address]- 4932 Jan, [facility] [address] [id number] [place] [address]- 8395 Jan, [facility] [place] [facility] [address] [id number] [place] [address]- 2695 Jan, [facility] [place] [facility] [address] [id number] [place] [address]- 6118 Jan, [facility] [place] [facility] [address] [id number] [place] [address]- 2625 Jan, [facility] [place] [facility] [address] [id number] [place] [address]- 6092 Dec, [facility] [place] [facility] [address] [id number] [place]- 8223 Dec, [facility] [place] [facility] [address] [id number] [place] [address]- 1267 Nov, [facility] [place] [facility] [address] [id number] [place] [address]- 1395 Nov, [facility] [place] [facility] [address] [id number] [place] [address]- 9463 Nov, [facility] [place] [facility] [address] [id number] [place] [address]- 9970 Nov, [facility] [place] [facility] [address] [id number] [place] [address]- 2037 Nov, [facility] [place] [facility] [address] [id number] [place] [address]- 5885 27 Oct, 2013 [facility] [place] [facility] [address] [id number] [place] [address]- 2450 27 Oct, 2013 [facility] [place] [facility] [address] [id number] [place] [address]- 0909 23 Oct, 2013 [facility] [place] [facility] [address] [id number] [place] [address]- 2867 23 Oct, 2013 [facility] [place] [facility] [address] [id number] [place] [address]- 7723 22 Oct, 2013 [facility] [place] [facility] [address] [id number] [place] [address]- 6732 22 Oct, 2013 [facility] [place] [facility] [address] [id number] [address]- 7402 18 Oct, 2013 [facility] [place] [facility] [address] [id number] [place] [address]- 2545 18 Oct, 2013 [facility] [place] [facility] [address] [id number] [place] [address]- 8061 12 Oct, 2013 [facility] [place] [facility] [address] [id number] [place] [address]- 0978 12 Oct, 2013 [facility] [place] [facility] [address] [id number] [place] [address]- 6761 Oct, [facility] [place] [facility] [address] [id number] [place] [address]- 8519 Oct, [facility] [place] [facility] [address] [id number] [place] [address]- 7990 Oct, [facility] [place] [facility] [address] [id number] [place] [address]- 9655 Oct, [facility] [place] [facility] [address] [id number] [place] [address]- 9482 Oct, [facility] [place] [facility] [address] [id number] [place] [address]- 8488 Oct, [facility] [place] [facility] [address] [id number] [place] [address]- 5554 June, [facility] [place] [facility] [address] [id number] [place] [address]- 1182 June, [facility] [place] [facility] [address] [id number] [place] [address]- 6545 June, [facility] [place] [facility] [address] [id number] [place] [address]- 6389 June, [facility] [place] [facility] [address] [id number] [place] [address]- 2567 May, [facility] [place] [facility] [address] [id number] [place] [address]- 9503 May, [facility] [place] [facility] [address] [id number] [place] [address]- 2031 Apr, [facility] [place] [facility] [address] [id number] [place] [address]- 2301 Apr, [facility] [place] [facility] [address] [id number] [place] [address]- 6003 Mar, [facility] [place] [facility] [address] [id number] [place] [address]- 0193 Mar, [facility] [place] [facility] [address] [id number] [place] [address]- 0494 Mar, [facility] [place] [facility] [address] [id number] [place] [address]- 6547 Mar, [facility] [place] [facility] [address] [id number] [place] [address]- 2242 Mar, [facility] [place] [facility] [address] [id number] [place] [address]- 2502 Mar, [facility] [place] [facility] [address] [id number] [place] [address]- 9883 Jan, [facility] [place] [facility] [address] [id number] [place] [address]- 0225 Jan, [facility] [place] [facility] [address] [id number] [place] [address]- 0355 Dec, [facility] [place] [facility] [address] [id number] [place] [address]- 9578 Dec, [facility] [place] [facility] [address] [id number] [place] [address]- 0405 Dec, [facility] [place] [facility] [address] [facility] [id number] [address]- 2323 Dec, [facility] [place] [facility] [address] [facility] [id number] [place] [address]- 5883 Dec, [facility] [place] [facility] [address] [id number] [place] [address]- 5811 Dec, [facility] [place] [facility] [address] [id number] [place] [address] Nov, [facility] [place] [facility] [address] [id number] [place] [address] 30 Nov, 2012 [facility] [place] [facility] [address] [id number] [place] [address] 17 Nov, 2012 [facility] [place] [facility] [address] [id number] [place] [address] 17 Nov, 2012 [facility] [place] [facility] [address] [id number] [place] [address] 15 Nov, 2012 [facility] [place] [facility] [address] [id number] [place] [address] 15 Nov, 2012 [facility] [place] [facility] [address] [id number] [place] [address] 10 Nov, 2012 [facility] [place] [facility] [address] [id number] [place] [address] 10 Nov, 2012 [facility] [place] [facility] [address] [id number] [place] [address] 26 Oct, 2012 [facility] [place] [facility] [address] [id number] [place] [address] 18 Oct, 2012 [facility] [place] [facility] [address] [id number] [place] [address] 17 Oct, 2012 [facility] [place] [facility] [address] [id number] [place] [address] 12 Oct, 2012 [facility] [place] [facility] [address] [id number] [place] [address] 11 Oct, 2012 [facility] [place] [facility] [address] [id number] [place] [address] 07 Oct, 2012 [facility] [place] [facility] [address] [id number] [place] [address] 06 Oct, 2012 [facility] [place] [facility] [address] [id number] [place] [address] Sep, [facility] [place] [facility] [address] [id number] [place] [address] Sep, [facility] [place] [facility] [address] [id number] [place] [address] Sep, [facility] [place] [facility] [address] [id number] [place] [address]- [address] 18 Sep, 2012 [facility] [place] [facility] [address] [id number] [place] [address] 17 Sep, 2012 [facility] [address] [id number] [place] [address] Sep, [facility] [place] [facility] [address] [id number] [place] [address]- [address] Sep, [facility] [place] [facility] [address] [id number] [place] [address] Sep, [facility] [place] [facility] [address] [id number] [place] [address] Aug, [facility] [place] [facility] [address] [id number] [place] [address] Aug, [place] [facility] [place] [facility] [address] [id number] [place] [address] Jul, [facility] [place] [facility] [address] [id number] [place] [address] Jul, [facility] [place] [facility] [address] [id number] [place] [address] Jul, [facility] [place] [facility] [address] [id number] [place] [address] Jul, [facility] [place] [facility] [address] [id number] [place] [address] June, [facility] [place] [facility] [address] [id number] [place] [address] June, [facility] [place] [facility] [address] [id number] [place] [address] May, [facility] [place] [facility] [address] [id number] [place] [address] Apr, [facility] [place] [facility] [address] [id number] [place] [address] Mar, [facility] [place] [facility] [address] [id number] [place] [address] 04 Mar, 2012 [facility] [address] [id number] [place] [address] 14 Feb, 2012 [facility] [place] [facility] [address] [id number] [place] [address] 27 Oct, 2011 [facility] [place] [facility] [address] [id number] [place] [address] 16 Sep, 2011 [facility] [place] [facility] [address] [id number] [place] [address] Jul, [facility] [place] [facility] [address] [id number] [place] [address] 24 May, 2011 [facility] [place] [facility] [address] [id number] [place] [address] May, [facility] [place] [facility] [address] [id number] [place] [address] 16 Mar, 2011 [facility] [place] [facility] [address] [id number] [place] [address] 15 Mar, 2011 [facility] [address] [id number] [place] [address] 14 Mar, 2011 [facility] [place] [facility] [address] [id number] [place] [address] Feb, [facility] [place] [facility] [address] [id number] [place] [address] Feb, [facility] [place] [facility] [address] [id number] [place] [address] Feb, [facility] [place] [facility] [address] [id number] [place] [address] Feb, [facility] [place] [facility] [address] [id number] [place] [address] Feb, [facility] [place] [facility] [address] [id number] [place] [address] Feb, [facility] [place] [facility] [address] [id number] [place] [address] Feb, [facility] [address] [id number] [place] [address] Feb, [facility] [address] [id number] [place] [address] Jan, [facility] [address] [id number] [place] [address] Jan, [facility] [address] [id number] [place] [address] Dec, [facility] [address] [id number] [place] [address] Dec, [facility] [address] [id number] [place] [address] [address] Dec, [facility] [address] [id number] [place] [address] Dec, [facility] [address] [id number] [place] [address] Nov, [facility] [address] [id number] [place] [address] Jan, [facility] [address] [id number] [place] [address] Jan, [facility] [address] [id number] [place] [address] Jan, [facility] [address] [id number] [place] [address] Jan, [facility] [place] [facility] [address] [id number] [place] [address] Jan, [facility] [address] [id number] [place] [address] [address] Jan, [facility] [address] [id number] [place] [address] Jan, [facility] [address] [facility] [id number] [place] [address] Jan, [facility] [address] [facility] [id number] [place] [address] Dec, [facility] [address] [facility] [id number] [place] [address] Nov, [facility] [address] [facility] [id number] [place] [address] Jul, [facility] [address] [facility] [id number] [place] [address] June, [facility] [address] [facility] [id number] [place] [address] June, [facility] [address] [facility] [id number] [place] [address] May, [facility] [address] [id number] [place] [address] Jan, [facility] [address] [facility] [id number] [place] [address] Dec, [facility] [address] [id number] [place] [address] Dec, [facility] [address] [id number] [place] [address] Dec, [facility] [address] [id number] [place] [address] Nov, [facility] [address] [facility] [id number] [place] [address] Nov, [facility] [address] [facility] [id number] [place] [address] 14 Oct, 2008 IMMUNIZATIONS No Known Immunizations SOCIAL HISTORY Never Assessed REASON FOR VISIT Percocet- 11/01 PLAN OF CARE VITAL SIGNS MEDICATIONS Medication Instructions Dosage Frequency Start Date End Date Duration Status Percocet 7.5-325 MG Orally every 6 hrs 1 tablet as needed 6h Sep, 28 days Active RESULTS No Results PROCEDURES [...]
--- OUTSIDE RECORDS SUMMARY | 2017-08-29 15:01 | XMS REPORT | Continuity of Care Document ---
Author Author [facility] Address Unknown Phone Unavailable Allergies Active Description Code Type Severity Reaction Onset Reported/Identified Relationship to Patient Clinical Status Yes CODEINE-GUAIFENESIN CODEINE -GUAIFENESIN SEVERE Yes SULFA (SULFONAMIDE ANTIBIOTICS) SULFA (SULFONAMIDE A UNKNOWN Yes CODEINE-GUAIFENESIN SEVERE ITCHING Yes SULFA (SULFONAMIDE ANTIBIOTICS) UNKNOWN OTHER Yes codeine Drug Allergy 03/20/2008 Yes codeine Drug Allergy N/A N/A 03/20/2008 Yes codeine [id number] Drug Allergy Mild N/A 06/04/2009 Yes Bactrim Drug Allergy N/A N/A 10/25/2012 Yes sulfamethoxazole [id number] Drug Allergy Unknown N/A 01/17/2014 Yes trimethoprim [id number] Drug Allergy Unknown N/A 01/17/2014 Yes codeine [id number] Drug Allergy Mild PT TAKES TRAMAD 01/18/2014 Medications Medication Packaging Start Date Stop Date Route Dosage Sig NORMAL SALINE 500CC IV BAG INJ 0.9 % (NS 500CC IV BAG) ml 08/24/2016 08/24/2016 ONCE&1339 NORMAL SALINE 1000CC IV BAG INJ 0.9 % (NS 1000CC IV BAG) ml 08/24/2016 08/24/2016 ONCE&1510 INSULIN REGULAR HUMAN INJ 100 UNITS/CC (HUMULIN R / NOVOLIN R INSULIN) UNITS 08/24/2016 08/24/2016 ONCE&1556 NORMAL SALINE 1000CC IV BAG INJ 0.9 % (NS 1000CC IV BAG) ml 08/24/2016 09/08/2016 CONTINUOUSEVERY 0 Hour INSULIN ASPART PEN INJ 100 UNITS/CC (NOVOLOG FLEXPEN) 08/24/2016 09/23/2016 ACHS&0630,1130,1630,2100 Normal Saline 1000cc W/KCl 20mEq ml 08/24/2016 08/31/2016 CONTINUOUSEVERY 0 Hour Normal Saline 1000cc W/KCl 20mEq ml 08/24/2016 08/31/2016 CONTINUOUSEVERY 0 Hour ENDOCET 7.5-325 MG TABLET (oxycodone-acetaminophen) oral tablet Dose(s) 08/24/2016 08/31/2016 PRN Q6H SIMVASTATIN TAB 40 MG (ZOCOR) Dose(s) 08/24/2016 08/30/2016 QPM&2000 METOPROLOL TAB 25 MG (LOPRESSOR) Dose(s) 08/24/2016 08/31/2016 BID&0800,2000 FAMOTIDINE IV PREMIX BAG INJ 20 MG/50CC (PEPCID IV PREMIX BAG) MG 08/24/2016 08/31/2016 BID&0800,2000 NORMAL SALINE 1000CC IV BAG INJ 0.9 % (NS 1000CC IV BAG) ml 08/24/2016 09/08/2016 CONTINUOUSEVERY 0 Hour Celecoxib oral capsule 100mg (Celebrex) MG 08/24/2016 09/02/2016 QHS&2100 MELATONIN TAB 3 MG (MELATONIN) Dose(s) 08/24/2016 08/30/2016 QHS&2100 INSULIN ASPART PEN INJ 100 UNITS/CC (NOVOLOG FLEXPEN) Dose(s) 08/25/2016 09/23/2016 QAM&0700 INSULIN DETEMIR PEN INJ 100 UNITS/CC (LEVEMIR FLEXPEN) Dose(s) 08/25/2016 09/23/2016 QAM&0800 Celecoxib oral capsule 100mg (Celebrex) Dose(s ) 08/25/2016 09/03/2016 Daily&0900 CLOPIDOGREL TAB 75 MG (PLAVIX) Dose(s) 08/25/2016 08/31/2016 Daily&0900 ASA 81MG ENTERIC COATED TAB 81 MG (BABY ASPIRIN EC) Dose(s) 08/25/2016 08/31/2016 Daily&0900 PREDNISONE TAB 10 MG (DELTASONE) Dose(s) 08/25/2016 08/31/2016 Daily&0900 FOLIC ACID TAB 1 MG Dose(s) 201608/31/2016 Daily&0900 FLUOXETINE CAP 20 MG (PROZAC) Dose(s) 08/25/2016 08/31/2016 Daily&0900 XELJANZ XR 11 MG TABLET (tofacitinib) oral tablet extended release 24 hr tab 08/25/2016 08/31/2016 Daily&0900 LEVOTHYROXINE TAB 100 MCG (SYNTHROID) Dose(s) 08/25/2016 08/31/2016 Daily&0900 INSULIN ASPART PEN INJ 100 UNITS/CC (NOVOLOG FLEXPEN) Dose(s) 08/25/2016 09/23/2016 Daily&0900 INSULIN ASPART PEN INJ 100 UNITS/CC (NOVOLOG FLEXPEN) UNITS 08/25/2016 09/23/2016 Daily&1700 METHOTREXATE TAB 2.5 MG (RHEUMATREX) Dose(s) 08/30/2016 09/08/2016 Q1WK&0900 Problems Date Dx Coded Attending Type Code Diagnosis Diagnosed By 10/10/2007 250.02 DIABETES MELLITUS POORLY CONTROLLED 10/10/2007 787.01 NAUSEA WITH VOMITING 10/10/2007 ESTRELLITA AUSTIN APRN 250.02 DIABETES MELLITUS POORLY CONTROLLED 10/10/2007 ESTRELLITA AUSTIN APRN 787.01 NAUSEA WITH VOMITING 10/10/2007 ESTRELLITA AUSTIN APRN 250.02 DIABETES MELLITUS POORLY CONTROLLED 10/10/2007 ESTRELLITA AUSTIN APRN 787.01 Nausea With Vomiting 10/10/2007 250.02 DIABETES MELLITUS POORLY CONTROLLED 10/10/2007 787.01 Nausea With Vomiting 10/10/2007 250.02 DIABETES MELLITUS POORLY CONTROLLED 10/10/2007 787.01 Nausea With Vomiting 10/10/2007 250.02 DIABETES MELLITUS POORLY CONTROLLED 10/10/2007 787.01 Nausea With Vomiting 10/10/2007 250.02 DIABETES MELLITUS POORLY CONTROLLED 10/10/2007 787.01 Nausea With Vomiting 10/10/2007 ESTRELLITA AUSTIN APRN 250.02 DIABETES MELLITUS POORLY CONTROLLED 10/10/2007 ESTRELLITA AUSTIN APRN 787.01 Nausea With Vomiting 10/10/2007 JUAN CARLOS ACOSTA MD 250.02 DIABETES MELLITUS POORLY CONTROLLED 10/10/2007 JUAN CARLOS ACOSTA MD 787.01 Nausea With Vomiting 10/10/2007 JUAN CARLOS ACOSTA MD 250.02 DIABETES MELLITUS POORLY CONTROLLED 10/10/2007 JUAN CARLOS ACOSTA MD 787.01 Nausea With Vomiting 10/10/2007 JUAN CARLOS ACOSTA MD 250.02 DIABETES MELLITUS POORLY CONTROLLED 10/10/2007 JUAN CARLOS ACOSTA MD 787.01 Nausea With Vomiting 10/10/2007 ANITA TAYLOR APRN 250.02 DIABETES MELLITUS POORLY CONTROLLED 10/10/2007 BRANDON WICK, ANITA R 787.01 Nausea With Vomiting 10/10/2007 BRANDON WICK, ANITA R 250.02 DIABETES MELLITUS POORLY CONTROLLED 10/10/2007 BRANDON WICK, ANITA R 787.01 Nausea With Vomiting 10/10/2007 BRANDON WICK, ANITA R 250.02 DIABETES MELLITUS POORLY CONTROLLED 10/10/2007 AUTUMN TAYLOR APRNINA R 787.01 Nausea With Vomiting 10/10/2007 CATA MELENDEZ MD 250.02 DIABETES MELLITUS POORLY CONTROLLED 10/10/2007 CATA MELENDEZ MD 787.01 Nausea With Vomiting 10/10/2007 WILKES DOSANJAYA K 250.02 DIABETES MELLITUS POORLY CONTROLLED 10/10/2007 WILKES JEANETTE SHAW 787.01 Nausea With Vomiting 11/13/2007 250.03 DIABETES MELLITUS TYPE I - UNCONTROLLED 11/13/2007 ESTRELLITA AUSTIN APRN 250.03 DIABETES MELLITUS TYPE I - UNCONTROLLED 11/13/2007 ESTRELLITA AUSTIN APRN 250.03 Diabetes Mellitus Type I - Uncontrolled 11/13/2007 250.03 Diabetes Mellitus Type I - Uncontrolled 11/13/2007 250.03 Diabetes Mellitus Type I - Uncontrolled 11/13/2007 250.03 Diabetes Mellitus Type I - Uncontrolled 11/13/2007 250.03 Diabetes Mellitus Type I - Uncontrolled 11/13/2007 ESTRELLITA AUSTIN APRN 250.03 Diabetes Mellitus Type I - Uncontrolled 11/13/2007 JUAN CARLOS ACOSTA MD 250.03 Diabetes Mellitus Type I - Uncontrolled 11/13/2007 JUAN CARLOS ACOSTA MD 250.03 Diabetes Mellitus Type I - Uncontrolled 11/13/2007 JUAN CARLOS ACOSTA MD 250.03 Diabetes Mellitus Type I - Uncontrolled 11/13/2007 AUTUMN TAYLOR APRNINA R 250.03 Diabetes Mellitus Type I - Uncontrolled 11/13/2007 AUTUMN TAYLOR APRNINA R 250.03 Diabetes Mellitus Type I - Uncontrolled 11/13/2007 AUTUMN TAYLOR APRNINA R 250.03 Diabetes Mellitus Type I - Uncontrolled 11/13/2007 CATA MELENDEZ MD 250.03 Diabetes Mellitus Type I - Uncontrolled 11/13/2007 JEANETTE WILKES DO 250.03 Diabetes Mellitus Type I - Uncontrolled 12/02/2007 079.99 VIRAL SYNDROME 12/02/2007 ESTRELLITA AUSTIN APRN 079.99 VIRAL SYNDROME 12/02/2007 ESTRELLITA AUSTIN APRN 079.99 Viral Syndrome 12/02/2007 079.99 Viral Syndrome 12/02/2007 079.99 Viral Syndrome 12/02/2007 079.99 Viral Syndrome 12/02/2007 079.99 Viral Syndrome 12/02/2007 ESTRELLITA AUSTIN APRN T 079.99 Viral Syndrome 12/02/2007 JUAN CARLOS ACOSTA MD 079.99 Viral Syndrome 12/02/2007 JUAN CARLOS ACOSTA MD 079.99 Viral Syndrome 12/02/2007 JUAN CARLOS ACOSTA MD 079.99 Viral Syndrome 12/02/2007 BRANDON WICK, ANITA R 079.99 Viral Syndrome 12/02/2007 BRANDON VALDOVINOSN, ANITA R 079.99 Viral Syndrome 12/02/2007 BRANDON DELANO, ANITA R 079.99 Viral Syndrome 12/02/2007 CATA MELENDEZ MD 079.99 Viral Syndrome 12/02/2007 WILKES DO, JEANETTE Talbot 079.99 Viral Syndrome 03/20/2008 784.0 headache 03/20/2008 ESTRELLITA AUSTIN APRN 784.0 headache 03/20/2008 ESTRELLITA AUSTIN APRN 784.0 Headache 03/20/2008 784.0 Headache 03/20/2008 784.0 Headache 03/20/2008 784.0 Headache 03/20/2008 784.0 Headache 03/20/2008 ESTRELLITA AUSTIN APRN 784.0 Headache 03/20/2008 JUAN CARLOS ACOSTA MD 784.0 Headache 03/20/2008 JUAN CARLOS ACOSTA MD 784.0 Headache 03/20/2008 JUAN CARLOS ACOSTA MD 784.0 Headache 03/20/2008 BRANDON WICK, ANITA R 784.0 Headache 03/20/2008 BRANDON WICK, ANITA R 784.0 Headache 03/20/2008 BRANDON WICK, ANITA R 784.0 Headache 03/20/2008 CATA MELENDEZ MD 784.0 Headache 03/20/2008 WILKES DOJEANETTE 784.0 Headache 04/15/2008 250.6 NEUROPATHY DIABETIC 04/15/2008 719.46 joint pain, localized in the knee 04/15/2008 ESTRELLITA AUSTIN APRN 250.6 NEUROPATHY DIABETIC 04/15/2008 ESTRELLITA AUSTIN APRN 719.46 joint pain, localized in the knee 04/15/2008 ESTRELLITA AUSTIN APRN T 250.6 NEUROPATHY DIABETIC 04/15/2008 ESTRELLITA AUSTIN APRN 719.46 joint pain, localized in the knee 04/15/2008 250.6 NEUROPATHY DIABETIC 04/15/2008 719.46 joint pain, localized in the knee 04/15/2008 250.6 NEUROPATHY DIABETIC 04/15/2008 719.46 joint pain, localized in the knee 04/15/2008 250.6 NEUROPATHY DIABETIC 04/15/2008 719.46 joint pain, localized in the knee 04/15/2008 250.6 NEUROPATHY DIABETIC 04/15/2008 719.46 joint pain, localized in the knee 04/15/2008 ESTRELLITA AUSTIN APRN 250.6 NEUROPATHY DIABETIC 04/15/2008 ESTRELLITA AUSTIN APRN 719.46 joint pain, localized in the knee 04/15/2008 JUAN CARLOS ACOSTA MD 250.6 NEUROPATHY DIABETIC 04/15/2008 JUAN CARLOS ACOSTA MD 719.46 joint pain, localized in the knee 04/15/2008 JUAN CARLOS ACOSTA MD 250.6 NEUROPATHY DIABETIC 04/15/2008 JUAN CARLOS ACOSTA MD 719.46 joint pain, localized in the knee 04/15/2008 JUAN CARLOS ACOSTA MD 250.6 NEUROPATHY DIABETIC 04/15/2008 JUAN CARLOS ACOSTA MD 719.46 joint pain, localized in the knee 04/15/2008 BRANDON SUPERVISOR TUNNEL HEADING, ANITA R 250.6 NEUROPATHY DIABETIC 04/15/2008 BRANDON SUPERVISOR TUNNEL HEADING, ANITA R 719.46 joint pain, localized in the knee 04/15/2008 BRANDON SUPERVISOR TUNNEL HEADING, ANITA R 250.6 NEUROPATHY DIABETIC 04/15/2008 BRANDON SUPERVISOR TUNNEL HEADING, ANITA R 719.46 joint pain, localized in the knee 04/15/2008 BRANDON SUPERVISOR TUNNEL HEADING, ANITA R 250.6 NEUROPATHY DIABETIC 04/15/2008 BRANDON SUPERVISOR TUNNEL HEADING, ANITA R 719.46 joint pain, localized in the knee 04/15/2008 CATA MELENDEZ MD 250.6 NEUROPATHY DIABETIC 04/15/2008 CATA MELENDEZ MD 719.46 joint pain, localized in the knee 04/15/2008 JEANETTE WILKES DO 250.6 NEUROPATHY DIABETIC 04/15/2008 JEANETTE WILKES DO K 719.46 joint pain, localized in the knee 04/26/2008 785.6 LYMPH NODES ENLARGEMENT 04/26/2008 ESTRELLITA AUSTIN APRN T 785.6 LYMPH NODES ENLARGEMENT 04/26/2008 ESTRELLITA AUSTIN APRN T 785.6 Lymph Nodes Enlargement 04/26/2008 785.6 Lymph Nodes Enlargement 04/26/2008 785.6 Lymph Nodes Enlargement 04/26/2008 785.6 Lymph Nodes Enlargement 04/26/2008 785.6 Lymph Nodes Enlargement 04/26/2008 ESTRELLITA AUSTIN APRN T 785.6 Lymph Nodes Enlargement 04/26/2008 DAVE CARTWRIGHT, JUAN CARLOS Reid 785.6 Lymph Nodes Enlargement 04/26/2008 DAVE CARTWRIGHT, JUAN CARLOS Reid 785.6 Lymph Nodes Enlargement 04/26/2008 DAVE CARTWRIGHT, JUAN CARLOS Reid 785.6 Lymph Nodes Enlargement 04/26/2008 BRANDON VALDOVINOSN, ANITA R 785.6 Lymph Nodes Enlargement 04/26/2008 BRANDON WICK, ANITA R 785.6 Lymph Nodes Enlargement 04/26/2008 BRANDON WICK, ANITA R 785.6 Lymph Nodes Enlargement 04/26/2008 CATA MELENDEZ MD 785.6 Lymph Nodes Enlargement 04/26/2008 JEANETTE WILEKS DO K 785.6 Lymph Nodes Enlargement 11/01/2008 078.10 WARTS 11/01/2008 ESTRELLITA AUSTIN APRN 078.10 WARTS 11/01/2008 ESTRELLITA AUSTIN APRN 078.10 Warts 11/01/2008 078.10 Warts 11/01/2008 078.10 Warts 11/01/2008 078.10 Warts 11/01/2008 078.10 Warts 11/01/2008 ESTRELLITA AUSTIN APRN 078.10 Warts 11/01/2008 JUAN CARLOS ACOSTA MD 078.10 Warts 11/01/2008 DAVE CARTWRIGHT, JUAN CARLOS Reid 078.10 Warts 11/01/2008 JUAN CARLOS ACOSTA MD 078.10 Warts 11/01/2008 BRANDON WICK, ANITA R 078.10 Warts 11/01/2008 BRANDON WICK, ANITA R 078.10 Warts 11/01/2008 BRANDON WICK, ANITA R 078.10 Warts 11/01/2008 NORA CARTWRIGHT, CATA 078.10 Warts 11/01/2008 JEANETTE WILKES DO 078.10 Warts 11/29/2008 V72.31 CLOTH BALER EXAM, ROUTINE 11/29/2008 ESTRELLITA AUSTIN APRN V72.31 CLOTH BALER EXAM, ROUTINE 11/29/2008 ESTRELLITA AUSTIN APRN V72.31 CLOTH BALER EXAM, ROUTINE 11/29/2008 V72.31 CLOTH BALER EXAM, ROUTINE 11/29/2008 V72.31 CLOTH BALER EXAM, ROUTINE 11/29/2008 V72.31 CLOTH BALER EXAM, ROUTINE 11/29/2008 V72.31 CLOTH BALER EXAM, ROUTINE 11/29/2008 ESTRELLITA AUSTIN APRN V72.31 CLOTH BALER EXAM, ROUTINE 11/29/2008 DAVE CARTWRIGHT, JUAN CARLOS eRid V72.31 CLOTH BALER EXAM, ROUTINE 11/29/2008 JUAN CARLOS ACOSTA MD V72.31 CLOTH BALER EXAM, ROUTINE 11/29/2008 JUAN CARLOS ACOSTA MD V72.31 CLOTH BALER EXAM, ROUTINE 11/29/2008 BRANDON WICK, ANITA R V72.31 CLOTH BALER EXAM, ROUTINE 11/29/2008 BRANDON WICK, ANITA R V72.31 CLOTH BALER EXAM, ROUTINE 11/29/2008 BRANDON WICK, ANITA R V72.31 CLOTH BALER EXAM, ROUTINE 11/29/2008 CATA MELENDEZ MD V72.31 CLOTH BALER EXAM, ROUTINE 11/29/2008 JEANETTE WILKES DO V72.31 CLOTH BALER EXAM, ROUTINE 12/25/2008 461.2 ACUTE ETHMOIDAL SINUSITIS 12/25/2008 ESTRELLITA AUSTIN APRN 461.2 ACUTE ETHMOIDAL SINUSITIS 12/25/2008 ESTRELLITA AUSTIN APRN 461.2 Acute Ethmoidal Sinusitis 12/25/2008 461.2 Acute Ethmoidal Sinusitis 12/25/2008 461.2 Acute Ethmoidal Sinusitis 12/25/2008 461.2 Acute Ethmoidal Sinusitis 12/25/2008 461.2 Acute Ethmoidal Sinusitis 12/25/2008 ESTRELLITA AUSTIN APRN 461.2 Acute Ethmoidal Sinusitis 12/25/2008 JUAN CARLOS ACOSTA MD 461.2 Acute Ethmoidal Sinusitis 12/25/2008 JUAN CARLOS ACOSTA MD 461.2 Acute Ethmoidal Sinusitis 12/25/2008 DAVE CARTWRIGHT, JUAN CARLOS Reid 461.2 Acute Ethmoidal Sinusitis 12/25/2008 BRANDON SUPERVISOR TUNNEL HEADING, ANITA R 461.2 Acute Ethmoidal Sinusitis 12/25/2008 BRANDON SUPERVISOR TUNNEL HEADING, ANITA R 461.2 Acute Ethmoidal Sinusitis 12/25/2008 BRANDON VALDOVINOSN, ANITA R 461.2 Acute Ethmoidal Sinusitis 12/25/2008 CATA MELENDEZ MD 461.2 Acute Ethmoidal Sinusitis 12/25/2008 JEANETTE WILKES DO 461.2 Acute Ethmoidal Sinusitis 12/30/2008 709.9 SKIN LESIONS 12/30/2008 ESTRELLITA AUSTIN APRN 709.9 SKIN LESIONS 12/30/2008 ESTRELLITA AUSTIN APRN 709.9 Skin Lesions 12/30/2008 709.9 Skin Lesions 12/30/2008 709.9 Skin Lesions 12/30/2008 709.9 Skin Lesions 12/30/2008 709.9 Skin Lesions 12/30/2008 ESTRELLITA AUSTIN APRN 709.9 Skin Lesions 12/30/2008 JUAN CARLOS ACOSTA MD 709.9 Skin Lesions 12/30/2008 JUAN CARLOS ACOSTA MD 709.9 Skin Lesions 12/30/2008 JUAN CARLOS ACOSTA MD 709.9 Skin Lesions 12/30/2008 BRANDON WICK, ANITA R 709.9 Skin Lesions 12/30/2008 BRANDON WICK, ANITA R 709.9 Skin Lesions 12/30/2008 BRANDON WICK, ANITA R 709.9 Skin Lesions 12/30/2008 CATA MELENDEZ MD 709.9 Skin Lesions 12/30/2008 JEANETTE WILKES DO 709.9 Skin Lesions 05/10/2009 847.9 SPRAINS AND STRAINS OF BACK, UNSPECIFIED SITE 05/10/2009 ESTRELLITA AUSTIN APRN 847.9 SPRAINS AND STRAINS OF BACK, UNSPECIFIED SITE 05/10/2009 ESTRELLITA AUSTIN APRN 847.9 Sprains And Strains Of Back, Unspecified Site 05/10/2009 847.9 Sprains And Strains Of Back, Unspecified Site 05/10/2009 847.9 Sprains And Strains Of Back, Unspecified Site 05/10/2009 847.9 Sprains And Strains Of Back, Unspecified Site 05/10/2009 847.9 Sprains And Strains Of Back, Unspecified Site 05/10/2009 ESTRELLITA AUSTIN APRN 847.9 Sprains And Strains Of Back, Unspecified Site 05/10/2009 JUAN CARLOS ACOSTA MD 847.9 Sprains And Strains Of Back, Unspecified Site 05/10/2009 JUAN CARLOS ACOSTA MD 847.9 Sprains And Strains Of Back, Unspecified Site 05/10/2009 JUAN CARLOS ACOSTA MD 847.9 Sprains And Strains Of Back, Unspecified Site 05/10/2009 BRANDON SUPERVISOR TUNNEL HEADING, ANITA R 847.9 Sprains And Strains Of Back, Unspecified Site 05/10/2009 BRANDON SUPERVISOR TUNNEL HEADING, ANITA R 847.9 Sprains And Strains Of Back, Unspecified Site 05/10/2009 BRANDON SUPERVISOR TUNNEL HEADING, ANITA R 847.9 Sprains And Strains Of Back, Unspecified Site 05/10/2009 CATA MELENDEZ MD 847.9 Sprains And Strains Of Back, Unspecified Site 05/10/2009 JEANETTE WILKES DO 847.9 Sprains And Strains Of Back, Unspecified Site 06/04/2009 Ot 727.05 06/04/2009 Ot 959.3 06/04/2009 Ot E000.0 06/04/2009 Ot E030 06/04/2009 Ot E849.6 06/04/2009 Ot E928.9 06/06/2009 719.43 PAIN IN JOINT , FOREARM 06/06/2009 ESTRELLITA AUSTIN APRN 719.43 PAIN IN JOINT, FOREARM 06/06/2009 ESTRELLITA AUSTIN APRN 719.43 Pain In Joint, Forearm 06/06/2009 719.43 Pain In Joint , Forearm 06/06/2009 719.43 Pain In Joint , Forearm 06/06/2009 719.43 Pain In Joint , Forearm 06/06/2009 719.43 Pain In Joint , Forearm 06/06/2009 ESTRELLITA AUSTIN APRN 719.43 Pain In Joint, Forearm 06/06/2009 JUAN CARLOS ACOSTA MD 719.43 Pain In Joint, Forearm 06/06/2009 JUAN CARLOS ACOSTA MD 719.43 Pain In Joint, Forearm 06/06/2009 JUAN CARLOS ACOSTA MD 719.43 Pain In Joint, Forearm 06/06/2009 ANITA TAYLOR APRN R 719.43 Pain In Joint, Forearm 06/06/2009 ANITA TAYLOR APRN R 719.43 Pain In Joint, Forearm 06/06/2009 ANITA TAYLOR APRN R 719.43 Pain In Joint, Forearm 06/06/2009 CATA MELENDEZ MD 719.43 Pain In Joint, Forearm 06/06/2009 JEANETTE WILKES DO 719.43 Pain In Joint, Forearm 06/27/2009 244.9 UNSPECIFIED ACQUIRED HYPOTHYROIDISM 06/27/2009 276.8 HYPOKALEMIA 06/27/2009 305.1 Nondependent Abuse Of Drugs, Tobacco Use Disorder 06/27/2009 ESTRELLITA AUSTIN APRN 244.9 UNSPECIFIED ACQUIRED HYPOTHYROIDISM 06/27/2009 ESTRELLITA AUSTIN APRN 276.8 HYPOKALEMIA 06/27/2009 ESTRELLITA AUSTIN APRN 305.1 Nondependent Abuse Of Drugs, Tobacco Use Disorder 06/27/2009 ESTRELLTIA AUSTIN APRN 244.9 UNSPECIFIED ACQUIRED HYPOTHYROIDISM 06/27/2009 ESTRELLITA AUSTIN APRN 276.8 HYPOKALEMIA 06/27/2009 ESTRELLITA AUSTIN APRN 305.1 Nondependent Abuse Of Drugs, Tobacco Use Disorder 06/27/2009 244.9 UNSPECIFIED ACQUIRED HYPOTHYROIDISM 06/27/2009 276.8 HYPOKALEMIA 06/27/2009 305.1 Nondependent Abuse Of Drugs, Tobacco Use Disorder 06/27/2009 244.9 UNSPECIFIED ACQUIRED HYPOTHYROIDISM 06/27/2009 276.8 HYPOKALEMIA 06/27/2009 305.1 Nondependent Abuse Of Drugs, Tobacco Use Disorder 06/27/2009 244.9 UNSPECIFIED ACQUIRED HYPOTHYROIDISM 06/27/2009 276.8 HYPOKALEMIA 06/27/2009 305.1 Nondependent Abuse Of Drugs, Tobacco Use Disorder 06/27/2009 244.9 UNSPECIFIED ACQUIRED HYPOTHYROIDISM 06/27/2009 276.8 HYPOKALEMIA 06/27/2009 305.1 Nondependent Abuse Of Drugs, Tobacco Use Disorder 06/27/2009 ESTRELLITA AUSTIN APRN 244.9 UNSPECIFIED ACQUIRED HYPOTHYROIDISM 06/27/2009 ESTRELLITA AUSTIN APRN 276.8 HYPOKALEMIA 06/27/2009 ESTRELLITA AUSTIN APRN 305.1 Nondependent Abuse Of Drugs, Tobacco Use Disorder 06/27/2009 JUAN CARLOS ACOSTA MD 244.9 HYPOTHYROIDISM 06/27/2009 JUAN CARLOS ACOSTA MD 276.8 HYPOKALEMIA 06/27/2009 JUAN CARLOS ACOSTA MD 305.1 Nondependent Abuse Of Drugs, Tobacco Use Disorder 06/27/2009 JUAN CARLOS ACOSTA MD 244.9 HYPOTHYROIDISM 06/27/2009 JUAN CARLOS ACOSTA MD 276.8 HYPOKALEMIA 06/27/2009 JUAN CARLOS ACOSTA MD 305.1 Nondependent Abuse Of Drugs, Tobacco Use Disorder 06/27/2009 JUAN CARLOS ACOSTA MD 244.9 HYPOTHYROIDISM 06/27/2009 JUAN CARLOS ACOSTA MD 276.8 HYPOKALEMIA 06/27/2009 JUAN CARLOS ACOSTA MD 305.1 Nondependent Abuse Of Drugs, Tobacco Use Disorder 06/27/2009 BRANDON WICK ANITA R 244.9 HYPOTHYROIDISM 06/27/2009 BRANDON WICK ANITA R 276.8 HYPOKALEMIA 06/27/2009 BRANDON WICK ANITA R 305.1 Nondependent Abuse Of Drugs, Tobacco Use Disorder 06/27/2009 BRADNON WICK ANITA R 244.9 HYPOTHYROIDISM 06/27/2009 BRANDON WICK ANITA R 276.8 HYPOKALEMIA 06/27/2009 BRANDON WICK ANITA R 305.1 Nondependent Abuse Of Drugs, Tobacco Use Disorder 06/27/2009 BRANDON WICK ANITA R 244.9 HYPOTHYROIDISM 06/27/2009 BRANDON WICK ANITA R 276.8 HYPOKALEMIA 06/27/2009 BRANDON WICK ANITA R 305.1 Nondependent Abuse Of Drugs, Tobacco Use Disorder 06/27/2009 CATA MELENDEZ MD 244.9 HYPOTHYROIDISM 06/27/2009 CATA MELENDEZ MD 276.8 HYPOKALEMIA 06/27/2009 CATA MELENDEZ MD 305.1 Nondependent Abuse Of Drugs, Tobacco Use Disorder 06/27/2009 WILKES DO JEANETTE K 244.9 HYPOTHYROIDISM 06/27/2009 WILKES DO JEANETTE K 276.8 HYPOKALEMIA 06/27/2009 WILKES DO JEANETTE K 305.1 Nondependent Abuse Of Drugs, Tobacco Use Disorder 06/28/2009 272.4 HYPERLIPIDEMIA 06/28/2009 791.0 PROTEINURIA 06/28/2009 NORMAN SUPERVISOR TUNNEL HEADING, ESTRELLITA T 272.4 HYPERLIPIDEMIA 06/28/2009 NORMAN SUPERVISOR TUNNEL HEADING, ESTRELLITA T 791.0 PROTEINURIA 06/28/2009 NORMAN SUPERVISOR TUNNEL HEADING, ESTRELLITA T 272.4 HYPERLIPIDEMIA 06/28/2009 NORMAN SUPERVISOR TUNNEL HEADING, ESTRELLITA T 791.0 PROTEINURIA 06/28/2009 272.4 HYPERLIPIDEMIA 06/28/2009 791.0 PROTEINURIA 06/28/2009 272.4 HYPERLIPIDEMIA 06/28/2009 791.0 PROTEINURIA 06/28/2009 272.4 HYPERLIPIDEMIA 06/28/2009 791.0 PROTEINURIA 06/28/2009 272.4 HYPERLIPIDEMIA 06/28/2009 791.0 PROTEINURIA 06/28/2009 NORMAN SUPERVISOR TUNNEL HEADING, ESTRELLITA T 272.4 HYPERLIPIDEMIA 06/28/2009 NORMAN VALDOVINOSN, ESTRELLITA T 791.0 PROTEINURIA 06/28/2009 DAVE CARTWRIGHT, JUAN CARLOS M 272.4 HYPERLIPIDEMIA 06/28/2009 DAVE CARTWRIGHT, JUAN CARLOS M 791.0 PROTEINURIA 06/28/2009 DAVE CARTWRIGHT, JUAN CARLOS M 272.4 HYPERLIPIDEMIA 06/28/2009 DAVE CARTWRIGHT, JUAN CARLOS M 791.0 PROTEINURIA 06/28/2009 DAVE CARTWRIGHT, JUAN CARLOS M 272.4 HYPERLIPIDEMIA 06/28/2009 DAVE CARTWRIGHT, JUAN CARLOS M 791.0 PROTEINURIA 06/28/2009 BRANDON SUPERVISOR TUNNEL HEADING, ANITA R 272.4 HYPERLIPIDEMIA 06/28/2009 BRANDON SUPERVISOR TUNNEL HEADING, ANITA R 791.0 PROTEINURIA 06/28/2009 BRANDON SUPERVISOR TUNNEL HEADING, ANITA R 272.4 HYPERLIPIDEMIA 06/28/2009 BRANDON SUPERVISOR TUNNEL HEADING, ANITA R 791.0 PROTEINURIA 06/28/2009 BRANDON SUPERVISOR TUNNEL HEADING, ANITA R 272.4 HYPERLIPIDEMIA 06/28/2009 BRANDON SUPERVISOR TUNNEL HEADING, ANITA R 791.0 PROTEINURIA 06/28/2009 CATA MELENDEZ MD 272.4 HYPERLIPIDEMIA 06/28/2009 CATA MELENDEZ MD 791.0 PROTEINURIA 06/28/2009 WILKES DO, JEANETTE K 272.4 HYPERLIPIDEMIA 06/28/2009 WILKES DO, JEANETTE K 791.0 PROTEINURIA 08/01/2009 729.5 PAIN IN LIMB 08/01/2009 ESTRELLITA AUSTIN APRN T 729.5 PAIN IN LIMB 08/01/2009 ESTRELLITA AUSTIN APRN T 729.5 Pain In Limb 08/01/2009 729.5 Pain In Limb 08/01/2009 729.5 Pain In Limb 08/01/2009 729.5 Pain In Limb 08/01/2009 729.5 Pain In Limb 08/01/2009 ESTRELLITA AUSTIN APRN 729.5 Pain In Limb 08/01/2009 JUAN CARLOS ACOSTA MD 729.5 Pain In Limb 08/01/2009 JUAN CARLOS ACOSTA MD 729.5 Pain In Limb 08/01/2009 JUAN CARLOS ACOSTA MD 729.5 Pain In Limb 08/01/2009 BRANDON SUPERVISOR TUNNEL HEADING, ANITA R 729.5 Pain In Limb 08/01/2009 BRANDON SUPERVISOR TUNNEL HEADING, ANITA R 729.5 Pain In Limb 08/01/2009 BRANDON WICK, ANITA R 729.5 Pain In Limb 08/01/2009 CATA MELENDEZ MD 729.5 Pain In Limb 08/01/2009 JEANETTE WILKES DO 729.5 Pain In Limb 09/19/2009 564.00 CONSTIPATION , UNSPECIFIED 09/19/2009 ESTRELLITA AUSTIN APRN 564.00 CONSTIPATION, UNSPECIFIED 09/19/2009 ESTRELLITA AUSTIN APRN 564.00 Constipation, Unspecified 09/19/2009 564.00 Constipation , Unspecified 09/19/2009 564.00 Constipation , Unspecified 09/19/2009 564.00 Constipation , Unspecified 09/19/2009 564.00 Constipation , Unspecified 09/19/2009 ESTRELLITA AUSTIN APRN 564.00 Constipation, Unspecified 09/19/2009 JUAN CARLOS ACOSTA MD 564.00 Constipation, Unspecified 09/19/2009 JUAN CARLOS ACOSTA MD 564.00 Constipation, Unspecified 09/19/2009 JUAN CARLOS ACOSTA MD 564.00 Constipation, Unspecified 09/19/2009 BRANDON WICK, ANIAT R 564.00 Constipation, Unspecified 09/19/2009 BRANDON WICK, ANITA R 564.00 Constipation, Unspecified 09/19/2009 BRANDON WICK, ANITA R 564.00 Constipation, Unspecified 09/19/2009 CATA MELENDEZ MD 564.00 Constipation, Unspecified 09/19/2009 WILKES JEANETTE SHAW 564.00 Constipation, Unspecified 01/24/2010 465.9 ACUTE UPPER RESPIRATORY INFECTIONS OF UNSPECIFIED SITE 01/24/2010 ESTRELLITA AUSTIN APRN 465.9 ACUTE UPPER RESPIRATORY INFECTIONS OF UNSPECIFIED SITE 01/24/2010 ESTRELLITA AUSTIN APRN 465.9 Acute Upper Respiratory Infections Of Unspecified Site 01/24/2010 465.9 Acute Upper Respiratory Infections Of Unspecified Site 01/24/2010 465.9 Acute Upper Respiratory Infections Of Unspecified Site 01/24/2010 465.9 Acute Upper Respiratory Infections Of Unspecified Site 01/24/2010 465.9 Acute Upper Respiratory Infections Of Unspecified Site 01/24/2010 ESTRELLITA AUSTIN APRN 465.9 Acute Upper Respiratory Infections Of Unspecified Site 01/24/2010 JUAN CARLOS ACOSTA MD 465.9 Acute Upper Respiratory Infections Of Unspecified Site 01/24/2010 JUAN CARLOS ACOSTA MD 465.9 Acute Upper Respiratory Infections Of Unspecified Site 01/24/2010 JUAN CARLOS ACOSTA MD 465.9 Acute Upper Respiratory Infections Of Unspecified Site 01/24/2010 BRANDON VALDOVINOSN, ANITA R 465.9 Acute Upper Respiratory Infections Of Unspecified Site 01/24/2010 BRANDON SUPERVISOR TUNNEL HEADING, ANITA R 465.9 Acute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 5-40 LDL Cholesterol Calc 90 mg/dL 0-99 Sed Rate - 04/05/16 13:32 Sed Rate 11 mm/hr 9-15 TSH+Free T4 - 06/14/16 10:00 TSH 45.820 uIU/mL 0.450-4.500 T4,Free(Direct) 0.69 ng/dL 0.82-1.77 CBC With Differential/Platelet - 06/14/16 10:00 WBC 11.5 x10E3/uL 3.4-10.8 RBC 4.11 x10E6/uL 3.77-5.28 Hemoglobin 13.2 g/dL 11.1-15.9 Hematocrit 40.7 % 34.0-46.6 MCV 99 fL 79-97 MCH 32.1 pg 26.6-33.0 MCHC 32.4 g/dL 31.5-35.7 RDW 14.0 % 12.3-15.4 Platelets 324 x10E3/uL 150-379 Neutrophils 78 % Lymphs 15 % Monocytes 4 % Eos 2 % Basos 1 % Neutrophils (Absolute) 9.1 x10E3/uL 1.4-7.0 Lymphs (Absolute) 1.7 x10E3/uL 0.7-3.1 Monocytes(Absolute) 0.5 x10E3/uL 0.1-0.9 Eos (Absolute) 0.2 x10E3/uL 0.0-0.4 Baso (Absolute) 0.1 x10E3/uL 0.0-0.2 Immature Granulocytes 0 % Immature Grans (Abs) 0.0 x10E3/uL 0.0-0.1 Comp. Metabolic Panel (14) - 06/14/16 10:00 Glucose, Serum 439 mg/dL 65-99 BUN 15 mg/dL 6-24 Creatinine, Serum 0.58 mg/dL 0.57-1.00 eGFR If NonAfricn Am 107 mL/min/1.73 >59 eGFR If Africn Am 123 mL/min/1.73 >59 BUN/Creatinine Ratio 26 9-23 Sodium, Serum 134 mmol/L 134-144 Potassium, Serum 4.8 mmol/L 3.5-5.2 Chloride, Serum 93 mmol/L 96-106 Carbon Dioxide, Total 19 mmol/L 18-29 Calcium, Serum 8.7 mg/dL 8.7-10.2 Protein, Total, Serum 6.3 g/dL 6.0-8.5 Albumin, Serum 3.9 g/dL 3.5-5.5 Globulin, Total 2.4 g/dL 1.5-4.5 A/G Ratio 1.6 1.2-2.2 Bilirubin, Total 0.3 mg/dL 0.0-1.2 Alkaline Phosphatase, S 86 IU/L 39-117 AST (SGOT) 17 IU/L 0-40 ALT (SGPT) 18 IU/L 0-32 Lipid Panel - 06/14/16 10:00 Cholesterol, Total 266 mg/dL 100-199 Triglycerides 229 mg/dL 0-149 HDL Cholesterol 52 mg/dL >39 VLDL Cholesterol Keegan 46 mg/dL 5-40 LDL Cholesterol Calc 168 mg/dL 0-99 Microalb/Creat Ratio, Randm Ur - 06/14/16 10:00 Creatinine, Urine 43.3 mg/dL Not Estab. Microalbumin, Urine <3.0 ug/mL Not Estab. Microalb/Creat Ratio <6.9 mg/g creat 0.0-30.0 Comprehensive Metabolic Panel - 08/02/16 09:48 Albumin 4.2 g/dL 3.6-5.1 ALP 89 U/L 35-130 ALT 21 U/L 6-45 Anion Gap 16 6-14 AST 22 U/L 2-40 BUN 16 mg/dL 5-25 Calcium 9.2 mg/dL 8.3-10.4 Chloride 105 mmol/L 95-114 CO2 24 mEq/L 22-33 Creat 0.67 mg/dL 0.50-1.50 eGFR 92 mL/min/1.73m2 >59 Globulin 2.5 g/dL 2.3-3.5 Glucose 192 mg/dL 70-110 Osmo 297 280-295 Potassium 4.4 mmol/L 3.5-5.3 Sodium 141 mmol/L 134-148 TBil 0.3 mg/dL 0.2-1.2 TP 6.7 g/dL 6.0-8.3 C-Reactive Protein - 08/02/16 09:48 C-Reactive Protein 4.39 mg/dL 0.00-0.50 Hemoglobin A1C - 08/24/16 13:20 % A1C 8.70 % 5.40-6.60 AvGlu 234 mg/dL 70-110 Arterial Blood Gas - 08/24/16 14:13 Base -6.00 mmol/L 1.80-4.20 HCO3 20 mmol/L 20-31 O2 Sat 95 RM AIR % 95-100 pCO2 36 mm/Hg 35-45 pH 7.35 7.35-7.45 PO2 79 mm/Hg 80-95 Urinalysis - 08/24/16 14:49 Icotest N/A Negative Urine Volume Urine Volume Sufficient (10mL) Urine Yeast Yeast Present Urine-Appearance Clear Clear Urine-Bacteria Negative Urine-Bilirubin Negative Negative Urine-Blood Negative Negative Urine-Color Yellow Colorless-Lt. Yellow Urine-Epithelial Cells 0-5/HPF Urine-Glucose 2+ Negative Urine-Ketones 1+ Negative Urine-Leukocytes Negative Negative Urine-Nitrite Negative Negative Urine-Other Urine Saved if Culture Needed (48hrs from time of collection) Urine-pH 5.5 5-8.5 Urine-Protein Negative Negative Urine-RBC Rare/HPF Urine-Specific [place] <1.005 1.000-1.030 Urine-WBC Negative Urobilinogen 0.2 0.2-1.0 [facility] - 08/24/16 18:58 Anion Gap 16 6-14 BUN 21 mg/dL 5-25 Calcium 9.0 mg/dL 8.3-10.4 Chloride 103 mmol/L 95-114 CO2 25 mEq/L 22-33 Creat 0.75 mg/dL 0.50-1.50 eGFR 81 mL/min/1.73m2 >59 Glucose 280 mg/dL 70-110 Osmo 299 280-295 Potassium 4.9 mmol/L 3.5-5.3 Sodium 139 mmol/L 134-148 [facility] - 08/24/16 22:59 Anion Gap 13 6-14 BUN 23 mg/dL 5-25 Calcium 8.8 mg/dL 8.3-10.4 Chloride 108 mmol/L 95-114 CO2 24 mEq/L 22-33 Creat 0.67 mg/dL 0.50-1.50 eGFR 92 mL/min/1.73m2 >59 Glucose 118 mg/dL 70-110 Osmo 294 280-295 Potassium 4.9 mmol/L 3.5-5.3 Sodium 140 mmol/L 134-148 [facility] - 08/25/16 05:25 Anion Gap 12 6-14 BUN 15 mg/dL 5-25 Calcium 9.0 mg/dL 8.3-10.4 Chloride 108 mmol/L 95-114 CO2 24 mEq/L 22-33 Creat 0.65 mg/dL 0.50-1.50 eGFR 96 mL/min/1.73m2 >59 Glucose 161 mg/dL 70-110 Osmo 293 280-295 Potassium 4.2 mmol/L 3.5-5.3 Sodium 140 mmol/L 134-148 TSH+Free T4 - 09/04/16 10:10 TSH 0.013 uIU/mL 0.450-4.500 T4,Free(Direct) 2.67 ng/dL 0.82-1.77 CBC With Differential/Platelet - 09/04/16 10:10 WBC 12.2 x10E3/uL 3.4-10.8 RBC 4.68 x10E6/uL 3.77-5.28 Hemoglobin 14.5 g/dL 11.1-15.9 Hematocrit 44.7 % 34.0-46.6 MCV 96 fL 79-97 MCH 31.0 pg 26.6-33.0 MCHC 32.4 g/dL 31.5-35.7 RDW 14.0 % 12.3-15.4 Platelets 294 x10E3/uL 150-379 Neutrophils 74 % Lymphs 19 % Monocytes 5 % Eos 2 % Basos 0 % Neutrophils (Absolute) 8.9 x10E3/uL 1.4-7.0 Lymphs (Absolute) 2.3 x10E3/uL 0.7-3.1 Monocytes(Absolute) 0.6 x10E3/uL 0.1-0.9 Eos (Absolute) 0.2 x10E3/uL 0.0-0.4 Baso (Absolute) 0.0 x10E3/uL 0.0-0.2 Immature Granulocytes 0 % Immature Grans (Abs) 0.0 x10E3/uL 0.0-0.1 Comp. Metabolic Panel (14) - 09/04/16 10:10 Glucose, Serum 247 mg/dL 65-99 BUN 17 mg/dL 6-24 Creatinine, Serum 0.71 mg/dL 0.57-1.00 eGFR If NonAfricn Am 99 mL/min/1.73 >59 eGFR If Africn Am 114 mL/min/1.73 >59 BUN/Creatinine Ratio 24 9-23 Sodium, Serum 139 mmol/L 134-144 Potassium, Serum 4.1 mmol/L 3.5-5.2 Chloride, Serum 97 mmol/L 96-106 Carbon Dioxide, Total 20 mmol/L 18-29 Calcium, Serum 9.8 mg/dL 8.7-10.2 Protein, Total, Serum 7.1 g/dL 6.0-8.5 Albumin, Serum 4.6 g/dL 3.5-5.5 Globulin, Total 2.5 g/dL 1.5-4.5 A/G Ratio 1.8 1.2-2.2 Bilirubin, Total 0.3 mg/dL 0.0-1.2 Alkaline Phosphatase, S 77 IU/L 39-117 AST (SGOT) 14 IU/L 0-40 ALT (SGPT) 17 IU/L 0-32 Lipid Panel - 09/04/16 10:10 Cholesterol, Total 179 mg/dL 100-199 Triglycerides 160 mg/dL 0-149 HDL Cholesterol 65 mg/dL >39 VLDL Cholesterol Keegan 32 mg/dL 5-40 LDL Cholesterol Calc 82 mg/dL 0-99 C-Peptide, Serum - 09/04/16 10:10 C-Peptide, Serum <0.1 ng/mL 1.1-4.4 Comprehensive Metabolic Panel - 12/06/16 10:08 Albumin 4.2 g/dL 3.6-5.1 ALP 75 U/L 35-130 ALT 39 U/L 6-45 Anion Gap 18 6-14 AST 34 U/L 2-40 BUN 18 mg/dL 5-25 Calcium 9.3 mg/dL 8.3-10.4 Chloride 97 mmol/L 95-114 CO2 24 mEq/L 22-33 Creat 0.98 mg/dL 0.50-1.50 eGFR 60 mL/min/1.73m2 >59 Globulin 2.5 g/dL 2.3-3.5 Glucose 642 Result Verified by Repeat Analysis mg/dL 70- 110 Osmo 306 280-295 Potassium 4.9 mmol/L 3.5-5.3 Sodium 134 mmol/L 134-148 TBil 0.7 mg/dL 0.2-1.2 TP 6.7 g/dL 6.0-8.3 INTERPRETATION - 01/18/17 11:38 INTERPRETATION [facility] Comprehensive Metabolic Panel - 03/07/17 10:13 Albumin 4.0 g/dL 3.6-5.1 ALP 64 U/L 35-130 ALT 33 U/L 6-45 Anion Gap 16 6-14 AST 30 U/L 2-40 BUN 16 mg/dL 5-25 Calcium 9.3 mg/dL 8.3-10.4 Chloride 100 mmol/L 95-114 CO2 24 mEq/L 22-33 Creat 0.79 mg/dL 0.50-1.50 eGFR 76 mL/min/1.73m2 >59 Globulin 2.6 g/dL 2.3-3.5 Glucose 404 mg/dL 70-110 Osmo 296 280-295 Potassium 5.0 mmol/L 3.5-5.3 Sodium 135 mmol/L 134-148 TBil 0.3 mg/dL 0.2-1.2 TP 6.6 g/dL 6.0-8.3 TSH - 05/13/17 12:01 TSH 0.15 mIU/L [facility] Comprehensive Metabolic Panel - 07/04/17 10:22 Albumin 4.2 g/dL 3.6-5.1 ALP 96 U/L 35-130 ALT 32 U/L 6-45 Anion Gap 15 6-14 AST 44 U/L 2-40 BUN 14 mg/dL 5-25 Calcium 9.4 mg/dL 8.3-10.4 Chloride 103 mmol/L 95-114 CO2 24 mEq/L 22-33 Creat 0.72 mg/dL 0.50-1.50 eGFR 85 mL/min/1.73m2 >59 Globulin 2.7 g/dL 2.3-3.5 Glucose 399 mg/dL 70-110 Osmo 299 280-295 Potassium 4.7 mmol/L 3.5-5.3 Sodium 137 mmol/L 134-148 TBil 0.5 mg/dL 0.2-1.2 TP 6.9 g/dL 6.0-8.3 Complete blood count (CBC) with automated white blood cell (WBC) differential - 08/06/17 15:29 Blood leukocytes automated count (number/volume) 7.8 10*3/uL 4.3-11.0 Blood erythrocytes automated count (number/volume) 4.41 10*6/uL 4.35-5.85 Venous blood hemoglobin measurement (mass/volume) 14.0 g/dL 11.5-16.0 Blood hematocrit (volume fraction) 41 % 35-52 Automated erythrocyte mean corpuscular volume 92 [foz_us] 80-99 Automated erythrocyte mean corpuscular hemoglobin (mass per erythrocyte) 32 pg 25-34 Automated erythrocyte mean corpuscular hemoglobin concentration measurement ( mass/volume) 34 g/dL 32-36 Automated erythrocyte distribution width ratio 13.6 % 10.0-14.5 Automated blood platelet count (count/volume) 294 10*3/uL 130-400 Automated blood platelet mean volume measurement 9.4 [foz_us] 7.4-10.4 Automated blood neutrophils/100 leukocytes 61 % 42-75 Automated blood lymphocytes/100 leukocytes 30 % 12-44 Blood monocytes/100 leukocytes 5 % 0-12 Automated blood eosinophils/100 leukocytes 4 % 0-10 Automated blood basophils/100 leukocytes 1 % 0-10 Blood neutrophils automated count (number/volume) 4.8 10*3 1.8-7.8 Blood lymphocytes automated count (number/volume) 2.3 10*3 1.0-4.0 Blood monocytes automated count (number/volume) 0.4 10*3 0.0-1.0 Automated eosinophil count 0.3 10*3/uL 0.0-0.3 Automated blood basophil count (count/volume) 0.0 10*3/uL 0.0-0.1 PT panel in platelet poor plasma by coagulation assay - 08/06/17 15:29 Prothrombin time (PT) in platelet poor plasma by coagulation assay 12.2 s 12.2-14.7 INR in platelet poor plasma or blood by coagulation assay 0.9 0.8-1.4 Activated partial thromboplastin time (aPTT) in platelet poor plasma bycoagulation assay - 08/06/17 15:29 Activated partial thromboplastin time (aPTT) in platelet poor plasma bycoagulation assay 27 s 24-35 Comprehensive metabolic panel - 08/06/17 15:29 Serum or plasma sodium measurement (moles/volume) 138 mmol/L 135-145 Serum or plasma potassium measurement (moles/volume) 4.9 mmol/L 3.6-5.0 Serum or plasma chloride measurement (moles/volume) 107 mmol/L 98-107 Carbon dioxide 24 mmol/L 21-32 Serum or plasma anion gap determination (moles/volume) 7 mmol/L 5-14 Serum or plasma urea nitrogen measurement (mass/volume) 20 mg/dL 7-18 Serum or plasma creatinine measurement (mass/volume) 0.81 mg/dL 0.60-1.30 Serum or plasma urea nitrogen/creatinine mass ratio 25 NRG Serum or plasma creatinine measurement with calculation of estimated glomerular filtration rate > NRG Serum or plasma glucose measurement (mass/volume) 286 mg/dL 70-105 Serum or plasma calcium measurement (mass/volume) 9.5 mg/dL 8.5-10.1 Serum or plasma total bilirubin measurement (mass/volume) 0.4 mg/dL 0.1-1.0 Serum or plasma alkaline phosphatase measurement (enzymatic activity/volume) 89 U/L 40-136 Serum or plasma aspartate aminotransferase measurement (enzymatic activity/ volume) 66 U/L 5-34 Serum or plasma alanine aminotransferase measurement (enzymatic activity/volume ) 94 U/L 0-55 Serum or plasma protein measurement (mass/volume) 7.3 g/dL 6.4-8.2 Serum or plasma albumin measurement (mass/volume) 4.2 g/dL 3.2-4.5 Serum or plasma salicylates measurement (mass/volume) - 08/06/17 15:29 Serum or plasma salicylates measurement (mass/volume) < mg/dL 5.0-20.0 Serum or plasma acetaminophen measurement (mass/volume) - 08/06/17 15:29 Serum or plasma acetaminophen measurement (mass/volume) 96 ug/mL 10-30 Serum or plasma ethanol measurement (mass/volume) - 08/06/17 15:29 Serum or plasma ethanol measurement (mass/volume) < mg/dL <10 Capillary blood glucose measurement by glucometer (mass/volume) - 08/06/17 16: 42 Capillary blood glucose measurement by glucometer (mass/volume) 341 mg/dL 70-110 Complete urinalysis with reflex to culture - 08/06/17 17:15 Urine color determination YELLOW NRG Urine clarity determination CLEAR NRG Urine pH measurement by test strip 5 5-9 Specific gravity of urine by test strip 1.025 1.016- 1.022 Urine protein assay by test strip, semi-quantitative 1+ NEGATIVE Urine glucose detection by automated test strip 4+ NEGATIVE Erythrocytes detection in urine sediment by light microscopy NEGATIVE NEGATIVE Urine ketones detection by automated test strip NEGATIVE NEGATIVE Urine nitrite detection by test strip NEGATIVE NEGATIVE Urine total bilirubin detection by test strip NEGATIVE NEGATIVE Urine urobilinogen measurement by automated test strip (mass/volume) NORMAL NORMAL Urine leukocyte esterase detection by dipstick NEGATIVE NEGATIVE Automated urine sediment erythrocyte count by microscopy (number/high power field) NONE NRG Automated urine sediment leukocyte count by microscopy (number/high power field ) RARE NRG Bacteria detection in urine sediment by light microscopy NEGATIVE NRG Squamous epithelial cells detection in urine sediment by light microscopy 2-5 NRG Crystals detection in urine sediment by light microscopy NONE NRG Casts detection in urine sediment by light microscopy NONE NRG Mucus detection in urine sediment by light microscopy NEGATIVE NRG Complete urinalysis with reflex to culture NO NRG Urine drug screening test - 08/06/17 17:15 Urine phencyclidine detection by screening method NEGATIVE NEGATIVE Urine benzodiazepines detection by screening method NEGATIVE NEGATIVE Urine cocaine detection NEGATIVE NEGATIVE Urine amphetamines detection by screening method NEGATIVE NEGATIVE Urine methamphetamine detection by screening method NEGATIVE NEGATIVE Urine cannabinoids detection by screening method NEGATIVE NEGATIVE Urine opiates detection by screening method NEGATIVE NEGATIVE Urine barbiturates detection NEGATIVE NEGATIVE Screening urine tricyclic antidepressants detection NEGATIVE NEGATIVE Urine methadone detection by screening method NEGATIVE NEGATIVE Urine oxycodone detection POSITIVE NEGATIVE Urine propoxyphene detection NEGATIVE NEGATIVE Comprehensive metabolic panel - 08/06/17 18:00 Serum or plasma sodium measurement (moles/volume) 137 mmol/L 135-145 Serum or plasma potassium measurement (moles/volume) 4.0 mmol/L 3.6-5.0 Serum or plasma chloride measurement (moles/volume) 108 mmol/L 98-107 Carbon dioxide 18 mmol/L 21-32 Serum or plasma anion gap determination (moles/volume) 11 mmol/L 5-14 Serum or plasma urea nitrogen measurement (mass/volume) 18 mg/dL 7-18 Serum or plasma creatinine measurement (mass/volume) 0.91 mg/dL 0.60-1.30 Serum or plasma urea nitrogen/creatinine mass ratio 20 NRG Serum or plasma creatinine measurement with calculation of estimated glomerular filtration rate > NRG Serum or plasma glucose measurement (mass/volume) 371 mg/dL 70-105 Serum or plasma calcium measurement (mass/volume) 8.2 mg/dL 8.5-10.1 Serum or plasma total bilirubin measurement (mass/volume) 0.2 mg/dL 0.1-1.0 Serum or plasma alkaline phosphatase measurement (enzymatic activity/volume) 75 U/L 40-136 Serum or plasma aspartate aminotransferase measurement (enzymatic activity/ volume) 50 U/L 5-34 Serum or plasma alanine aminotransferase measurement (enzymatic activity/volume ) 78 U/L 0-55 Serum or plasma protein measurement (mass/volume) 5.9 g/dL 6.4-8.2 Serum or plasma albumin measurement (mass/volume) 3.5 g/dL 3.2-4.5 Serum or plasma acetaminophen measurement (mass/volume) - 08/06/17 18:00 Serum or plasma acetaminophen measurement (mass/volume) 34 ug/mL 10-30 Capillary blood glucose measurement by glucometer (mass/volume) - 08/06/17 18: 03 Capillary blood glucose measurement by glucometer (mass/volume) 365 mg/dL 70-110 Capillary blood glucose measurement by glucometer (mass/volume) - 08/06/17 19: 50 Capillary blood glucose measurement by glucometer (mass/volume) 111 mg/dL 70-110 Capillary blood glucose measurement by glucometer (mass/volume) - 08/06/17 20: 01 Capillary blood glucose measurement by glucometer (mass/volume) 90 mg/dL 70-110 Capillary blood glucose measurement by glucometer (mass/volume) - 08/06/17 20: 43 Capillary blood glucose measurement by glucometer (mass/volume) 68 mg/dL 70-110 Encounters ACCT No. Visit Date/Time Discharge Status Pt. Type Provider Facility Loc./Unit Complaint [id number] 05/03/2014 09:24:00 05/03/2014 23:59:59 CLS Outpatient WILKES JEANETTE SHAW [id number] 03/19/2014 10:22:00 03/19/2014 23:59:59 CLS Outpatient ANITA TAYLOR APRN [id number] 02/14/2014 08:39:00 02/14/2014 23:59:59 CLS Outpatient CATA MELENDEZ MD [id number] 02/05/2014 10:45:00 02/05/2014 23:59:59 CLS Outpatient ANITA TAYLOR APRN [id number] 01/21/2014 13:38:00 01/21/2014 23:59:59 CLS Outpatient ANITA TAYLOR APRN R [id number] 10/29/2013 08:56:00 10/29/2013 23:59:59 CLS Outpatient ANITA TAYLOR APRN [id number] 04/14/2013 07:53:00 04/14/2013 23:59:59 CLS Outpatient JUAN CARLOS ACOSTA MD [id number] 12/30/2012 08:57:00 12/30/2012 23:59:59 CLS Outpatient JUAN CARLOS ACOSTA MD [id number] 11/27/2012 09:04:00 11/27/2012 23:59:59 CLS Outpatient JUAN CARLOS ACOSTA MD [id number] 10/25/2012 09:56:00 10/25/2012 23:59:59 CLS Outpatient ESTRELLITA AUSTIN APRN [id number] 04/21/2012 10:54:00 04/21/2012 23:59:59 CLS Outpatient ESTRELLITA AUSTIN APRN [id number] 03/24/2012 10:49:00 03/24/2012 23:59:59 CLS Outpatient ESTRELLITA AUSTIN APRN [id number] 08/24/2011 10:32:00 08/24/2011 23:59:59 CLS Outpatient [id number] 10/09/2012 14:20:00 Document Registration [id number] 08/07/2012 07:50:00 Document Registration [id number] 07/11/2012 11:18:00 Document Registration [id number] 07/08/2012 13:03:00 Document Registration [id number] 08/06/2017 15:24:00 08/06/2017 20:41:00 DIS Outpatient SAVAGE GERARDO Erin [employer] [facility] ER SUICIDAL ACTIONS, TOOK A LOT OF TYLENOL PM [id number] 08/09/2014 13:15:00 08/09/2014 23:59:59 CLS Preadmit JEREL ROMERO [employer] [facility] RAD BREAST CANCER SCREENING [id number] 07/15/2014 09:43:00 07/15/2014 23:59:59 CLS Outpatient JEREL ROMERO [employer] [facility] RAD SCREENING [id number] 01/21/2014 17:05:00 01/22/2014 12:40:00 DIS Inpatient NORA CARTWRIGHT, CATA Walter [facility] CSD [id number] 01/18/2014 00:01:00 01/19/2014 14:50:00 DIS Inpatient ARMANDO CARTWRIGHT FACC, ROBBIN ARAYA CCDS [facility] ICU ACUTE ST ELEVATION [place] [id number] 10/03/2013 09:58:00 10/03/2013 13:11:00 DIS Emergency KAMILA COSBY MD [facility] ER MULTIPLE COMPLAINTS [id number] 08/29/2017 14:42:00 ACT Emergency BRANDT DOMANUEL K [facility] ER CHEST PAIN,SOB,VOMITTING [id number] 07/24/2011 00:50:00 Document Registration [id number] 06/04/2009 06:08:00 Document Registration [id number] 07/15/2014 16:13:45 ACT Document Registration [id number] 08/28/2017 13:00:00 ACT Outpatient RICKY MENAAntione [facility] [place] [id number] 05/13/2017 11:00:00 Document Registration [id number] 01/18/2017 10:00:00 Document Registration [id number] 03/06/2016 10:05:00 Document Registration [id number] 07/04/2017 09:57:00 07/04/2017 23:59:00 DIS Outpatient RadadiChristian ballard B [id number] 03/07/2017 10:03:00 03/07/2017 23:59:00 DIS Outpatient RadadiChristian ballard B [id number] 12/06/2016 10:06:00 12/06/2016 23:59:00 DIS Outpatient RadadiyaChristian B [id number] 08/24/2016 13:15:00 08/25/2016 10:00:00 [id number] 08/02/2016 09:44:00 08/02/2016 23:59:00 DIS Outpatient RadadiChristian ballard B [id number] 04/05/2016 13:23:00 04/05/2016 23:59:00 DIS Outpatient RadadiChristian ballard B [id number] 02/04/2016 15:11:00 02/04/2016 23:59:00 DIS Outpatient RadadiyaChristian B [id number] 02/04/2016 15:02:00 02/04/2016 23:59:00 DIS Outpatient RadadiyaChristian B [id number] 02/02/2016 14:04:00 02/02/2016 23:59:00 DIS Outpatient RadadiChristian ballard B [id number] 08/09/2015 15:32:00 08/09/2015 23:00:00 DIS Outpatient Radadi[place] B [id number] 08/24/2016 13:41:28 Document Registration [id number] 09/05/2016 11:08:00 Document Registration [id number] 06/15/2016 11:09:00 Document Registration
[2017-08-29 15:13] LABS: BASOPHILS # (AUTO) 0.1 10^3/uL (0.0-0.1); BASOPHILS % (AUTO) 1 % (0-10); EOSINOPHILS # (AUTO) 0.1 10^3/uL (0.0-0.3); EOSINOPHILS % (AUTO) 2 % (0-10); HEMATOCRIT 38 % (35-52); HEMOGLOBIN 13.4 G/DL (11.5-16.0); LYMPHOCYTES # (AUTO) 1.4 X 10^3 (1.0-4.0); LYMPHOCYTES % (AUTO) 26 % (12-44); MEAN CORPUSCULAR HEMOGLOBIN 33 PG (25-34); MEAN CORPUSCULAR HGB CONC 36 G/DL (32-36); MEAN CORPUSCULAR VOLUME 92 FL (80-99); MONOCYTES # (AUTO) 0.4 X 10^3 (0.0-1.0); MONOCYTES % (AUTO) 8 % (0-12); NEUTROPHILS # (AUTO) 3.4 X 10^3 (1.8-7.8); NEUTROPHILS % (AUTO) 63 % (42-75); PLATELET COUNT 275 10^3/uL (130-400); RED BLOOD COUNT 4.11 10^6/uL (4.35-5.85); RED CELL DISTRIBUTION WIDTH 13.5 % (10.0-14.5); WHITE BLOOD COUNT 5.5 10^3/uL (4.3-11.0)
[2017-08-29] MEDS ORDERED: ASPIRIN 81 MG CHEW (CHILDREN'S ASA) PO ONE (15:15)
[2017-08-29] MEDS ORDERED: NITROGLYCERIN 0.4 MG SL TABS BTL 25'S SL PRN (15:15)
[2017-08-29 15:42] LABS: PROTHROMBIN TIME PATIENT 12.8 SEC (12.2-14.7)
[2017-08-29 15:46] LABS: ALANINE AMINOTRANSFERASE 25 U/L (0-55); ALBUMIN 4.4 GM/DL (3.2-4.5); ALKALINE PHOSPHATASE 103 U/L (40-136); AMYLASE 47 U/L (25-125); BILIRUBIN,TOTAL 0.3 MG/DL (0.1-1.0); BUN/CREATININE RATIO 17; CALCIUM 10.4 MG/DL (8.5-10.1); CARBON DIOXIDE 22 MMOL/L (21-32); CHLORIDE 104 MMOL/L (98-107); CREATININE SERUM 1.18 MG/DL (0.60-1.30); GFR ESTIMATED 48; LIPASE 10 U/L (8-78); MAGNESIUM 2.1 MG/DL (1.8-2.4); POTASSIUM 4.4 MMOL/L (3.6-5.0); SODIUM 138 MMOL/L (135-145); TOTAL PROTEIN 7.3 GM/DL (6.4-8.2)
[2017-08-29 15:49] LABS: GLUCOSE 557 MG/DL (70-105)
[2017-08-29] MEDS ORDERED: NS IV 1000 ML 1,000 ML IV ONE (15:50)
[2017-08-29 15:53] LABS: MYOGLOBIN SERUM 35.8 NG/ML (10.0-92.0)
[2017-08-29] MEDS ORDERED: fentaNYL INJECTION 100 MCG/2 ML AMP IVP STA (15:55)
[2017-08-29] MEDS ORDERED: inSUlin (REGULAR) HUMAN 1 UNIT/0.01 ML (CHARGE PER UNIT) IV ONE (16:00)
--- NOTE | 2017-08-29 16:09 | Diagnostic Imaging Report ---
INDICATION: Chest pain. COMPARISON: 01/21/2014. EXAMINATION: Upright portable view of the chest was obtained. FINDINGS: Heart size is normal. The pulmonary vessels appear unremarkable. There is no pneumothorax, mediastinal widening or pleural fluid. Lungs are clear. IMPRESSION: Negative chest. Dictated by: Dictated on workstation # [id number]
[2017-08-29] MEDS ORDERED: METO-333 PO (16:15)
[2017-08-29] MEDS ORDERED: LEVO150T6 PO (16:15)
[2017-08-29] MEDS ORDERED: INSU100V16 SC (16:15)
[2017-08-29] MEDS ORDERED: FOLI1TAB24 PO (16:15)
[2017-08-29] MEDS ORDERED: CLOP75TA28 PO (16:15)
[2017-08-29] MEDS ORDERED: MTX2.5T PO (16:15)
[2017-08-29] MEDS ORDERED: INSU100V5 SC (16:15)
[2017-08-29] MEDS ORDERED: MIRT15TA6 PO (16:15)
[2017-08-29] MEDS ORDERED: CELE-63 PO (16:15)
[2017-08-29] MEDS ORDERED: SIMV40TA4 PO (16:15)
[2017-08-29] MEDS ORDERED: OXYC-464 PO (16:15)
--- NOTE | 2017-08-29 16:20 | ED Chest Pain ---
General Chief Complaint: Chest Pain Stated Complaint: CHEST PAIN,SOB,VOMITTING Nursing Triage Note: pt presents to ed with complaints of cp, n/v x 1 hr. pt reports she was packing up her house and got too hot. pt reports she does not have ac in her house. Nursing Sepsis Screen: No Definite Risk Source: patient Exam Limitations: no limitations History of Present Illness Date Seen by Provider: Aug 29, 2017 Time Seen by Provider: 15:03 Initial Comments PT ARRIVES VIA POV FROM HOME C/O LEFT UPPER CHEST PAIN PAIN BEGAN AN HOUR AGO--HAS BEEN MOVING/PACKING BOXES, AND NO AIRCONDITIONING IN THE HOUSE PAIN IS CONSTANT AND NOTHING WORSENS OR IMPROVES PAIN C/O SHORTNESS OF BREATH HAS HAD NAUSEA AND VOMITED X 2 HAS BEEN DIZZY TODAY + SWEATS, BUT HAS BEEN IN A HOT ENVIRONMENT NO SWELLING IN LEGS/ FEET OR PAIN IN CALVES NO PALPITATIONS PT HAS HAD STEMI IN 2013 AND HAD 2 STENTS PLACED. PT CONTINUES TO SMOKE Allergies and Home Medications Allergies Coded Allergies: codeine (Unverified Allergy, Mild, PT TAKES TRAMADOL AT HOME, 01/18/14) sulfamethoxazole (Unverified Allergy, Unknown, 01/17/14) trimethoprim (Unverified Allergy, Unknown, 01/17/14) Home Medications Aspirin 81 Mg Tabec, 81 MG PO DAILY, (Reported) Celecoxib 200 Mg Capsule, 200 MG PO DAILY, (Reported) Clopidogrel Bisulfate 75 Mg Tablet, 75 MG PO DAILY, (Reported) Cyclobenzaprine Hcl 5 Mg Tablet, 5 MG PO TID PRN for MUSCLE SPASMS, (Reported) Fexofenadine Hcl 60 Mg Tablet, 60 MG PO DAILY PRN for ALLERGIES, (Reported) Folic Acid 1 Mg Tablet, 1 MG PO DAILY, (Reported) Levothyroxine Sodium 150 Mcg Tablet, 150 MCG PO DAILY, (Reported) Metoprolol Tartrate 25 Mg Tablet, 12.5 MG PO BID, (Reported) TAKES 1/2 (25MG) TABLET Mirtazapine 15 Mg Tablet, 15 MG PO HS, (Reported) Simvastatin 40 Mg Tablet, 40 MG PO HS, (Reported) Patient Home Medication List Home Medication List Reviewed: Yes Review of Systems Constitutional: diaphoresis, dizziness EENTM: No Symptoms Reported Respiratory: See HPI, Shortness of Air, SOA With Exertion, SOA at Rest Cardiovascular: See HPI, Chest Pain; Denies Edema; Lightheadedness; Denies Palpitations, Denies Syncope Gastrointestinal: See HPI; Denies Abdominal Pain; Nausea, Vomiting Genitourinary: No Symptoms Reported Musculoskeletal: no symptoms reported Skin: no symptoms reported Psychiatric/Neurological: No Symptoms Reported Endocrine: No Symptoms Reported, Other (NONCOMPLIANT WITH MEDICATIONS) Hematologic/Lymphatic: No Symptoms Reported Past Hexesmb-Oiypwx-Wnjzjo Hx Patient Social History Alcohol Use: Denies Use Recreational Drug Use: No Smoking Status: Current Everyday Smoker (1 PPD) Type Used: Cigarettes Recent Foreign Travel: No Contact w/Someone Who Travel: No Recent Infectious Disease Expo: No Recent Hopitalizations: No Physical Abuse: No Sexual Abuse: No Mistreated: No Immunizations Up To Date Tetanus Booster (TDap): Unknown PED Vaccines UTD: Yes Date of Pneumonia Vaccine: Jan 21, 2011 Date of Influenza Vaccine: Nov 18, 2012 Past Medical History Surgeries: Yes (BREAST BIOPSY X 2; BILATERAL CARPAL TUNNEL; CARDIAC CATH WITH STENTS X 2 IN 2013) Breast, Cardiac, Section, Coronary Stent, Lumpectomy, Orthopedic, Tubal Ligation Respiratory: No (ACTIVE SMOKER) Cardiac: Yes Coronary Artery Disease, Heart Attack, High Cholesterol Neurological: No 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 lt. mar 01) Rheumatoid Arthritis Endocrine: Yes (HISTORY OF NONCOMPLIANCE) Diabetes, Insulin dep Cancer: No Psychosocial: Yes Depression Nursing Suicide Risk Score: 0 Integumentary: No Blood Disorders: No Adverse Reaction/Blood Tranf: No Family Medical History Arthritis 19 FATHER G8 SISTER Cardiovascular disease 19 FATHER 19 MOTHER Deafness or hearing loss 19 FATHER Diabetes mellitus G8 BROTHER Fibrocystic disease of breast G8 SISTER Infertility G8 SISTER Kidney disease 19 FATHER Myocardial infarction 19 FATHER 19 MOTHER Thyroid disease G8 SISTER Visual disorder 19 FATHER G8 BROTHER No Family History of: AIDS Abdominal aortic aneurysm Frankie's disease Alcoholism Alzheimer's disease Aphasia Asthma Cancer of mouth Cataracts Colon cancer Completed stroke Congenital disease Congenital heart disease Coronary thrombosis Cystic fibrosis Dementia Drug abuse Dysphasia Gastroenteritis Glaucoma Headache disorder Hypercholesterolemia Hypertension Neoplasm Not obtainable due to adoption Osteoporosis Parkinson's disease Prostate cancer Psychosocial problem Respiratory disorder Seizure disorder Severe allergy Tuberculosis Physical Exam Vital Signs Vital Signs - First Documented 7/12/18 15:00 Temp 96.4 Pulse 102 Resp 18 B/P (MAP) 135/87 (103) Pulse Ox 98 O2 Delivery Room Air Capillary Refill : Less Than 3 Seconds Height, Weight, BMI Height: 5'3.00" Weight: 128lbs. 6.4oz. [id number]; BMI Method:Stated General Appearance: No Apparent Distress, Thin, Other (STRONG ODOR OF CIGARETTES) Neck: Full Range of Motion, Normal Inspection, Non Tender, Supple; No Carotid Bruit, No JVD Respiratory: Chest Non Tender, Normal Breath Sounds, No Accessory Muscle Use, No Respiratory Distress Cardiovascular: Regular Rate, Rhythm, No Edema, No JVD, No Murmur, Normal Peripheral Pulses Gastrointestinal: Normal Bowel Sounds, No Organomegaly, No Pulsatile Mass, Non Tender, Soft Extremity: Normal Capillary Refill, Normal Inspection, Normal Range of Motion, Non Tender, No Calf Tenderness, No Pedal Edema Neurologic/Psychiatric: Alert, Oriented x3, No Motor/Sensory Deficits, Normal 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, 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 as Tested Skin: Normal Color, Warm/Dry Progress/Results/Core Measures Results/Orders Lab Results Laboratory Tests Test 08/29/17 14:57 Range/Units White Blood Count 5.5 4.3-11.0 10^3/uL Red Blood Count 4.11 L 4.35-5.85 10^6/uL Hemoglobin 13.4 11.5-16.0 G/DL Hematocrit 38 35-52 % Mean Corpuscular Volume 92 80-99 FL Mean Corpuscular Hemoglobin 33 25-34 PG Mean Corpuscular Hemoglobin Concent 36 32-36 G/DL Red Cell Distribution Width 13.5 10.0-14.5 % Platelet Count 275 130-400 10^3/uL Mean Platelet Volume 10.0 7.4-10.4 FL Neutrophils (%) (Auto) 63 42-75 % Lymphocytes (%) (Auto) 26 12-44 % Monocytes (%) (Auto) 8 0-12 % Eosinophils (%) (Auto) 2 0-10 % Basophils (%) (Auto) 1 0-10 % Neutrophils # (Auto) 3.4 1.8-7.8 X 10^3 Lymphocytes # (Auto) 1.4 1.0-4.0 X 10^3 Monocytes # (Auto) 0.4 0.0-1.0 X 10^3 Eosinophils # (Auto) 0.1 0.0-0.3 10^3/uL Basophils # (Auto) 0.1 0.0-0.1 10^3/uL Prothrombin Time 12.8 12.2-14.7 SEC INR Comment 1.0 0.8-1.4 Activated Partial Thromboplast Time 26 24-35 SEC Sodium Level 138 135-145 MMOL/L Potassium Level 4.4 3.6-5.0 MMOL/L Chloride Level 104 98-107 MMOL/L Carbon Dioxide Level 22 21-32 MMOL/L Anion Gap 12 5-14 MMOL/L Blood Urea Nitrogen 20 H 7-18 MG/DL Creatinine 1.18 0.60-1.30 MG/DL Estimat Glomerular Filtration Rate 48 BUN/Creatinine Ratio 17 Glucose Level 557 *H 70-105 MG/DL Calcium Level 10.4 H 8.5-10.1 MG/DL Magnesium Level 2.1 1.8-2.4 MG/DL Total Bilirubin 0.3 0.1-1.0 MG/DL Aspartate Amino Transf (AST/SGOT) 23 5-34 U/L Alanine Aminotransferase (ALT/SGPT) 25 0-55 U/L Alkaline Phosphatase 103 40-136 U/L Myoglobin 35.8 10.0-92.0 NG/ML Troponin I < 0.30 <0.30 NG/ML B-Type Natriuretic Peptide 41.6 <100.0 PG/ML Total Protein 7.3 6.4-8.2 GM/DL Albumin 4.4 3.2-4.5 GM/DL Amylase Level 47 25-125 U/L Lipase 10 8-78 U/L My Orders Orders - MANUEL CARLTON DO Cbc With Automated Diff (08/29/17 15:04) Magnesium (08/29/17 15:04) Chest 1 View, Ap/Pa Only (08/29/17 15:04) Ekg Tracing (08/29/17 15:04) Cardiac Profile 1 (08/29/17 15:04) Comprehensive Metabolic Panel (08/29/17 15:04) Myoglobin Serum (08/29/17 15:04) Protime With Inr (08/29/17 15:04) Partial Thromboplastin Time (08/29/17 15:04) O2 (08/29/17 15:04) Monitor-Rhythm Ecg Trace Only (08/29/17 15:04) Lipid Panel (08/30/17 06:00) Aspirin Chewable Tablet (Baby Aspirin Ch (08/29/17 15:15) Nitroglycerin 0.4 Mg Btl 25's (Nitrostat (08/29/17 15:15) Saline Lock/Iv-Start (08/29/17 15:04) Lipase (08/29/17 15:04) Amylase (08/29/17 15:04) BNP (08/29/17 15:04) Insulin (Regular) Human (Humulin R (Per (08/29/17 16:00) Saline Lock/Iv-Start (08/29/17 15:50) Ns Iv 1000 Ml (Sodium Chloride 0.9%) (08/29/17 15:50) Fentanyl Injection (Sublimaze Injection (08/29/17 15:55) Medications Given in ED Current Medications Medications Dose Ordered Sig/Iris Route Start Time Stop Time Status Last Admin Dose Admin Aspirin 324 mg ONCE ONCE PO 08/29/17 15:15 08/29/17 15:16 DC 08/29/17 15:34 324 MG Insulin Human Regular 20 unit ONCE ONCE IV 08/29/17 16:00 08/29/17 16:01 DC 08/29/17 16:18 20 UNIT Sodium Chloride 1,000 ml @ 0 mls/hr Q0M ONCE IV 08/29/17 15:50 08/29/17 15:51 DC 08/29/17 16:17 0 MLS/HR Vital Signs/I&O 08/29/17 08/29/17 15:00 15:00 Temp 96.4 Pulse 102 Resp 18 B/P (MAP) 135/87 (103) Pulse Ox 98 O2 Delivery Room Air Blood Pressure Mean: 103 Progress Progress Note : Progress Note PAIN BEGAN TO RESOLVE ON OWN, NTG HELD DUE TO BP< 110 SYSTOLIC GIVEN FENTANYL FOR PAIN--PAIN RESOLVED AT TIME OF ADMIT GIVEN FLUIDS AND INSULIN FOR ELEVATED BLOOD GLUCOSE BLOOD GLUCOSE DOWN AT TIME OF ADMIT--ACCUCHECK 203 AT TIME OF ADMIT Initial ECG Impression Date: Aug 29, 2017 Initial ECG Impression Time: 16:54 Initial ECG Rate: 105 Initial ECG Rhythm: S.Tach Diagnostic Imaging Comments CXR--NO ACUTE PROCESS, PER RADIOLOGIST REPORT @ 1615 Reviewed: Reviewed by Me Departure Communication (Admissions) 1600--SPOKE WITH DR. ROBERTS, TREATER. HE WILL SEE PT IN CONSULT 1601--MESSAGE LEFT ON DR. ESPINOZA'S CELL 1607--SPOKE WITH DR. ESPINOZA, ACCEPTS PT FOR ADMIT Impression Primary Impression: Chest pain Additional Impressions: Diabetes mellitus, insulin dependent (IDDM), uncontrolled Smoker Disposition: ADMITTED INPATIENT Condition: Improved Admissions Decision to Admit Reason: Admit from ER (General) Decision to Admit/Date: Aug 29, 2017 Time/Decision to Admit Time: 16:00 Departure-Patient Inst. Referrals: [facility] (PCP) Primary Care Physician RICKY MENA APRN (Family) Primary Care Physician MANUEL CARLTON DO Aug 29, 2017 16:20
--- NOTE | 2017-08-29 18:24 | Consultation-Cardiology ---
HPI-Cardiology Cardiology Consultation: Date of Consultation 08/29/17 Time Seen by Provider: 18:00 Date of Admission Attending Physician Jamila Pabon MD Admitting Physician [facility] Consulting Physician AYDE ROBERTS MD, MA, FACP, FACC, FSCAI, CCDS HPI: Chief Complaint: CC: Chest discomfort HPI: 51 yo woman with chest discomfort: L parasternal, pressure-like, mild to mod, associated with gen malaise, experienced only once before (during borderline DKA several months ago), nonradiating, w/o aggravating or relieving factors, associated with nausea, lasting a couple of hours, now resolved She denies shortness of breath or palp or syncope or leg swelling Review of Systems-Cardiology Review of Systems Constitutional: malaise, tiredness Eyes: No vision change Ears/Nose/Throat: No ear discharge, No nasal drainage, No recent hearing loss Respiratory: As described under HPI Cardiovascular: As described under HPI Gastrointestinal: No constipation, No diarrhea; nausea; No vomiting Genitourinary: No dysuria, No hematuria, No urine frequency changes Musculoskeletal: No back pain, No joint pain Skin: No rash, No ulcerations Psychiatric/Neurological: No seizure, No focal weakness, No syncope Hematologic: No bleeding abnormalities MVV-Ovewjy-Xaskft Hx Patient Social History Alcohol Use: Rarely Uses Recreational Drug Use: No Smoking Status: Current Everyday Smoker Type Used: Cigarettes Recent Foreign Travel: No Recent Infectious Disease Expo: No Physical Abuse Screen: No Sexual Abuse: No Immunizations Up To Date Tetanus Booster (TDap): Unknown Date of Pneumonia Vaccine: Jan 21, 2014 Date of Influenza Vaccine: Nov 18, 2012 Past Medical History PMH As described under Assessment. Family Medical History Family History: Abdominal aortic aneurysm 19 FATHER Arthritis 19 FATHER G8 SISTER Cardiovascular disease 19 FATHER 19 MOTHER Deafness or hearing loss 19 FATHER Diabetes mellitus G8 BROTHER Fibrocystic disease of breast G8 SISTER Infertility G8 SISTER Kidney disease 19 FATHER Myocardial infarction 19 FATHER 19 MOTHER Thyroid disease G8 SISTER Visual disorder 19 FATHER G8 BROTHER No Family History of: AIDS Richmond's disease Alcoholism Alzheimer's disease Aphasia Asthma Cancer of mouth Cataracts Colon cancer Completed stroke Congenital disease Congenital heart disease Coronary thrombosis Cystic fibrosis Dementia Drug abuse Dysphasia Gastroenteritis Glaucoma Headache disorder Hypercholesterolemia Hypertension Neoplasm Not obtainable due to adoption Osteoporosis Parkinson's disease Prostate cancer Psychosocial problem Respiratory disorder Seizure disorder Severe allergy Tuberculosis Allergies and Home Medications Allergies Coded Allergies: codeine (Unverified Allergy, Mild, PT TAKES TRAMADOL AT HOME, 01/18/14) sulfamethoxazole (Unverified Allergy, Unknown, 01/17/14) trimethoprim (Unverified Allergy, Unknown, 01/17/14) Home Medications Aspirin 81 Mg Tabec, 81 MG PO DAILY, (Reported) Celecoxib 200 Mg Capsule, 200 MG PO DAILY, (Reported) Clopidogrel Bisulfate 75 Mg Tablet, 75 MG PO DAILY, (Reported) Cyclobenzaprine Hcl 5 Mg Tablet, 5 MG PO TID PRN for MUSCLE SPASMS, (Reported) Fexofenadine Hcl 60 Mg Tablet, 60 MG PO DAILY PRN for ALLERGIES, (Reported) Folic Acid 1 Mg Tablet, 1 MG PO DAILY, (Reported) Levothyroxine Sodium 150 Mcg Tablet, 150 MCG PO DAILY, (Reported) Metoprolol Tartrate 25 Mg Tablet, 12.5 MG PO BID, (Reported) TAKES 1/2 (25MG) TABLET Mirtazapine 15 Mg Tablet, 15 MG PO HS, (Reported) Simvastatin 40 Mg Tablet, 40 MG PO HS, (Reported) Patient Home Medication List Home Medication List Reviewed: Yes Physical Exam-Cardiology Physical Exam Vital Signs/I&O 08/29/17 08/29/17 08/29/17 08/29/17 15:00 15:00 17:15 17:28 Temp 96.4 98.1 Pulse 102 85 82 Resp 18 20 16 B/P (MAP) 135/87 (103) 111/63 125/74 (91) Pulse Ox 98 96 97 O2 Delivery Room Air Room Air 08/29/17 08/29/17 08/29/17 17:40 18:03 18:10 Pulse 83 78 90 Resp 20 18 20 B/P (MAP) 117/75 (89) 136/81 (99) 152/83 (106) Pulse Ox 97 98 98 O2 Delivery Room Air Room Air Room Air Capillary Refill : Less Than 3 Seconds Constitutional: AAO x 3, well-developed, well-nourished HEENT: oral hygience is good; No xanthelasmas are seen Neck: carotid pulses are 2 + bilaterally, with good upstrokes Respiratory: No accessory muscle use, No respiratory distress; lungs clear to percussion, lungs clear to auscultation Cardiovascular: regular rate-rhythm, S1 and S2, systolic murmur (soft FRANCIA at card base) Gastrointestinal: No tender; soft; No guarding, No rebound; audible bowel sounds Extremities: No clubbing, No cyanosis, No significant edema Neurologic/Psychiatric: oriented x 3, grossly intact, power is 5/5 both on sides Skin: No rash on exposed areas, No ulcerations on exposed areas Data Review Labs Laboratory Tests 08/29/17 14:57: White Blood Count 5.5, Red Blood Count 4.11L, Hemoglobin 13.4, Hematocrit 38, Mean Corpuscular Volume 92, Mean Corpuscular Hemoglobin 33, Mean Corpuscular Hemoglobin Concent 36, Red Cell Distribution Width 13.5, Platelet Count 275, Mean Platelet Volume 10.0, Neutrophils (%) (Auto) 63, Lymphocytes (%) (Auto) 26 , Monocytes (%) (Auto) 8, Eosinophils (%) (Auto) 2, Basophils (%) (Auto) 1, Neutrophils # (Auto) 3.4, Lymphocytes # (Auto) 1.4, Monocytes # (Auto) 0.4, Eosinophils # (Auto) 0.1, Basophils # (Auto) 0.1, Prothrombin Time 12.8, INR Comment 1.0, Activated Partial Thromboplast Time 26, Sodium Level 138, Potassium Level 4.4, Chloride Level 104, Carbon Dioxide Level 22, Anion Gap 12, Blood Urea Nitrogen 20H, Creatinine 1.18, Estimat Glomerular Filtration Rate 48 , BUN/Creatinine Ratio 17, Glucose Level 557*H, Calcium Level 10.4H, Magnesium Level 2.1, Total Bilirubin 0.3, Aspartate Amino Transf (AST/SGOT) 23, Alanine Aminotransferase (ALT/SGPT) 25, Alkaline Phosphatase 103, Myoglobin 35.8, Troponin I < 0.30, B-Type Natriuretic Peptide 41.6, Total Protein 7.3, Albumin 4.4, Amylase Level 47, Lipase 10 08/29/17 16:47: Glucometer 203H Laboratory Tests 08/29/17 14:57 A/P-Cardiology Assessment/Admission Diagnosis Chest discomfort w/o evidence of ACS DM I with marked hyperglycemia, being managed by the [facility] CAD. H/o inferior wall ST elevation DE on 01/17/14, associated with hypotension and bradycardia (intermittent, brief, high-grade AV block) treated with primary angioplasty or RCA. Cath of 01/17/14 showed significant coronary disease consisting of complete occlusion of the proximal right coronary artery to which successful stenting was carried out with Promus Premier 3 x 32 mm stent with reduction of stenosis to 0% residual. There was a 70% mid right coronary artery lesion which was stented with Promus Premier 3 x 12 mm stent. The stents are nonoverlapping. The left coronary system had relatively mild disease. There was well-preserved global left ventricular systolic function and ejection fraction was approximately 55%. Elevated left ventricular end- diastolic pressure was elevated and there was mild hypokinesis of the diaphragmatic wall of the left ventricle. There was no significant mitral regurgitation. Rheumatoid arthritis, by history Chronic tobacco use - advised to quit Hypothyroidism H/o depression - symptoms currently controlled Discussion and Recomendations * Continue ASA * Treat hyperglycemia * Monitor labs * Echo to eval for structural heart disease and MPI to eval for cor ischemia * Advised to quit smoking immediately and completely Clinical Quality Measures AMI/AHF: ASA po Prior to arrival: No DVT/VTE Risk/Contraindication: Risk Factor Score Per Nursin RFS Level Per Nursing on Admit: 2=Moderate AYDE ROBERTS MD FACP FAC CCDS Aug 29, 2017 18:24
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
[2017-08-29] MEDS: NS IV 1000 ML 1,000 ML IV SCH ×2 (18:28→22:06)
[2017-08-29 21:19] LABS: MYOGLOBIN SERUM 40.6 NG/ML (10.0-92.0)
[2017-08-29] MEDS: inSUlin ASPART (NovoLOG) 1 UNIT/0.01 ML (CHARGE PER UNIT) SC SCH (22:03)
[2017-08-30] VITALS (7 sets, daily range): BP systolic 131–168; BP diastolic 67–84
[2017-08-30] MEDS: NS IV 1000 ML 1,000 ML IV SCH ×3 (02:30→11:14)
[2017-08-30] MEDS: inSUlin ASPART (NovoLOG) 1 UNIT/0.01 ML (CHARGE PER UNIT) SC SCH ×3 (07:00→16:38)
[2017-08-30] MEDS ORDERED: oxyCODONE/APAP 7.5-325 MG (PERCOCET 7.5) TABLET PO PRN (07:45)
[2017-08-30 08:01] LABS: EOSINOPHILS % (AUTO) 3 % (0-10); HEMATOCRIT 36 % (35-52); HEMOGLOBIN 12.5 G/DL (11.5-16.0); LYMPHOCYTES % (AUTO) 26 % (12-44); MEAN CORPUSCULAR HEMOGLOBIN 32 PG (25-34); MEAN CORPUSCULAR HGB CONC 35 G/DL (32-36); MEAN CORPUSCULAR VOLUME 92 FL (80-99); MEAN PLATELET VOLUME 9.8 FL (7.4-10.4); MONOCYTES % (AUTO) 7 % (0-12); NEUTROPHILS % (AUTO) 63 % (42-75); PLATELET COUNT 237 10^3/uL (130-400); RED BLOOD COUNT 3.91 10^6/uL (4.35-5.85); RED CELL DISTRIBUTION WIDTH 13.8 % (10.0-14.5); WHITE BLOOD COUNT 4.4 10^3/uL (4.3-11.0)
[2017-08-30 08:02] LABS: BASOPHILS % (AUTO) 1 % (0-10); EOSINOPHILS # (AUTO) 0.1 10^3/uL (0.0-0.3); LYMPHOCYTES # (AUTO) 1.2 X 10^3 (1.0-4.0); MONOCYTES # (AUTO) 0.3 X 10^3 (0.0-1.0); NEUTROPHILS # (AUTO) 2.8 X 10^3 (1.8-7.8)
[2017-08-30 08:18] LABS: ALANINE AMINOTRANSFERASE 19 U/L (0-55); ALBUMIN 3.7 GM/DL (3.2-4.5); ALKALINE PHOSPHATASE 79 U/L (40-136); BILIRUBIN,TOTAL 0.4 MG/DL (0.1-1.0); BUN/CREATININE RATIO 19; CALCIUM 8.5 MG/DL (8.5-10.1); CARBON DIOXIDE 22 MMOL/L (21-32); CHLORIDE 111 MMOL/L (98-107); CHOLESTEROL 140 MG/DL (< 200); CREATININE SERUM 0.58 MG/DL (0.60-1.30); GFR ESTIMATED > 60; GLUCOSE 135 MG/DL (70-105); HDL CHOLESTEROL 31 MG/DL (40-60); POTASSIUM 3.9 MMOL/L (3.6-5.0); SODIUM 142 MMOL/L (135-145); TRIGLYCERIDES 205 MG/DL (<150); VLDL CHOLESTEROL 41 MG/DL (5-40)
[2017-08-30] MEDS ORDERED: ASPI-983 PO (08:39)
[2017-08-30] MEDS ORDERED: INSU100V16 SQ (08:39)
[2017-08-30] MEDS ORDERED: ACET-2469 PO (08:41)
[2017-08-30] MEDS ORDERED: CATHETER FLUSH 10 ML SYR IV PRN (11:00)
[2017-08-30] MEDS ORDERED: REGADENOSON 0.4 MG/5 ML SYR (LEXISCAN) IV ONE ×2 (11:35→12:15)
--- NOTE | 2017-08-30 12:24 | Progress Note-Cardiology ---
Cardiology SOAP Progress Note Subjective: No further c/o CP. No c/o dyspnea, palpitations, syncope or near syncope. C/O elevated blood glucose levels. Objective: I&O/Vital Signs 08/30/17 08/30/17 08/30/17 08/30/17 07:00 08:30 11:51 12:01 Temp 96.6 96.8 Pulse 90 91 78 83 Resp 22 18 B/P (MAP) 144/79 (100) 132/84 (100) 136/72 (93) Pulse Ox 98 98 96 O2 Delivery Room Air Room Air 08/30/17 08/30/17 08/30/17 08/30/17 12:01 13:00 16:15 17:41 Temp 96.8 97.4 Pulse 83 90 84 90 Resp 18 20 18 B/P (MAP) 136/72 (93) 168/79 (108) 136/72 Pulse Ox 96 97 96 O2 Delivery Room Air Room Air Room Air 08/30/17 00:00 Intake Total 2770 ml Balance 2770 ml Weight (Pounds): 130 Weight (Ounces): 0.0 Weight (Calculated Kilograms): [id number] Constitutional: AAO x 3, well-developed, well-nourished Respiratory: No accessory muscle use, No respiratory distress; lungs clear to percussion, lungs clear to auscultation Cardiovascular: regular rate-rhythm, S1 and S2, systolic murmur (soft FRANCIA at card base) Gastrointestional: No tender; soft; No guarding, No rebound; audible bowel sounds Extremities: No clubbing, No cyanosis, No significant edema Neurologic/Psychiatric: oriented x 3, grossly intact, power is 5/5 both on sides Skin: No rash on exposed areas, No ulcerations on exposed areas Results/Procedures: Labs Laboratory Tests 08/29/17 20:50: Myoglobin 40.6, Troponin I < 0.30 08/29/17 21:13: Glucometer 122H 08/30/17 06:30: Glucometer 49*L 08/30/17 07:19: Glucometer 133H 08/30/17 07:20: White Blood Count 4.4, Red Blood Count 3.91L, Hemoglobin 12.5, Hematocrit 36, Mean Corpuscular Volume 92, Mean Corpuscular Hemoglobin 32, Mean Corpuscular Hemoglobin Concent 35, Red Cell Distribution Width 13.8, Platelet Count 237, Mean Platelet Volume 9.8, Neutrophils (%) (Auto) 63, Lymphocytes (%) (Auto) 26, Monocytes (%) (Auto) 7, Eosinophils (%) (Auto) 3, Basophils (%) (Auto) 1, Neutrophils # (Auto) 2.8, Lymphocytes # (Auto) 1.2, Monocytes # (Auto) 0.3, Eosinophils # (Auto) 0.1, Basophils # (Auto) 0.0, Sodium Level 142, Potassium Level 3.9, Chloride Level 111H, Carbon Dioxide Level 22, Anion Gap 9, Blood Urea Nitrogen 11, Creatinine 0.58L, Estimat Glomerular Filtration Rate > 60, BUN /Creatinine Ratio 19, Glucose Level 135H, Calcium Level 8.5, Total Bilirubin 0.4 , Aspartate Amino Transf (AST/SGOT) 26, Alanine Aminotransferase (ALT/SGPT) 19, Alkaline Phosphatase 79, Total Protein 6.0L, Albumin 3.7, Triglycerides Level 205H, Cholesterol Level 140, LDL Cholesterol Direct 75, VLDL Cholesterol 41H, HDL Cholesterol 31L 08/30/17 10:43: Glucometer 320H 08/30/17 13:17: Glucometer 387H 08/30/17 16:20: Glucometer 189H Laboratory Tests 08/29/17 14:57 08/30/17 07:20 A/P: Assessment: Chest discomfort w/o evidence of ACS. MPI of 08/30/17 shows no ischemia and normal LVEF DM I with marked hyperglycemia, being managed by the [facility] [place] CAD. H/o inferior wall ST elevation CA on 01/17/14, associated with hypotension and bradycardia (intermittent, brief, high-grade AV block) treated with primary angioplasty or RCA. Cath of 01/17/14 showed significant coronary disease consisting of complete occlusion of the proximal right coronary artery to which successful stenting was carried out with Promus Premier 3 x 32 mm stent with reduction of stenosis to 0% residual. There was a 70% mid right coronary artery lesion which was stented with Promus Premier 3 x 12 mm stent. The stents are nonoverlapping. The left coronary system had relatively mild disease. There was well-preserved global left ventricular systolic function and ejection fraction was approximately 55%. Elevated left ventricular end- diastolic pressure was elevated and there was mild hypokinesis of the diaphragmatic wall of the left ventricle. There was no significant mitral regurgitation. Echocardiogram of August 30, 2017 showed LVEF 60-65%. Grade 1 diastolic dysfunction. Mild TR. PASP 35-40mmHg. Rheumatoid arthritis, by history Chronic tobacco use - advised to quit Hypothyroidism H/o depression - symptoms currently controlled Plan: * Continue ASA * Treat hyperglycemia * Monitor labs * MPI to eval for cor ischemia - pending * Advised to quit smoking immediately and completely Physician Assessment Physician Assessment No cp or palp or shortness of breath or syncope or leg swelling. Feels much better after blood sugar was better controlled by the Med Svce Lungs: clear Cor: reg Ext: no c/c/e A&R * As documented in our note above that I updated in italics, and as noted below * We reviewed the results of her MPI with her * We advised risk factor modification, including immediate and complete cessation of any tobacco use/smoking * We advised outpt f/u * We advised return to ER in case of recurrent symptoms or new symptoms Clinical Quality Measures AMI/AHF: ASA po Prior to arrival: MANUEL Earl [facility] Aug 30, 2017 12:24 AYDE ROBERTS MD FACP FAC CCDS Aug 30, 2017 18:50
[2017-08-30] MEDS ORDERED: inSUlin ASPART (NovoLOG) 1 UNIT/0.01 ML (CHARGE PER UNIT) SC SCH ×2 (13:30→18:00)
--- NOTE | 2017-08-30 15:07 | History & Physicial (CHS) ---
FARA THOMAS MEDICAL STUDENT 08/30/17 1507: HPI History of Present Illness: 51 year old female with Hx of DM, previous [place] on 01/17/14 with stents in RCA, RA , hypothyroidism, depression, OA was admitted from the ED for c/o left sided chest pressure x 5 days. Pt states the pain does not radiate and that this feels like the time she had a previous WV. Pt admits N/V and SOB with the episode. Pt states nothing made the pain any better or any worse. Pt denies fever, chills, abd pain, N/V/D/constipation, swelling. Pt states she did not take anything for the pain but was given ASA in the ED. Time Seen by Provider: 07:45 Attending Physician Jamila Pabon MD [facility] [place] Date of Admission Aug 29, 2017 at 16:15 Home Medications Home Medications Reviewed patient Home Medication Reconciliation performed by pharmacy medication reconciliations systems testing laboratory technician and/or nursing. Patients Allergies have been reviewed. Allergies Coded Allergies: codeine (Unverified Allergy, Mild, PT TAKES TRAMADOL AT HOME, 01/18/14) sulfamethoxazole (Unverified Allergy, Unknown, 01/17/14) trimethoprim (Unverified Allergy, Unknown, 01/17/14) [id number] Hx Patient Social History Alcohol Use: Rarely Uses Recreational Drug Use: No Smoking Status: Current Everyday Smoker (1 PPD) Type Used: Cigarettes Recent Foreign Travel: No Contact w/other who traveled: No Recent Hopitalizations: No Recent Infectious Disease Expo: No Physical Abuse Screen: No Sexual Abuse: No Immunizations Up To Date Tetanus Booster (TDap): Unknown Date of Pneumonia Vaccine: Jan 21, 2014 Date of Influenza Vaccine: Nov 18, 2012 Past Medical History Past medical history 1. Diabetes mellitus type I by patient history. History suggests type II 2. Rheumatoid arthritis 3. Hypothyroidism 4. Chronic psychiatric illness 5. Tobaccoism 6. Coronary Artery Disease, AVINASH-[place] with PTCA 01/01 Past surgical history 1. Tubal ligation 2. section 3. Bilateral carpal tunnel surgery 4. Cardiac Cath with PTCA and stent x2 to RCA 01/01 Samir Family Medical History Family History: Abdominal aortic aneurysm 19 FATHER Arthritis 19 FATHER G8 SISTER Cardiovascular disease 19 FATHER 19 MOTHER Deafness or hearing loss 19 FATHER Diabetes mellitus G8 BROTHER Fibrocystic disease of breast G8 SISTER Infertility G8 SISTER Kidney disease 19 FATHER Myocardial infarction 19 FATHER 19 MOTHER Thyroid disease G8 SISTER Visual disorder 19 FATHER G8 BROTHER No Family History of: AIDS [place]'s disease Alcoholism Alzheimer's disease Aphasia Asthma Cancer of mouth Cataracts Colon cancer Completed stroke Congenital disease Congenital heart disease Coronary thrombosis Cystic fibrosis Dementia Drug abuse Dysphasia Gastroenteritis Glaucoma Headache disorder Hypercholesterolemia Hypertension Neoplasm Not obtainable due to adoption Osteoporosis Parkinson's disease Prostate cancer Psychosocial problem Respiratory disorder Seizure disorder Severe allergy Tuberculosis Review of Systems (CHC) Constitutional: No chills, No fever Respiratory: short of breath Cardiovascular: see HPI, chest pain Gastrointestinal: No abdominal pain, No constipation, No diarrhea, No nausea, No vomiting Reviewed Test Results Reviewed Test Results Lab Laboratory Tests Test 08/29/17 14:57 08/29/17 16:47 08/29/17 18:39 08/29/17 20:50 Range/Units White Blood Count 5.5 4.3-11.0 10^3/uL Red Blood Count 4.11 L 4.35-5.85 10^6/uL Hemoglobin 13.4 11.5-16.0 G/DL Hematocrit 38 35-52 % Mean Corpuscular Volume 92 80-99 FL Mean Corpuscular Hemoglobin 33 25-34 PG Mean Corpuscular Hemoglobin Concent 36 32-36 G/DL Red Cell Distribution Width 13.5 10.0-14.5 % Platelet Count 275 130-400 10^3/uL Mean Platelet Volume 10.0 7.4-10.4 FL Neutrophils (%) (Auto) 63 42-75 % Lymphocytes (%) (Auto) 26 12-44 % Monocytes (%) (Auto) 8 0-12 % Eosinophils (%) (Auto) 2 0-10 % Basophils (%) (Auto) 1 0-10 % Neutrophils # (Auto) 3.4 1.8-7.8 X 10^3 Lymphocytes # (Auto) 1.4 1.0-4.0 X 10^3 Monocytes # (Auto) 0.4 0.0-1.0 X 10^3 Eosinophils # (Auto) 0.1 0.0-0.3 10^3/uL Basophils # (Auto) 0.1 0.0-0.1 10^3/uL Prothrombin Time 12.8 12.2-14.7 SEC INR Comment 1.0 0.8-1.4 Activated Partial Thromboplast Time 26 24-35 SEC Sodium Level 138 135-145 MMOL/L Potassium Level 4.4 3.6-5.0 MMOL/L Chloride Level 104 98-107 MMOL/L Carbon Dioxide Level 22 21-32 MMOL/L Anion Gap 12 5-14 MMOL/L Blood Urea Nitrogen 20 H 7-18 MG/DL Creatinine 1.18 0.60-1.30 MG/DL Estimat Glomerular Filtration Rate 48 BUN/Creatinine Ratio 17 Glucose Level 557 *H 70-105 MG/DL Calcium Level 10.4 H 8.5-10.1 MG/DL Magnesium Level 2.1 1.8-2.4 MG/DL Total Bilirubin 0.3 0.1-1.0 MG/DL Aspartate Amino Transf (AST/SGOT) 23 5-34 U/L Alanine Aminotransferase (ALT/SGPT) 25 0-55 U/L Alkaline Phosphatase 103 40-136 U/L Myoglobin 35.8 40.6 10.0-92.0 NG/ML Troponin I < 0.30 < 0.30 <0.30 NG/ML B-Type Natriuretic Peptide 41.6 <100.0 PG/ML Total Protein 7.3 6.4-8.2 GM/DL Albumin 4.4 3.2-4.5 GM/DL Amylase Level 47 25-125 U/L Lipase 10 8-78 U/L Glucometer 203 H 87 70-110 MG/DL Test 08/29/17 21:13 08/30/17 06:30 08/30/17 07:19 08/30/17 07:20 Range/Units Glucometer 122 H 49 *L 133 H 70-110 MG/DL White Blood Count 4.4 4.3-11.0 10^3/uL Red Blood Count 3.91 L 4.35-5.85 10^6/uL Hemoglobin 12.5 11.5-16.0 G/DL Hematocrit 36 35-52 % Mean Corpuscular Volume 92 80-99 FL Mean Corpuscular Hemoglobin 32 25-34 PG Mean Corpuscular Hemoglobin Concent 35 32-36 G/DL Red Cell Distribution Width 13.8 10.0-14.5 % Platelet Count 237 130-400 10^3/uL Mean Platelet Volume 9.8 7.4-10.4 FL Neutrophils (%) (Auto) 63 42-75 % Lymphocytes (%) (Auto) 26 12-44 % Monocytes (%) (Auto) 7 0-12 % Eosinophils (%) (Auto) 3 0-10 % Basophils (%) (Auto) 1 0-10 % Neutrophils # (Auto) 2.8 1.8-7.8 X 10^3 Lymphocytes # (Auto) 1.2 1.0-4.0 X 10^3 Monocytes # (Auto) 0.3 0.0-1.0 X 10^3 Eosinophils # (Auto) 0.1 0.0-0.3 10^3/uL Basophils # (Auto) 0.0 0.0-0.1 10^3/uL Sodium Level 142 135-145 MMOL/L Potassium Level 3.9 3.6-5.0 MMOL/L Chloride Level 111 H 98-107 MMOL/L Carbon Dioxide Level 22 21-32 MMOL/L Anion Gap 9 5-14 MMOL/L Blood Urea Nitrogen 11 7-18 MG/DL Creatinine 0.58 L 0.60-1.30 MG/DL Estimat Glomerular Filtration Rate > 60 BUN/Creatinine Ratio 19 Glucose Level 135 H 70-105 MG/DL Calcium Level 8.5 8.5-10.1 MG/DL Total Bilirubin 0.4 0.1-1.0 MG/DL Aspartate Amino Transf (AST/SGOT) 26 5-34 U/L Alanine Aminotransferase (ALT/SGPT) 19 0-55 U/L Alkaline Phosphatase 79 40-136 U/L Total Protein 6.0 L 6.4-8.2 GM/DL Albumin 3.7 3.2-4.5 GM/DL Triglycerides Level 205 H <150 MG/DL Cholesterol Level 140 < 200 MG/DL LDL Cholesterol Direct 75 1-129 MG/DL VLDL Cholesterol 41 H 5-40 MG/DL HDL Cholesterol 31 L 40-60 MG/DL Test 08/30/17 10:43 08/30/17 13:17 Range/Units Glucometer 320 H 387 H 70-110 MG/DL Laboratory Tests Test 08/29/17 14:57 08/29/17 16:47 08/29/17 18:39 08/29/17 20:50 Range/Units White Blood Count 5.5 4.3-11.0 10^3/uL Red Blood Count 4.11 L 4.35-5.85 10^6/uL Hemoglobin 13.4 11.5-16.0 G/DL Hematocrit 38 35-52 % Mean Corpuscular Volume 92 80-99 FL Mean Corpuscular Hemoglobin 33 25-34 PG Mean Corpuscular Hemoglobin Concent 36 32-36 G/DL Red Cell Distribution Width 13.5 10.0-14.5 % Platelet Count 275 130-400 10^3/uL Mean Platelet Volume 10.0 7.4-10.4 FL Neutrophils (%) (Auto) 63 42-75 % Lymphocytes (%) (Auto) 26 12-44 % Monocytes (%) (Auto) 8 0-12 % Eosinophils (%) (Auto) 2 0-10 % Basophils (%) (Auto) 1 0-10 % Neutrophils # (Auto) 3.4 1.8-7.8 X 10^3 Lymphocytes # (Auto) 1.4 1.0-4.0 X 10^3 Monocytes # (Auto) 0.4 0.0-1.0 X 10^3 Eosinophils # (Auto) 0.1 0.0-0.3 10^3/uL Basophils # (Auto) 0.1 0.0-0.1 10^3/uL Prothrombin Time 12.8 12.2-14.7 SEC INR Comment 1.0 0.8-1.4 Activated Partial Thromboplast Time 26 24-35 SEC Sodium Level 138 135-145 MMOL/L Potassium Level 4.4 3.6-5.0 MMOL/L Chloride Level 104 98-107 MMOL/L Carbon Dioxide Level 22 21-32 MMOL/L Anion Gap 12 5-14 MMOL/L Blood Urea Nitrogen 20 H 7-18 MG/DL Creatinine 1.18 0.60-1.30 MG/DL Estimat Glomerular Filtration Rate 48 BUN/Creatinine Ratio 17 Glucose Level 557 *H 70-105 MG/DL Calcium Level 10.4 H 8.5-10.1 MG/DL Magnesium Level 2.1 1.8-2.4 MG/DL Total Bilirubin 0.3 0.1-1.0 MG/DL Aspartate Amino Transf (AST/SGOT) 23 5-34 U/L Alanine Aminotransferase (ALT/SGPT) 25 0-55 U/L Alkaline Phosphatase 103 40-136 U/L Myoglobin 35.8 40.6 10.0-92.0 NG/ML Troponin I < 0.30 < 0.30 <0.30 NG/ML B-Type Natriuretic Peptide 41.6 <100.0 PG/ML Total Protein 7.3 6.4-8.2 GM/DL Albumin 4.4 3.2-4.5 GM/DL Amylase Level 47 25-125 U/L Lipase 10 8-78 U/L Glucometer 203 H 87 70-110 MG/DL Test 08/29/17 21:13 08/30/17 06:30 08/30/17 07:19 08/30/17 07:20 Range/Units Glucometer 122 H 49 *L 133 H 70-110 MG/DL White Blood Count 4.4 4.3-11.0 10^3/uL Red Blood Count 3.91 L 4.35-5.85 10^6/uL Hemoglobin 12.5 11.5-16.0 G/DL Hematocrit 36 35-52 % Mean Corpuscular Volume 92 80-99 FL Mean Corpuscular Hemoglobin 32 25-34 PG Mean Corpuscular Hemoglobin Concent 35 32-36 G/DL Red Cell Distribution Width 13.8 10.0-14.5 % Platelet Count 237 130-400 10^3/uL Mean Platelet Volume 9.8 7.4-10.4 FL Neutrophils (%) (Auto) 63 42-75 % Lymphocytes (%) (Auto) 26 12-44 % Monocytes (%) (Auto) 7 0-12 % Eosinophils (%) (Auto) 3 0-10 % Basophils (%) (Auto) 1 0-10 % Neutrophils # (Auto) 2.8 1.8-7.8 X 10^3 Lymphocytes # (Auto) 1.2 1.0-4.0 X 10^3 Monocytes # (Auto) 0.3 0.0-1.0 X 10^3 Eosinophils # (Auto) 0.1 0.0-0.3 10^3/uL Basophils # (Auto) 0.0 0.0-0.1 10^3/uL Sodium Level 142 135-145 MMOL/L Potassium Level 3.9 3.6-5.0 MMOL/L Chloride Level 111 H 98-107 MMOL/L Carbon Dioxide Level 22 21-32 MMOL/L Anion Gap 9 5-14 MMOL/L Blood Urea Nitrogen 11 7-18 MG/DL Creatinine 0.58 L 0.60-1.30 MG/DL Estimat Glomerular Filtration Rate > 60 BUN/Creatinine Ratio 19 Glucose Level 135 H 70-105 MG/DL Calcium Level 8.5 8.5-10.1 MG/DL Total Bilirubin 0.4 0.1-1.0 MG/DL Aspartate Amino Transf (AST/SGOT) 26 5-34 U/L Alanine Aminotransferase (ALT/SGPT) 19 0-55 U/L Alkaline Phosphatase 79 40-136 U/L Total Protein 6.0 L 6.4-8.2 GM/DL Albumin 3.7 3.2-4.5 GM/DL Triglycerides Level 205 H <150 MG/DL Cholesterol Level 140 < 200 MG/DL LDL Cholesterol Direct 75 1-129 MG/DL VLDL Cholesterol 41 H 5-40 MG/DL HDL Cholesterol 31 L 40-60 MG/DL Test 08/30/17 10:43 08/30/17 13:17 Range/Units Glucometer 320 H 387 H 70-110 MG/DL Radiology CXR negative Echo - LV EF 60-65% with abnormal LV relaxation, Pulmonary Artery systolic pressure 35-40 mmHg Physical Exam-(CHC) Physical Exam Vital Signs VS - Last 72 Hours, by Label 08/29/17 08/29/17 08/29/17 08/29/17 15:00 15:00 17:15 17:28 Temp 96.4 98.1 Pulse 102 85 82 Resp 18 20 16 B/P (MAP) 135/87 (103) 111/63 125/74 (91) Pulse Ox 98 96 97 O2 Delivery Room Air Room Air 08/29/17 08/29/17 08/29/17 08/29/17 17:40 18:03 18:09 18:10 Pulse 83 78 90 Resp 20 18 20 B/P (MAP) 117/75 (89) 136/81 (99) 152/83 (106) Pulse Ox 97 98 98 O2 Delivery Room Air Room Air Room Air Room Air 08/29/17 08/29/17 08/29/17 08/29/17 19:32 19:42 20:36 21:42 Temp 98.4 97.4 97.6 Pulse 88 83 87 84 Resp 18 18 18 B/P (MAP) 123/72 (89) 119/75 (90) 141/75 (97) Pulse Ox 97 97 97 O2 Delivery Room Air Room Air Room Air 08/29/17 08/30/17 08/30/17 08/30/17 22:27 00:37 01:00 04:48 Temp 97.7 97.9 98.3 Pulse 78 80 73 87 Resp 18 17 18 B/P (MAP) 121/78 (92) 131/70 (90) 140/67 (91) Pulse Ox 98 98 98 O2 Delivery Room Air Room Air Room Air 08/30/17 08/30/17 08/30/17 08/30/17 07:00 08:30 11:51 12:01 Temp 96.6 96.8 Pulse 90 91 78 83 Resp 22 18 B/P (MAP) 144/79 (100) 132/84 (100) 136/72 (93) Pulse Ox 98 98 96 O2 Delivery Room Air Room Air 08/30/17 12:01 Temp 96.8 Pulse 83 Resp 18 B/P (MAP) 136/72 (93) Pulse Ox 96 O2 Delivery Room Air Capillary Refill : Less Than 3 Seconds General Appearance: WD/WN, no apparent distress Eyes: Bilateral Eye EOMI HEENT: pharynx normal Neck: non-tender, supple, normal inspection Respiratory: chest non-tender, lungs clear, normal breath sounds, no respiratory distress Cardiovascular: regular rate, rhythm, no edema Peripheral Pulses: 2+ Radial Pulses (R), 2+ Radial Pulses (L) Gastrointestinal: normal bowel sounds, non tender, soft Back: normal inspection Extremities: normal range of motion Neurologic/Psychiatric: alert, normal mood/affect Skin: normal color, warm/dry Assessment/Plan Assessment/Plan Admission Status: Observation Assessment & Plan Chest pain - will consult cardiology to rule out ACS. Pt to have stress test later today. Pt had normal Echo that showed LVEF of 60-65% with abnormal LV relaxation and pulmonary artery systolic pressure of 35-40 mmHg. Pt has normal BNP so heart failure not a strong suspicion. Clinical Quality Measures AMI/AHF: ASA po Prior to arrival: No DVT/VTE Risk/Contraindication: Risk Factor Score Per Nursin RFS Level Per Nursing on Admit: 2=Moderate JAMILA PABON MD 08/30/175: HPI History of Present Illness: Date seen by provider: Aug 30, 2017 Time Seen by Provider: 16:51 Home Medications Allergies Coded Allergies: codeine (Unverified Allergy, Mild, PT TAKES TRAMADOL AT HOME, 01/18/14) sulfamethoxazole (Unverified Allergy, Unknown, 01/17/14) trimethoprim (Unverified Allergy, Unknown, 01/17/14) [id number] Hx Family Medical History Family History: Abdominal aortic aneurysm 19 FATHER Arthritis 19 FATHER G8 SISTER Cardiovascular disease 19 FATHER 19 MOTHER Deafness or hearing loss 19 FATHER Diabetes mellitus G8 BROTHER Fibrocystic disease of breast G8 SISTER Infertility G8 SISTER Kidney disease 19 FATHER Myocardial infarction 19 FATHER 19 MOTHER Thyroid disease G8 SISTER Visual disorder 19 FATHER G8 BROTHER No Family History of: AIDS Cattar[place]'s disease Alcoholism Alzheimer's disease Aphasia Asthma Cancer of mouth Cataracts Colon cancer Completed stroke Congenital disease Congenital heart disease Coronary thrombosis Cystic fibrosis Dementia Drug abuse Dysphasia Gastroenteritis Glaucoma Headache disorder Hypercholesterolemia Hypertension Neoplasm Not obtainable due to adoption Osteoporosis Parkinson's disease Prostate cancer Psychosocial problem Respiratory disorder Seizure disorder Severe allergy Tuberculosis Physical Exam-([facility]) Physical Exam General Appearance: WD/WN, no apparent distress Eyes: Bilateral Eye EOMI Respiratory: lungs clear, normal breath sounds, no respiratory distress Cardiovascular: regular rate, rhythm, no murmur Extremities: no pedal edema Neurologic/Psychiatric: alert, normal mood/affect Skin: normal color, warm/dry Supervisory-Addendum Brief Supervisory Addendum Patient seen and examined by me and assessment and plan directed by me. Agree with documentation by NELA Thomas unless otherwise noted. FARA THOMAS MEDICAL STUDENT Aug 30, 2017 15:07 JAMILA PABON MD Aug 30, 2017 20:45
--- NOTE | 2017-08-30 17:13 | Discharge Instructions ---
Discharge [facility] Discharge Medications Continued Medications: Acetaminophen/Diphenhydramine (Tylenol Pm Ex-Strength Caplet) 1 Each Tablet 1 TAB PO HS PRN for SLEEP, TAB Aspirin (Aspirin EC) 81 Mg Tablet.dr 81 MG PO DAILY, TAB Celecoxib (Celecoxib) 200 Mg Capsule 200 MG PO HS, CAP Clopidogrel Bisulfate (Clopidogrel) 75 Mg Tablet 75 MG PO DAILY, TAB Folic Acid (Folic Acid) 1 Mg Tablet 1 MG PO DAILY, TAB Insulin Aspart (Novolog) 100 Unit/1 Ml Susp 10 UNITS SC 0800,1200, EA Insulin Aspart (Novolog) 100 Unit/1 Ml Susp 15 UNIT SQ 1800, EACH Insulin Determir (Levemir) 1,000 Units/10 Ml Soln 30 UNITS SC DAILY, EA Levothyroxine Sodium (Levothyroxine Sodium) 150 Mcg Tablet 150 MCG PO DAILY, TAB Methotrexate Sodium (Methotrexate) 2.5 Mg Tablet 17.5 MG PO Th, TAB TAKES 7 (2.5MG) TABLETS Metoprolol Tartrate (Metoprolol Tartrate) 25 Mg Tablet 12.5 MG PO BID, TAB TAKES 1/2 (25MG) TABLET Mirtazapine (Mirtazapine) 15 Mg Tablet 15 MG PO HS, TAB Oxycodone HCl/Acetaminophen (Oxycodon-Acetaminophen 7.5-325) 1 Each Tablet 1 TAB PO TID PRN for PAIN-MODERATE, TAB Simvastatin (Simvastatin) 40 Mg Tablet 40 MG PO HS, TAB Patient Instructions Goal/Follow Up Appt: Follow up with Tello Fonseca at [facility] on 09/12 at 1 pm. Activity & Diet Discharge Diet: ADA Diet Activity as Tolerated: Yes Copy Copies To 1: DELANO Canseco BETHANY N MD Aug 30, 2017 5:13 pm
--- NOTE | 2017-08-30 17:13 | Discharge Summary ---
Diagnosis/Chief Complaint Date of Admission Aug 29, 2017 at 4:15 pm Date of Discharge August 30, 2017 Admission Diagnosis Admission Diagnosis Chest pain Diabetes with hyperglycemia Discharge Diagnosis Chest pain- negative troponin, echocardiogram with EF 60-65%, grade 1 diastolic dysfunction. Stress test with no ischemia. Seen by Cardiology and recommended outpatient follow-up and continued risk factor modification. Diabetes with hyperglycemia- unclear etiology, blood sugar improved inpatient. Was not checking blood sugar regularly outpatient, recommended checking fast and 2 hours postprandial for at least the weekend in order to determine if insulin dosing changes may be needed. Chief Complaint/HPI Chief Complaint/HPI 51 year old female with Hx of DM, previous PA on 01/17/14 with stents in RCA, RA , hypothyroidism, depression, OA was admitted from the ED for c/o left sided chest pressure x 5 days. Pt states the pain does not radiate and that this feels like the time she had a previous PA. Pt admits N/V and SOB with the episode. Pt states nothing made the pain any better or any worse. Pt denies fever, chills, abd pain, N/V/D/constipation, swelling. Pt states she did not take anything for the pain but was given ASA in the ED. Discharge Summary-Simple/Stand Consultations Discharge Physical Examination Allergies: Coded Allergies: codeine (Unverified Allergy, Mild, PT TAKES TRAMADOL AT HOME, 01/18/14) sulfamethoxazole (Unverified Allergy, Unknown, 01/17/14) trimethoprim (Unverified Allergy, Unknown, 01/17/14) Vitals & I&Os Vital Sign - Last 12Hours Date Time Temp Pulse Resp B/P (MAP) Pulse Ox O2 Delivery O2 Flow Rate FiO2 08/30/17 13:00 90 08/30/17 12:01 96.8 18 136/72 (93) 96 Room Air Intake and Output 08/30/17 00:00 Intake Total 2770 ml Balance 2770 ml Hospital Course See final discharge diagnosis. Labs Laboratory Tests Test 08/29/17 14:57 08/29/17 16:47 08/29/17 18:39 08/29/17 20:50 Range/Units White Blood Count 5.5 4.3-11.0 10^3/uL Red Blood Count 4.11 L 4.35-5.85 10^6/uL Hemoglobin 13.4 11.5-16.0 G/DL Hematocrit 38 35-52 % Mean Corpuscular Volume 92 80-99 FL Mean Corpuscular Hemoglobin 33 25-34 PG Mean Corpuscular Hemoglobin Concent 36 32-36 G/DL Red Cell Distribution Width 13.5 10.0-14.5 % Platelet Count 275 130-400 10^3/uL Mean Platelet Volume 10.0 7.4-10.4 FL Neutrophils (%) (Auto) 63 42-75 % Lymphocytes (%) (Auto) 26 12-44 % Monocytes (%) (Auto) 8 0-12 % Eosinophils (%) (Auto) 2 0-10 % Basophils (%) (Auto) 1 0-10 % Neutrophils # (Auto) 3.4 1.8-7.8 X 10^3 Lymphocytes # (Auto) 1.4 1.0-4.0 X 10^3 Monocytes # (Auto) 0.4 0.0-1.0 X 10^3 Eosinophils # (Auto) 0.1 0.0-0.3 10^3/uL Basophils # (Auto) 0.1 0.0-0.1 10^3/uL Prothrombin Time 12.8 12.2-14.7 SEC INR Comment 1.0 0.8-1.4 Activated Partial Thromboplast Time 26 24-35 SEC Sodium Level 138 135-145 MMOL/L Potassium Level 4.4 3.6-5.0 MMOL/L Chloride Level 104 98-107 MMOL/L Carbon Dioxide Level 22 21-32 MMOL/L Anion Gap 12 5-14 MMOL/L Blood Urea Nitrogen 20 H 7-18 MG/DL Creatinine 1.18 0.60-1.30 MG/DL Estimat Glomerular Filtration Rate 48 BUN/Creatinine Ratio 17 Glucose Level 557 *H 70-105 MG/DL Calcium Level 10.4 H 8.5-10.1 MG/DL Magnesium Level 2.1 1.8-2.4 MG/DL Total Bilirubin 0.3 0.1-1.0 MG/DL Aspartate Amino Transf (AST/SGOT) 23 5-34 U/L Alanine Aminotransferase (ALT/SGPT) 25 0-55 U/L Alkaline Phosphatase 103 40-136 U/L Myoglobin 35.8 40.6 10.0-92.0 NG/ML Troponin I < 0.30 < 0.30 <0.30 NG/ML B-Type Natriuretic Peptide 41.6 <100.0 PG/ML Total Protein 7.3 6.4-8.2 GM/DL Albumin 4.4 3.2-4.5 GM/DL Amylase Level 47 25-125 U/L Lipase 10 8-78 U/L Glucometer 203 H 87 70-110 MG/DL Test 08/29/17 21:13 08/30/17 06:30 08/30/17 07:19 08/30/17 07:20 Range/Units Glucometer 122 H 49 *L 133 H 70-110 MG/DL White Blood Count 4.4 4.3-11.0 10^3/uL Red Blood Count 3.91 L 4.35-5.85 10^6/uL Hemoglobin 12.5 11.5-16.0 G/DL Hematocrit 36 35-52 % Mean Corpuscular Volume 92 80-99 FL Mean Corpuscular Hemoglobin 32 25-34 PG Mean Corpuscular Hemoglobin Concent 35 32-36 G/DL Red Cell Distribution Width 13.8 10.0-14.5 % Platelet Count 237 130-400 10^3/uL Mean Platelet Volume 9.8 7.4-10.4 FL Neutrophils (%) (Auto) 63 42-75 % Lymphocytes (%) (Auto) 26 12-44 % Monocytes (%) (Auto) 7 0-12 % Eosinophils (%) (Auto) 3 0-10 % Basophils (%) (Auto) 1 0-10 % Neutrophils # (Auto) 2.8 1.8-7.8 X 10^3 Lymphocytes # (Auto) 1.2 1.0-4.0 X 10^3 Monocytes # (Auto) 0.3 0.0-1.0 X 10^3 Eosinophils # (Auto) 0.1 0.0-0.3 10^3/uL Basophils # (Auto) 0.0 0.0-0.1 10^3/uL Sodium Level 142 135-145 MMOL/L Potassium Level 3.9 3.6-5.0 MMOL/L Chloride Level 111 H 98-107 MMOL/L Carbon Dioxide Level 22 21-32 MMOL/L Anion Gap 9 5-14 MMOL/L Blood Urea Nitrogen 11 7-18 MG/DL Creatinine 0.58 L 0.60-1.30 MG/DL Estimat Glomerular Filtration Rate > 60 BUN/Creatinine Ratio 19 Glucose Level 135 H 70-105 MG/DL Calcium Level 8.5 8.5-10.1 MG/DL Total Bilirubin 0.4 0.1-1.0 MG/DL Aspartate Amino Transf (AST/SGOT) 26 5-34 U/L Alanine Aminotransferase (ALT/SGPT) 19 0-55 U/L Alkaline Phosphatase 79 40-136 U/L Total Protein 6.0 L 6.4-8.2 GM/DL Albumin 3.7 3.2-4.5 GM/DL Triglycerides Level 205 H <150 MG/DL Cholesterol Level 140 < 200 MG/DL LDL Cholesterol Direct 75 1-129 MG/DL VLDL Cholesterol 41 H 5-40 MG/DL HDL Cholesterol 31 L 40-60 MG/DL Test 08/30/17 10:43 08/30/17 13:17 08/30/17 16:20 Range/Units Glucometer 320 H 387 H 189 H 70-110 MG/DL Radiology Reviewed CXR negative Echo - LV EF 60-65% with abnormal LV relaxation, Pulmonary Artery systolic pressure 35-40 mmHg Discharge Instructions to patient/family Please see electronic discharge instructions given to patient. Discharge Medications Reviewed and agree with Discharge Medication list on patient's Discharge Instruction sheet Clinical Quality Measures AMI/AHF: ASA po Prior to arrival: No DVT/VTE Risk/Contraindication: Risk Factor Score Per Nursin RFS Level Per Nursing on Admit: 2=Moderate Copy Copies To 1: DELANO Canseco BETHANY N MD Aug 30, 2017 17:13
[2017-08-30] MEDS ORDERED: meTOprolol TARTRATE 25 MG (LOPRESSOR) TABLET PO SCH (21:00)
[2017-08-30] MEDS ORDERED: SIMvastatin 40 MG (ZOCOR) TAB PO SCH (21:00)
[2017-08-30] MEDS ORDERED: CELECOXIB 100 MG (CeleBREX) CAP PO SCH (21:00)
[2017-08-30] MEDS ORDERED: MIRTAZAPINE 15 MG (REMERON) TAB PO SCH (21:00)
--- NOTE | 2017-08-30 21:24 | STRESS TEST ---
DATE OF SERVICE: 08/30/2017 RESTING AND POST REGADENOSON TECHNETIUM 99M TETROFOSMIN SPECT CT IMAGING ORDERING PHYSICIAN: Dr. Dawson. PRIMARY PHYSICIAN: Dr. Pabon. CLINICAL DIAGNOSES: Chest pain, history of coronary artery disease. Baseline images were carried out after injection of 11 mCi of technetium-99m Tetrofosmin. This was followed by 0.4 mg regadenoson and 33 mCi of technetium-99m Tetrofosmin for stress imaging. The electrocardiogram showed sinus rhythm throughout the study and it did not change significantly with the regadenoson infusion. The patient tolerated the procedure well. Review of images at rest and following stress does not indicate any significant perfusion defects consistent with any significant myocardial ischemia or infarction. Gated images show normal global left ventricular systolic function with normal regional wall motion. Left ventricular ejection fraction is calculated to be 57%. CONCLUSIONS: 1. No evidence of any significant myocardial ischemia or infarction on this study. 2. Normal regional wall motion. 3. Normal global left ventricular systolic function with a calculated ejection fraction 57%. Job ID: [id number] DocumentID: [id number] Dictated Date: 08/30/2017 17:02:24 Hat Finisher Date: 08/30/2017 21:24:05 Dictated By: AYDE DAWSON MD, MA, FACP, FACC,
[2017-08-31] MEDS ORDERED: LEVOTHYROXINE 150 MCG (LEVOTHROID) TAB PO SCH (09:00)
[2017-08-31] MEDS ORDERED: FOLIC ACID 1 MG TAB PO SCH (09:00)
[2017-08-31] MEDS ORDERED: ASPIRIN E.C. 81 MG (ECOTRIN) TAB PO SCH (09:00)
== END 2017-08-30 17:11 | disposition home or self-care (01) ==
LOC: EDUNIT# 14:40 → ER 14:42 → 4TH 16:15 → UNDOADMOB 16:15 → 4TH 17:28 → UNDODISOB 08-30 17:40
PROVIDERS: ADMIT Family Medicine; ATTEND Family Medicine
DX: R07.9 Chest pain, unspecified (principal); E10.65 Type 1 diabetes mellitus with hyperglycemia; E03.9 Hypothyroidism, unspecified; F32.9 Major depressive disorder, single episode, unspecified; M06.9 Rheumatoid arthritis, unspecified; E78.00 Pure hypercholesterolemia, unspecified; I25.10 Atherosclerotic heart disease of native coronary artery without angina pectoris; I25.2 Old myocardial infarction; F17.210 Nicotine dependence, cigarettes, uncomplicated; Z95.5 Presence of coronary angioplasty implant and graft; Z79.4 Long term (current) use of insulin
CPT/HCPCS: 36415; 71045; 78452; 80053; 80061; 82150; 82962; 83690; 83735; 83874; 83880; 84484; 85025; 85610; 85730; 93005; 93017; 93041; 93306; 96361; 96374; 96375; G0378

== ENCOUNTER 2019-03-31 11:00 | Outpatient (CLI) | payer MEDICARE, MEDICAID ==
[~2019-03-31] VITALS: Ht 160 cm; Wt 72.7 kg
[~2019-03-31 11:00] MED LIST changes: +ACET-2715 PO; +ASPI-983 PO; +CELE-63 PO; +CLOP75TA28 PO; +FOLI1TAB24 PO; +INSU100V16 SC; +INSU100V16 SQ; +INSU100V5 SC; +LEVO150T6 PO; +METO-333 PO; +MIRT15TA6 PO; +MTX2.5T PO; +OXYC-464 PO; +SIMV40TA25 PO
[2019-03-31] MEDS ORDERED: DESV100T PO (11:09)
[2019-03-31] MEDS ORDERED: ARIP10TA10 PO (11:09)
[2019-03-31] MEDS ORDERED: TRAM50TA3 PO (11:09)
[2019-03-31] MEDS ORDERED: INSU100I29 SQ (11:09)
== END 2019-03-31 11:32 | disposition home or self-care (01) ==
LOC: PREOP 11:00
PROVIDERS: ATTEND Surgery
DX: Z01.818 Encounter for other preprocedural examination (principal)

== ENCOUNTER → 2019-09-09 | Outpatient (CLI) | payer MEDICARE, MEDICAID ==
[~2019-09-09] MED LIST changes: +ARIP10TA10 PO; +DESV100T PO; +INSU100I29 SQ; +TRAM50TA3 PO
== END ==
LOC: CARD 08:51
PROVIDERS: ATTEND Nurse Practitioner Family
DX: I25.10 Atherosclerotic heart disease of native coronary artery without angina pectoris (principal); I77.89 Other specified disorders of arteries and arterioles; E78.5 Hyperlipidemia, unspecified
CPT/HCPCS: 93306

== ENCOUNTER → 2019-09-15 | Outpatient (CLI) | payer MEDICARE, MEDICAID ==
[~2019-09-15] VITALS: Ht 160 cm; Wt 58.0 kg
[~2019-09-15] MED LIST changes: +REGADENOSON 0.4 MG/5 ML SYR (LEXISCAN) IV ONE
[2019-09-15] MEDS: CATHETER FLUSH 10 ML SYR IV PRN ×2 (08:02→09:08)
[2019-09-15 09:06] VITALS: BP 184/74
--- NOTE | 2019-09-15 14:01 | STRESS TEST ---
DATE OF SERVICE: 09/15/2019 RESTING AND POST REGADENOSON TECHNETIUM-99M TETROFOSMIN SPECT IMAGING ORDERING PHYSICIAN: Selena Magaña APRN. PRIMARY PHYSICIAN: [facility]. CLINICAL DIAGNOSIS: Coronary artery disease. Baseline images were carried out after injection of 10.61 mCi technetium-99m Tetrofosmin. This was followed by 0.4 mg regadenoson and 33 mCi of technetium-99m Tetrofosmin for stress imaging. The electrocardiogram showed sinus rhythm at baseline. It did not change significantly with regadenoson infusion. The patient tolerated the procedure well. Review of images at rest and following stress indicates a moderate basal inferior perfusion defect, which appears transient. SDS is 8. Gated images show normal global left ventricular systolic function with normal regional wall motion. Left ventricular ejection fraction is calculated to be 63%. Left ventricular end diastolic volume is 51 mL. TID is absent (1.09). CONCLUSIONS: 1. This study suggests a moderate amount of basal inferior ischemia. 2. Normal regional wall motion. 3. Normal global left ventricular systolic function with a calculated ejection fraction of 63%. Job ID: [id number] DocumentID: [id number] Dictated Date: 09/15/2019 13:21:24 Aws Consultant Date: 09/15/2019 14:00:04 Dictated By: AYDE ROBERTS MD, MA, FACP, FACC,
== END ==
LOC: CARD 07:48
PROVIDERS: ATTEND Nurse Practitioner Family
DX: I25.10 Atherosclerotic heart disease of native coronary artery without angina pectoris (principal); I65.29 Occlusion and stenosis of unspecified carotid artery; E78.5 Hyperlipidemia, unspecified
CPT/HCPCS: 78452; 93017; A9502

== ENCOUNTER 2019-09-22 09:53 | Day surgery (SDC) | payer MEDICARE, MEDICAID ==
[2019-09-22] VITALS (15 sets, daily range): BP systolic 128–166; BP diastolic 66–88
[~2019-09-22] VITALS: Ht 160 cm; Wt 58.0 kg
[~2019-09-22 09:53] MED LIST changes: -REGADENOSON 0.4 MG/5 ML SYR (LEXISCAN) IV ONE
[2019-09-22] MEDS ORDERED: HEParin (CATH LAB) 2,000 ML IV ONE (10:22)
[2019-09-22] MEDS ORDERED: NS IV 1000 ML 1,000 ML ONE (10:22)
[2019-09-22] MEDS ORDERED: LIDOCAINE 1% INJ 20 ML 20 ML VIAL ONE (10:22)
[2019-09-22] MEDS: NS IV 1000 ML 1,000 ML IV SCH ×4 (10:53→23:44)
[2019-09-22 11:01] LABS: MEAN PLATELET VOLUME 9.5 FL (7.4-10.4); RED CELL DISTRIBUTION WIDTH 13.8 % (10.0-14.5); WHITE BLOOD COUNT 7.7 10^3/uL (4.3-11.0)
[2019-09-22] MEDS ORDERED: LEVO200T6 PO (11:08)
[2019-09-22] MEDS ORDERED: ADAL40PE SQ (11:08)
[2019-09-22 11:10] LABS: INR 0.9 (0.8-1.4); PROTHROMBIN TIME PATIENT 12.7 SEC (12.2-14.7)
[2019-09-22 11:20] LABS: ALANINE AMINOTRANSFERASE 34 U/L (0-55); ALBUMIN 4.1 GM/DL (3.2-4.5); ALKALINE PHOSPHATASE 85 U/L (40-136); BILIRUBIN,TOTAL 0.3 MG/DL (0.1-1.0); BUN/CREATININE RATIO 30; CALCIUM 9.4 MG/DL (8.5-10.1); CARBON DIOXIDE 25 MMOL/L (21-32); CHLORIDE 105 MMOL/L (98-107); CHOLESTEROL 188 MG/DL (< 200); GFR ESTIMATED > 60; GLUCOSE 168 MG/DL (70-105); HDL CHOLESTEROL 46 MG/DL (40-60); POTASSIUM 4.2 MMOL/L (3.6-5.0); SODIUM 140 MMOL/L (135-145); TOTAL PROTEIN 7.3 GM/DL (6.4-8.2); TRIGLYCERIDES 175 MG/DL (<150); VLDL CHOLESTEROL 35 MG/DL (5-40)
[2019-09-22] MEDS ORDERED: fentaNYL INJECTION 100 MCG/2 ML AMP ONE ×2 (11:47→16:35)
[2019-09-22] MEDS ORDERED: MIDAZOLAM 5 MG/5 ML (VERSED) VIAL ONE (11:47)
--- NOTE | 2019-09-22 12:17 | Cardiac Procedure Note-CS/ASA ---
Pre-Procedure Note Pre-Op Procedure Note H&P Reviewed The H&P was reviewed, patient examined and no changes noted. Date H&P Reviewed: Sep 22, 2019 Time H&P Reviewed: 12:17 Conscious Sedation Pre-Proced Time 12:17 ASA Score 3 For ASA 3 and 4: Consider anesthesia and medical clearance. Also, for patients with a history of failed moderate sedation consider anesthesia. Airway Lungs Heart ASA score ASA 1: a normal healthy patient ASA 2: a patient with a mild systemic disease (mid diabetes, controlled hypertension, obesity ASA 3: a patient with a severe systemic disease that limits activity (angina, COPD, prior Myocardial infarction) ASA 4: a patient with an incapacitating disease that is a constant threat to life (CHF, renal failure) ASA 5: a moribund patient not expected to survive 24 hrs. (ruptured aneurysm) ASA 6: a declared brain- patient whose organs are being harvested. For emergent operations, add the letter E after the classification Mallampati Classification Grade 2 Sedation Plan Analgesia, Amnesia, Plan communicated to team members, Discussed options with patient/fam, Discussed risks with patient/fam The patient is an appropriate candidate to undergo the planned procedure, sedation, and anesthesia. The patient immediately re-assessed prior to indication. AYDE ROBERTS MD FACP FAC CCDS Sep 22, 2019 12:17
[2019-09-22] MEDS ORDERED: HEParin 1000 UNIT/ML (10ML VIAL) FOR BOLUS ONE (12:24)
[2019-09-22] MEDS ORDERED: NITRO DRIP 25000 MCG/D5W 250 ML IV ONE (12:24)
[2019-09-22] MEDS ORDERED: EPTIFIBATIDE BOLUS 10 ML IV ONE (12:25)
[2019-09-22] MEDS ORDERED: ASPIRIN 81 MG CHEW (CHILDREN'S ASA) ONE (12:54)
[2019-09-22] MEDS ORDERED: CLOPIDOGREL 75 MG (PLAVIX) TABLET ONE (12:54)
[2019-09-22] MEDS ORDERED: PATIENT MAY USE OWN MEDS, ALL PO SCH (13:15)
[2019-09-22] MEDS ORDERED: ADALIMUMAB 40 MG SQ SCH (13:15)
--- NOTE | 2019-09-22 13:23 | CARDIAC CATHETERIZATION ---
DATE OF SERVICE: 09/22/2019 CARDIAC CATHETERIZATION AND CORONARY INTERVENTION REPORT INDICATIONS: The patient is a 53-year-old lady with known coronary artery disease who has been experiencing recurrent angina. Cardiac catheterization was carried out. Informed consent was obtained for cardiac catheterization and possible ad hoc coronary intervention. DESCRIPTION OF PROCEDURE: She was brought to the cardiac catheterization in a fasting state. Right groin was prepared and draped in the usual sterile fashion. Lidocaine 1% was used for local anesthesia. Modified Seldinger technique was used to advance a 5-Liberian sheath in right femoral artery, 5-Liberian JL4 catheter was used for left coronary angiography. This was not resulting in good engagement and we then used a 5-Liberian JL3.5 catheter for left coronary angiography. We used 5-Liberian JR4 catheter for right coronary angiography. A 5-Liberian pigtail catheter was used for left heart catheterization and left ventricular angiography. Subsequently, percutaneous intervention was carried out in the right coronary artery and it is described below. PERCUTANEOUS INTERVENTION OF THE RIGHT CORONARY ARTERY: The right coronary artery was exhibiting 90% in-stent restenosis in its mid portion. We exchanged the sheath over a wire for a 6-Liberian sheath and used a 6-Liberian JR4 guide catheter with side holes. We gave 4000 units of intravenous heparin, a double bolus of Integrilin during the procedure. We used a BMW wire to cross the lesion and the tip was placed in the distal vessel. We carried out balloon angioplasty with Emerge 3.0 x 20 mm balloon with inflations up to 14 atmospheres. Subsequent angiography revealed no significant residual stenosis at the previous site of 90% stenosis. Flow throughout the vessel is normal. She tolerated the procedure well. Angioplasty equipment was removed. Sheath was sutured in place and the patient was transferred to the floor for manual sheath removal. HEMODYNAMICS: Left ventricular end-diastolic pressure following coronary angiography was 22 mmHg. There is no significant pressure gradient on pullback across the aortic valve. Ascending aortic pressure was 145/88 with a mean 116 mmHg. CORONARY ANGIOGRAPHY: Left main coronary artery is free of significant disease. Left anterior descending artery has diffuse moderate disease in its mid portion. Left circumflex artery does not exhibit significant obstructive disease. Right coronary artery is stented in its proximal and mid portions. There was exhibiting 90% in-stent restenosis. The stents are known to be 3.0 x 32 mm and 3.0 x 12 mm nonoverlapping stents that were placed in 2014. The 3.0 x 32 mm stent was exhibiting the restenosis. Successful balloon angioplasty was carried out that reduced the stenosis to no significant residual. LEFT VENTRICULAR ANGIOGRAPHY: Left ventricular angiography was carried out in the right anterior oblique projection. Global left ventricular systolic function normal. No regional wall motion abnormalities seen. Left ventricular ejection fraction approximately 55% to 60%. CONCLUSIONS: 1. Coronary artery disease primarily consisting of in-stent restenosis within the mid right coronary artery that has previously been stented with nonoverlapping, Promus 3.0 x 32 mm and 3.0 x 12 mm stents in 2013. Successful balloon angioplasty was carried out to restenosis with reduction of stenosis to no significant residual. The rest of the coronary vessels have diffuse mild to moderate disease. 2. Normal global left ventricular systolic function with ejection fraction 55% to 60%. 3. Elevated left ventricular end-diastolic pressure. DISCUSSION AND RECOMMENDATIONS: She is being hospitalized for observation after today's procedure. Her current regimen, including dual antiplatelet therapy is being continued. Risk factor modification has been reviewed and advised. Job ID: [id number] DocumentID: [id number] Dictated Date: 09/22/2019 13:06:08 Foreign Collection Clerk Date: 09/22/2019 13:21:54 Dictated By: AYDE ROBERTS MD, MA, FACP, FACC, MTDD
--- NOTE | 2019-09-22 13:30 | NUR ---
PT IN ROOM. REPORT RECEIVED FROM GUERA EASLEY. GROIN SITE CHECKED. NO NEW COMPLAINTS. VITALS STABLE. WILL CONTINUE TO MONITOR.
[2019-09-22 16:03] LABS: INR 0.9 (0.8-1.4); PROTHROMBIN TIME PATIENT 12.9 SEC (12.2-14.7)
[2019-09-22] MEDS ORDERED: ATROPINE INJ 0.4 MG/ML SDV ONE (16:35)
[2019-09-22] MEDS ORDERED: fentaNYL INJECTION 100 MCG/2 ML AMP IVP ONE (17:00)
[2019-09-22] MEDS ORDERED: NON-FORMULARY MEDICATION 1 EA EA (Insulin Detemir (Levemir Flextouch) 20 UNIT) SQ SCH (21:00)
[2019-09-22] MEDS ORDERED: SIMvastatin 40 MG (ZOCOR) TAB PO SCH (21:00)
[2019-09-22] MEDS ORDERED: CELECOXIB 100 MG (CeleBREX) CAP PO SCH (21:00)
[2019-09-22] MEDS ORDERED: NON-FORMULARY MEDICATION 1 EA EA (Celecoxib 200 MG) PO SCH (21:00)
[2019-09-22] MEDS ORDERED: NON-FORMULARY MEDICATION 1 EA EA (Mirtazapine 15 MG) PO SCH (21:00)
[2019-09-22] MEDS ORDERED: MIRTAZAPINE 15 MG (REMERON) TAB PO SCH (21:00)
[2019-09-22] MEDS: CELECOXIB 200 MG CAPSULE PO SCH (21:03)
[2019-09-22] MEDS: meTOprolol TARTRATE 25 MG (LOPRESSOR) TABLET PO SCH (21:07)
[2019-09-23] VITALS (7 sets, daily range): BP systolic 134–167; BP diastolic 72–93
[2019-09-23 03:56] LABS: HEMOGLOBIN 12.2 G/DL (11.5-16.0); MEAN PLATELET VOLUME 9.4 FL (7.4-10.4); RED CELL DISTRIBUTION WIDTH 13.6 % (10.0-14.5); WHITE BLOOD COUNT 4.4 10^3/uL (4.3-11.0)
[2019-09-23 04:15] LABS: BUN/CREATININE RATIO 25; CALCIUM 8.9 MG/DL (8.5-10.1); CARBON DIOXIDE 19 MMOL/L (21-32); CHLORIDE 110 MMOL/L (98-107); CREATININE SERUM 0.59 MG/DL (0.60-1.30); GFR ESTIMATED > 60; GLUCOSE 94 MG/DL (70-105); POTASSIUM 3.9 MMOL/L (3.6-5.0); SODIUM 142 MMOL/L (135-145)
[2019-09-23] MEDS: NS IV 1000 ML 1,000 ML IV SCH ×2 (05:28→09:11)
[2019-09-23] MEDS ORDERED: LEVOTHYROXINE 100 MCG (LEVOTHROID) TAB PO SCH (06:30)
[2019-09-23] MEDS ORDERED: LEVOTHYROXINE 200 MCG TABLET PO SCH (06:30)
--- NOTE | 2019-09-23 07:50 | Progress Note - Cardiology ---
Cardiology SOAP Progress Note Subjective: Sitting up in bed. Denies any c/o CP, SOB or palpitations. No c/o right groin discomfort. Objective: I&O/Vital Signs 09/22/19 09/22/19 09/22/19 09/23/19 21:00 22:00 23:00 00:00 Pulse 105 100 93 98 Resp 32 16 28 20 B/P (MAP) 166/73 (104) 136/76 (96) 138/71 (93) 134/77 (96) Pulse Ox 97 96 95 96 O2 Delivery Room Air Room Air Room Air Room Air 09/23/19 09/23/19 09/23/19 09/23/19 01:00 01:00 02:00 03:00 Pulse 94 90 89 85 Resp 17 17 26 B/P (MAP) 136/72 (93) 154/93 (113) 144/80 (101) Pulse Ox 97 98 98 O2 Delivery Room Air Room Air Room Air 09/23/19 09/23/19 09/23/19 09/23/19 04:00 04:21 07:16 08:00 Temp 36.9 36.9 Pulse 89 113 Resp 12 19 B/P (MAP) 145/80 (101) 167/82 (110) Pulse Ox 97 96 96 O2 Delivery Room Air Room Air Room Air Weight (Pounds): 130 Weight (Ounces): 0.0 Weight (Calculated Kilograms): [id number] Side: right Groin site without hematoma: Yes Condition: DP/PT pulses palpable, extremity w/d/p Bruising: mild bruising Constitutional: AAO x 3, well-developed, well-nourished Respiratory: No accessory muscle use, No respiratory distress; chest expansion is symmetric, chest is bilaterally symmetric, lungs clear to auscultation Cardiovascular: regular rate-rhythm; No JVD; S1 and S2 Gastrointestional: No tender; soft, round, audible bowel sounds Extremities: no lower extremity edema bilateral Neurologic/Psychiatric: grossly intact (moves all extremities) Skin: No rash on exposed areas, No ulcerations on exposed areas Results/Procedures: Labs Laboratory Tests 09/22/19 10:45: White Blood Count 7.7, Red Blood Count 4.37, Hemoglobin 13.0, Hematocrit 40, Mean Corpuscular Volume 91, Mean Corpuscular Hemoglobin 30, Mean Corpuscular Hemoglobin Concent 33, Red Cell Distribution Width 13.8, Platelet Count 266, Mean Platelet Volume 9.5, Prothrombin Time 12.7, INR Comment 0.9, Activated Partial Thromboplast Time 26, Sodium Level 140, Potassium Level 4.2, Chloride Level 105, Carbon Dioxide Level 25, Anion Gap 10, Blood Urea Nitrogen 21H, Creatinine 0.70, Estimat Glomerular Filtration Rate > 60, BUN/Creatinine Ratio 30, Glucose Level 168H, Calcium Level 9.4, Corrected Calcium 9.3, Total Bilirubin 0.3, Aspartate Amino Transf (AST/SGOT) 30, Alanine Aminotransferase (ALT/SGPT) 34, Alkaline Phosphatase 85, Total Protein 7.3, Albumin 4.1, Triglycerides Level 175H, Cholesterol Level 188, LDL Cholesterol Direct 114, VLDL Cholesterol 35, HDL Cholesterol 46 09/22/19 15:40: Prothrombin Time 12.9, INR Comment 0.9, Activated Partial Thromboplast Time 30 09/22/19 19:29: Glucometer 303H 09/23/19 03:32: White Blood Count 4.4, Red Blood Count 4.00L, Hemoglobin 12.2, Hematocrit 36, Mean Corpuscular Volume 90, Mean Corpuscular Hemoglobin 31, Mean Corpuscular Hemoglobin Concent 34, Red Cell Distribution Width 13.6, Platelet Count 239, Mean Platelet Volume 9.4 09/23/19 03:37: Sodium Level 142, Potassium Level 3.9, Chloride Level 110H, Carbon Dioxide Level 19L, Anion Gap 13, Blood Urea Nitrogen 15, Creatinine 0.59L, Estimat Glomerular Filtration Rate > 60, BUN/Creatinine Ratio 25, Glucose Level 94, Calcium Level 8.9 Microbiology 09/22/19 MRSA Screen - Final, Complete MRSA not isolated Procedures S/P cardiac cath with successful intervention on Sep 22, 2019. Please refer to Dr. Dawson's cardiac cath report for details. A/P: Assessment: Coronary artery disease primarily consisting of in-stent restenosis within the mid right coronary artery that has previously been stented with nonoverlapping, Promus 3.0 x 32 mm and 3.0 x 12 mm stents in 2013. Successful balloon angioplasty was carried out to restenosis with reduction of stenosis to no significant residual. The rest of the coronary vessels have diffuse mild to moderate disease. Normal global left ventricular systolic function with ejection fraction 55% to 60%. Elevated left ventricular end-diastolic pressure per cardiac cath of September 22, 2019 Echocardiogram of August 30, 2017 showed LVEF 60-65%. Grade 1 diastolic dyfunction. PASP approx 35-40mmHg. Mild TR. H/O Acute inferior wall ST elevation NC on 01/17/14. Rheumatoid arthritis, by history Chronic tobacco use - attempting to quit DM I Hypothyroidism Depression - symptoms currently controlled Carotid u/s of Dec 2017 showed minimal plaque bilat HLD - followed by her PCP Plan: Discuss coronary status with her in detail OK to discharge home today Continue same medications including dual anti-platelet tx Continue BB Advise f/u in 1 week or sooner if needed MANUEL AMARAL Sep 23, 2019 07:50
[2019-09-23] MEDS ORDERED: inSUlin ASPART (NovoLOG) 1 UNIT/0.01 ML (CHARGE PER UNIT) SQ SCH (08:00)
[2019-09-23] MEDS: meTOprolol TARTRATE 25 MG (LOPRESSOR) TABLET PO SCH (08:03)
[2019-09-23] MEDS: CELECOXIB 200 MG CAPSULE PO SCH (08:04)
[2019-09-23] MEDS ORDERED: METO-333 PO (08:51)
--- NOTE | 2019-09-23 08:52 | Discharge Inst-Cardiology ---
Discharge Inst-Cardiac Discharge Medications New Medications: Metoprolol Tartrate (Metoprolol Tartrate) 25 Mg Tablet 0 MG PO BID, #60 TAB 5 Refills Continued Medications: Adalimumab (Humira) 40 Mg/0.8 Ml Pen.[email or web address].kit 40 MG SQ 2xmo, EA Aripiprazole (Abilify) 10 Mg Tablet 10 MG PO HS, TAB Aspirin (Aspirin EC) 81 Mg Tablet.dr 81 MG PO DAILY, TAB Celecoxib (Celecoxib) 200 Mg Capsule 200 MG PO BID, CAP Clopidogrel Bisulfate (Clopidogrel) 75 Mg Tablet 75 MG PO DAILY, TAB Desvenlafaxine Succinate (Pristiq ER) 100 Mg Tab.er.24h 100 MG PO DAILY, TAB Folic Acid (Folic Acid) 1 Mg Tablet 1 MG PO DAILY, TAB Insulin Aspart (Novolog) 100 Unit/1 Ml Susp 10 UNITS SC 1200,1800, EA Insulin Aspart (Novolog) 100 Unit/1 Ml Susp 15 UNIT SQ 0800, EACH Insulin Detemir (Levemir Flextouch) 100 Unit/1 Ml Insuln.pen 20 UNIT SQ HS, EA Insulin Determir (Levemir) 1,000 Units/10 Ml Soln 30 UNITS SC DAILY, EA Levothyroxine Sodium (Levothyroxine Sodium) 200 Mcg Tablet 200 MCG PO DAILY, TAB Methotrexate Tablet (Methotrexate Tablet) 2.5 Mg Tablet 17.5 MG PO Th, TAB TAKES 7 (2.5MG) TABLETS Mirtazapine (Mirtazapine) 15 Mg Tablet 15 MG PO HS, TAB Simvastatin (Simvastatin) 40 Mg Tablet 40 MG PO HS, TAB Tramadol HCl (Tramadol HCl) 50 Mg Tablet 50 MG PO Q6H PRN for PAIN-MODERATE (5-7), TAB Discontinued Medications: Metoprolol Tartrate (Metoprolol Tartrate) 25 Mg Tablet 12.5 MG PO BID, TAB TAKES 1/2 (25MG) TABLET New, Converted or Re-Newed RX: Transmitted to Pharmacy Patient Instructions Patient Instructions: Please schedule follow up appointment to see Dr. Dawson next week MANUEL AMARAL Sep 23, 2019 08:52
[2019-09-23] MEDS ORDERED: ASPIRIN 81 MG CHEW (CHILDREN'S ASA) PO SCH (09:00)
[2019-09-23] MEDS ORDERED: DESVENLAFAXINE 100 MG PO SCH (09:00)
[2019-09-23] MEDS ORDERED: NON-FORMULARY MEDICATION 1 EA EA (Levothyroxine Sodium 200 MCG) PO SCH (09:00)
[2019-09-23] MEDS ORDERED: FOLIC ACID 1 MG TAB PO SCH (09:00)
[2019-09-23] MEDS ORDERED: CLOPIDOGREL 75 MG (PLAVIX) TABLET PO SCH (09:00)
--- NOTE | 2019-09-23 09:52 | Progress Note - Cardiology ---
Cardiology SOAP Progress Note Subjective: No cp or palp or syncope or shortness of breath No groin or leg discomfort No weakness or focal weakness No n/v/d Objective: I&O/Vital Signs 09/22/19 09/22/19 09/23/19 09/23/19 22:00 23:00 00:00 01:00 Pulse 100 93 98 94 Resp 16 28 20 17 B/P (MAP) 136/76 (96) 138/71 (93) 134/77 (96) 136/72 (93) Pulse Ox 96 95 96 97 O2 Delivery Room Air Room Air Room Air Room Air 09/23/19 09/23/19 09/23/19 09/23/19 01:00 02:00 03:00 04:00 Pulse 90 89 85 89 Resp 17 26 12 B/P (MAP) 154/93 (113) 144/80 (101) 145/80 (101) Pulse Ox 98 98 97 O2 Delivery Room Air Room Air Room Air 09/23/19 09/23/19 09/23/19 04:21 07:16 08:00 Temp 36.9 36.9 Pulse 113 Resp 19 B/P (MAP) 167/82 (110) Pulse Ox 96 96 O2 Delivery Room Air Room Air Weight (Pounds): 130 Weight (Ounces): 0.0 Weight (Calculated Kilograms): 58.032853 Side: right Groin site without hematoma: Yes Condition: DP/PT pulses palpable, extremity w/d/p Bruising: mild bruising Constitutional: AAO x 3, well-developed, well-nourished Respiratory: No accessory muscle use, No respiratory distress; chest expansion is symmetric, chest is bilaterally symmetric, lungs clear to auscultation Cardiovascular: regular rate-rhythm; No JVD; S1 and S2 Gastrointestional: No tender; soft, round, audible bowel sounds Extremities: no lower extremity edema bilateral Neurologic/Psychiatric: grossly intact (moves all extremities) Skin: No rash on exposed areas, No ulcerations on exposed areas Results/Procedures: Labs Laboratory Tests 09/22/19 10:45: White Blood Count 7.7, Red Blood Count 4.37, Hemoglobin 13.0, Hematocrit 40, Mean Corpuscular Volume 91, Mean Corpuscular Hemoglobin 30, Mean Corpuscular Hemoglobin Concent 33, Red Cell Distribution Width 13.8, Platelet Count 266, Mayi n Platelet Volume 9.5, Prothrombin Time 12.7, INR Comment 0.9, Activated Partial Thromboplast Time 26, Sodium Level 140, Potassium Level 4.2, Chloride Level 105, Carbon Dioxide Level 25, Anion Gap 10, Blood Urea Nitrogen 21H, Creatinine 0.70, Estimat Glomerular Filtration Rate > 60, BUN/Creatinine Ratio 30, Glucose Level 168H, Calcium Level 9.4, Corrected Calcium 9.3, Total Bilirubin 0.3, Aspartate Amino Transf (AST/SGOT) 30, Alanine Aminotransferase (ALT/SGPT) 34, Alkaline Phosphatase 85, Total Protein 7.3, Albumin 4.1, Triglycerides Level 175H, Cholesterol Level 188, LDL Cholesterol Direct 114, VLDL Cholesterol 35, HDL Cholesterol 46 09/22/19 15:40: Prothrombin Time 12.9, INR Comment 0.9, Activated Partial Thromboplast Time 30 09/22/19 19:29: Glucometer 303H 09/23/19 03:32: White Blood Count 4.4, Red Blood Count 4.00L, Hemoglobin 12.2, Hematocrit 36, Mean Corpuscular Volume 90, Mean Corpuscular Hemoglobin 31, Mean Corpuscular Hemoglobin Concent 34, Red Cell Distribution Width 13.6, Platelet Count 239, Mean Platelet Volume 9.4 09/23/19 03:37: Sodium Level 142, Potassium Level 3.9, Chloride Level 110H, Carbon Dioxide Level 19L, Anion Gap 13, Blood Urea Nitrogen 15, Creatinine 0.59L, Estimat Glomerular Filtration Rate > 60, BUN/Creatinine Ratio 25, Glucose Level 94, Calcium Level 8.9 09/23/19 09:00: Glucometer 308H Microbiology 09/22/19 MRSA Screen - Final, Complete MRSA not isolated Laboratory Tests 09/22/19 10:45 09/23/19 03:32 09/23/19 03:37 A/P: Assessment: Coronary artery disease. Last card cath on 09/22/19: in-stent restenosis within the mid right coronary artery that has previously been stented with nonoverlapping, Promus 3.0 x 32 mm and 3.0 x 12 mm stents in 2013. Successful balloon angioplasty was carried out to restenosis with reduction of stenosis to no significant residual. The rest of the coronary vessels have diffuse mild to moderate disease. Normal global left ventricular systolic function with ejection fraction 55% to 60%. Elevated left ventricular end-diastolic pressure Echocardiogram of August 30, 2017 showed LVEF 60-65%. Grade 1 diastolic dyfunction. PASP approx 35-40mmHg. Mild TR. H/O Acute inferior wall ST elevation RI on 01/17/14. Rheumatoid arthritis, by history Chronic tobacco use - attempting to quit DM I Hypothyroidism Depression - symptoms currently controlled Carotid u/s of Dec 2017 showed minimal plaque bilat HLD - followed by her PCP Plan: I had a detailed discussion with her regarding cath finding and interventions undertaken. We discussed risk factor modification. We advised her quit smoking immediately and completely. We advised med compliance OK to discharge home today Continue same medications including dual anti-platelet tx Continue BB Advise f/u in 1 week or sooner if needed AYDE ROBERTS MD FACP FAC CCDS Sep 23, 2019 09:52
[2019-09-29] MEDS ORDERED: METHOTREXATE 2.5 MG TAB PO SCH (09:00)
== END 2019-09-23 10:13 ==
LOC: CATH 09:53 → ICU 13:28 → CATH 09-23 10:13
PROVIDERS: ATTEND Internal Medicine Cardiovascular Disease
DX: I25.119 Atherosclerotic heart disease of native coronary artery with unspecified angina pectoris (principal); I25.10 Atherosclerotic heart disease of native coronary artery without angina pectoris; F32.9 Major depressive disorder, single episode, unspecified; K64.0 First degree hemorrhoids; K57.30 Diverticulosis of large intestine without perforation or abscess without bleeding; E78.5 Hyperlipidemia, unspecified; F17.210 Nicotine dependence, cigarettes, uncomplicated; M06.9 Rheumatoid arthritis, unspecified; E03.9 Hypothyroidism, unspecified; E10.9 Type 1 diabetes mellitus without complications; Z79.82 Long term (current) use of aspirin; Z79.899 Other long term (current) drug therapy; Z88.5 Allergy status to narcotic agent; Z88.2 Allergy status to sulfonamides; Z88.1 Allergy status to other antibiotic agents
CPT/HCPCS: 80048; 80053; 80061; 82962 ×2; 85027 ×2; 85610; 85730; 87081; 92920; 93005; 93458; C1725; C1769; C1887; C1894 ×2; 36415

== ENCOUNTER → 2019-10-01 | Outpatient (CLI) | payer MEDICARE, MEDICAID ==
[~2019-10-01] MED LIST changes: +ADAL40PE SQ; +LEVO200T6 PO
== END ==
LOC: CARD 11:41
PROVIDERS: ATTEND Internal Medicine Cardiovascular Disease
DX: R00.2 Palpitations (principal); I25.10 Atherosclerotic heart disease of native coronary artery without angina pectoris; E78.2 Mixed hyperlipidemia; Z72.0 Tobacco use
CPT/HCPCS: 93225; 93226

== ENCOUNTER → 2019-10-20 | Outpatient (CLI) | payer MEDICARE, MEDICAID ==
--- NOTE | 2019-10-20 14:32 | Diagnostic Imaging Report ---
INDICATION: Screening. The current study was also evaluated with a Computer Aided Detection (CAD) system. 3-D Tomographic imaging was also performed. Comparison made with prior examination from 07/15/2014. FINDINGS: The fibroglandular tissue is heterogeneously dense bilaterally. There are unchanged benign-type calcifications in the breasts bilaterally. There is no new dominant mass, spiculated lesions or suspicious calcifications identified. Skin, nipples and axilla are unremarkable. IMPRESSION: Category 2 benign ACR BI-RADS Category 2: Benign findings. Result letter will be mailed to the patient. Note: At least 10% of breast cancer is not imaged by mammography. Dictated by: Dictated on workstation # [id number]
== END ==
LOC: RAD 10:48
PROVIDERS: ATTEND Physician Assistant
DX: Z12.31 Encounter for screening mammogram for malignant neoplasm of breast (principal)
CPT/HCPCS: 77063; 77067

== ENCOUNTER → 2020-05-10 | Outpatient (CLI) | payer MEDICARE, MEDICAID ==
[~2020-05-10] MED LIST changes: -ACET-2715 PO; +ACET-3075 PO; +ASPI-1238 PO; -ASPI-983 PO; -FOLI1TAB24 PO; +FOLI1TAB33 PO
--- NOTE | 2020-05-10 14:41 | Diagnostic Imaging Report ---
INDICATION: Postmenopausal screening COMPARISON: Baseline FINDINGS: AP Spine L1-L4: [BMD (g/cm2): 0.915] [T-Score: -2.4] [Z-Score: -1.3] [BMD Previous: NA] [BMD % Change: NA] LT Hip Neck: [BMD (g/cm2): 0.675] [T-Score: -2.6] [Z-Score: -1.4] LT Hip Total: [BMD (g/cm2):0.732] [T-Score:-2.2] [Z-Score: -1.4] [BMD Previous: NA] [BMD % Change: NA] RT Hip Neck: [BMD (g/cm2):0.717] [T-Score:-2.3] [Z-Score:-1.1] RT Hip Total: [BMD (g/cm2):0.706] [T-score:-2.4] [Z-Score:-1.6] [BMD Previous:NA] [BMD % Change:NA] *Indicates significant change from prior examination based on 95% confidence level. World Health Organization criteria for BMD interpretation classify patients as Normal (T-score at or above -1.0), Osteopenic (T-score between -1.0 and -2.5) or Osteoporotic (T-score at or below -2.5). LIMITATIONS AND MODIFICATION: None. FRACTURE RISK (FRAX SCORE): The ten year probability of (%): Major Osteoporotic Fracture: [14.1] Hip Fracture: [5.1] IMPRESSION: 1. Osteoporosis. 2. Baseline examination. 3. See below National Osteoporosis Foundation guidelines on when to potentially initiate pharmacologic therapy. Based on the National Osteoporosis Foundation Guidelines, pharmacologic treatment should be initiated in any of the following, unless clinical conditions suggest otherwise: * Any patient with prior fragility fracture of the hip or vertebrae. A spine fracture indicates 5X risk for subsequent spine fracture and 2X risk for subsequent hip fracture. * Osteoporosis (T-score <-2.5). * Postmenopausal women and men age 50 and older with low bone mass/osteopenia (T-score between -1.0 and -2.5) by DXA and 10-year major osteoporotic fracture greater than 20% or a 10-year probability of hip fracture greater than 3%. These fracture risks are supplied above in the FRAX score, if applicable. * Clinician judgement and/or patient preferences may indicate treatment for people with 10-year fracture probabilities above or below these levels. Dictated by: Dictated on workstation # [id number]
== END ==
LOC: RAD 09:23
PROVIDERS: ATTEND Physician Assistant
DX: M81.0 Age-related osteoporosis without current pathological fracture (principal); Z87.81 Personal history of (healed) traumatic fracture
CPT/HCPCS: 77080

== ENCOUNTER → 2020-08-26 | Outpatient (CLI) | payer MEDICARE, MEDICAID ==
[~2020-08-26] MED LIST changes: +MIRT-68 PO; -MIRT15TA6 PO; -OXYC-464 PO; +OXYC1TAB15 PO
--- NOTE | 2020-08-26 17:02 | Diagnostic Imaging Report ---
PROCEDURE: MR imaging cervical spine without contrast. TECHNIQUE: Multiplanar, multisequence MR imaging of the cervical spine was performed without contrast. INDICATION: Neck pain radiating to right upper extremity. COMPARISON: None. FINDINGS: Normal alignment. Vertebral body heights are preserved. Normal bone marrow signal. No abnormal signal in the cervical spinal cord. Visualized paravertebral soft tissues are unremarkable. C2-C3: No spinal canal or neural foraminal narrowing. C3-C4: No spinal canal or neural foraminal narrowing. C4-C5: Annular disc bulge results in mild spinal canal and moderate bilateral neural foraminal narrowing. C5-C6: Central disc protrusion combines with ligamentous hypertrophy to result in severe spinal canal stenosis. There is also severe bilateral neural foraminal narrowing. C6-C7: Annular disc bulge with overlying right paracentral disc extrusion results in moderate spinal canal stenosis and severe right neural foraminal narrowing. There is also [id number] left neural foraminal narrowing. C7-T1: Annular disc bulge results in mild spinal canal and bilateral neural foraminal narrowing. IMPRESSION: 1. Spondylotic changes result in high-grade spinal canal stenosis at C5-C6 greater than C6-C7. 2. Multilevel high-grade neural foraminal narrowing, detailed above level by level. 3. No abnormal signal in the cervical spinal cord. Dictated by: Dictated on workstation # [id number]
== END ==
LOC: RAD 15:30
PROVIDERS: ATTEND Physician Assistant
DX: M47.812 Spondylosis without myelopathy or radiculopathy, cervical region (principal); M50.23 Other cervical disc displacement, cervicothoracic region; M48.03 Spinal stenosis, cervicothoracic region; M50.222 Other cervical disc displacement at C5-C6 level; G56.91 Unspecified mononeuropathy of right upper limb
CPT/HCPCS: 72141

== ENCOUNTER → 2021-01-16 | Outpatient (CLI) | payer MEDICARE, MEDICAID | LOC: LABNPT 06:00 | PROVIDERS: ATTEND Orthopaedic Surgery Orthopaedic Trauma | DX: Z01.812 Encounter for preprocedural laboratory examination (principal); Z20.822 Contact with and (suspected) exposure to COVID-19 | CPT/HCPCS: 87635 ==

== ENCOUNTER → 2021-09-20 | Outpatient (CLI) | payer MEDICARE, MEDICAID ==
[~2021-09-20] MED LIST changes: +RT-ALBUTEROL SULF 2.5 MG/3 ML PRE-MIX VIAL INH ONE
== END ==
LOC: RT 09:15
PROVIDERS: ATTEND Nurse Practitioner Family
DX: J44.9 Chronic obstructive pulmonary disease, unspecified (principal); F17.210 Nicotine dependence, cigarettes, uncomplicated
CPT/HCPCS: 94060; 94726; 94729

== ENCOUNTER → 2021-11-21 | Outpatient (CLI) | payer MEDICARE, MEDICAID ==
[~2021-11-21] MED LIST changes: -RT-ALBUTEROL SULF 2.5 MG/3 ML PRE-MIX VIAL INH ONE
== END ==
LOC: CARD 14:02
PROVIDERS: ATTEND Nurse Practitioner Family
DX: R06.00 Dyspnea, unspecified (principal)
CPT/HCPCS: 93306

== ENCOUNTER → 2021-11-28 | Outpatient (CLI) | payer MEDICARE, MEDICAID ==
[~2021-11-28] VITALS: Ht 160 cm; Wt 60.0 kg
[~2021-11-28] MED LIST changes: +CATHETER FLUSH 10 ML SYR IVP PRN; +REGADENOSON 0.4 MG/5 ML SYR (LEXISCAN) IV ONE
[2021-11-28 09:04] VITALS: BP 140/67
--- NOTE | 2021-11-30 13:41 | STRESS TEST ---
DATE OF SERVICE: 11/28/2021 RESTING AND POST REGADENOSON TECHNETIUM-99M TETROFOSMIN SPECT CT IMAGING CLINICAL DIAGNOSIS: Coronary artery disease. ORDERING PHYSICIAN: Selena Magaña APRN PRIMARY PHYSICIAN: [facility]. Baseline images were carried out after injection of 10.16 mCi of technetium-99m Tetrofosmin. This was followed by 0.4 mg regadenoson and 29.8 mCi of technetium-99m Tetrofosmin for stress imaging. The electrocardiogram showed sinus rhythm at baseline. Rare premature atrial contraction was seen. The patient noted some shortness of breath following regadenoson infusion, which resolved in a few minutes. Review of images at rest and following stress does not indicate any significant perfusion defects consistent with significant myocardial ischemia or infarction. Gated images show normal global left ventricular systolic function with normal regional wall motion. Left ventricular ejection fraction is calculated to be 73%. CONCLUSIONS: 1. No evidence of any significant myocardial ischemia or infarction on this study. 2. Normal regional wall motion. 3. Normal global left ventricular systolic function with a calculated ejection fraction of 73%. Job ID: [id number] DocumentID: [id number] Dictated Date: 11/30/2021 09:29:01 [employer] Date: 11/30/2021 13:40:48 Dictated By: AYDE ROBERTS MD, MA, FACP, FACC,
== END ==
LOC: CARD 07:23
PROVIDERS: ATTEND Nurse Practitioner Family
DX: I25.10 Atherosclerotic heart disease of native coronary artery without angina pectoris (principal)
CPT/HCPCS: 78452; 93017; A9502

== ENCOUNTER → 2022-01-05 | Outpatient (CLI) | payer MEDICARE, MEDICAID ==
[~2022-01-05] MED LIST changes: -CATHETER FLUSH 10 ML SYR IVP PRN; -REGADENOSON 0.4 MG/5 ML SYR (LEXISCAN) IV ONE
== END ==
LOC: CARD 09:30
PROVIDERS: ATTEND Internal Medicine Critical Care Medicine
DX: I27.23 Pulmonary hypertension due to lung diseases and hypoxia (principal); J84.10 Pulmonary fibrosis, unspecified
CPT/HCPCS: 93306

== ENCOUNTER → 2022-10-03 | Outpatient (CLI) | payer MEDICARE, MEDICAID ==
[~2022-10-03] MED LIST changes: -INSU100I29 SQ; +INSU100I30 SQ
== END ==
LOC: CARD 10:42
PROVIDERS: ATTEND Internal Medicine Critical Care Medicine
DX: J84.10 Pulmonary fibrosis, unspecified (principal); J44.1 Chronic obstructive pulmonary disease with (acute) exacerbation; J84.9 Interstitial pulmonary disease, unspecified
CPT/HCPCS: 93306